=== PATIENT | female | born 1980 | race Caucasian/White ===

== ENCOUNTER 2016-12-03 19:17 | Inpatient (IN) | payer OTHER ==
[2016-12-03 19:22] VITALS: BMI 24.3
--- NOTE | 2016-12-03 20:51 | PDOC ---
History of Present Illness - General Chief Complaint: Back Pain Stated Complaint: BACK PAIN Time Seen by Provider: 12/03/16 20:01 - History of Present Illness Initial Comments: 12/03/16 20:51 CHIEF COMPLAINT: back pain HISTORY OF PRESENT ILLNESS: 36 yo F with hx of asthma and hysterectomy sent in by PCP Reagan for intractable back pain. Patient recently had MRI of lumbar spine on 11/28 positive for degenerative disc w/ bulging at L5/S1. Patient has allergies to multiple narcotics except for Fentanyl. No recent travel or sick contacts. PAST MEDICAL HISTORY: Denies past medical history FAMILY HISTORY: Denies SOCIAL HISTORY: Denies tobacco, alcohol, illicit drug use. SURGICAL HISTORY: Denies ALLERGIES: codeine, Dilaudid, morphine, Percocet, albuterol REVIEW OF SYSTEMS General/Constitutional: Denies fever or chills. HEENT: Denies change in vision. Denies ear pain or discharge. Denies sore throat. Cardiovascular: Denies chest pain or shortness of breath. Respiratory: Denies cough, wheezing, or hemoptysis. Gastrointestinal: Denies nausea, vomiting, diarrhea or constipation. Denies rectal bleeding. Genitourinary: Denies dysuria, frequency, or change in urination. Musculoskeletal: Intractable back pain. PHYSICAL EXAM General Appearance: Well-appearing, appropriately dressed. No apparent distress. HEENT: EOMI, PERRLA, normal ENT inspection, normal voice, TMs normal, pharynx normal. No conjunctival pallor. No photophobia, scleral icterus. Neck: Supple. Trachea midline. No tenderness, rigidity, carotid bruit, stridor , lymphadenopathy, or thyromegaly. Respiratory/Chest: Lungs CTAB. Cardiovascular: RRR. S1, S2. Musculoskeletal/Extremities: Midline tenderness to lumbar spine. Normal inspection. FROM of all extremities, normal capillary refill. Pelvis Stable. No CVA tenderness. No tenderness to extremities, pedal edema, swelling, erythema or deformity. Integumentary: Appropriate color, dry, warm. 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 Fully oriented, alert. Appropriate mood/affect. Motor strength 5/5. No appreciable EOM palsy, facial droop or sensory deficit. Past History - Past Medical History Allergies/Adverse Reactions: Allergies Allergy/AdvReac Type Severity Reaction Status Date / Time albuterol Allergy Severe Swelling Verified 12/03/16 19:22 banana Allergy Unknown Verified 12/05/16 13:33 mushroom Allergy Unknown Verified 12/05/16 13:32 codeine [Codeine] Allergy Difficulty Verified 12/03/16 19:22 Breathing Fish Containing Products Allergy Verified 12/03/16 19:22 hydromorphone HCl Allergy difficulty Verified 12/03/16 19:22 [From Dilaudid] breathibg samir Allergy Verified 12/03/16 19:22 meperidine HCl [From Demerol] Allergy Difficulty Verified 12/03/16 19:22 Breathing metoclopramide HCl Allergy Swelling Verified 05/10/16 11:58 [From Reglan] morphine Allergy difficulty Verified 12/03/16 19:22 breathibg oxycodone HCl [From Percocet] Allergy Verified 12/03/16 19:22 shellfish derived Allergy Swelling,ra Verified 12/03/16 19:22 sh watermelon Allergy Verified 05/06/16 08:15 cantaloupe Allergy Uncoded 05/10/16 11:58 miller Allergy Uncoded 05/10/16 11:58 MULTIPLE FOOD Allergy Uncoded 05/10/16 11:58 mustard,fish,vinegar Allergy swelling,ra Uncoded 05/10/16 11:58 sh NARCOTICS Allergy Difficulty Uncoded 05/10/16 11:58 Breathing nuts Allergy Uncoded 05/10/16 11:58 Home Medications: Ambulatory Orders Quetiapine Fumarate [Seroquel -] 25 mg PO HS 03/10/12 Diazepam [Valium -] 10 mg PO HS 10/31/13 Ranitidine HCl [Zantac] 300 mg PO DAILY 05/05/16 Naproxen [Naprosyn -] 500 mg PO BID #60 tablet 05/06/16 Tramadol HCl 50 mg PO TID 05/10/16 Anemia: Yes Asthma: Yes Cancer: No 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) CVA: No COPD: No CHF: No Dementia: No Diabetes: No (HYPOGLYCEMIA) GI Disorders: Yes (REFLUX) Disorders: No HTN: No (HYPOTENSION) Hypercholesterolemia: No Liver Disease: No Suicide Attempt (Hx): No Seizures: No Thyroid Disease: No Other medical history: herniated disc - Surgical History Abdominal Surgery: No Appendectomy: No Cardiac Surgery: No Cholecystectomy: Yes Lung Surgery: No Neurologic Surgery: No Orthopedic Surgery: No - Psycho/Social/Smoking Cessation Hx Anxiety: No Suicidal Ideation: No Smoking Status: Yes Smoking History: Former smoker Have you smoked in the past 12 months: Yes Number of Cigarettes Smoked Daily: 2 If you are a former smoker, when did you quit?: 1 month Information on smoking cessation initiated: No 'Breaking Loose' booklet given: 10/31/13 Hx Alcohol Use: Yes (SOCIAL) Drug/Substance Use Hx: No Substance Use Type: None Hx Substance Use Treatment: No *Physical Exam - Vital Signs Last Vital Signs Temp Pulse Resp BP Pulse Ox 97.7 F 95 H 18 115/91 99 12/03/16 19:18 12/03/16 19:18 12/03/16 19:18 12/03/16 19:18 12/03/16 19:18 ED Treatment Course - LABORATORY CBC & Chemistry Diagram: 12/11/16 06:30 12/11/16 06:30 Medical Decision Making - Medical Decision Making 36 yo F with hx of asthma and hysterectomy sent in by PCP Reagan for admission intractable back pain. -CBC, CMP -EKG -UA, Ucx -IV Fentanyl, Pepcid, IVF, Protonix Discussed case with MD Denton, patient admitted to med/surg. *DC/Admit/Observation/Transfer Diagnosis at time of Disposition: Intractable back pain - Discharge Dispostion Admit: Yes
--- NOTE | 2016-12-03 20:56 | PDOC ---
*Physical Exam - Vital Signs Last Vital Signs Temp Pulse Resp BP Pulse Ox 97.7 F 95 H 18 115/91 99 12/03/16 19:18 12/03/16 19:18 12/03/16 19:18 12/03/16 19:18 12/03/16 19:18 ED Treatment Course - LABORATORY CBC & Chemistry Diagram: 12/04/16 06:20 12/04/16 06:20 Medical Decision Making - Medical Decision Making 12/03/16 20:56 agree with care from JUD Garces *DC/Admit/Observation/Transfer Diagnosis at time of Disposition: Intractable back pain
[2016-12-03] MEDS ORDERED: PANTOPRAZOLE SODIUM 40 MG in SODIUM CHLORIDE 100 ML IVPB ONE (22:11)
[2016-12-03] MEDS ORDERED: FAMOTIDINE 20 MG/50 ML IVPB 50 ML IVPB ONE ×2 (22:11→22:16)
[2016-12-03 22:13] LABS: BASOPHIL 0.5 % (0-2.0); EOSINOPHIL 1.2 % (0-4.5); MCH 28.9 pg (25.7-33.7); MCHC 32.6 g/dl (32.0-36.0); MEAN CELL VOLUME 88.7 fl (80-96); MEAN PLT VOLUME 8.7 fl (7.5-11.1); NEUTROPHILS 71.3 % (42.8-82.8); PLATELET COUNT 364 K/MM3 (134-434); RDW 13.7 % (11.6-15.6); WHITE BLOOD COUNT 11.4 K/mm3 (4.0-10.0)
[2016-12-03] MEDS ORDERED: PANTOPRAZOLE SODIUM 100 ML IVPB ONE (22:16)
[2016-12-03] MEDS ORDERED: SODIUM CHLORIDE 0.9% 1000 ML INFUS.BAG IV ONE (22:24)
[2016-12-03 22:25] LABS: URINE APPEARANCE SLCLOUDY; URINE BILIRUBIN NEGATIVE (NEGATIVE); URINE BLOOD NEGATIVE (NEGATIVE); URINE COLOR YELLOW; URINE GLUCOSE (UA) NEGATIVE (NEGATIVE); URINE KETONE NEGATIVE (NEGATIVE); URINE LEUK ESTERASE NEGATIVE (NEGATIVE); URINE NITRITE NEGATIVE (NEGATIVE); URINE PROTEIN NEGATIVE (NEGATIVE); URINE UROBILINOGEN NEGATIVE mg/dL (0.2-1.0)
[2016-12-03 23:05] LABS: ALBUMIN 3.6 g/dl (3.4-5.0); ANION GAP 7 (8-16); BILIRUBIN,TOTAL 0.3 mg/dL (0.2-1.0); CALCIUM 8.4 mg/dL (8.5-10.1); CO2 27 mmol/L (21-32); CREATININE 0.5 mg/dL (0.55-1.02); GLUCOSE,RANDOM 84 mg/dL (74-106); SGOT/AST 36 U/L (15-37); SGPT/ALT 52 U/L (12-78); TOT PROT 6.8 g/dl (6.4-8.2)
[2016-12-03 23:06] LABS: ALK PHOS 96 U/L (45-117)
[2016-12-03] MEDS ORDERED: FENTANYL PATCH WASTE TD PRN (23:40)
[2016-12-03] MEDS ORDERED: ONDANSETRON 4 MG/2 ML VIAL IVPB PRN (23:41)
[2016-12-03] MEDS: fentaNYL 25mcg/hr PATCH.TD72 TD SCH (23:57)
[2016-12-03] MEDS: diazePAM 5 MG TABLET PO SCH (23:57)
[2016-12-04] MEDS: DOCUSATE SODIUM 100 MG CAPSULE (FP) PO SCH ×3 (00:03→21:35)
[2016-12-04] MEDS: QUEtiapine FUMARATE 25 MG TABLET (FP) PO SCH ×2 (00:03→21:36)
[2016-12-04] MEDS: NAPROXEN 500 MG TABLET (FP) PO SCH ×3 (00:56→21:36)
[2016-12-04] MEDS: ACETAMINOPHEN 325 MG TABLET (FP) PO PRN ×2 (07:04→19:07)
[2016-12-04 07:28] LABS: BASOPHIL 0.2 % (0-2.0); EOSINOPHIL 1.8 % (0-4.5); MCH 29.9 pg (25.7-33.7); MCHC 33.8 g/dl (32.0-36.0); MEAN CELL VOLUME 88.3 fl (80-96); MEAN PLT VOLUME 7.8 fl (7.5-11.1); NEUTROPHILS 61.3 % (42.8-82.8); PLATELET COUNT 253 K/MM3 (134-434); RDW 13.8 % (11.6-15.6)
[2016-12-04 07:49] LABS: ANION GAP 7 (8-16); CALCIUM 8.1 mg/dL (8.5-10.1); CO2 24 mmol/L (21-32); CREATININE 0.5 mg/dL (0.55-1.02); GLUCOSE,RANDOM 87 mg/dL (74-106); SGOT/AST 23 U/L (15-37); SGPT/ALT 39 U/L (12-78)
[2016-12-04 07:51] LABS: ALK PHOS 84 U/L (45-117); BILIRUBIN,TOTAL 0.3 mg/dL (0.2-1.0); TOT PROT 5.9 g/dl (6.4-8.2)
[2016-12-04] MEDS ORDERED: NAPROXEN 500 MG TABLET (FP) PO SCH (10:00)
--- NOTE | 2016-12-04 10:30 | HP ---
Admitting History and Physical - Primary Care Physician PCP: Tahir Kirk - Admission Chief Complaint: My back is hurting History of Present Illness: Mrs Wetzel is a pleasant 36 year old female who comes in with intractable back pain. She says she was at work last week. She bent over at work to pick something up and when she stood up she had severe lower back pain. She says that it was bilateral and radiated up to her neck. She presented to the ER and was prescribed valium and tramadol. In spite of this her pain was not controlled. She presented to Dr Kirk and underwent MRI, she was found to have a herniated disc. She went back to work the past three days but was still have significant amount of pain. Then yesterday she says the pain was so severe it was unbearable. She threw up because of the pain. It began to radiate down both legs. She had numbness with the pain. She denies incontinence with it. Because she has multiple allergies to narcotics she came in and was admitted. She is still having significant back pain with numbness. History Source: Patient Limitations to Obtaining History: No Limitations - Past Medical History Pulmonary: Yes: Asthma ...LMP: 04/24/16 ...: No - Past Surgical History Past Surgical History: Yes: Cholecystectomy (btl), Hysterectomy (partial), Tubal Ligation - Smoking History Smoking history: Former smoker Have you smoked in the past 12 months: Yes Aproximately how many cigarettes per day: 2 If you are a former smoker, when did you quit?: 1 month - Alcohol/Substance Use Hx Alcohol Use: Yes (SOCIAL) History of Substance Use: reports: None - Social History Usual Living Arrangement: Yes: With Spouse ADL: Independent History of Recent Travel: No Home Medications - Allergies Allergies/Adverse Reactions: Allergies Allergy/AdvReac Type Severity Reaction Status Date / Time albuterol Allergy Severe Swelling Verified 12/03/16 19:22 codeine [Codeine] Allergy Difficulty Verified 12/03/16 19:22 Breathing Fish Containing Products Allergy Verified 12/03/16 19:22 hydromorphone HCl Allergy difficulty Verified 12/03/16 19:22 [From Dilaudid] breathibg samir Allergy Verified 12/03/16 19:22 meperidine HCl [From Demerol] Allergy Difficulty Verified 12/03/16 19:22 Breathing metoclopramide HCl Allergy Swelling Verified 05/10/16 11:58 [From Reglan] morphine Allergy difficulty Verified 12/03/16 19:22 breathibg oxycodone HCl [From Percocet] Allergy Verified 12/03/16 19:22 shellfish derived Allergy Swelling,ra Verified 12/03/16 19:22 sh watermelon Allergy Verified 05/06/16 08:15 cantaloupe Allergy Uncoded 05/10/16 11:58 miller Allergy Uncoded 05/10/16 11:58 MULTIPLE FOOD Allergy Uncoded 05/10/16 11:58 mustard,fish,vinegar Allergy swelling,ra Uncoded 05/10/16 11:58 sh NARCOTICS Allergy Difficulty Uncoded 05/10/16 11:58 Breathing nuts Allergy Uncoded 05/10/16 11:58 - Home Medications Home Medications: Ambulatory Orders Quetiapine Fumarate [Seroquel -] 25 mg PO HS 03/10/12 Diazepam [Valium -] 10 mg PO HS 10/31/13 Ranitidine HCl [Zantac] 300 mg PO DAILY 05/05/16 Naproxen [Naprosyn -] 500 mg PO BID #60 tablet 05/06/16 Tramadol HCl 50 mg PO TID 05/10/16 Family Disease History - Family Disease History Family Disease History: Diabetes: Father, Mother, Heart Disease: Father, Mother Review of Systems Findings/Remarks: Full review of systems obtained, as per HPI and otherwise negative Physical Examination Vital Signs: Vital Signs Temperature 98.2 F 12/04/16 02:11 Pulse Rate 81 12/04/16 02:11 Respiratory Rate 20 12/04/16 02:11 Blood Pressure 114/65 12/04/16 02:11 O2 Sat by Pulse Oximetry (%) 99 12/03/16 19:18 Constitutional: Yes: Well Nourished, No Distress, Calm Eyes: Yes: Conjunctiva Clear, EOM Intact, PERRL HENT: Yes: Atraumatic, Normocephalic Cardiovascular: Yes: Regular Rate and Rhythm. No: Gallop, Murmur, Rub Respiratory: Yes: Regular, CTA Bilaterally. No: Rales, Rhonchi, Wheezes Gastrointestinal: Yes: Normal Bowel Sounds, Soft. No: Distention, Tenderness Extremities: Yes: WNL Edema: No Labs: CBC, BMP 07/13/17 06:20 12/04/16 06:20 Problem List - Problems (1) Herniated intervertebral disc of lumbar spine Code(s): M51.26 - OTHER INTERVERTEBRAL DISC DISPLACEMENT, LUMBAR REGION (2) Intractable back pain Code(s): M54.9 - DORSALGIA, UNSPECIFIED Assessment/Plan -patient with pain and neuralgias secondary to herniated disc -admitted for pain control -started on fentanyl patch -consult pain management for pain control -is not incontinent, but is having neuralgias, so will consult neurosurgery to evaluate -physical therapy consult
[2016-12-04] MEDS: PANTOPRAZOLE 40 MG TABLET (FP) PO SCH (10:40)
--- NOTE | 2016-12-04 13:09 | EKG ---
Test Reason : Blood Pressure : / mmHG Vent. Rate : 080 BPM Atrial Rate : 080 BPM P-R Int : 236 ms QRS Dur : 072 ms QT Int : 384 ms P-R-T Axes : 050 -09 039 degrees QTc Int : 442 ms SINUS RHYTHM WITH 1ST DEGREE A-V BLOCK OTHERWISE NORMAL ECG WHEN COMPARED WITH ECG OF 02-AUG-2010 08:27, NO SIGNIFICANT CHANGE WAS FOUND Confirmed by DANETTE ROBERT MD ([id number]) on 12/04/2016 1:09:03 PM Referred By: Confirmed By:DANETTE ROBERT MD
[2016-12-04] MEDS: diazePAM 5 MG TABLET PO SCH (21:35)
[2016-12-04] MEDS ORDERED: DOCUSATE SODIUM 100 MG CAPSULE (FP) PO SCH (22:00)
[2016-12-04] MEDS ORDERED: diazePAM 5 MG TABLET PO SCH (22:00)
[2016-12-04] MEDS ORDERED: QUEtiapine FUMARATE 25 MG TABLET (FP) PO SCH (22:00)
[2016-12-04] MEDS ORDERED: DIAZEPAM PO SCH (22:00)
--- NOTE | 2016-12-04 22:37 | CONSULT ---
Consult Consult Specialty:: pain management Referred by:: dr berumen Reason for Consultation:: back pain - History of Present Illness Chief Complaint: back pain History of Present Illness: Mrs Wetzel is a pleasant 36 year old female who comes in with intractable back pain. She says she was at work last week. She bent over at work to pick something up and when she stood up she had severe lower back pain. She says that it was bilateral and radiated up to her neck. She presented to the ER and was prescribed valium and tramadol. In spite of this her pain was not controlled. She presented to Dr Berumen and underwent MRI, she was found to have a herniated disc. She went back to work the past three days but was still have significant amount of pain. Then yesterday she says the pain was so severe it was unbearable. She threw up because of the pain. It began to radiate down both legs. She had numbness with the pain. She denies incontinence with it. Because she has multiple allergies to narcotics she came in and was admitted. She is still having significant back pain with numbness. Currently she is laying in bed with severe pain on any movement. Pain score 10/ 10. She does reports history of severe sensitivity to steroids, opioids, neuropathic agents. - Past Medical History Pulmonary: Yes: Asthma ...LMP: 04/24/16 ...: No - Past Surgical History Past Surgical History: Yes: Cholecystectomy (btl), Hysterectomy (partial), Tubal Ligation - Alcohol/Substance Use Hx Alcohol Use: Yes (SOCIAL) History of Substance Use: reports: None - Smoking History Smoking history: Former smoker Have you smoked in the past 12 months: Yes Aproximately how many cigarettes per day: 2 If you are a former smoker, when did you quit?: 1 month - Social History ADL: Independent History of Recent Travel: No Home Medications - Allergies Allergies/Adverse Reactions: Allergies Allergy/AdvReac Type Severity Reaction Status Date / Time albuterol Allergy Severe Swelling Verified 12/03/16 19:22 codeine [Codeine] Allergy Difficulty Verified 12/03/16 19:22 Breathing Fish Containing Products Allergy Verified 12/03/16 19:22 hydromorphone HCl Allergy difficulty Verified 12/03/16 19:22 [From Dilaudid] breathibg samir Allergy Verified 07/12/17 19:22 meperidine HCl [From Demerol] Allergy Difficulty Verified 12/03/16 19:22 Breathing metoclopramide HCl Allergy Swelling Verified 05/10/16 11:58 [From Reglan] morphine Allergy difficulty Verified 12/03/16 19:22 breathibg oxycodone HCl [From Percocet] Allergy Verified 12/03/16 19:22 shellfish derived Allergy Swelling,ra Verified 12/03/16 19:22 sh watermelon Allergy Verified 05/06/16 08:15 cantaloupe Allergy Uncoded 05/10/16 11:58 miller Allergy Uncoded 05/10/16 11:58 MULTIPLE FOOD Allergy Uncoded 05/10/16 11:58 mustard,fish,vinegar Allergy swelling,ra Uncoded 05/10/16 11:58 sh NARCOTICS Allergy Difficulty Uncoded 05/10/16 11:58 Breathing nuts Allergy Uncoded 05/10/16 11:58 - Home Medications Home Medications: Ambulatory Orders Quetiapine Fumarate [Seroquel -] 25 mg PO HS 03/10/12 Diazepam [Valium -] 10 mg PO HS 10/31/13 Ranitidine HCl [Zantac] 300 mg PO DAILY 05/05/16 Naproxen [Naprosyn -] 500 mg PO BID #60 tablet 05/06/16 Tramadol HCl 50 mg PO TID 05/10/16 Family Disease History - Family Disease History Family Disease History: Diabetes: Father, Mother, Heart Disease: Father, Mother Physical Exam Vital Signs: Vital Signs Temperature 98.2 F 12/04/16 14:00 Pulse Rate 71 12/04/16 14:00 Respiratory Rate 21 12/04/16 14:00 Blood Pressure 113/65 12/04/16 14:00 O2 Sat by Pulse Oximetry (%) 99 12/03/16 19:18 Neurological: Yes: Tingling (in both legs), Weakness Labs: CBC, BMP 12/04/16 06:20 12/04/16 06:20 Assessment/Plan lumbar radiculopathy secondary to herniated disc 1. There is no mri available today. she reports having undergone an MRI last week. She will have her obtain a CD with her recent MRI. If this is not possible, would recommend new MRI lumbar spine non contrast 2. Since the patient reports severe sensitivity to cortisone, no interventional options recommended at this time 3. Neurosurgery eval once MRI images available to review
[2016-12-05] MEDS ORDERED: MAG HYDROX/AL HYDROX/SIMETH 30 ML UNIT-DOSE CUP PO ONE (07:30)
[2016-12-05 08:02] LABS: BASOPHIL 0.3 % (0-2.0); EOSINOPHIL 2.2 % (0-4.5); MCH 30.1 pg (25.7-33.7); MCHC 34.3 g/dl (32.0-36.0); MEAN CELL VOLUME 87.8 fl (80-96); MEAN PLT VOLUME 7.8 fl (7.5-11.1); NEUTROPHILS 54.7 % (42.8-82.8); PLATELET COUNT 255 K/MM3 (134-434); RDW 13.7 % (11.6-15.6); WHITE BLOOD COUNT 6.7 K/mm3 (4.0-10.0)
[2016-12-05 08:20] LABS: ANION GAP 5 (8-16); CALCIUM 8.9 mg/dL (8.5-10.1); CO2 27 mmol/L (21-32); CREATININE 0.5 mg/dL (0.55-1.02); GLUCOSE,RANDOM 96 mg/dL (74-106); MAGNESIUM 2.1 mg/dL (1.8-2.4); PHOSPHOROUS 3.5 mg/dL (2.5-4.9)
--- NOTE | 2016-12-05 11:15 | PN ---
Progress Note, Physician Chief Complaint: Mrs Wetzel says she is still feeling pain in her back and it is radiating down both legs. She also feels muscle spams and pulling associated with this. She says that she needed to urinate this morning and was unable to make it, and after she finished she stood up but continued to urinate. She denies chest pain , shortness of breath, nausea/vomiting but is having epigastric pain and constipation. - Current Medication List Current Medications: Active Medications Acetaminophen (Tylenol -) 650 mg PO Q4H PRN PRN Reason: FEVER OR PAIN Last Admin: 12/04/16 19:07 Dose: 650 mg Diazepam (Valium -) 10 mg PO [facility] Last Admin: 12/04/16 21:35 Dose: 10 mg Docusate Sodium (Colace -) 300 mg PO [facility] Last Admin: 12/04/16 21:35 Dose: 300 mg Fentanyl (Duragesic 25mcg Patch -) 1 patch TD Q72H [facility] Stop: 12/10/16 23:40 Last Admin: 12/03/16 23:57 Dose: 1 patch Miscellaneous (Duragesic Patch Waste) 1 each TD PRN PRN PRN Reason: PAIN Naproxen (Naprosyn -) 500 mg PO BID [facility] Last Admin: 12/04/16 21:36 Dose: 500 mg Ondansetron HCl (Zofran Injection) 4 mg IVPB Q6H PRN PRN Reason: NAUSEA Pantoprazole Sodium (Protonix -) 40 mg PO DAILY [facility] Last Admin: 12/04/16 10:40 Dose: 40 mg Quetiapine Fumarate (Seroquel -) 25 mg PO [facility] Last Admin: 12/04/16 21:36 Dose: 25 mg - Objective Vital Signs: Vital Signs Temperature 98.4 F 12/05/16 06:00 Pulse Rate 68 12/05/16 06:00 Respiratory Rate 16 12/05/16 06:00 Blood Pressure 101/61 12/05/16 06:00 O2 Sat by Pulse Oximetry (%) 99 12/03/16 19:18 Constitutional: Yes: Well Nourished, No Distress, Calm Cardiovascular: Yes: Regular Rate and Rhythm. No: Gallop, Murmur, Rub Respiratory: Yes: Regular, CTA Bilaterally. No: Rales, Rhonchi, Wheezes Gastrointestinal: Yes: Normal Bowel Sounds, Soft. No: Distention, Tenderness Extremities: Yes: WNL Edema: No Labs: CBC, BMP 12/05/16 06:38 12/05/16 06:38 Problem List - Problems (1) Herniated intervertebral disc of lumbar spine Assessment/Plan: -appreciated pain management assistance -now with questionable incontinence, but even if not true incontinence it is a change in her symptoms -stat MRI of lumbar spine ordered, called MRI department to make aware -neurosurgery aware and will see in evaluation Code(s): M51.26 - OTHER INTERVERTEBRAL DISC DISPLACEMENT, LUMBAR REGION (2) Intractable back pain Assessment/Plan: -continue fentanyl patch -appreciate pain management assistance Code(s): M54.9 - DORSALGIA, UNSPECIFIED (3) Incontinence Assessment/Plan: -patient complains of continuation of urination after feeling like she finished -feels need to urinate, but unable to make to the bathroom -change, was not occurring yesterday -concerning in light of back injury -stat MRI as above and neurosurgery consulted Code(s): R32 - UNSPECIFIED URINARY INCONTINENCE Qualifiers: Incontinence type: urinary Urinary Incontinence type: urge incontinence Qualified Code(s): N39.41 - Urge incontinence (4) Dyspepsia Assessment/Plan: -secondary to NSAIDs -add ranitidine Code(s): R10.13 - EPIGASTRIC PAIN (5) Constipation Assessment/Plan: -secondary to fentanyl -add miralax to docusate Code(s): K59.00 - CONSTIPATION, UNSPECIFIED
[2016-12-05] MEDS: RANITIDINE HCL 150 MG TABLET (FP) PO SCH ×2 (11:32→21:09)
[2016-12-05] MEDS: NAPROXEN 500 MG TABLET (FP) PO SCH (11:33)
[2016-12-05] MEDS: PANTOPRAZOLE 40 MG TABLET (FP) PO SCH (11:33)
[2016-12-05] MEDS: POLYETHYLENE GLYCOL 3350 119 GM BTL PO SCH ×2 (11:33→21:09)
[2016-12-05] MEDS: CYCLOBENZAPRINE HCL 10 MG TABLET (FP) PO PRN (11:42)
[2016-12-05] MEDS: ACETAMINOPHEN 325 MG TABLET (FP) PO PRN (16:10)
--- NOTE | 2016-12-05 18:39 | PN ---
Progress Note (short form) - Note Progress Note: NEUROSURGERY CONSULT DICTATED Chart reviewed History obtained Pt examined C/o intractable back pain. Had LBP since 7. Severe recurrence in 2009 and underwent PT then. Stated work injury when she bent over at work to pick something up and when she stood up with severe lower back pain. Pain was bilateral and radiated up to her neck. She had presented to Dr Kirk and underwent MRI last week. She went back to work the past three days but was still have significant amount of pain. Pain began to radiate down to both legs. C/o numbness/paresthesia earlier. She cannot get to bathroom timely to void. Earlier she had difficulty walking with leg paresthesia earlier and MRI was repeated PE: AF, VSS HEENT- NC/At; neck- supple; Cor- RRR; Lings- CTA B; Abd- benign; Ext- no sign of DVT CN- intact; Motor- 4+/5 all muscle groups LE pain limited; Sensation- intact LT/ vibration; DTR_ physiological Back- tender LS junction B; + SLR B at 30 degrees LS spine MRI (11-28): moderate DDD L5-S1; chronic endplate changes; no stenosis; L2 and L3 hemangioma LS spine MRI (-14): moderate L5-S1 with chronic endplate changes; mild broad- based disc bulge; no thecal sac or root compression; slightly less lordosis than [address] Abd (relevant LS spine anatomy) : L5-S1 degenerative disc space narrowing; mild spondylosis WBC 11.6 initially now 6.7 Chronic L5-S1 DDD without neurological element compression No acute lumbar spine pathology as demonstrated on 2 MRI's PT/rehab Pain management f/u Surgery is reserved for persistent intractable pain despite medical treatments, given MRI does not demonstrate significant compressive pathology and MRI findings are chronic She is relatively young and fusion should be considered a last resort in the absence of neurological element compressive pathology Options limited because of multiple medication allergies/severe side effects Trial of Neurontin Baseline ESR and CRP
[2016-12-05] MEDS: QUEtiapine FUMARATE 25 MG TABLET (FP) PO SCH (21:09)
[2016-12-05] MEDS: diazePAM 5 MG TABLET PO SCH (21:10)
[2016-12-05] MEDS: DOCUSATE SODIUM 100 MG CAPSULE (FP) PO SCH (21:10)
[2016-12-05] MEDS ORDERED: GABAPENTIN 300 MG CAPSULE (FP) PO SCH (22:00)
[2016-12-06] MEDS: CYCLOBENZAPRINE HCL 10 MG TABLET (FP) PO PRN ×2 (01:12→10:09)
[2016-12-06] MEDS: ACETAMINOPHEN 325 MG TABLET (FP) PO PRN ×3 (01:12→14:12)
[2016-12-06 07:36] LABS: BASOPHIL 0.3 % (0-2.0); MCH 29.9 pg (25.7-33.7); MCHC 33.8 g/dl (32.0-36.0); MEAN CELL VOLUME 88.6 fl (80-96); MEAN PLT VOLUME 7.7 fl (7.5-11.1); NEUTROPHILS 53.3 % (42.8-82.8); PLATELET COUNT 252 K/MM3 (134-434); RDW 13.5 % (11.6-15.6); WHITE BLOOD COUNT 5.3 K/mm3 (4.0-10.0)
[2016-12-06 08:05] LABS: ANION GAP 6 (8-16); CALCIUM 8.4 mg/dL (8.5-10.1); CO2 28 mmol/L (21-32); CREATININE 0.5 mg/dL (0.55-1.02); GLUCOSE,RANDOM 97 mg/dL (74-106); MAGNESIUM 2.2 mg/dL (1.8-2.4)
[2016-12-06 08:07] LABS: C-REACTIVE PROTEIN 0.7 MG/DL (0.00-0.3)
--- NOTE | 2016-12-06 09:43 | PN ---
Progress Note (short form) - Note Progress Note: NEUROSURGERY LBP and some sciatica Reportedly had problem with Neurontin also Walking about 20 ft with walker Hunched over PE: AF, VSS HEENT- NC/At; neck- supple; Cor- RRR; Lings- CTA B; Abd- benign; Ext- no sign of DVT CN- intact; Motor- 4+/5 all muscle groups LE pain limited; Sensation- intact LT/ vibration; DTR_ physiological Back- tender LS junction B; + SLR B at 30 degrees LS spine MRI (11-28): moderate DDD L5-S1; chronic endplate changes; no stenosis; L2 and L3 hemangioma LS spine MRI (-): moderate L5-S1 with chronic endplate changes; mild broad- based disc bulge; no thecal sac or root compression; slightly less lordosis than [address] Abd : L5-S1 degenerative disc space narrowing; mild spondylosis ESR 12; CRP 0.2 Chronic L5-S1 DDD without neurological element compression No new lumbar spine pathology as demonstrated between 2 MRI's- unlikely infection given normal ESR/CRP PT/rehab Pain management f/u encouraged Surgery is reserved for persistent intractable pain despite medical treatments, given MRI does not demonstrate significant compressive pathology and with only chronic disc and endplate findings Pt unfortunately has undergone extensive/long time of medical tx previously already and mechanical back pain continues to worsen Medical options limited because of multiple medication allergies/severe side effects per pt experience Candidate for L5-S1 discectomy and interbody fusion/instrumentation with SSEP/ EMG monitoring LSO brace needed Risks- bleeding, infection, CSF leak, dural tear, nerve injury, thromboembolic risks, non-union, GA Operative and postop care described Smoking cessation advised and pt concurs Pros and cons of treatment approaches discussed Trial of Nuctynta for pain On Fentanyl patch All the above d/w pt's as well
[2016-12-06] MEDS: PANTOPRAZOLE 40 MG TABLET (FP) PO SCH (10:10)
[2016-12-06] MEDS: RANITIDINE HCL 150 MG TABLET (FP) PO SCH ×2 (10:10→22:06)
[2016-12-06] MEDS: POLYETHYLENE GLYCOL 3350 119 GM BTL PO SCH ×2 (10:10→22:08)
[2016-12-06] MEDS ORDERED: CYCLOBENZAPRINE HCL 10 MG TABLET (FP) PO PRN (14:35)
[2016-12-06] MEDS ORDERED: SODIUM PHOSPHATE/NA BIPHOS 133 ML ENEMA RC ONE (14:45)
[2016-12-06] MEDS ORDERED: CYCLOBENZAPRINE HCL 10 MG TABLET (FP) PO ONE (14:45)
--- NOTE | 2016-12-06 15:47 | PN ---
Progress Note (short form) - Note Progress Note: Patient seen and examined. C/O Severe low back pain. No bowel movement since 4 days. Discussed with patient. - Current Medication List Current Medications: Active Medications Acetaminophen (Tylenol -) 650 mg PO Q4H PRN PRN Reason: FEVER OR PAIN Last Admin: 12/04/16 19:07 Dose: 650 mg Diazepam (Valium -) 10 mg PO [facility] Last Admin: 12/04/16 21:35 Dose: 10 mg Docusate Sodium (Colace -) 300 mg PO HS [facility] Last Admin: 12/04/16 21:35 Dose: 300 mg Fentanyl (Duragesic 25mcg Patch -) 1 patch TD Q72H [facility] Stop: 12/10/16 23:40 Last Admin: 12/03/16 23:57 Dose: 1 patch Miscellaneous (Duragesic Patch Waste) 1 each TD PRN PRN PRN Reason: PAIN Naproxen (Naprosyn -) 500 mg PO BID [facility] Last Admin: 12/04/16 21:36 Dose: 500 mg Ondansetron HCl (Zofran Injection) 4 mg IVPB Q6H PRN PRN Reason: NAUSEA Pantoprazole Sodium (Protonix -) 40 mg PO DAILY [facility] Last Admin: 12/04/16 10:40 Dose: 40 mg Quetiapine Fumarate (Seroquel -) 25 mg PO [facility] Last Admin: 12/04/16 21:36 Dose: 25 mg - Objective Vital Signs: Vital Signs Period Temp Pulse Resp BP Sys/Francisco Pulse Ox Last 24 Hr 98.0 F-98.4 F 75-80 16-18 101-118/53-71 96-97 Constitutional: Yes: Well Nourished, No Distress, Calm Cardiovascular: Yes: Regular Rate and Rhythm. No: Gallop, Murmur, Rub Respiratory: Yes: Regular, CTA Bilaterally. No: Rales, Rhonchi, Wheezes Gastrointestinal: Yes: Normal Bowel Sounds, Soft. No: Distention, Tenderness Extremities: Yes: WNL Edema: No Labs: CBC, BMP 12/06/16 06:00 12/06/16 06:00 Problem List - Problems (1) Herniated intervertebral disc of lumbar spine Assessment/Plan: -Appreciated pain management assistance -Neurosurgery follow up appreciated. Code(s): M51.26 - OTHER INTERVERTEBRAL DISC DISPLACEMENT, LUMBAR REGION (2) Intractable back pain Assessment/Plan: -continue fentanyl patch -Increase flexeril to 10 mg TID. -appreciate pain management assistance Code(s): M54.9 - DORSALGIA, UNSPECIFIED (3) Incontinence Assessment/Plan: -Had MRI yesterday -Neuro follow up appreciated. -Nil acute in 2nd MRI or new changes as compared to 1st MRI. Code(s): R32 - UNSPECIFIED URINARY INCONTINENCE Qualifiers: Incontinence type: urinary Urinary Incontinence type: urge incontinence Qualified Code(s): N39.41 - Urge incontinence (4) Dyspepsia Assessment/Plan: -secondary to NSAIDs -continue ranitidine Code(s): R10.13 - EPIGASTRIC PAIN (5) Constipation Assessment/Plan: -No bowel movement for 4 days. Feeling uncomfortable. -secondary to fentanyl -on miralax, docusate -enema now. Code(s): K59.00 - CONSTIPATION, UNSPECIFIED
[2016-12-06 19:00] LABS: ALLENS TEST POSITIVE; ART PUNCT SITE RIGHT RADIAL; ARTERIAL BLD GAS O2 SATURATION 96.5 % (90-98.9); ARTERIAL BLOOD GAS BASE EXCESS 1.4 meq/l (-2-2); ARTERIAL BLOOD GAS HCO3 25.5 meq/L (22-26); ARTERIAL BLOOD GAS pH 7.41 (7.35-7.45); PT. ON O2? NO
[2016-12-06 19:01] LABS: ARTERIAL BLOOD GAS PO2 78.1 mmHg (80-100); LPM/O2% 21%
[2016-12-06] MEDS ORDERED: ASPIRIN 81 MG CHEWABLE TABLETS PO ONE (19:24)
--- NOTE | 2016-12-06 19:31 | RAPID ---
Physical Examination Vital Signs: Vital Signs Temperature 98.5 F 12/06/16 16:00 Pulse Rate 106 H 12/06/16 18:55 Respiratory Rate 20 12/06/16 16:00 Blood Pressure 148/86 12/06/16 18:55 O2 Sat by Pulse Oximetry (%) 97 12/06/16 09:00 Constitutional: Yes: Anxious Eyes: Yes: EOM Intact HENT: Yes: Atraumatic, Normocephalic Neck: Yes: Supple, Trachea Midline Cardiovascular: Yes: Regular Rate and Rhythm, S1, S2 Respiratory: Yes: Regular Gastrointestinal: Yes: Normal Bowel Sounds, Soft Musculoskeletal: Yes: Back Pain Edema: No Peripheral Pulses WNL: Yes Peripheral Pulses: Left Radial: 2+, Right Radial: 2+, Left Doralis Pedis: 2+, Right Dorsalis Pedis: 2+ Neurological: Yes: Oriented, Confusion, Facial Droop (R sided), Loss of Sensation (RUE), Numbness (RUE), Weakness (RUE), Other (patient did not cooperate for lower extremity exam but they were equal from the limited exam). No: Seizure, Tingling, Tremors Labs: CBC, BMP 12/06/16 06:00 12/06/16 06:00 Rapid Response - Rapid Response Assessment: Rapid response was called by the nurse because the patient was unresponsive. When MD's arrived the patient's eyes were closed, extremities were limp. BP cuff and pulse Ox was put on the patient, noted BP of 140s/80s, pulse in 90s, O2 in the high 90s. Patient was allegedly speaking to family members when she all of a sudden became unresponsive. Patient then started to open her eyes after about 3 minutes. She was able to answer simple questions. Patients words were slightly incoherent and she was noted to have right sided facial weakness while speaking and smiling. [facility] flower was immediately called. Possible patient had a CVA but unlikely given history age and risk factors more likely to be TIA STAT Head CT if negative will need MRI Neurology notified EKG Fingerstick for BGM Transfer to telemetry aspirin 325mg Dr. Ruiz who is the attending responsible for patient was notified Critical Care Total Critical Care Time (in minutes): 45 Critical Care Statement: The care of this patient involved high complexity decision making to prevent further life threatening deterioration of the patient 's condition and/or to evalute & treat vital organ system(s) failure or risk of failure. Suspected CVA - Suspected CVA CT Stroke ordered: Yes Stat "Code Chao" Consult to Neurology called: Yes
--- NOTE | 2016-12-06 20:34 | PN ---
Teaching Attending Note Name of Resident: Philip Hightower ATTENDING PHYSICIAN STATEMENT Rapid response called on pt at 6:50 because patient was unresponsive. upon arrival to [facility] , pt was awake but not responding to commands. vitals were nl on arrival , had round equal pupils, 3 mm in diameter. CV: RRR, no MRG Lungs : clear due to fentanyl patch , narcan was to be given , but pt gained responsiveness before it was administered( held subsequently) . after she woke up , neuro exam , although limited, revealed Rlower facial droop , and R upper extremity weakness( proximal 2/5) , could move her lower extremities in bed and against gravity . Code flower was called and CT scan was ordered. radiologist called with negative CT fro bleed or big stroke after patient arrived form CTscan , exam was repeated. at 7:30 pm. she is awake , alert oriented x 3. normal speech , R Lower facial droop hasimproved , EOMI , round eual pupils, reative to light. nl visual bhat, patient tries to close R eye . facial sensation on R face decreased compared to L . tongue and uvula at mid line . EOMI. strength : RUE: shoulder shrug 4/5, deltoid 4/5, shoulder flexion 4/5, biceps 4/5. , triceps 5/5 . hand kiln car unloader 4/5 LUE: shoulder shrug 5/5, deltoid 5/5, shoulder flexion 5/5, biceps 5/5. , triceps 5/5 . hand kiln car unloader 5/5 RLE: hip flexion 5/5 , knee extention 5/5 , knee flezxion 5/5 , ankle dorsiflexion 5/5 , plantar flexion 5/5 . LLE: hip flexion 5/5 , knee extention 5/5 , knee flezxion 5/5 , ankle dorsiflexion 5/5 , plantar flexion 5/5 . Reflexes : 3+ knee jerk, 2+ L biceps , 1+ R biceps . Neg Babinski's. sensation : decreased on R forearm visual filed Nl , no upper or Lower extremity drift assessment : LOC, with R sided facial droop, and R upper extremity weakness with mild sensory deficit ( all rapidly improving ) . Those symptoms could be related to stroke or conversion disorder or psychological stress causinfg physical manifestations Plan: - NIH score 3. low and with rapidly improving deficits . this makes TPA risk higher than benefit - Neuro Dr. beal was notified of case - check MRI of brain - neuro checks - transfer to tele - EKG with no changes from prior . no ischemia - sugar 134. - load with ASa 325. - Dr. Ruiz was notified . - case signed out to night attending Dr. farias
--- NOTE | 2016-12-06 20:37 | HOSP ---
Physical Examination Vital Signs: Vital Signs Temperature 98.2 F 12/06/16 19:00 Pulse Rate 98 H 12/06/16 19:00 Respiratory Rate 18 12/06/16 19:00 Blood Pressure 134/70 12/06/16 19:00 O2 Sat by Pulse Oximetry (%) 98 12/06/16 19:10 Labs: CBC, BMP 12/06/16 06:00 12/06/16 06:00
--- NOTE | 2016-12-06 22:00 | CON.NEURO ---
Consult - History of Present Illness History of Present Illness: PI 36 year old female history of intractable back pain and being seen neurosurgery and also had l spine mri. Patient was talking to family suddenly she become unresponsive and following which she had right sided hemiparesis As per patient she had two more episode like this and she was advise to take aspirin and she never had mri of brain or other work up done in past. she denies smoking or htn , dm or hyperlipidemia. Patient has ct scan it was normal and she has improved rapidly and her nih score was 3. Patient denies any headhace or dyphagia , dysarthria or diplopia. \ - Past Medical History Pulmonary: Yes: Asthma ...LMP: 04/24/16 ...: No - Past Surgical History Past Surgical History: Yes: Cholecystectomy (btl), Hysterectomy (partial), Tubal Ligation - Alcohol/Substance Use Hx Alcohol Use: Yes (SOCIAL) History of Substance Use: reports: None - Smoking History Smoking history: Former smoker Have you smoked in the past 12 months: Yes Aproximately how many cigarettes per day: 2 If you are a former smoker, when did you quit?: 1 month - Social History ADL: Independent History of Recent Travel: No Home Medications - Allergies Allergies/Adverse Reactions: Allergies Allergy/AdvReac Type Severity Reaction Status Date / Time albuterol Allergy Severe Swelling Verified 12/03/16 19:22 banana Allergy Unknown Verified 12/05/16 13:33 mushroom Allergy Unknown Verified 12/05/16 13:32 codeine [Codeine] Allergy Difficulty Verified 12/03/16 19:22 Breathing Fish Containing Products Allergy Verified 12/03/16 19:22 hydromorphone HCl Allergy difficulty Verified 12/03/16 19:22 [From Dilaudid] breathibg samir Allergy Verified 12/03/16 19:22 meperidine HCl [From Demerol] Allergy Difficulty Verified 12/03/16 19:22 Breathing metoclopramide HCl Allergy Swelling Verified 05/10/16 11:58 [From Reglan] morphine Allergy difficulty Verified 12/03/16 19:22 breathibg oxycodone HCl [From Percocet] Allergy Verified 12/03/16 19:22 shellfish derived Allergy Swelling,ra Verified 12/03/16 19:22 sh watermelon Allergy Verified 05/06/16 08:15 cantaloupe Allergy Uncoded 05/10/16 11:58 miller Allergy Uncoded 05/10/16 11:58 MULTIPLE FOOD Allergy Uncoded 05/10/16 11:58 mustard,fish,vinegar Allergy swelling,ra Uncoded 05/10/16 11:58 sh NARCOTICS Allergy Difficulty Uncoded 05/10/16 11:58 Breathing nuts Allergy Uncoded 05/10/16 11:58 - Home Medications Home Medications: Ambulatory Orders Quetiapine Fumarate [Seroquel -] 25 mg PO HS 03/10/12 Diazepam [Valium -] 10 mg PO HS 10/31/13 Ranitidine HCl [Zantac] 300 mg PO DAILY 05/05/16 Naproxen [Naprosyn -] 500 mg PO BID #60 tablet 05/06/16 Tramadol HCl 50 mg PO TID 05/10/16 Family Disease History - Family Disease History Family Disease History: Diabetes: Father, Mother, Heart Disease: Father, Mother Physical Exam-Neuro Vital Signs: Vital Signs Temperature 98.8 F 12/06/16 20:25 Pulse Rate 88 12/06/16 20:25 Respiratory Rate 20 12/06/16 20:25 Blood Pressure 116/75 12/06/16 20:25 O2 Sat by Pulse Oximetry (%) 98 12/06/16 19:10 Labs: CBC, BMP 12/06/16 06:00 12/06/16 06:00 NIH Stroke Scale - Total Score NIH Stroke Scale Score: 0 Imaging - Results Cat Scan: Report Reviewed, Image Reviewed Assessment/Plan cc stroke code was called HPI 36 year old female history of intractable back pain and being seen neurosurgery and also had l spine mri. Patient was talking to family suddenly she become unresponsive and following which she had right sided hemiparesis As per patient she had two more episode like this and she was advise to take aspirin and she never had mri of brain or other work up done in past. she denies smoking or htn , dm or hyperlipidemia. Patient has ct scan it was normal and she has improved rapidly and her nih score was 3. Patient denies any headhace or dyphagia , dysarthria or diplopia. \ Past Medical History of Asthma, back pain Surgical History of Cholecystectomy , hysterectomy and tubal ligation Allergies/Adverse Reactions: Allergies Allergy/AdvReac Type Severity Reaction Status Date / Time albuterol Allergy Severe Swelling Verified 12/03/16 19:22 codeine [Codeine] Allergy Difficulty Verified 12/03/16 19:22 Breathing Fish Containing Products Allergy Verified 12/03/16 19:22 hydromorphone HCl Allergy difficulty Verified 12/03/16 19:22 [From Dilaudid] breathibg samir Allergy Verified 12/03/16 19:22 meperidine HCl [From Demerol] Allergy Difficulty Verified 12/03/16 19:22 Breathing metoclopramide HCl Allergy Swelling Verified 05/10/16 11:58 [From Reglan] morphine Allergy difficulty Verified 12/03/16 19:22 breathibg oxycodone HCl [From Percocet] Allergy Verified 12/03/16 19:22 shellfish derived Allergy Swelling,ra Verified 12/03/16 19:22 sh watermelon Allergy Verified 05/06/16 08:15 cantaloupe Allergy Uncoded 05/10/16 11:58 miller Allergy Uncoded 05/10/16 11:58 MULTIPLE FOOD Allergy Uncoded 05/10/16 11:58 mustard,fish,vinegar Allergy swelling,ra Uncoded 05/10/16 11:58 sh NARCOTICS Allergy Difficulty Uncoded 05/10/16 11:58 Breathing nuts Allergy Uncoded 05/10/16 11:58 home medications Quetiapine Fumarate [Seroquel -] 25 mg PO HS 03/10/12 Diazepam [Valium -] 10 mg PO HS 10/31/13 Ranitidine HCl [Zantac] 300 mg PO DAILY 05/05/16 Naproxen [Naprosyn -] 500 mg PO BID #60 tablet 05/06/16 Tramadol HCl 50 mg PO TID 05/10/16 Physical Examination BS AND BP was normal during rapid response alert oriented x 3 , speech is normal, cn all intact, eomi and no facial asymmetry, sensation is normal subjective right sided hang analytical technician weakness and there is poor effort on finger analytical technician sensation is normal strength is normal in lower extremity and left upper extremity reflex are normal ct head is normal Assessment- 36 year old female history of chronic back pain and being treated with seraquel for chronic pain syndrome or psychiatric symptoms. Patient suddenly become hemiparetic and symptoms improved and now back to baseline ( complain of right hand analytical technician weakness and that is old) Plan suggest to do mri of brain if mri of brain positive than further stroke work up needed unlikely to be stroke Thanks for consult Basilio Sanchez MD
[2016-12-06] MEDS: QUEtiapine FUMARATE 25 MG TABLET (FP) PO SCH (22:06)
[2016-12-06] MEDS: DOCUSATE SODIUM 100 MG CAPSULE (FP) PO SCH (22:09)
[2016-12-06] MEDS: fentaNYL 25mcg/hr PATCH.TD72 TD SCH (23:43)
[2016-12-07] MEDS ORDERED: FENTANYL PATCH WASTE TD PRN (06:00)
[2016-12-07 07:26] LABS: INR 0.99 (0.82-1.09); PROTHROMBIN TIME (PATIENT) 10.9 SEC (9.98-11.88)
[2016-12-07 07:29] LABS: ACTIVATED PTT 32.8 SECONDS (26.9-34.4)
[2016-12-07] MEDS: POLYETHYLENE GLYCOL 3350 119 GM BTL PO SCH ×2 (10:00→22:19)
[2016-12-07] MEDS: RANITIDINE HCL 150 MG TABLET (FP) PO SCH ×2 (10:00→22:19)
[2016-12-07] MEDS: PANTOPRAZOLE 40 MG TABLET (FP) PO SCH (10:00)
--- NOTE | 2016-12-07 10:05 | PN ---
Progress Note (short form) - Note Progress Note: NEUROSURGERY Events noted Sitting in [facility], back at baseline with LBP Seen by neurology Now reports similar episodes previously when under stress PE: AF, VSS HEENT- NC/At; neck- supple; Cor- RRR; Lings- CTA B; Abd- benign; Ext- no sign of DVT CN- intact; Motor- 4+/5 all muscle groups LE pain limited; Sensation- intact LT/ vibration; DTR- physiological Back- tender LS junction B; + SLR B at 30 degrees LS spine MRI (11-28): moderate DDD L5-S1; chronic endplate changes; no stenosis; L2 and L3 hemangioma LS spine MRI (12-05): moderate L5-S1 with chronic endplate changes; mild broad- based disc bulge; no thecal sac or root compression; slightly less lordosis than [address] Abd : L5-S1 degenerative disc space narrowing; mild spondylosis Head CT- no bleed, hypodensity, fx, mass effect, or shift Brain MRI (prelim)- no acute ischemia, no mass, no HCP, no bleed INR 0.99, ptt 32.8 Chronic L5-S1 DDD without neurological element compression Unlikely infection given normal ESR/CRP Pain management f/u encouraged Medical options limited because of multiple medication allergies/severe side effects Candidate for L5-S1 discectomy and interbody fusion/instrumentation with SSEP/ EMG monitoring Smoking cessation advised and pt concurs Pros and cons of treatment approaches discussed Trial of Nuctynta for pain On Fentanyl patch All the above d/w pt's yesterday and today Had scheduled pt tentatively tomorrow prior to the episode Await neurology f/u and input
--- NOTE | 2016-12-07 12:36 | PN ---
Progress Note (short form) - Note Progress Note: c stroke code was called december 06 HPI 36 year old female history of intractable back pain and being seen neurosurgery and also had l spine mri. Patient was talking to family suddenly she become unresponsive and following which she had right sided hemiparesis As per patient she had two more episode like this and she was advise to take aspirin and she never had mri of brain or other work up done in past. she denies smoking or htn , dm or hyperlipidemia. Patient has ct scan it was normal and she has improved rapidly and her nih score was 3. Patient denies any headhace or dyphagia , dysarthria or diplopia. \ Past Medical History of Asthma, back pain Surgical History of Cholecystectomy , hysterectomy and tubal ligation Physical Examination nih scor eis 0 alert oriented x 3 , speech is normal, cn all intact, eomi and no facial asymmetry, sensation is normal right hand scratcher is completely normal today sensation is normal strength is normal in lower extremity and left upper extremity reflex are normal ct head is normal mri of brain was normal Assessment- 36 year old female history of chronic back pain and being treated with seraquel for chronic pain syndrome or psychiatric symptoms. Patient suddenly become hemiparetic yesterday, and now she is completely normal, MRI of brain is normal ( no acute stroke as I reviewed and no official report available ) Plan it would be ok to undergo surgery, as there is no acute stroke ( please follow up official report of mri of brain ) - no further work up for stroke needed azalia beal md Neurology Attending,
[2016-12-07] MEDS: fentaNYL 25mcg/hr PATCH.TD72 TD SCH (13:16)
--- NOTE | 2016-12-07 14:16 | PN ---
Progress Note (short form) - Note Progress Note: Events from yesterday noted. Patient became suddenly unresponsive. Stroke code called. CT head negative for acute intracranial pathology. Patient seen by neurology for the same. Patient recovered fully without residual deficit. She reports similar episode in the past when she is under stress. Denies chest pain, shortness of breath, palpitation or dizziness. Denies headache or blurring of vision. Moving all extremities. Denies bladder or bowel complaints. Afebrile. - Current Medication List Current Medications: Active Medications Acetaminophen (Tylenol -) 650 mg PO Q4H PRN PRN Reason: FEVER OR PAIN Last Admin: 12/04/16 19:07 Dose: 650 mg Diazepam (Valium -) 10 mg PO [facility] Last Admin: 12/04/16 21:35 Dose: 10 mg Docusate Sodium (Colace -) 300 mg PO [facility] Last Admin: 12/04/16 21:35 Dose: 300 mg Fentanyl (Duragesic 25mcg Patch -) 1 patch TD Q72H [facility] Stop: 12/10/16 23:40 Last Admin: 12/03/16 23:57 Dose: 1 patch Miscellaneous (Duragesic Patch Waste) 1 each TD PRN PRN PRN Reason: PAIN Naproxen (Naprosyn -) 500 mg PO BID [facility] Last Admin: 12/04/16 21:36 Dose: 500 mg Ondansetron HCl (Zofran Injection) 4 mg IVPB Q6H PRN PRN Reason: NAUSEA Pantoprazole Sodium (Protonix -) 40 mg PO DAILY [facility] Last Admin: 12/04/16 10:40 Dose: 40 mg Quetiapine Fumarate (Seroquel -) 25 mg PO [facility] Last Admin: 12/04/16 21:36 Dose: 25 mg - Objective Vital Signs: Vital Signs Period Temp Pulse Resp BP Sys/Francisco Pulse Ox Last 24 Hr 97.7 F-98.8 F 77-106 18-20 98-148/53-86 97-98 Constitutional: Yes: Well Nourished, No Distress, Calm Cardiovascular: Yes: Regular Rate and Rhythm. No: Gallop, Murmur, Rub Respiratory: Yes: Regular, CTA Bilaterally. No: Rales, Rhonchi, Wheezes Gastrointestinal: Yes: Normal Bowel Sounds, Soft. No: Distention, Tenderness Extremities: Yes: WNL Edema: No Labs: CBC, BMP 12/06/16 06:00 12/06/16 06:00 Problem List - Problems 1) Loss of consciousness with right upper extremity weakness S/P CT Head - Negative. S/P MRI - Awaiting results. Full recovery since then. Reports similar episodes in the past under stress. Neurology follow up appreciated. Valium/Flexeril discontinued since yesterday. (2) Herniated intervertebral disc of lumbar spine Assessment/Plan: -Appreciated pain management assistance -Neurosurgery follow up appreciated. -Scheduled for surgery tomorrow. -There are no absolute contraindication for the planned procedure provided MRI Head comes back negative. Code(s): M51.26 - OTHER INTERVERTEBRAL DISC DISPLACEMENT, LUMBAR REGION (2) Intractable back pain Assessment/Plan: -continue fentanyl patch -Flexeril discontinued after yesterday's episode. -appreciate pain management assistance Code(s): M54.9 - DORSALGIA, UNSPECIFIED (3) Incontinence Assessment/Plan: -Had MRI yesterday -Neuro follow up appreciated. -Nil acute in 2nd MRI or new changes as compared to 1st MRI. Code(s): R32 - UNSPECIFIED URINARY INCONTINENCE Qualifiers: Incontinence type: urinary Urinary Incontinence type: urge incontinence Qualified Code(s): N39.41 - Urge incontinence (4) Dyspepsia Assessment/Plan: -secondary to NSAIDs -continue ranitidine Code(s): R10.13 - EPIGASTRIC PAIN (5) Constipation Assessment/Plan: -No bowel movement for 4 days. Feeling uncomfortable. -secondary to fentanyl -on miralax, docusate Code(s): K59.00 - CONSTIPATION, UNSPECIFIED
[2016-12-07 15:27] LABS: BASOPHIL 0.3 % (0-2.0); EOSINOPHIL 1.8 % (0-4.5); MCH 29.1 pg (25.7-33.7); MCHC 32.9 g/dl (32.0-36.0); MEAN CELL VOLUME 88.3 fl (80-96); MEAN PLT VOLUME 7.8 fl (7.5-11.1); NEUTROPHILS 67.6 % (42.8-82.8); PLATELET COUNT 245 K/MM3 (134-434); RDW 13.6 % (11.6-15.6); WHITE BLOOD COUNT 7.1 K/mm3 (4.0-10.0)
[2016-12-07] MEDS ORDERED: TAPENTADOL HYDROCHLORIDE 50 MG TABLET PO PRN ×2 (19:29→20:12)
[2016-12-07] MEDS: ALPRAZolam 0.25 MG TABLET PO SCH (22:19)
[2016-12-07] MEDS: DOCUSATE SODIUM 100 MG CAPSULE (FP) PO SCH (22:19)
[2016-12-07] MEDS: QUEtiapine FUMARATE 25 MG TABLET (FP) PO SCH (22:19)
[2016-12-08] MEDS: DEXTROSE 5%-0.45% SALINE 1,000 ML IV SCH (01:14)
[2016-12-08] MEDS ORDERED: PANTOPRAZOLE SODIUM 40 MG/100 ML PRE-DOCKED IVPB ONE (07:30)
[2016-12-08 07:34] LABS: ALBUMIN 3.2 g/dl (3.4-5.0); ALK PHOS 130 U/L (45-117); ANION GAP 9 (8-16); BILIRUBIN,TOTAL 0.5 mg/dL (0.2-1.0); CALCIUM 8.2 mg/dL (8.5-10.1); CO2 25 mmol/L (21-32); CREATININE 0.6 mg/dL (0.55-1.02); GLUCOSE,RANDOM 137 mg/dL (74-106); SGOT/AST 171 U/L (15-37); SGPT/ALT 343 U/L (12-78)
--- NOTE | 2016-12-08 09:21 | PN ---
Progress Note (short form) - Note Progress Note: NEUROSURGERY In bed Son at bedside No further episodes LBP better controlled with Nucynta PE: AF, VSS HEENT- NC/At; neck- supple; Cor- RRR; Lings- CTA B; Abd- benign; Ext- no sign of DVT CN- intact; Motor- 4+/5 all muscle groups LE pain limited; Sensation- intact LT/ vibration; DTR- physiological Back- tender LS junction B; + SLR B at 30 degrees LS spine MRI (11-28): moderate DDD L5-S1; chronic endplate changes and facet arthrosis; no stenosis; L2 and L3 hemangioma LS spine MRI (12-05): moderate L5-S1 with chronic endplate changes and facet hypertrophy; mild broad-based disc bulge; no thecal sac or canal compromise CT Abd : L5-S1 degenerative disc space narrowing; mild spondylosis Head CT- no bleed, hypodensity, fx, mass effect, or shift Brain MRI - no acute ischemia, no mass, no HCP, no bleed INR 0.99, ptt 32.8 Chronic L5-S1 DDD without neurological element compression Medical options limited because of multiple medication allergies/severe side effects Candidate for L5-S1 discectomy and interbody fusion/instrumentation with SSEP/ EMG monitoring Operative and post-operative care described Risks: bleeding, infection, dural tear with CSF leak, neurological injury, thomboembolic risks, GA Cell saver ordered per pt preference Smoking cessation advised and pt concurs Pros and cons of treatment approaches discussed All the above d/w pt Medical clearance and neurology clearance noted (MRI final report negative)
[2016-12-08] MEDS: POLYETHYLENE GLYCOL 3350 119 GM BTL PO SCH ×2 (09:55→22:00)
[2016-12-08] MEDS: ALPRAZolam 0.25 MG TABLET PO SCH (09:55)
[2016-12-08] MEDS: PANTOPRAZOLE 40 MG TABLET (FP) PO SCH (09:55)
[2016-12-08] MEDS: RANITIDINE HCL 150 MG TABLET (FP) PO SCH ×2 (09:56→22:00)
[2016-12-08] MEDS ORDERED: ceFAZolin SODIUM 1 GM VIAL ONE ×2 (12:44→20:17)
[2016-12-08] MEDS ORDERED: LIDOCAINE HCL/PF 2% SDV 5ML VIAL ONE (12:44)
[2016-12-08] MEDS ORDERED: MIDAZOLAM HCL 2 MG/2 ML SINGLE DOSE VIAL ONE ×2 (12:45)
[2016-12-08] MEDS ORDERED: ROCURONIUM BROMIDE 50 MG/5 ML VIAL ONE (12:45)
[2016-12-08] MEDS ORDERED: PROPOFOL 20 ML ONE ×7 (12:45→16:00)
--- NOTE | 2016-12-08 12:45 | EKG ---
Test Reason : Blood Pressure : / mmHG Vent. Rate : 081 BPM Atrial Rate : 081 BPM P-R Int : 224 ms QRS Dur : 084 ms QT Int : 378 ms P-R-T Axes : 046 002 042 degrees QTc Int : 439 ms SINUS RHYTHM WITH 1ST DEGREE A-V BLOCK OTHERWISE NORMAL ECG WHEN COMPARED WITH ECG OF 03-DEC-2016 21:16, NO SIGNIFICANT CHANGE WAS FOUND Confirmed by ROGELIO LUND MD ([id number]) on 12/08/2016 12:45:07 PM Referred By: Confirmed By:ROGELIO LUND MD
[2016-12-08] MEDS ORDERED: HEPARIN NA (PORCINE) 5,000 UNITS/ML 1ML VIAL ONE ×2 (12:55)
[2016-12-08] MEDS: ceFAZolin SODIUM 1 GM VIAL IVPB ONE ×2 (13:17→20:40)
[2016-12-08] MEDS ORDERED: DEXAMETHASONE SOD PHOSPHATE 4 MG/1 ML VIAL ONE (13:40)
[2016-12-08] MEDS ORDERED: PROMETHAZINE HCL 25 MG/1 ML VIAL IVPB PRN (16:02)
[2016-12-08] MEDS ORDERED: ONDANSETRON 4 MG/2 ML VIAL IVPUSH PRN (16:02)
[2016-12-08] MEDS ORDERED: DEXAMETHASONE SOD PHOSPHATE 4 MG/1 ML VIAL IVPUSH PRN (16:02)
[2016-12-08] MEDS ORDERED: PROMETHAZINE HCL 25 MG/1 ML VIAL IVPUSH PRN (16:02)
[2016-12-08] MEDS ORDERED: LACTATED RINGERS SOLUTION 1,000 ML IV SCH (16:15)
--- NOTE | 2016-12-08 16:38 | PN ---
Progress Note, Physician Chief Complaint: Unable to obtain secondary to anesthesia - Current Medication List Current Medications: Active Medications Alprazolam (Xanax -) 0.5 mg PO BID [facility] Last Admin: 12/08/16 09:55 Dose: Not Given Dexamethasone Sodium Phosphate (Decadron Injection -) 4 mg IVPUSH ONCE PRN PRN Reason: NAUSEA AND/OR VOMITING Diphenhydramine HCl (Benadryl Injection -) 12.5 mg IVPUSH ONCE PRN PRN Reason: FOR ITCHING Docusate Sodium (Colace -) 300 mg PO HS [facility] Last Admin: 12/07/16 22:19 Dose: 300 mg Fentanyl (Duragesic 25mcg Patch -) 1 patch TD Q72H ILSA Stop: 12/10/16 23:40 Last Admin: 12/07/16 13:16 Dose: 1 patch Fentanyl (Sublimaze Injection -) 50 mcg IVPUSH [id number] PRN PRN Reason: PAIN Stop: 12/11/16 16:03 Hydromorphone HCl (Dilaudid Document Improvement Specialist -) 0 mg MOTOR VEHICLE OR CARAVAN SALESPERSON MOTOR VEHICLE OR CARAVAN SALESPERSON ILSA PRN Reason: Protocol Stop: 12/15/16 16:03 Dextrose/Sodium Chloride (D5-1/2ns -) 1,000 mls @ 120 mls/hr IV ASDIR [facility] Last Admin: 12/08/16 01:14 Dose: 120 mls/hr Lactated Ringer's (Lactated Ringers Solution) 1,000 mls @ 125 mls/hr IV ASDIR ILSA Miscellaneous (Duragesic Patch Waste) 1 each TD PRN PRN PRN Reason: PAIN Last Admin: 12/07/16 13:12 Dose: 1 each Ondansetron HCl (Zofran Injection) 4 mg IVPB Q6H PRN PRN Reason: NAUSEA Last Admin: 12/06/16 14:33 Dose: 4 mg Ondansetron HCl (Zofran Injection) 4 mg IVPUSH Q6H PRN PRN Reason: NAUSEA AND/OR VOMITING Stop: 12/08/16 22:03 Pantoprazole Sodium (Protonix -) 40 mg PO DAILY [facility] Last Admin: 12/08/16 09:55 Dose: Not Given Polyethylene Glycol (Miralax (For Daily Use) -) 17 gm PO BID [facility] Last Admin: 12/08/16 09:55 Dose: Not Given Promethazine HCl (Phenergan Injection -) 12.5 mg IVPUSH Q6H PRN PRN Reason: NAUSEA Stop: 12/08/16 22:03 Promethazine HCl (Phenergan Injection -) 12.5 mg IVPB Q6H PRN PRN Reason: NAUSEA AND/OR VOMITING Quetiapine Fumarate (Seroquel -) 25 mg PO HS [facility] Last Admin: 12/07/16 22:19 Dose: 25 mg Ranitidine HCl (Zantac -) 150 mg PO BID [facility] Last Admin: 12/08/16 09:56 Dose: Not Given Tapentadol (Nucynta -) 50 mg PO Q4H PRN Last Admin: 12/07/16 20:28 Dose: 50 mg - Objective Vital Signs: Vital Signs Temperature 98.1 F 12/08/16 07:36 Pulse Rate 106 H 12/08/16 07:36 Respiratory Rate 18 12/08/16 07:41 Blood Pressure 104/58 12/08/16 07:36 O2 Sat by Pulse Oximetry (%) 97 12/08/16 07:41 Constitutional: Yes: Well Nourished, No Distress, Calm Cardiovascular: Yes: Regular Rate and Rhythm. No: Gallop, Murmur, Rub Respiratory: Yes: Regular, CTA Bilaterally. No: Rales, Rhonchi, Wheezes Gastrointestinal: Yes: Normal Bowel Sounds, Soft. No: Distention, Tenderness Extremities: Yes: WNL Edema: No Labs: CBC, BMP 12/07/16 15:10 12/08/16 05:35 INR, PTT INR 0.99 (0.82-1.09) 12/07/16 05:35 Problem List - Problems (1) Herniated intervertebral disc of lumbar spine Code(s): M51.26 - OTHER INTERVERTEBRAL DISC DISPLACEMENT, LUMBAR REGION (2) Intractable back pain Code(s): M54.9 - DORSALGIA, UNSPECIFIED (3) Incontinence Code(s): R32 - UNSPECIFIED URINARY INCONTINENCE Qualifiers: Qualified Code(s): N39.41 - Urge incontinence (4) Dyspepsia Code(s): R10.13 - EPIGASTRIC PAIN (5) Constipation Code(s): K59.00 - CONSTIPATION, UNSPECIFIED Assessment/Plan (1) Herniated intervertebral disc of lumbar spine Assessment/Plan: -seen s/p intervention -case d/w neurosurgery -PT Code(s): M51.26 - OTHER INTERVERTEBRAL DISC DISPLACEMENT, LUMBAR REGION (2) Intractable back pain Assessment/Plan: -continue fentanyl patch -appreciate pain management assistance -will be difficult to control secondary to allergies Code(s): M54.9 - DORSALGIA, UNSPECIFIED (3) Incontinence Assessment/Plan: -monitor for improvement Code(s): R32 - UNSPECIFIED URINARY INCONTINENCE Qualifiers: Incontinence type: urinary Urinary Incontinence type: urge incontinence Qualified Code(s): N39.41 - Urge incontinence (4) Dyspepsia Assessment/Plan: -continue ranitidine Code(s): R10.13 - EPIGASTRIC PAIN (5) Constipation Assessment/Plan: -secondary to fentanyl -continue miralax and docusate Code(s): K59.00 - CONSTIPATION, UNSPECIFIED (6) Elevated LFTs -patient not on tylenol -new finding -will check abdominal ultrasound -GI consult
[2016-12-08] MEDS ORDERED: BUPIVACAINE HCL/PF 0.5% (5MG/ML) 10 ML VIAL IJ ONE (16:40)
--- NOTE | 2016-12-08 17:04 | OP ---
Operative Note - Note: Operative Date: 12/08/16 Pre-Operative Diagnosis: L5-S1 DDD, mechanical instability, lumbar radiculopathy Operation: B L5 and partial B S1 laminectomies, bilateral discectomy, decompression of B L5 and S1 roots; interbody fusion L5-S1, microdissection, postero-lateral fusion L5-S1; pedicle screw fixation system L5-S1; fluoroscopy Findings: hypermobility L5-S1; sensitive L > R L5 and S1 roots Implants: [employer] Eve 4.5 system (6.5 x 40 mm screws B L5 and 7.5 x 35 mm screw B S1 with 35 mm rods B); B 9 mm interbody corticocancellous implants Surgeon: Charlie Liriano Conservation Biology Professor: Nubia Harrison Anesthesiologist/VISUAL MERCHANDISING COORDINATOR: Shital Flood Anesthesia: General Specimens Removed: L5-S1 DDD Estimated Blood Loss (mls): 300 Blood Volume Replaced (mls): 125 (cell saver)
[2016-12-08] MEDS ORDERED: HYDROmorphone HCL CARPU-JECT 2 MG/1 ML DISP.SYRIN ONE (17:30)
[2016-12-08] MEDS ORDERED: HYDROmorphone *PCA* 10MG/50ML DISP.SYRIN PCA ONE (17:39)
[2016-12-08] MEDS: HYDROmorphone HCL CARPU-JECT 1 MG/1 ML DISP.SYRIN IVPUSH PRN ×2 (17:40→17:50)
--- NOTE | 2016-12-08 17:44 | PN ---
Progress Note (short form) - Note Progress Note: NEUROSURGERY In PACU PE: AF, VSS HEENT- NC/At; neck- supple; Cor- RRR; Lings- CTA B; Abd- benign; Ext- no sign of DVT Motor- 3/5 all muscle groups LE pain limited; Sensation- intact LT S/P L5-S1 discectomy and interbody fusion/instrumentation Operative and post-operative care described LSO brace to be fitted Labs pending in PACU Intra-op findings d/w family
[2016-12-08] MEDS: HYDROmorphone *PCA* 10MG/50ML DISP.SYRIN PCA SCH (18:00)
--- NOTE | 2016-12-08 18:21 | CONS ---
DATE OF CONSULTATION: 12/05/2016 REQUESTING PHYSICIAN: Kurtis Denton MD SENIOR SHAREPOINT ARCHITECT: Charlie Cortez MD, Neurosurgery CHIEF COMPLAINT: Intractable lower back pain. HISTORY OF PRESENT ILLNESS: The patient is a 36-year-old, right-handed female with history of asthma and migraine headaches, who complains of severe lower back pain of approximately 1-week duration. She stated that she had sustained a work-related injury while bending over to mushroom picker something on the floor. Her pain is in her lower back and radiates up to the scapular region. It also radiates to the anterior thigh at times. She was managed on an outpatient basis by Dr. Tahir Kirk, and an MRI was ordered and done about a week ago. It demonstrated degenerative disk disease at L5-S1. There was no acute disk herniation noted. Upon further questioning, the patient has had severe lower back pain since age 7. In 2009, she had a severe exacerbation and underwent extensive physical therapy at that time. Because of her multiple medication allergies, including possibly to pain management injection substances, she has not undergone such injections in the past either. Presently , pain is mostly in the lower back and is rated a 10 on a 1-10 scale. She had paresthesia and numbness earlier in her legs but not right now. She has difficulty getting to the bathroom in time to void. She has no incontinence otherwise. PAST MEDICAL HISTORY: Significant for asthma and migraines. MEDICATIONS: Include Duragesic patch, Seroquel, Tylenol, Zofran, Colace, MiraLAX, Flexeril, Zantac, naproxen, and Protonix. ALLERGIES: ALBUTEROL, CODEINE, LIDOCAINE, and FIORICET. SOCIAL HISTORY: She smokes periodically. She drinks alcohol socially. 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 FAMILY HISTORY: Noncontributory for any musculoskeletal disease or back problems. REVIEW OF SYSTEMS: Otherwise negative for other major constitutional, head and neck, cardiovascular, pulmonary, gastrointestinal, genitourinary, endocrinological, neurological, gynecological, or psychological problems except for the above. PHYSICAL EXAMINATION: General: She is awake and alert. She is lying down in bed. She appears to be more comfortable than what was reported earlier. Vital Signs: Temperature is 98.2, blood pressure is 117/73 with pulse rate of 80. HEENT: Examination shows her to be normocephalic, atraumatic, anicteric. Neck: Supple. Coronary: Examination demonstrates regular rhythm. Lungs: Clear. Abdomen: Benign. Extremities: Examination shows no signs of DVT. Neurologic: She is awake, alert, oriented x4. Cranial nerves examination intact 2-12. Motor examination shows 4+/5 strength in the bilateral lower extremities. Sensory examination is intact to light touch and vibratory sensation. Deep tendon reflexes are 2+ throughout. There is no pathological long tract sign. Gait is not tested because of her pain. Back: Examination of the lower back shows tenderness at the lumbosacral junction bilaterally, as well as near the SI joint. She has positive straight leg raise bilaterally at 30 degrees. LABORATORY: Examination shows white blood cell count of 6700, hemoglobin is 12.6, platelet count is 255,000. Serum sodium is 138 and potassium is 4.1, BUN 10, creatinine 0.5. Urinalysis is negative. MRI examination of the lumbar spine was compared to an MRI done 1 week earlier. Both MRIs demonstrate moderate degenerative disk disease at L5-S1 with degenerative disk space narrowing. There are also chronic endplate changes at L5-S1. There is mild broad-based disk bulge at L5-S1. Hemangioma is noted at L2 and L3. There is a left ovarian cyst. Today's scan shows slightly more loss of lumbar lordosis. There are no other significant changes. There is no significant neurological element impingement. IMPRESSION: 1. Progressive L5-S1 degenerative disk disease. 2. Mechanical lower back pain and bilateral lumbar radiculopathy. 3. Asthma. 4. Migraine headaches. RECOMMENDATIONS: The patient presents with chronic, severe, intermittent, lower back pain since the age of 7. She has increasing lower back pain since a week plus ago. She stated that she had bent forward to mushroom picker something on the floor and felt increasing back pain. There is no significant compressive lesion on the current MRI examination. The problem appears to be progressive degenerative disk disease at L5-S1 level. Ideally, the patient should try another course of physical therapy with possibly some traction and also to possibly try some pain management injections. Unfortunately, she has multiple allergies to medications including significant sensitivity to Cortisone, the pain management physician. I am going to hold her naproxen at this time. I am going to start her on gabapentin 300 mg p.o. t.i.d. as a neurotropic adjunct for the treatment of her lumbar condition. Hopefully, she can feel better with the passage of time, therapy, and from pharmacological agents. Her options are limited because of her multiple allergies and fairly significant side effects from those "allergies". The patient wants to consider surgical intervention, but I am somewhat reluctant to offer that to her at this time given her younger age and the fact that the MRI does not show significant new compressive lesions at this time. Most changes are chronic though likely progressive in nature haley in light of the Modic changes. Pros and cons of treatment approaches were discussed. Pt would like to consider surgery because of her long- standing back problem. All questions were answered, and the pros and cons of treatment approaches were discussed. I will discuss the patient's further treatment with her tomorrow again to see where she is at. CHARLIE CORTEZ M.D. [id number] MTDD
[2016-12-08 18:25] LABS: BASOPHIL 0.3 % (0-2.0); EOSINOPHIL 0.3 % (0-4.5); MCH 29.7 pg (25.7-33.7); MCHC 33.4 g/dl (32.0-36.0); MEAN CELL VOLUME 88.9 fl (80-96); MEAN PLT VOLUME 7.9 fl (7.5-11.1); NEUTROPHILS 87.6 % (42.8-82.8); PLATELET COUNT 256 K/MM3 (134-434); RDW 13.6 % (11.6-15.6); WHITE BLOOD COUNT 8.8 K/mm3 (4.0-10.0)
[2016-12-08 18:55] LABS: CREATININE 0.7 mg/dL (0.55-1.02)
[2016-12-08 18:57] LABS: ALBUMIN 3.4 g/dl (3.4-5.0); BILIRUBIN,DIRECT 0.5 mg/dL (0.0-0.2); BILIRUBIN,TOTAL 0.8 mg/dL (0.2-1.0); TOT PROT 6.4 g/dl (6.4-8.2)
[2016-12-08] MEDS: DOCUSATE SODIUM 100 MG CAPSULE (FP) PO SCH (22:00)
[2016-12-08] MEDS: CEFAZOLIN (PRE-DOCKED) 50 ML IVPB SCH (22:41)
[2016-12-08] MEDS: diazePAM 5 MG TABLET PO SCH (22:47)
[2016-12-09] MEDS: QUEtiapine FUMARATE 25 MG TABLET (FP) PO SCH ×2 (01:37→21:42)
[2016-12-09] MEDS: CEFAZOLIN (PRE-DOCKED) 50 ML IVPB SCH (01:38)
[2016-12-09] MEDS: DEXTROSE 5%-0.45% SALINE 1,000 ML IV SCH ×2 (01:40→11:25)
[2016-12-09] MEDS: diazePAM 5 MG TABLET PO SCH ×3 (05:59→21:42)
[2016-12-09] MEDS ORDERED: HYDROmorphone *PCA* 10MG/50ML DISP.SYRIN PCA SCH (06:54)
[2016-12-09] MEDS ORDERED: FENTANYL PATCH WASTE TD PRN (06:54)
[2016-12-09] MEDS ORDERED: FENTANYL PATCH WASTE MC PRN (06:54)
[2016-12-09 08:09] LABS: MCHC 33.8 g/dl (32.0-36.0); MEAN CELL VOLUME 88.9 fl (80-96); MEAN PLT VOLUME 7.8 fl (7.5-11.1); NEUTROPHILS 84.1 % (42.8-82.8); PLATELET COUNT 254 K/MM3 (134-434); RDW 13.7 % (11.6-15.6); WHITE BLOOD COUNT 13.8 K/mm3 (4.0-10.0)
--- NOTE | 2016-12-09 08:10 | PN ---
Progress Note (short form) - Note Progress Note: NEUROSURGERY POD #1 Incisional pain Wants "food" Mild epigastric burning, on Protonix and Zantac per RN Did not sleep well Slight numbness below in bottom of feet, possibly related to SCD's PE: Tmax 99.3, VSS HEENT- NC/AT; neck- supple; Cor- RRR; Lings- decreased BS at bases; Abd- benign ; Ext- no sign of DVT CN- intact; Motor- 4-/5 all muscle groups LE pain limited pain limited; Sensation- intact LT; DTR- physiological Dressing C/D/I- changed WBC 8.8. Hgb 12.3; LFT moderately elevated; repeat pending S/p L5-S1 discectomy and interbody fusion/instrumentation Inicisional pain Cont BUSINESS EDITOR Tylenol D/C'd Keep Fortune till tomorrow AM LSO brace to be measured Incentive spirometry reinforced Adv diet All the above d/w pt
[2016-12-09 08:18] LABS: ANION GAP 8 (8-16); CO2 27 mmol/L (21-32); CREATININE 0.5 mg/dL (0.55-1.02); GLUCOSE,RANDOM 131 mg/dL (74-106); MAGNESIUM 2.2 mg/dL (1.8-2.4); PHOSPHOROUS 3.1 mg/dL (2.5-4.9)
[2016-12-09] MEDS: PANTOPRAZOLE 40 MG TABLET (FP) PO SCH ×2 (08:27→09:16)
[2016-12-09] MEDS ORDERED: PT OWN MED DRAWER 7, Y5N ONE (09:24)
[2016-12-09] MEDS: RANITIDINE HCL 150 MG TABLET (FP) PO SCH ×2 (09:28→21:42)
[2016-12-09] MEDS: ONDANSETRON 4 MG/2 ML VIAL IVPB PRN ×2 (09:28→18:25)
[2016-12-09] MEDS: HYDROmorphone *PCA* 10MG/50ML DISP.SYRIN PCA SCH ×3 (09:34→16:23)
[2016-12-09] MEDS ORDERED: ceFAZolin SODIUM 1 GM VIAL ONE (09:39)
[2016-12-09] MEDS ORDERED: DEXTROSE 5%-WATER - 50 ML IVPB ONE (09:40)
[2016-12-09] MEDS ORDERED: CEFAZOLIN 1 GM in DEXTROSE 5%-WATER - 50 ML IVPB SCH (10:00)
[2016-12-09] MEDS: POLYETHYLENE GLYCOL 3350 119 GM BTL PO SCH ×2 (10:08→21:43)
--- NOTE | 2016-12-09 11:44 | CONSULT ---
Consult Consult Specialty:: GI Reason for Consultation:: Rising liver enzymes - History of Present Illness Chief Complaint: Referred for abnormal liver chemistry 6 days post admission History of Present Illness: Patient is a 36 year old F, 6 day on admission, received acetaminophen, naproxen , valium,xanax, zantac, protonix, zofran, decadron, intraop cefazolin, quetiapine (dose doubled in hospital), benadryl, fentanyl patch and dilaudid. 1 day s/p discectomy, TIA while on admission, asymptomatic despite elevated ALT, AST and alk phosphatase, now trending downward. No abdominal pain, jaundice, n/v , diarrhea. C/o of constipation. No past history of hepatic disease. Had gall bladder removed in 1998. Smoked a pack/day of cigarettes x 1year, about 20 years ago, but socially drinks and smokes one cigarette, about once every 3-4 months. Has sexual relations with spouse, unprotected, last encounter about a month ago. Had recent contact with rats. Has had Hep B vaccines. Active Medications Generic Name Dose Route Start Last Admin Trade Name Freq PRN Reason Stop Dose Admin Diazepam 10 mg 12/08/16 22:00 12/09/16 05:59 Valium - PO 10 mg TID ILSA Administration Diphenhydramine HCl 12.5 mg 12/09/16 06:54 Benadryl Injection - IVPUSH ONCE PRN FOR ITCHING Docusate Sodium 300 mg 12/09/16 22:00 Colace - PO HS [facility] Hydromorphone HCl 10 mg 12/09/16 10:57 12/09/16 11:58 Dilaudid Clinical Provider Trainer - GIFTS OFFICER 12/15/16 16:03 Not Given GIFTS OFFICER [facility] Protocol Ondansetron HCl 4 mg 12/09/16 06:54 12/09/16 09:28 Zofran Injection IVPB 4 mg Q6H PRN Administration NAUSEA Pantoprazole Sodium 40 mg 12/09/16 10:00 12/09/16 09:16 Protonix - PO Not Given DAILY [facility] Polyethylene Glycol 17 gm 12/09/16 10:00 12/09/16 10:08 Miralax (For Daily Use) - PO Not Given BID [facility] Promethazine HCl 12.5 mg 12/09/16 06:54 Phenergan Injection - IVPB Q6H PRN NAUSEA AND/OR VOMITING Quetiapine Fumarate 25 mg 12/09/16 22:00 Seroquel - PO HS [facility] Ranitidine HCl 150 mg 12/09/16 10:00 12/09/16 09:28 Zantac - PO 150 mg BID [facility] Administration Tapentadol 50 mg 12/09/16 06:54 Nucynta - PO Q4H PRN - History Source History Provided By: Patient Limitations to Obtaining History: No Limitations - Past Medical History EVAPORATOR OPERATOR: Yes: TIA (R TIA during this admission) Cardio/Vascular: Yes: Other (tachycardia in childhoood). No: HTN Pulmonary: Yes: Asthma Hepatobiliary: Yes: Other (Had cholecystectomy in 1998) Reproductive: Yes: Fibroids (Had hysterectomy in 2015) ...LMP: 04/24/16 ...: No Psych: Yes: Addictions, Other (takes quetiapine for ? sleep) ENT: Yes: Other (treated 1 month ago with antibiotics for bilateral ? parotitis) - Past Surgical History Past Surgical History: Yes: Cholecystectomy (btl), Hysterectomy (partial), Tubal Ligation - Alcohol/Substance Use Hx Alcohol Use: Yes (SOCIAL) History of Substance Use: reports: None - Smoking History Smoking history: Former smoker Have you smoked in the past 12 months: Yes Aproximately how many cigarettes per day: 2 If you are a former smoker, when did you quit?: 1 month - Social History Usual Living Arrangement: With Spouse ADL: Independent Place of : [facility] ([place]) History of Recent Travel: No Home Medications - Allergies Allergies/Adverse Reactions: Allergies Allergy/AdvReac Type Severity Reaction Status Date / Time albuterol Allergy Severe Swelling Verified 12/03/16 19:22 banana Allergy Unknown Verified 12/05/16 13:33 mushroom Allergy Unknown Verified 12/05/16 13:32 codeine [Codeine] Allergy Difficulty Verified 12/03/16 19:22 Breathing Fish Containing Products Allergy Verified 12/03/16 19:22 hydromorphone HCl Allergy difficulty Verified 12/03/16 19:22 [From Dilaudid] breathibg samir Allergy Verified 12/03/16 19:22 meperidine HCl [From Demerol] Allergy Difficulty Verified 12/03/16 19:22 Breathing metoclopramide HCl Allergy Swelling Verified 05/10/16 11:58 [From Reglan] morphine Allergy difficulty Verified 12/03/16 19:22 breathibg oxycodone HCl [From Percocet] Allergy Verified 12/03/16 19:22 shellfish derived Allergy Swelling,ra Verified 12/03/16 19:22 sh watermelon Allergy Verified 05/06/16 08:15 cantaloupe Allergy Uncoded 05/10/16 11:58 miller Allergy Uncoded 05/10/16 11:58 MULTIPLE FOOD Allergy Uncoded 05/10/16 11:58 mustard,fish,vinegar Allergy swelling,ra Uncoded 05/10/16 11:58 sh NARCOTICS Allergy Difficulty Uncoded 05/10/16 11:58 Breathing nuts Allergy Uncoded 05/10/16 11:58 - Home Medications Home Medications: Ambulatory Orders Quetiapine Fumarate [Seroquel -] 25 mg PO HS 03/10/12 Diazepam [Valium -] 10 mg PO HS 10/31/13 Ranitidine HCl [Zantac] 300 mg PO DAILY 05/05/16 Naproxen [Naprosyn -] 500 mg PO BID #60 tablet 05/06/16 Tramadol HCl 50 mg PO TID 05/10/16 Family Disease History - Family Disease History Family Disease History: Diabetes: Father, Mother, Heart Disease: Father, Mother Review of Systems - Review of Systems Constitutional: denies: Chills, Diaphoresis, Fever, Malaise, Night Sweats Eyes: denies: Recent Change in Vision HENT: denies: Difficult Swallowing, Throat Pain Cardiovascular: denies: Chest Pain, Edema, Palpitations, Shortness of Breath Respiratory: denies: SOB Gastrointestinal: reports: Constipation. denies: Abdominal Pain, Diarrhea, Melena, Vomiting Neurological: denies: Confusion Endocrine: denies: Excessive Sweating Hematology/Lymphatic: denies: Swollen Glands Physical Exam Vital Signs: Vital Signs Temperature 97.6 F 12/09/16 05:00 Pulse Rate 97 H 12/09/16 05:00 Respiratory Rate 18 12/09/16 05:00 Blood Pressure 96/50 12/09/16 05:00 O2 Sat by Pulse Oximetry (%) 99 12/08/16 21:35 Last Vital Signs Temp Pulse Resp BP Pulse Ox 98.4 F 93 H 18 119/72 100 12/09/16 15:12 12/09/16 15:12 12/09/16 15:12 12/09/16 15:12 12/09/16 09:00 INR, PTT INR 0.99 (0.82-1.09) 12/07/16 05:35 CMP Sodium 137 mmol/L (136-145) 12/09/16 06:55 Potassium 4.1 mmol/L (3.5-5.1) 12/09/16 06:55 Chloride 102 mmol/L (98-107) 12/09/16 06:55 Carbon Dioxide 27 mmol/L (21-32) 12/09/16 06:55 Anion Gap 8 (8-16) 12/09/16 06:55 BUN 4 mg/dL (7-18) L 12/09/16 06:55 Creatinine 0.5 mg/dL (0.55-1.02) L D 12/09/16 06:55 Creat Clearance w eGFR > 60 (>60) 12/08/16 05:35 POC Glucometer 134 UNITS (()) 12/06/16 18:50 Random Glucose 131 mg/dL (74-106) H 12/09/16 06:55 Calcium 8.0 mg/dL (8.5-10.1) L 12/09/16 06:55 Phosphorus 3.1 mg/dL (2.5-4.9) 12/09/16 06:55 Magnesium 2.2 mg/dL (1.8-2.4) 12/09/16 06:55 Total Bilirubin 0.4 mg/dL (0.2-1.0) D 12/09/16 06:55 Direct Bilirubin 0.2 mg/dL (0.0-0.2) D 12/09/16 06:55 AST 256 U/L (15-37) H D 12/09/16 06:55 ALT 486 U/L (12-78) H 12/09/16 06:55 Alkaline Phosphatase 167 U/L (45-117) H 12/09/16 06:55 Creatine Kinase 405 IU/L (26-192) H 12/09/16 06:55 CK-MB (CK-2) 3.372 ng/ml (0.5-3.6) 12/09/16 06:55 C-Reactive Protein 0.7 MG/DL (0.00-0.3) H 12/06/16 06:00 Total Protein 6.2 g/dl (6.4-8.2) L 12/09/16 06:55 Albumin 3.1 g/dl (3.4-5.0) L 12/09/16 06:55 Total Amylase 34 U/L (25-115) 12/09/16 06:55 Lipase 89 U/L (73-393) 12/09/16 06:55 Constitutional: Yes: Calm. No: Poor Hygeine Eyes: Yes: Other (dirty sclera). No: Sclera Icterus HENT: No: Atraumatic, Drooling, Epistaxis, Nasal Congestion, Pharyngeal Erythema , Thrush, Tonsillar Exudate Cardiovascular: Yes: Regular Rate and Rhythm, Tachycardia, S1, S2. No: Murmur Respiratory: Yes: Diminished (splinting from pain). No: Rales, Rhonchi, Wheezes Gastrointestinal: Yes: Soft, Tenderness, Tenderness, Epigastrium (tenderness around R rib border). No: Hepatomegaly (No paplpable organs) ...Rectal Exam: Yes: Deferred (Patient has been asked to limit movement post back surgery) Renal/: Yes: Fortune Present Edema: No Labs: CBC, BMP 12/09/16 06:55 12/09/16 06:55 Imaging - Results Cat Scan: Other (Previous CT scan done in 2016 showed dilated biliary tracts post cholecystectomy.) Assessment/Plan Assessment: 1.36 yr old F 6 days on admission, POD 1, with signs of hepatocellular dysfunction not present on admission, and liver enzymes now trending down after NSAIDS and acetaminophen stopped. 2. Likely iatrogenic/medication induced 3. High CPK level, likely post-op, R/O rhabdomyolysis 4. Amylase and lipase not elevated Plan: 1. Stop pantoprazole 2. Reduce dose of ranitidine to once daily PRN 3. Abd US and doppler for portal vein visualization 4. HepA Ab, HepBsAg, HepBcIgM, HepBsAb, HepC Ab 5. Monitor liver enzymes 6. Monitor CPK levels 7. Reduce other hepatotoxic drugs as feasible Visit type - Emergency Visit Emergency Visit: No - New Patient This patient is new to me today: Yes Date on this admission: 12/09/16 - Critical Care Critical Care patient: No
[2016-12-09 13:31] LABS: ALBUMIN 3.1 g/dl (3.4-5.0); AMYLASE 34 U/L (25-115); BILIRUBIN,DIRECT 0.2 mg/dL (0.0-0.2); BILIRUBIN,TOTAL 0.4 mg/dL (0.2-1.0); SGOT/AST 256 U/L (15-37); TOT PROT 6.2 g/dl (6.4-8.2)
[2016-12-09 13:32] LABS: ALK PHOS 167 U/L (45-117); SGPT/ALT 486 U/L (12-78)
--- NOTE | 2016-12-09 15:07 | PN ---
Progress Note, Physician Chief Complaint: Mrs Wetzel says her pain is better controlled today. No cp, sob, n/v. - Current Medication List Current Medications: Active Medications Diazepam (Valium -) 10 mg PO TID [facility] Last Admin: 12/09/16 14:02 Dose: 10 mg Diphenhydramine HCl (Benadryl Injection -) 12.5 mg IVPUSH ONCE PRN PRN Reason: FOR ITCHING Docusate Sodium (Colace -) 300 mg PO HS [facility] Hydromorphone HCl (Dilaudid Environmental Technician -) 10 mg BUILDING SERVICE WORKER BUILDING SERVICE WORKER [facility] PRN Reason: Protocol Stop: 12/15/16 16:03 Last Admin: 12/09/16 11:58 Dose: Not Given Ondansetron HCl (Zofran Injection) 4 mg IVPB Q6H PRN PRN Reason: NAUSEA Last Admin: 12/09/16 09:28 Dose: 4 mg Pantoprazole Sodium (Protonix -) 40 mg PO DAILY [facility] Last Admin: 12/09/16 09:16 Dose: Not Given Polyethylene Glycol (Miralax (For Daily Use) -) 17 gm PO BID [facility] Last Admin: 12/09/16 10:08 Dose: Not Given Promethazine HCl (Phenergan Injection -) 12.5 mg IVPB Q6H PRN PRN Reason: NAUSEA AND/OR VOMITING Quetiapine Fumarate (Seroquel -) 25 mg PO HS [facility] Ranitidine HCl (Zantac -) 150 mg PO BID [facility] Last Admin: 12/09/16 09:28 Dose: 150 mg Tapentadol (Nucynta -) 50 mg PO Q4H PRN - Objective Vital Signs: Vital Signs Temperature 98 F 12/09/16 09:00 Pulse Rate 93 H 12/09/16 09:30 Respiratory Rate 20 12/09/16 09:30 Blood Pressure 118/69 12/09/16 09:30 O2 Sat by Pulse Oximetry (%) 100 12/09/16 09:00 Constitutional: Yes: Well Nourished, No Distress, Calm Cardiovascular: Yes: Regular Rate and Rhythm. No: Gallop, Murmur, Rub Respiratory: Yes: Regular, CTA Bilaterally. No: Rales, Rhonchi, Wheezes Gastrointestinal: Yes: Normal Bowel Sounds, Soft. No: Distention, Tenderness Extremities: Yes: WNL Edema: No Labs: CBC, BMP 12/09/16 06:55 12/09/16 06:55 INR, PTT INR 0.99 (0.82-1.09) 12/07/16 05:35 Problem List - Problems (1) Herniated intervertebral disc of lumbar spine Code(s): M51.26 - OTHER INTERVERTEBRAL DISC DISPLACEMENT, LUMBAR REGION (2) Intractable back pain Code(s): M54.9 - DORSALGIA, UNSPECIFIED (3) Incontinence Code(s): R32 - UNSPECIFIED URINARY INCONTINENCE Qualifiers: Qualified Code(s): N39.41 - Urge incontinence (4) Dyspepsia Code(s): R10.13 - EPIGASTRIC PAIN (5) Constipation Code(s): K59.00 - CONSTIPATION, UNSPECIFIED Assessment/Plan (1) Herniated intervertebral disc of lumbar spine Assessment/Plan: -neurosurgery following -on fentanyl senior examiner -PT ordered Code(s): M51.26 - OTHER INTERVERTEBRAL DISC DISPLACEMENT, LUMBAR REGION (2) Intractable back pain Assessment/Plan: -as above Code(s): M54.9 - DORSALGIA, UNSPECIFIED (3) Incontinence Assessment/Plan: -resolved Code(s): R32 - UNSPECIFIED URINARY INCONTINENCE Qualifiers: Incontinence type: urinary Urinary Incontinence type: urge incontinence Qualified Code(s): N39.41 - Urge incontinence (4) Dyspepsia Assessment/Plan: -continue ranitidine Code(s): R10.13 - EPIGASTRIC PAIN (5) Constipation Assessment/Plan: -secondary to fentanyl -continue miralax and docusate Code(s): K59.00 - CONSTIPATION, UNSPECIFIED (6) Elevated LFTs -GI consulted and seeing -suspect drug induced -abdominal ultrasound ordered -improving
--- NOTE | 2016-12-09 15:53 | PN ---
Teaching Attending Note Name of Resident: Kinjal Feliz ATTENDING PHYSICIAN STATEMENT I saw and evaluated the patient. I reviewed the resident's note and discussed the case with the resident. I agree / addended the resident's findings and plan as documented. SUBJECTIVE: 36F admitted with intractable lower back pain POD #1 s/p discectomy Noted rising liver chemistries during admission No abdominal pain + Constipation OBJECTIVE: On exam: 98.4 / 93 / 119/72 Anicteric Hrt: Tachycardic rate, regular rhythm Lungs: CTA b/l: limited due to splinting secondary to back pain Abd: Limited as exam performed in right lateral decubitus position (given post op status). Normoactive BS, No HSM, mild TTP RUQ, along lower border of ribs Labs: Laboratory Tests 12/09/ 06:55 Total Bilirubin 0.4 D AST 256 H D ALT 486 H Alkaline Phosphatase 167 H Creatine Kinase 405 H Total Protein 6.2 L Albumin 3.1 L Total Amylase 34 Lipase 89 ASSESSMENT 36F with predominantly hepatocellular pattern of liver dysfunction: starting to trend down This seems to have started post admission Iatrogenic/medication related etiology would be highest on differential PLAN: Agree with Abd US when patiant can cooperate to exclude obvious heptobiliary pathology. Can include doppler evaluation of the portal system Continue to eliminate potentially hepatotoxic agents as feasible. Acetaminophen and NSAIDs have been discontinued. Will D/C protonix. Will cut back Ranitidine to once daily as needed. Further elimination as per PMD Monitor liver chemistries Check hepatitis A Ab, Hepatitis B surface antigen, core IgM, surface Ab, hepatitis C antibody CPK elevated today. ? if post-op or ? component of resolving rhabdo that may have in turn impacted liver chemistries. Further eval per PMD Will follow the patient with you
[2016-12-09] MEDS: TAPENTADOL HYDROCHLORIDE 50 MG TABLET PO PRN ×2 (16:14→20:17)
[2016-12-09] MEDS: DOCUSATE SODIUM 100 MG CAPSULE (FP) PO SCH (21:42)
[2016-12-09] MEDS ORDERED: fentaNYL 25mcg/hr PATCH.TD72 TD SCH (23:45)
[2016-12-10] MEDS: ONDANSETRON 4 MG/2 ML VIAL IVPB PRN (03:23)
[2016-12-10] MEDS: diazePAM 5 MG TABLET PO SCH ×3 (05:50→21:57)
[2016-12-10] MEDS: TAPENTADOL HYDROCHLORIDE 50 MG TABLET PO PRN ×2 (05:50→12:35)
[2016-12-10 08:28] LABS: ALBUMIN 2.8 g/dl (3.4-5.0); ALK PHOS 145 U/L (45-117); ANION GAP 8 (8-16); BASOPHIL 0.2 % (0-2.0); BILIRUBIN,DIRECT 0.2 mg/dL (0.0-0.2); BILIRUBIN,TOTAL 0.6 mg/dL (0.2-1.0); CALCIUM 7.8 mg/dL (8.5-10.1); CO2 26 mmol/L (21-32); CREATININE 0.5 mg/dL (0.55-1.02); EOSINOPHIL 0.5 % (0-4.5); GLUCOSE,RANDOM 144 mg/dL (74-106); MAGNESIUM 2.1 mg/dL (1.8-2.4); MCH 29.7 pg (25.7-33.7); MCHC 33.5 g/dl (32.0-36.0); MEAN CELL VOLUME 88.8 fl (80-96); MEAN PLT VOLUME 7.9 fl (7.5-11.1); NEUTROPHILS 83.2 % (42.8-82.8); PLATELET COUNT 229 K/MM3 (134-434); RDW 13.7 % (11.6-15.6); SGOT/AST 119 U/L (15-37); SGPT/ALT 321 U/L (12-78); TOT PROT 5.6 g/dl (6.4-8.2); WHITE BLOOD COUNT 12.5 K/mm3 (4.0-10.0)
[2016-12-10] MEDS: RANITIDINE HCL 150 MG TABLET (FP) PO SCH ×2 (09:25→21:57)
[2016-12-10] MEDS: PANTOPRAZOLE 40 MG TABLET (FP) PO SCH (09:25)
[2016-12-10] MEDS: POLYETHYLENE GLYCOL 3350 119 GM BTL PO SCH ×2 (09:25→21:56)
--- NOTE | 2016-12-10 09:43 | PN ---
Progress Note (short form) - Note Progress Note: NEUROSURGERY POD #[address] scan done before pt states she could not move her legs Mild epigastric burning, on Protonix and Zantac per RN Did not sleep well Slight numbness below in bottom of feet, possibly related to SCD's PE: Tmax 100.3, VSS Sleepy HEENT- NC/AT; neck- supple; Cor- RRR; Lings- decreased BS at bases; Abd- benign ; Ext- no sign of DVT CN- intact; Motor- 4-/5 B UE; B DF 3/5, PF 4-/5 definitely pain limited pain limited; Sensation- intact LT; DTR- physiological Dressing C/D/I- changed WBC 12.5. LFT's trending down S/p L5-S1 discectomy and interbody fusion/instrumentation Inicisional pain D/C INVENTORY AND PRICING ASSOCIATE D/C Devika SCD's Start sq heparin OOB/Mobilize LSO brace to be delivered Incentive spirometry reinforced again Rehab All the above d/w pt
[2016-12-10] MEDS ORDERED: TAPENTADOL HYDROCHLORIDE 75 MG TABLET PO PRN (09:46)
--- NOTE | 2016-12-10 11:22 | PN ---
Progress Note, Physician History of Present Illness: Patient seen this am. POD #2 C/o of severe pain in her abdomen and back, unable to eat. Vomiting+, yellowish, non bloody. Requesting zantac and acetaminophen, although she was given both zantac and protonix about 2 hours earlier. 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 ALT and AST still trending downward. Neutrophilia improving. Still awaiting results for hepatitis serology - Current Medication List Current Medications: Active Medications Diazepam (Valium -) 10 mg PO TID [facility] Last Admin: 12/10/16 05:50 Dose: 10 mg Diphenhydramine HCl (Benadryl Injection -) 12.5 mg IVPUSH ONCE PRN PRN Reason: FOR ITCHING Docusate Sodium (Colace -) 300 mg PO [facility] Last Admin: 12/09/16 21:42 Dose: Not Given Heparin Sodium (Porcine) (Heparin -) 5,000 unit SQ BID [facility] Ondansetron HCl (Zofran Injection) 4 mg IVPB Q6H PRN PRN Reason: NAUSEA Last Admin: 12/10/16 03:23 Dose: 4 mg Pantoprazole Sodium (Protonix -) 40 mg PO DAILY [facility] Last Admin: 12/10/16 09:25 Dose: 40 mg Polyethylene Glycol (Miralax (For Daily Use) -) 17 gm PO BID [facility] Last Admin: 12/10/16 09:25 Dose: Not Given Promethazine HCl (Phenergan Injection -) 12.5 mg IVPB Q6H PRN PRN Reason: NAUSEA AND/OR VOMITING Quetiapine Fumarate (Seroquel -) 25 mg PO [facility] Last Admin: 12/09/16 21:42 Dose: 25 mg Ranitidine HCl (Zantac -) 150 mg PO BID [facility] Last Admin: 12/10/16 09:25 Dose: 150 mg Tapentadol (Nucynta -) 75 mg PO Q4H PRN PRN Reason: PAIN Colace and polyethylene glycol not given. - Objective Vital Signs: Vital Signs Warm to touch Temperature 100.3 F H 12/10/16 06:50 Pulse Rate 97 H 12/10/16 06:50 Respiratory Rate 20 12/10/16 06:50 Blood Pressure 111/57 12/10/16 06:50 O2 Sat by Pulse Oximetry (%) 100 12/09/16 09:00 Vital Signs - 24 hr 12/09/16 12/09/16 12/09/16 14:30 15:12 17:24 Temperature 98.4 F 98.5 F Pulse Rate 82 93 H 90 Respiratory 20 18 18 Rate Blood Pressure 119/72 119/72 116/68 12/09/16 12/09/16 12/10/16 18:00 22:00 06:50 Temperature 99.5 F 100.3 F H Pulse Rate 84 97 H 97 H Respiratory 20 20 20 Rate Blood Pressure 116/68 112/66 111/57 Constitutional: Yes: Moderate Distress (C/O of pain) Eyes: No: Sclera Icterus HENT: Yes: Other (dry mucus memebrane) Cardiovascular: Yes: Tachycardia, S1, S2. No: Murmur Gastrointestinal: Yes: Normal Bowel Sounds, Tenderness (layboy tender R LQ), Tenderness, Epigastrium Labs: CBC, BMP 12/10/16 06:30 12/10/16 06:30 INR, PTT INR 0.99 (0.82-1.09) 12/07/16 05:35 Impression/Plan Impression/Plan: Still downward trending ALT and ASTs Currently off acetaminophen and NSAIDS Plan: Awaiting Hepatitis serology result Continue to monitor LFTs Still awaiting abd US Visit type - Emergency Visit Emergency Visit: No - New Patient This patient is new to me today: No - Critical Care Critical Care patient: No - Discharge Referral Referred to [facility] Med P.C.: No
[2016-12-10] MEDS ORDERED: PT OWN MED DRAWER 7, Y5N ONE (11:59)
[2016-12-10] MEDS: PROMETHAZINE HCL 25 MG/1 ML VIAL IVPB PRN ×2 (12:03→21:57)
[2016-12-10] MEDS ORDERED: TAPENTADOL HCL 50 MG TAB.ER.12H PO PRN (12:04)
[2016-12-10] MEDS: HEPARIN NA (PORCINE) 5,000 UNITS/ML 1ML VIAL SQ SCH ×3 (12:05→22:11)
--- NOTE | 2016-12-10 12:41 | PN ---
Teaching Attending Note Name of Resident: Kinjal Feliz ATTENDING PHYSICIAN STATEMENT I saw and evaluated the patient. I reviewed the resident's note and discussed the case with the resident. Any any changes in the the resident's findings and plan is documented below: SUBJECTIVE: Complains of feeling nauseaous Has been on MANNEQUIN REFINISHER pump and receiving dilaudid Main complaint is pain in back "where the surgery was done" and feels as though her "legs feel heavy and numb" She also describes RUQ pain "ever since she had her gallbladder taken out" OBJECTIVE: On exam: (12:43pm)99.9 / 90 / 18 / 112/67 Anicteric Hrt RRR Lungs: CTA b/l Abd: sft, + BS, TTP RUQ Neuro: Awake, alert Labs: Laboratory Tests 12/10/16 12/10/16 06:30 06:30 WBC 12.5 H Total Bilirubin 0.6 D Direct Bilirubin 0.2 AST 119 H D ALT 321 H D Alkaline Phosphatase 145 H Total Protein 5.6 L Albumin 2.8 L ASSESSMENT: Im proving liver chemistries. There is TTP RUQ however she describes chronic pain there since having her cholectystectomy and that this is unchanged Nausea, ? if combination of back pain and opiate analgesia. MANNEQUIN REFINISHER pump has been discontinued and she is now started on nucynta Plan: Still awaiting abd US and well as doppler portovenous system Added AXR as well Monitoring liver chemistries Avoid hepatotoxic agents Nurse tells me that Dr. lanza is aware of Ms. Wetzel's back pain and leg complaints Post-op care per CASTRO
--- NOTE | 2016-12-10 14:07 | PN ---
Progress Note, Physician Chief Complaint: Mrs Wetzel complains of pain in her back after ultrasound. Feeling some nausea as well. No cp or sob. - Current Medication List Current Medications: Active Medications Diazepam (Valium -) 10 mg PO TID [facility] Last Admin: 12/10/16 05:50 Dose: 10 mg Diphenhydramine HCl (Benadryl Injection -) 12.5 mg IVPUSH ONCE PRN PRN Reason: FOR ITCHING Docusate Sodium (Colace -) 300 mg PO [facility] Last Admin: 12/09/16 21:42 Dose: Not Given Heparin Sodium (Porcine) (Heparin -) 5,000 unit SQ BID [facility] Last Admin: 12/10/16 12:05 Dose: 5,000 unit Ondansetron HCl (Zofran Injection) 4 mg IVPB Q6H PRN PRN Reason: NAUSEA Last Admin: 12/10/16 03:23 Dose: 4 mg Pantoprazole Sodium (Protonix -) 40 mg PO DAILY [facility] Last Admin: 12/10/16 09:25 Dose: 40 mg Polyethylene Glycol (Miralax (For Daily Use) -) 17 gm PO BID [facility] Last Admin: 12/10/16 09:25 Dose: Not Given Promethazine HCl (Phenergan Injection -) 12.5 mg IVPB Q6H PRN PRN Reason: NAUSEA AND/OR VOMITING Last Admin: 12/10/16 12:03 Dose: 12.5 mg Quetiapine Fumarate (Seroquel -) 25 mg PO [facility] Last Admin: 12/09/16 21:42 Dose: 25 mg Ranitidine HCl (Zantac -) 150 mg PO BID [facility] Last Admin: 12/10/16 09:25 Dose: 150 mg Tapentadol (Nucynta -) 75 mg PO Q4H PRN PRN Reason: PAIN Last Admin: 12/10/16 12:35 Dose: 75 mg - Objective Vital Signs: Vital Signs Temperature 100.3 F H 12/10/16 06:50 Pulse Rate 97 H 12/10/16 06:50 Respiratory Rate 20 12/10/16 06:50 Blood Pressure 111/57 12/10/16 06:50 O2 Sat by Pulse Oximetry (%) 100 12/09/16 09:00 Constitutional: Yes: Well Nourished, No Distress, Calm Cardiovascular: Yes: Regular Rate and Rhythm. No: Gallop, Murmur, Rub Respiratory: Yes: Regular, CTA Bilaterally. No: Rales, Rhonchi, Wheezes Gastrointestinal: Yes: Normal Bowel Sounds, Soft. No: Distention, Tenderness Extremities: Yes: WNL Edema: No Labs: CBC, BMP 12/10/16 06:30 12/10/16 06:30 INR, PTT INR 0.99 (0.82-1.09) 12/07/16 05:35 Problem List - Problems (1) Herniated intervertebral disc of lumbar spine Code(s): M51.26 - OTHER INTERVERTEBRAL DISC DISPLACEMENT, LUMBAR REGION (2) Intractable back pain Code(s): M54.9 - DORSALGIA, UNSPECIFIED (3) Incontinence Code(s): R32 - UNSPECIFIED URINARY INCONTINENCE Qualifiers: Qualified Code(s): N39.41 - Urge incontinence (4) Dyspepsia Code(s): R10.13 - EPIGASTRIC PAIN (5) Constipation Code(s): K59.00 - CONSTIPATION, UNSPECIFIED Assessment/Plan (1) Herniated intervertebral disc of lumbar spine Assessment/Plan: -neurosurgery following -pain control per neurosurgery -continue PT Code(s): M51.26 - OTHER INTERVERTEBRAL DISC DISPLACEMENT, LUMBAR REGION (2) Intractable back pain Assessment/Plan: -as above Code(s): M54.9 - DORSALGIA, UNSPECIFIED (3) Incontinence Assessment/Plan: -resolved Code(s): R32 - UNSPECIFIED URINARY INCONTINENCE Qualifiers: Incontinence type: urinary Urinary Incontinence type: urge incontinence Qualified Code(s): N39.41 - Urge incontinence (4) Dyspepsia Assessment/Plan: -continue ranitidine Code(s): R10.13 - EPIGASTRIC PAIN (5) Constipation Assessment/Plan: -secondary to fentanyl -continue miralax and docusate Code(s): K59.00 - CONSTIPATION, UNSPECIFIED (6) Elevated LFTs -abdominal ultrasound performed -will follow up -GI note reviewed -improving
--- NOTE | 2016-12-10 17:53 | PATH ---
Surgical Pathology Report Patient Name: SHON TAMAYO Med. Rec. #: [id number] /Age/Gender: 1980 (Age: 36) / F Account: [id number] Location: [facility] MED/SURG Taken: 12/08/2016 Received: 12/09/2016 Reported: 12/10/2016 Physicians: Shlomo Cabrera M.D. Specimen(s) Received DISC L5-S1 Clinical History Intractable back pain L5-S1 Final Diagnosis INTERVERTEBRAL DISC, L5-S1, POSTERIOR LUMBAR INTERBODY FUSION: CARTILAGE WITH DEGENERATIVE CHANGES. Electronically Signed Wilmer Guevara M.D. Gross Description Received in formalin labeled "disc L5-S1" is a 1.8 x 1.5 x 0.3 cm aggregate of carlson fragments of fibrocartilaginous tissue. The specimen is entirely submitted in one cassette. /12/09/2016 saudi12/09/2016
[2016-12-10] MEDS: DOCUSATE SODIUM 100 MG CAPSULE (FP) PO SCH (21:56)
[2016-12-10] MEDS: QUEtiapine FUMARATE 25 MG TABLET (FP) PO SCH (21:57)
[2016-12-11 06:06] LABS: HEP B SURFACE AB Reactive (.)
[2016-12-11] MEDS: diazePAM 5 MG TABLET PO SCH ×3 (06:58→22:06)
[2016-12-11] MEDS: TAPENTADOL HYDROCHLORIDE 50 MG TABLET PO PRN ×3 (06:59→22:07)
--- NOTE | 2016-12-11 08:13 | PN ---
Progress Note (short form) - Note Progress Note: NEUROSURGERY POD #3 Incisional pain No new complaint Able to void since Fortune out PE: Tmax 99.9, VSS Sleepy HEENT- NC/AT; neck- supple; Cor- RRR; Lings- decreased BS at bases; Abd- benign ; Ext- no sign of DVT CN- intact; Motor- 4-/5 B UE; B DF 3/5, PF 4-/5 definitely pain limited; Sensation- intact LT; DTR- physiological Dressing C/D/I Labs pending S/p L5-S1 discectomy and interbody fusion/instrumentation Inicisional pain SCD's Started on sq heparin OOB/Mobilize LSO brace delivered and pt only used it once Decrease valium Incentive spirometry stressed and LE self-exercise when in bed encouraged With her young age and type of surgery would ideally be able to go home in a day or two Rehab if not able to go home Dressing change/wound care Bowel regimen All the above d/w pt
--- NOTE | 2016-12-11 08:15 | SURG ---
Surgery Manufacturing Accountant Note Manufacturing Accountant: Nubia Harrison PA-C Date of Service: 12/08/16 Diagnosis: L5-S1 DDD, mechanical instability, lumbar radiculopathy Procedure: B L5 and partial B S1 laminectomies, bilateral discectomy, decompression of B L5 and S1 roots; interbody fusion L5-S1, microdissection, postero-lateral fusion L5-S1; pedicle screw fixation system L5-S1; fluoroscopy I was present for the entirety of the operative procedure. For further detail, please refer to operative report. Visit type - Case Type Case Type: ED Admission - Emergency Emergency Visit: Yes ED Registration Date: 12/03/16 Care time: The patient presented to the Emergency Department on the above date and was hospitalized for further evaluation of their emergent condition. - New patient This patient is new to me today: Yes Date on this admission: 12/11/16 - Critical Care Critical Care patient: No
[2016-12-11 08:18] LABS: BASOPHIL 0.2 % (0-2.0); EOSINOPHIL 0.8 % (0-4.5); MCH 29.5 pg (25.7-33.7); MCHC 33.3 g/dl (32.0-36.0); MEAN CELL VOLUME 88.6 fl (80-96); NEUTROPHILS 75.9 % (42.8-82.8); PLATELET COUNT 231 K/MM3 (134-434); RDW 13.7 % (11.6-15.6); WHITE BLOOD COUNT 11.6 K/mm3 (4.0-10.0)
[2016-12-11 08:27] LABS: ALBUMIN 2.8 g/dl (3.4-5.0); ANION GAP 9 (8-16); CALCIUM 8.5 mg/dL (8.5-10.1); CO2 26 mmol/L (21-32); GLUCOSE,RANDOM 92 mg/dL (74-106); MAGNESIUM 2.4 mg/dL (1.8-2.4)
[2016-12-11 08:32] LABS: ALK PHOS 155 U/L (45-117); BILIRUBIN,DIRECT 0.2 mg/dL (0.0-0.2); BILIRUBIN,TOTAL 0.9 mg/dL (0.2-1.0); CREATININE 0.4 mg/dL (0.55-1.02); PHOSPHOROUS 2.9 mg/dL (2.5-4.9); SGOT/AST 65 U/L (15-37); SGPT/ALT 244 U/L (12-78); TOT PROT 6.1 g/dl (6.4-8.2)
--- NOTE | 2016-12-11 08:47 | PN ---
Progress Note, Physician History of Present Illness: Patient seen this am. States feeling much improved overall. Back pain is improving. Said she has had chronic RUQ abdominal pain post cholecystectomy multiple years prior. No vomiting. On ranitidine but does not want protonix LFTs still trending down. - Current Medication List Current Medications: Active Medications Diazepam (Valium -) 5 mg PO TID [facility] Diphenhydramine HCl (Benadryl Injection -) 12.5 mg IVPUSH ONCE PRN PRN Reason: FOR ITCHING Docusate Sodium (Colace -) 300 mg PO HS [facility] Last Admin: 12/10/16 21:56 Dose: Not Given Heparin Sodium (Porcine) (Heparin -) 5,000 unit SQ BID [facility] Last Admin: 12/10/16 22:11 Dose: Not Given Ondansetron HCl (Zofran Injection) 4 mg IVPB Q6H PRN PRN Reason: NAUSEA Last Admin: 12/10/16 03:23 Dose: 4 mg Pantoprazole Sodium (Protonix -) 40 mg PO DAILY [facility] Last Admin: 12/10/16 09:25 Dose: 40 mg Polyethylene Glycol (Miralax (For Daily Use) -) 17 gm PO BID [facility] Last Admin: 12/10/16 21:56 Dose: Not Given Promethazine HCl (Phenergan Injection -) 12.5 mg IVPB Q6H PRN PRN Reason: NAUSEA AND/OR VOMITING Last Admin: 12/10/16 21:57 Dose: 12.5 mg Quetiapine Fumarate (Seroquel -) 25 mg PO [facility] Last Admin: 12/10/16 21:57 Dose: 25 mg Ranitidine HCl (Zantac -) 150 mg PO BID [facility] Last Admin: 12/10/16 21:57 Dose: 150 mg Tapentadol (Nucynta -) 75 mg PO Q4H PRN PRN Reason: PAIN Last Admin: 12/11/16 06:59 Dose: 75 mg - Objective Vital Signs: Vital Signs Temperature 99.9 F H 12/11/16 06:00 Pulse Rate 87 12/11/16 06:00 Respiratory Rate 20 12/11/16 06:00 Blood Pressure 109/62 12/11/16 06:00 O2 Sat by Pulse Oximetry (%) 100 12/09/16 09:00 Constitutional: Yes: Calm Eyes: No: Sclera Icterus Cardiovascular: Yes: Tachycardia, S1, S2 Respiratory: Yes: CTA Bilaterally (normal breath sounds bilaterally). No: Accessory Muscle Use, SOB Gastrointestinal: Yes: Normal Bowel Sounds, Soft, Tenderness (Mild tenderness on the RUQ and epigastrium sites of the trochar entry for her cholecystectomy) Genitourinary: No: Fortune Present Edema: LUE: Trace Peripheral Pulses: Left Radial: 0, Right Radial: 0 Psychiatric: Yes: Oriented Labs: CBC, BMP 12/11/16 06:30 12/11/16 06:30 INR, PTT INR 0.99 (0.82-1.09) 12/07/16 05:35 Impression/Plan Impression/Plan: Assessment: 1.ALT and ASTs still trending downward, WBCs and neutrophilia improved, Immune against Hep B,Hep A and C negative no abdominal findings on imaging 2. Medication induced abnormal LFTS improving Plan: Stop protonix Stop promethazine ATTENDING PHYSICIAN STATEMENT I saw and evaluated the patient. I reviewed the resident's note and discussed the case with the resident. I agree with the resident's findings and plan as documented. SUBJECTIVE: Patient states feeling better in terms of back pain and nausea No acute events overnight OBJECTIVE: Anicteric Hrt: RRR Lungs: CTA B/L Abd: sft, + TTP RUQ predominantly at trochar sites Ext: Trace LE edema b/l ABD US: No acute pathology No diltaed ducts, No evidence of PVT/HVT AXR: Non-specific gas pattern of bowel, no obstruction Laboratory Tests 12/11/16 06:30 Total Bilirubin 0.9 D Direct Bilirubin 0.2 AST 65 H D ALT 244 H D Alkaline Phosphatase 155 H Laboratory Tests 12/10/16 06:30 Hepatitis A Ab Total Negative Hep Bs Antigen Negative Hep Bs Antibody Reactive Hep B Core Total Ab Negative ASSESSMENT/PLAN 1. Elevated liver chemistries: Suspect drug induced. Trending down D/C'd protonix again Hepatitis serologies reflect passive immunity to Hep B 2. Nausea: Improved Likely related to pain/meds/immobility D/C's Promethazine Zofran PRN 3. Constipation: MiraLAX 17g PO BID Post-Op care per surgery / PMD Rajesh Dumas D.O. Visit type - Emergency Visit Emergency Visit: No - New Patient This patient is new to me today: No - Critical Care Critical Care patient: No - Discharge Referral Referred to [facility] Med P.C.: No
[2016-12-11] MEDS ORDERED: RANITIDINE HCL 150 MG TABLET (FP) PO ONE (09:25)
[2016-12-11] MEDS ORDERED: PT OWN MED DRAWER 7, Y5N ONE (09:33)
[2016-12-11] MEDS: POLYETHYLENE GLYCOL 3350 119 GM BTL PO SCH ×2 (09:45→22:07)
[2016-12-11] MEDS: HEPARIN NA (PORCINE) 5,000 UNITS/ML 1ML VIAL SQ SCH ×2 (09:46→22:06)
--- NOTE | 2016-12-11 09:55 | OP ---
DATE OF OPERATION: 12/08/2016 PREOPERATIVE DIAGNOSES: 1. L5-S1 progressive degenerative disk disease. 2. Mechanical lower back pain and lumbar instability, L5-S1, with bilateral lumbar radiculopathy. POSTOPERATIVE DIAGNOSES: 1. L5-S1 progressive degenerative disk disease. 2. Mechanical lower back pain and lumbar instability, L5-S1, with bilateral lumbar radiculopathy. ATTENDING SURGEON: Charlie Liriano MD SENIOR FUNCTIONAL ANALYST: SHIRLEY Patel ANESTHESIA: General endotracheal. ANESTHESIOLOGIST: Shital Flood MD ESTIMATED BLOOD LOSS: 300 mL TRANSFUSIONS: 125 mL of Cell Saver. PROCEDURE: 1. Bilateral L5 and partial bilateral S1 laminectomy for decompression of the thecal sac as well as bilateral L5-S1 nerve roots (30991-70, 43089). 2. Grindstone of L4-5 laminar and spinous process bone as well as facet bone for interbody and posterolateral fusion (71613). 3. Microsurgical dissection with the operating microscope and microsurgical techniques (64002). 4. Bilateral L5-S1 microdiscectomy. 5. Posterior lumbar interbody fusion at L5-S1 (11064). 6. Utilization of intervertebral 9-mm interbody implants from [employer] ( [id number]). 7. Posterior lumbar pedicle screw fixation and system placements at L5-S1 with [employer] Eve II-4.5 titanium system (6.5 x 40 mirror screws at L5 bilaterally and 7.5 x 35 mm screws at S1 bilaterally, connected with 35-mm rods; 88074). 8. Intraoperative fluoroscopy for localization and pedicle screw fixation placement (66112-25). 9. Posterolateral fusion at L5-S1 with harvested morselized bone graft and bone dust harvested earlier (76313). FINDINGS: 1. Instability of L5-S1. 2. Extremely sensitive left greater than right sided lumbar nerve roots at L5- S1. INDICATION: The patient is a 36-year-old female who has a longstanding history of lower back pain and intermittent lumbar radiculopathy. She has experienced intermittent mechanical low back pain since she was 7. The most recent exacerbation was since about a couple weeks ago when she reports increasing pain after leaning forward to sweet pickle maker something from the floor. She complains of mechanical lower back pain and sciatica radiating down to the buttocks bilaterally and anterior thigh. An MRI demonstrated L5-S1 progressive degenerative disk disease and endplate changes. Because of her intractable symptoms as well as allergies to multiple medications , she has opted for surgical intervention. The risks of surgery include, but not limited to, bleeding, infection, dural tear with CSF leak, neurological injury, increased thromboembolic risk, and other risks of general anesthesia. The patient understands the indications for the procedure, procedure in detail, risks and benefits and alternatives for her lumbar condition and wishes to proceed. No guarantees given for a favorable outcome. Intraoperative SSEP and MEP signals were monitored. Preoperative medical clearance was obtained. PROCEDURE IN DETAIL: The patient was taken to the operating room. She was placed in supine position. After general anesthesia was induced and appropriate monitoring lines were placed, a Fortune catheter was also inserted. She was then tuned over in the prone position on the César frame. All pressure points were checked and padded. O2 saturation and bilateral lower extremities was 100%. Lumbar region was cleaned with alcohol and prepped with Betadine and localizing x-ray was obtained. An approximately 3-1/2 inch incision was opened in the midline. Subperiosteal dissection was carried out bilaterally with periosteal elevator and monopolar electrocautery from the bottom of the L4 lamina to the bottom of the S1 lamina. Two self-retaining retractors were inserted. The facet joints at L4-L5 and L5-S1 was skeletonized and preserved. The retractors were repositioned. Another x-ray was obtained with a clamp in the L5 -S1 interspinous space. After position was verified on x-rays, supraspinatus and interspinous ligamenta were resected with Leksell rongeur. The spinous process at L5 was resected with Leksell rongeur and morselized for bone graft purposes later on. Complete laminectomy at L5 as well as partial bilateral S1 laminectomy was carried out with a combination of angled curette, Kerrison rongeur, as well as Leksell rongeur. The high-speed pneumatic drill was used to expand the laminectomy laterally. The L5 -S1 segment was found to be hypermobile even prior to any ligament or bone removal. Under gentle retraction of the left S1 nerve root, hemostasis was obtained with bipolar electrocautery, and the disk annulus was incised with a number-5 blade. The disk space was rather narrow and was less than 4-5 mm in height initially. Serially larger disk space scrapers up to 7 mm was used. Attention was then turned to the right side of the disk space where under gentle S1 nerve root retraction, disk annulus was incised, and the space was opened up with serially larger disc space scraper. Scraper up to 9 mm was used. A 10-mm disc space distractor was placed on the right side, and the left-sided disk space was further cleaned with 8 and 9 mm disk space scrapers. Side-cutting as well as down-cutting and straight curettes were used for disk material removal. A 10-mm distractor was placed on the right side of the disk to distract the space. A 9-mm cortical cancellous bony prosthetic device was inserted and countersunk by about 5 mm. Attention was then turned to the right side of the disk space after distractors were removed and the disk space was similarly prepared. The central portion of the disk material was moved with downward curette and upgoing pituitary rongeur. It was similarly prepared with different size angled curettes. The central portion of the disk space was packed with towels and morselized bone graft and bone dust which was obtained earlier after it was morselized with the bone meal. Another 9-mm interbody implant was inserted and countersunk by about 5 mm similarly. At this point, the entry point of the pedicle screw was marked with high-speed pneumatic drill. The microscope was utilized for decompression portion of the procedure. The left-sided nerve roots were quite were sensitive, especially left L5 and S1, greater on the right-sided nerve roots. The fluroscope brought into lateral position and draped sterilely. The handheld awl was used to create a path for the pedicle screw, with approximately 8 degrees medial angle. The screw holes were then tapped, and 6.5 x 40 mm screws were used at L5 bilaterally. A 7.5 x 35 mm screw was used at S1 bilaterally. This was performed with real-time lateral fluoroscopic imaging as well as real-time EMG monitoring. There was no apparent EMG activity. Next, 35-mm rods were loaded on top of screws and locked down with locking screws. The screws were compressed lightly prior to final tightening. The lateral recess was inspected and was felt to be well decompressed and open after decompression and fusion were completed. Posterolateral surface of the spine was decorticated with high-spell pneumatic drill. The fL5-S1 acet joint was quite hypertrophied, and this was taken down. Morselized bone graft and bone pedicles were used for posterolateral fusion. Next, 10 mL of 0.25% Marcaine were injected in the paraspinal muscles. The wound was irrigated with copious amount of antibiotic containing irrigation. A layer of Surgicel was layered in the epidural space. Hemostasis of the paraspinal muscles was obtained with bipolar electrocautery. Dorsal lumbar musculature was approximated with 0 Vicryl suture, and the dorsal lumbar fascia was closed with 0 Vicryl interrupted sutures. The EMG threshold for all 4 pedicle screws was greater than 19 milliamps. Lumbar fascia was closed with 3-0 Vicryl suture. The skin was closed with 4-0 Vicryl interrupted suture. Steri-Strips and sterile glue dressing was applied. The patient tolerated the procedure well and was extubated. She was moving her upper and lower extremities in the recovery room. All needle and lap counts were correct. The intraoperative finding was communicated with the patient's family in the waiting room. The patient received 1 dose of 1 g of Ancef prior to incision. SSEP and EMG signal remained stable throughout. The OR timeout procedure was followed. She was moving bilateral lower extremity in the PACU. Shlomo [id number] MTDD
--- NOTE | 2016-12-11 10:29 | PN ---
Teaching Attending Note Name of Resident: Kinjal Feliz ATTENDING PHYSICIAN STATEMENT I saw and evaluated the patient. I reviewed the resident's note and discussed the case with the resident. I agree with the resident's findings and plan as documented. See physician attestation on resident note from 12/11/16
--- NOTE | 2016-12-11 13:19 | PN ---
Progress Note, Physician Chief Complaint: Mrs Wetzel complains of back pain. No cp, sob, n/v. - Current Medication List Current Medications: Active Medications Diazepam (Valium -) 5 mg PO TID [facility] Diphenhydramine HCl (Benadryl Injection -) 12.5 mg IVPUSH ONCE PRN PRN Reason: FOR ITCHING Docusate Sodium (Colace -) 300 mg PO HS [facility] Last Admin: 12/10/16 21:56 Dose: Not Given Heparin Sodium (Porcine) (Heparin -) 5,000 unit SQ BID [facility] Last Admin: 12/11/16 09:46 Dose: 5,000 unit Ondansetron HCl (Zofran Injection) 4 mg IVPB Q6H PRN PRN Reason: NAUSEA Last Admin: 12/10/16 03:23 Dose: 4 mg Polyethylene Glycol (Miralax (For Daily Use) -) 17 gm PO BID [facility] Last Admin: 12/11/16 09:45 Dose: 17 gm Quetiapine Fumarate (Seroquel -) 25 mg PO [facility] Last Admin: 12/10/16 21:57 Dose: 25 mg Tapentadol (Nucynta -) 75 mg PO Q4H PRN PRN Reason: PAIN Last Admin: 12/11/16 06:59 Dose: 75 mg - Objective Vital Signs: Vital Signs Temperature 98.9 F 12/11/16 08:45 Pulse Rate 91 H 12/11/16 08:45 Respiratory Rate 18 12/11/16 08:45 Blood Pressure 103/64 12/11/16 08:45 O2 Sat by Pulse Oximetry (%) 100 12/09/16 09:00 Constitutional: Yes: Well Nourished, No Distress, Calm Cardiovascular: Yes: Regular Rate and Rhythm. No: Gallop, Murmur, Rub Respiratory: Yes: Regular, CTA Bilaterally. No: Rales, Rhonchi, Wheezes Gastrointestinal: Yes: Normal Bowel Sounds, Soft. No: Distention, Tenderness Extremities: Yes: WNL Edema: No Labs: CBC, BMP 12/11/16 06:30 12/11/16 06:30 INR, PTT INR 0.99 (0.82-1.09) 12/07/16 05:35 Problem List - Problems (1) Herniated intervertebral disc of lumbar spine Code(s): M51.26 - OTHER INTERVERTEBRAL DISC DISPLACEMENT, LUMBAR REGION (2) Intractable back pain Code(s): M54.9 - DORSALGIA, UNSPECIFIED (3) Incontinence Code(s): R32 - UNSPECIFIED URINARY INCONTINENCE Qualifiers: Qualified Code(s): N39.41 - Urge incontinence (4) Dyspepsia Code(s): R10.13 - EPIGASTRIC PAIN (5) Constipation Code(s): K59.00 - CONSTIPATION, UNSPECIFIED Assessment/Plan (1) Herniated intervertebral disc of lumbar spine Assessment/Plan: -neurosurgery following -pain control per neurosurgery -continue PT -may need SNF placement but encouraging to walk around Code(s): M51.26 - OTHER INTERVERTEBRAL DISC DISPLACEMENT, LUMBAR REGION (2) Intractable back pain Assessment/Plan: -as above Code(s): M54.9 - DORSALGIA, UNSPECIFIED (3) Incontinence Assessment/Plan: -resolved Code(s): R32 - UNSPECIFIED URINARY INCONTINENCE Qualifiers: Incontinence type: urinary Urinary Incontinence type: urge incontinence Qualified Code(s): N39.41 - Urge incontinence (4) Dyspepsia Assessment/Plan: -continue ranitidine Code(s): R10.13 - EPIGASTRIC PAIN (5) Constipation Assessment/Plan: -resolved Code(s): K59.00 - CONSTIPATION, UNSPECIFIED (6) Elevated LFTs -improving -secondary to medications -all hepatotoxic medications stopped
[2016-12-11] MEDS: QUEtiapine FUMARATE 25 MG TABLET (FP) PO SCH (22:06)
[2016-12-11] MEDS: DOCUSATE SODIUM 100 MG CAPSULE (FP) PO SCH (22:06)
[2016-12-12] MEDS: TAPENTADOL HYDROCHLORIDE 50 MG TABLET PO PRN ×4 (02:05→21:52)
[2016-12-12] MEDS: diazePAM 5 MG TABLET PO SCH ×3 (06:18→21:55)
--- NOTE | 2016-12-12 06:46 | PN ---
Progress Note (short form) - Note Progress Note: NEUROSURGERY POD #4 Tolerating diet Had BM Mild epigastric burning PE: Tmax 99.4, VSS More awake HEENT- NC/AT; neck- supple; Cor- RRR; Lings- decreased BS at bases; Abd- benign ; Ext- no sign of DVT CN- intact; Motor- 4+/5 B UE; B DF 4-/5, PF 4/5 pain limited; Sensation- intact LT; DTR- physiological Dressing C/D/I; woudn clean; dressing changed WBC 11.6, Hgb 11.3 S/p L5-S1 discectomy and interbody fusion/instrumentation Inicisional pain SCD's and on sq heparin OOB/Mobilize with LSO brace Incentive spirometry stressed and LE self-exercise when in bed encouraged With her young age and type of surgery would ideally be able to go home in a day or two; rehab if not able to go home Dressing change/wound care Cont Zantac Bowel regimen
[2016-12-12 08:06] LABS: BASOPHIL 0.2 % (0-2.0); EOSINOPHIL 2.2 % (0-4.5); MCH 30.3 pg (25.7-33.7); MCHC 34.1 g/dl (32.0-36.0); MEAN CELL VOLUME 88.7 fl (80-96); MEAN PLT VOLUME 8.1 fl (7.5-11.1); NEUTROPHILS 71.9 % (42.8-82.8); PLATELET COUNT 240 K/MM3 (134-434); RDW 13.7 % (11.6-15.6); WHITE BLOOD COUNT 10.1 K/mm3 (4.0-10.0)
[2016-12-12] MEDS: RANITIDINE HCL 150 MG TABLET (FP) PO SCH ×3 (08:11→21:55)
[2016-12-12 08:36] LABS: ANION GAP 10 (8-16); CALCIUM 8.8 mg/dL (8.5-10.1); CO2 24 mmol/L (21-32); CREATININE 0.5 mg/dL (0.55-1.02); GLUCOSE,RANDOM 89 mg/dL (74-106); MAGNESIUM 2.4 mg/dL (1.8-2.4); PHOSPHOROUS 3.4 mg/dL (2.5-4.9)
--- NOTE | 2016-12-12 09:19 | PN ---
Physical Exam: SUBJECTIVE: Patient seen and examined. No new complaints this am. Moved her bowels yesterday, up to 4 times, non bloody , non mucoid. Able to get out of bed, but is not walking yet. LFTs still trending down. OBJECTIVE: Vital Signs Period Temp Pulse Resp BP Sys/Francisco Pulse Ox Last 24 Hr 99 F-99.4 F 84-107 18-18 104-118/58-66 GENERAL: The patient is awake, oriented, in no acute distress. EYES: sclera anicteric, conjunctiva clear. LUNGS: Breath sounds equal, clear to auscultation, no wheezes, no crackles, no accessory muscle use. HEART: Regular rate and rhythm, S1, S2 without murmur, rub or gallop. ABDOMEN: Soft, normoactive bowel sounds, mild tenderness at RUQ and epigastric region, no guarding, no rebound, no hepatosplenomegaly, no masses. EXTREMITIES: 2+ pulses, warm, well-perfused, mild edema. Active Medications Laboratory Last Values WBC 10.1 K/mm3 (4.0-10.0) H 12/12/16 06:45 RBC 3.90 M/mm3 (3.60-5.2) 12/12/16 06:45 Hgb 11.8 GM/dL (10.7-15.3) 12/12/16 06:45 Hct 34.6 % (32.4-45.2) 12/12/16 06:45 MCV 88.7 fl (80-96) 12/12/16 06:45 MCH 30.3 pg (25.7-33.7) 12/12/16 06:45 MCHC 34.1 g/dl (32.0-36.0) 12/12/16 06:45 RDW 13.7 % (11.6-15.6) 12/12/16 06:45 Plt Count 240 K/MM3 (134-434) 12/12/16 06:45 MPV 8.1 fl (7.5-11.1) 12/12/16 06:45 Neutrophils % 71.9 % (42.8-82.8) 12/12/16 06:45 Lymphocytes % 19.1 % (8-40) 12/12/16 06:45 Monocytes % 6.6 % (3.8-10.2) 12/12/16 06:45 Eosinophils % 2.2 % (0-4.5) D 12/12/16 06:45 Basophils % 0.2 % (0-2.0) 12/12/16 06:45 ESR 12 mm/hr (0-20) 12/06/16 06:00 INR 0.99 (0.82-1.09) 12/07/16 05:35 PTT (Actin FS) 32.8 SECONDS (26.9-34.4) 12/07/16 05:35 Puncture Site Right radial 12/06/16 18:55 ABG pH 7.41 (7.35-7.45) 12/06/16 18:55 ABG pCO2 at Pt Temp 40.9 mmHg (35-45) 12/06/16 18:55 ABG pO2 at Pt Temp 78.1 mmHg (80-100) L 12/06/16 18:55 ABG HCO3 25.5 meq/L (22-26) 12/06/16 18:55 ABG O2 Sat (Measured) 96.5 % (90-98.9) 12/06/16 18:55 ABG O2 Content 16.8 % vol (15-22) 12/06/16 18:55 ABG Base Excess 1.4 meq/l (-2-2) 12/06/16 18:55 Ranjit Test Positive 12/06/16 18:55 Oxygen Flow Rate 21% 12/06/16 18:55 PEEP 0.0 cmH2O 12/06/16 18:55 Sodium 135 mmol/L (136-145) L 12/12/16 06:45 Potassium 4.0 mmol/L (3.5-5.1) 12/12/16 06:45 Chloride 101 mmol/L (98-107) 12/12/16 06:45 Carbon Dioxide 24 mmol/L (21-32) 12/12/16 06:45 Anion Gap 10 (8-16) 12/12/16 06:45 BUN 9 mg/dL (7-18) 12/12/16 06:45 Creatinine 0.5 mg/dL (0.55-1.02) L D 12/12/16 06:45 Creat Clearance w eGFR > 60 (>60) 12/08/16 05:35 POC Glucometer 134 UNITS (()) 12/06/16 18:50 Random Glucose 89 mg/dL (74-106) 12/12/16 06:45 Calcium 8.8 mg/dL (8.5-10.1) 12/12/16 06:45 Phosphorus 3.4 mg/dL (2.5-4.9) 12/12/16 06:45 Magnesium 2.4 mg/dL (1.8-2.4) 12/12/16 06:45 Total Bilirubin 0.9 mg/dL (0.2-1.0) D 12/11/16 06:30 Direct Bilirubin 0.2 mg/dL (0.0-0.2) 12/11/16 06:30 AST 65 U/L (15-37) H D 12/11/16 06:30 ALT 244 U/L (12-78) H D 12/11/16 06:30 Alkaline Phosphatase 155 U/L (45-117) H 12/11/16 06:30 Creatine Kinase 405 IU/L (26-192) H 12/09/16 06:55 CK-MB (CK-2) 3.372 ng/ml (0.5-3.6) 12/09/16 06:55 C-Reactive Protein 0.7 MG/DL (0.00-0.3) H 12/06/16 06:00 Total Protein 6.1 g/dl (6.4-8.2) L 12/11/16 06:30 Albumin 2.8 g/dl (3.4-5.0) L 12/11/16 06:30 Total Amylase 34 U/L (25-115) 12/09/16 06:55 Lipase 89 U/L (73-393) 12/09/16 06:55 Urine Color Yellow 12/03/16 22:08 Urine Appearance Slcloudy 12/03/16 22:08 Urine pH 6.0 (5.0-8.0) 12/03/16 22:08 Ur Specific Rugby 1.025 (1.005-1.025) 12/03/16 22:08 Urine Protein Negative (NEGATIVE) 12/03/16 22:08 Urine Glucose (UA) Negative (NEGATIVE) 12/03/16 22:08 Urine Ketones Negative (NEGATIVE) 12/03/16 22:08 Urine Blood Negative (NEGATIVE) 12/03/16 22:08 Urine Nitrite Negative (NEGATIVE) 12/03/16 22:08 Urine Bilirubin Negative (NEGATIVE) 12/03/16 22:08 Urine Urobilinogen Negative mg/dL (0.2-1.0) 12/03/16 22:08 Ur Leukocyte Esterase Negative (NEGATIVE) 12/03/16 22:08 Hepatitis A Ab Total Negative (Negative) 12/10/16 06:30 Hep Bs Antigen Negative (Negative) 12/10/16 06:30 Hep Bs Antibody Reactive (.) 12/10/16 06:30 Hep B Core Total Ab Negative (Negative) 12/10/16 06:30 Blood Type O POSITIVE 12/07/16 05:35 Antibody Screen Negative 12/07/16 05:35 Generic Name Dose Route Start Last Admin Trade Name Freq PRN Reason Stop Dose Admin Diazepam 5 mg 12/11/16 14:00 12/12/16 06:18 Valium - PO 5 mg TID [facility] Administration Diphenhydramine HCl 12.5 mg 12/09/16 06:54 Benadryl Injection - IVPUSH ONCE PRN FOR ITCHING Docusate Sodium 300 mg 12/09/16 22:00 12/11/16 22:06 Colace - PO Not Given HS [facility] Heparin Sodium (Porcine) 5,000 unit 12/10/16 10:30 12/11/16 22:06 Heparin - SQ 5,000 unit BID [facility] Administration Ondansetron HCl 4 mg 12/09/16 06:54 12/10/16 03:23 Zofran Injection IVPB 4 mg Q6H PRN Administration NAUSEA Polyethylene Glycol 17 gm 12/09/16 10:00 12/11/16 22:07 Miralax (For Daily Use) - PO Not Given BID [facility] Quetiapine Fumarate 25 mg 12/09/16 22:00 12/11/16 22:06 Seroquel - PO 25 mg HS [facility] Administration Ranitidine HCl 150 mg 12/12/16 10:00 12/12/16 08:11 Zantac - PO 150 mg BID [facility] Administration Tapentadol 75 mg 12/10/16 12:15 12/12/16 02:05 Nucynta - PO 75 mg Q4H PRN Administration PAIN ASSESSMENT: Iatrogenic/ Medication induced hepatocellular injury Improving liver enzymes PLAN: Continue to monitor her liver enzymes and withhold hepatotoxic medications as is feasible Visit type - Emergency Visit Emergency Visit: No - New Patient This patient is new to me today: No - Critical Care Critical Care patient: No - Discharge Referral Referred to [facility] Med P.C.: No
[2016-12-12] MEDS: POLYETHYLENE GLYCOL 3350 119 GM BTL PO SCH ×2 (09:26→21:42)
[2016-12-12] MEDS: HEPARIN NA (PORCINE) 5,000 UNITS/ML 1ML VIAL SQ SCH ×2 (09:28→21:42)
--- NOTE | 2016-12-12 16:17 | PN ---
Progress Note, Physician Chief Complaint: Mrs Wetzel says she is feeling better, still with back pain. no cp, sob, n/v. - Current Medication List Current Medications: Active Medications Diazepam (Valium -) 5 mg PO TID [facility] Last Admin: 12/12/16 14:21 Dose: Not Given Diphenhydramine HCl (Benadryl Injection -) 12.5 mg IVPUSH ONCE PRN PRN Reason: FOR ITCHING Docusate Sodium (Colace -) 300 mg PO [facility] Last Admin: 12/11/16 22:06 Dose: Not Given Heparin Sodium (Porcine) (Heparin -) 5,000 unit SQ BID [facility] Last Admin: 12/12/16 09:28 Dose: Not Given Ondansetron HCl (Zofran Injection) 4 mg IVPB Q6H PRN PRN Reason: NAUSEA Last Admin: 12/10/16 03:23 Dose: 4 mg Pantoprazole Sodium (Protonix -) 40 mg PO BID@0700,2200 [facility] Polyethylene Glycol (Miralax (For Daily Use) -) 17 gm PO BID [facility] Last Admin: 12/12/16 09:26 Dose: Not Given Quetiapine Fumarate (Seroquel -) 25 mg PO [facility] Last Admin: 12/11/16 22:06 Dose: 25 mg Ranitidine HCl (Zantac -) 150 mg PO BID [facility] Last Admin: 12/12/16 09:27 Dose: Not Given Tapentadol (Nucynta -) 75 mg PO Q4H PRN PRN Reason: PAIN Last Admin: 12/12/16 09:36 Dose: 75 mg - Objective Vital Signs: Vital Signs Temperature 99.7 F H 12/12/16 10:00 Pulse Rate 90 12/12/16 10:00 Respiratory Rate 20 12/12/16 10:00 Blood Pressure 106/64 12/12/16 10:00 O2 Sat by Pulse Oximetry (%) 100 12/09/16 09:00 Constitutional: Yes: Well Nourished, No Distress, Calm Cardiovascular: Yes: Regular Rate and Rhythm. No: Gallop, Murmur, Rub Respiratory: Yes: Regular, CTA Bilaterally. No: Rales, Rhonchi, Wheezes Gastrointestinal: Yes: Normal Bowel Sounds, Soft. No: Distention, Tenderness Extremities: Yes: WNL Edema: No Labs: CBC, BMP 12/12/16 06:45 12/12/16 06:45 INR, PTT INR 0.99 (0.82-1.09) 12/07/16 05:35 Problem List - Problems (1) Herniated intervertebral disc of lumbar spine Code(s): M51.26 - OTHER INTERVERTEBRAL DISC DISPLACEMENT, LUMBAR REGION (2) Intractable back pain Code(s): M54.9 - DORSALGIA, UNSPECIFIED (3) Incontinence Code(s): R32 - UNSPECIFIED URINARY INCONTINENCE Qualifiers: Qualified Code(s): N39.41 - Urge incontinence (4) Dyspepsia Code(s): R10.13 - EPIGASTRIC PAIN (5) Constipation Code(s): K59.00 - CONSTIPATION, UNSPECIFIED Assessment/Plan (1) Herniated intervertebral disc of lumbar spine Assessment/Plan: -neurosurgery following -pain control per neurosurgery -continue PT -encouraged patient to sit in a chair and walk. instructed her to stop spending most of her time in bed. Code(s): M51.26 - OTHER INTERVERTEBRAL DISC DISPLACEMENT, LUMBAR REGION (2) Intractable back pain Assessment/Plan: -as above Code(s): M54.9 - DORSALGIA, UNSPECIFIED (3) Incontinence Assessment/Plan: -resolved Code(s): R32 - UNSPECIFIED URINARY INCONTINENCE Qualifiers: Incontinence type: urinary Urinary Incontinence type: urge incontinence Qualified Code(s): N39.41 - Urge incontinence (4) Dyspepsia Assessment/Plan: -continue ranitidine Code(s): R10.13 - EPIGASTRIC PAIN (5) Constipation Assessment/Plan: -resolved Code(s): K59.00 - CONSTIPATION, UNSPECIFIED (6) Elevated LFTs -improving -secondary to medications -all hepatotoxic medications stopped
--- NOTE | 2016-12-12 17:34 | PN ---
GI Progress Note Subjective: GI NOte: LFTs are improving. Has a chronic abdominal discomfort since her cholecystectomy in 1998 which is unchanged. Tolerating diet and had a large BM yesterday. - Objective Vital Signs: Vital Signs Temperature 99.7 F H 12/12/16 10:00 Pulse Rate 90 12/12/16 10:00 Respiratory Rate 20 12/12/16 10:00 Blood Pressure 106/64 12/12/16 10:00 O2 Sat by Pulse Oximetry (%) 100 12/09/16 09:00 Constitutional: Calm ...Auscultate: Yes: Normoactive Bowel Sounds ...Palpate: Yes: Soft, Other (nontender) Labs: CBC, BMP 12/12/16 06:45 12/12/16 06:45 INR, PTT INR 0.99 (0.82-1.09) 12/07/16 05:35 Laboratory Tests 12/08/16 12/10/16 12/11/16 17:30 06:30 06:30 Total Bilirubin 0.9 D Direct Bilirubin 0.2 AST 460 H D 65 H D ALT 560 H D 244 H D Alkaline Phosphatase 187 H D 145 H 155 H Assessment/Plan Reactive hepatopathy likely with a component of drug induced liver injury appears to be resolving. Discussed earlier with Dr Feliz.
[2016-12-12] MEDS ORDERED: SODIUM CHLORIDE NASAL SPRAY 44 ML BOTTLE NS PRN (21:03)
[2016-12-12] MEDS: DOCUSATE SODIUM 100 MG CAPSULE (FP) PO SCH (21:41)
[2016-12-12] MEDS: PANTOPRAZOLE 40 MG TABLET (FP) PO SCH (21:51)
[2016-12-12] MEDS: QUEtiapine FUMARATE 25 MG TABLET (FP) PO SCH (21:52)
[2016-12-13] MEDS: TAPENTADOL HYDROCHLORIDE 50 MG TABLET PO PRN ×4 (02:21→19:09)
[2016-12-13] MEDS: PANTOPRAZOLE 40 MG TABLET (FP) PO SCH ×2 (06:11→22:03)
[2016-12-13] MEDS: diazePAM 5 MG TABLET PO SCH (06:11)
[2016-12-13 08:00] LABS: BASOPHIL 0.3 % (0-2.0); EOSINOPHIL 2.2 % (0-4.5); MCH 29.8 pg (25.7-33.7); MCHC 33.9 g/dl (32.0-36.0); MEAN CELL VOLUME 87.9 fl (80-96); MEAN PLT VOLUME 8.2 fl (7.5-11.1); NEUTROPHILS 70.1 % (42.8-82.8); PLATELET COUNT 279 K/MM3 (134-434); RDW 13.9 % (11.6-15.6); WHITE BLOOD COUNT 9.5 K/mm3 (4.0-10.0)
[2016-12-13 08:32] LABS: ALK PHOS 179 U/L (45-117); ANION GAP 10 (8-16); BILIRUBIN,TOTAL 0.5 mg/dL (0.2-1.0); CALCIUM 8.7 mg/dL (8.5-10.1); CO2 25 mmol/L (21-32); CREATININE 0.4 mg/dL (0.55-1.02); GLUCOSE,RANDOM 88 mg/dL (74-106); SGOT/AST 112 U/L (15-37); SGPT/ALT 178 U/L (12-78); TOT PROT 6.4 g/dl (6.4-8.2)
--- NOTE | 2016-12-13 09:13 | PN ---
Progress Note (short form) - Note Progress Note: NEUROSURGERY POD #5 Having breakfast Sitting up at bedside Appears comfortable Incisional pain Refused SQ heparin, claims it causes nosebleed PE: Tmax 99.7, VSS More awake HEENT- NC/AT; neck- supple; Cor- RRR; Lings- decreased BS at bases; Abd- benign ; Ext- no sign of DVT CN- intact; Motor- 4+/5 B UE; B DF 4-/5, PF 4/5 pain limited; Sensation- intact LT; DTR- physiological Dressing C/D/I; wound clean; WBC 9.5 S/p L5-S1 discectomy and interbody fusion/instrumentation Incisional pain SCD's OOB/Mobilize with LSO brace Incentive spirometry stressed and LE self-exercise when in bed encouraged With her young age and type of surgery would ideally be able to go home; if not able to do so could try rehab (pt prefers rehab) Cont Zantac Bowel regimen D/w medical team and RN
--- NOTE | 2016-12-13 10:03 | PN ---
Progress Note, Physician Chief Complaint: Back pain continues. History of Present Illness: Patient is S/P lumbar spinal discectomy and fusion. Still having back pain. Had Pt yesterday and walked with antalgic gait for 20ft X1. On pain Rx and wishing to go to Rehab. Seen by GI MD Re: Liver enzyme elevation. Seen by Dr. Liriano this AM. - Current Medication List Current Medications: Active Medications Diazepam (Valium -) 5 mg PO TID [facility] Last Admin: 12/13/16 06:11 Dose: 5 mg Diphenhydramine HCl (Benadryl Injection -) 12.5 mg IVPUSH ONCE PRN PRN Reason: FOR ITCHING Docusate Sodium (Colace -) 300 mg PO [facility] Last Admin: 12/12/16 21:41 Dose: Not Given Heparin Sodium (Porcine) (Heparin -) 5,000 unit SQ BID [facility] Last Admin: 12/12/16 21:42 Dose: Not Given Hydromorphone HCl (Dilaudid Injection -) 1 mg IVPB Q6H PRN PRN Reason: PAIN Ondansetron HCl (Zofran Injection) 4 mg IVPB Q6H PRN PRN Reason: NAUSEA Last Admin: 12/10/16 03:23 Dose: 4 mg Pantoprazole Sodium (Protonix -) 40 mg PO BID@0700,2200 [facility] Last Admin: 12/13/16 06:11 Dose: Not Given Polyethylene Glycol (Miralax (For Daily Use) -) 17 gm PO BID [facility] Last Admin: 12/12/16 21:42 Dose: Not Given Quetiapine Fumarate (Seroquel -) 25 mg PO [facility] Last Admin: 12/12/16 21:52 Dose: 25 mg Ranitidine HCl (Zantac -) 150 mg PO BID [facility] Last Admin: 12/12/16 21:55 Dose: 150 mg Sodium Chloride ([place] -) 2 spray NS Q4H PRN PRN Reason: NASAL CONGESTION Tapentadol (Nucynta -) 75 mg PO Q4H PRN PRN Reason: PAIN Last Admin: 12/13/16 09:14 Dose: 75 mg - Objective Vital Signs: Vital Signs Temperature 98.9 F 12/13/16 06:00 Pulse Rate 94 H 12/13/16 06:00 Respiratory Rate 20 12/13/16 06:00 Blood Pressure 91/57 12/13/16 06:00 O2 Sat by Pulse Oximetry (%) 95 12/12/16 09:00 Constitutional: Yes: Mild Distress Eyes: Yes: Conjunctiva Clear Cardiovascular: Yes: Regular Rate and Rhythm Respiratory: Yes: Regular Gastrointestinal: Yes: Soft (Moving her bowels.) Genitourinary: No: Fortune Present Edema: No Neurological: Yes: Alert Labs: CBC, BMP 12/13/16 06:00 12/13/16 06:00 INR, PTT INR 0.99 (0.82-1.09) 12/07/16 05:35 Assessment/Plan Imp: S/P LS discectomy and Fusion Elevated liver chemistries Acute Pain Plan: Continued PT F/U Liver Chem Rehab F/U with Neurosurgical and GI MD's
[2016-12-13] MEDS: HEPARIN NA (PORCINE) 5,000 UNITS/ML 1ML VIAL SQ SCH ×2 (10:59→22:03)
[2016-12-13] MEDS: POLYETHYLENE GLYCOL 3350 119 GM BTL PO SCH ×2 (11:00→22:03)
[2016-12-13] MEDS: RANITIDINE HCL 150 MG TABLET (FP) PO SCH ×3 (11:00→22:03)
[2016-12-13] MEDS ORDERED: diazePAM 5 MG TABLET PO SCH (11:21)
[2016-12-13] MEDS: QUEtiapine FUMARATE 25 MG TABLET (FP) PO SCH (22:01)
[2016-12-13] MEDS: diazePAM 2 MG TABLET PO SCH (22:02)
[2016-12-13] MEDS: DOCUSATE SODIUM 100 MG CAPSULE (FP) PO SCH (22:03)
[2016-12-14] MEDS: TAPENTADOL HYDROCHLORIDE 50 MG TABLET PO PRN ×3 (05:59→16:25)
[2016-12-14] MEDS: diazePAM 2 MG TABLET PO SCH ×3 (06:10→21:25)
[2016-12-14] MEDS: PANTOPRAZOLE 40 MG TABLET (FP) PO SCH (06:10)
[2016-12-14] MEDS: HEPARIN NA (PORCINE) 5,000 UNITS/ML 1ML VIAL SQ SCH ×2 (09:41→21:25)
[2016-12-14] MEDS: RANITIDINE HCL 150 MG TABLET (FP) PO SCH ×2 (09:54→21:25)
[2016-12-14] MEDS: POLYETHYLENE GLYCOL 3350 119 GM BTL PO SCH ×2 (09:54→21:25)
--- NOTE | 2016-12-14 11:32 | PN ---
Progress Note (short form) - Note Progress Note: Patient feels better today after she walked in the halls yesterday and is encouraged that she may be able to go home with PT rather than rehab. Tolerating her diet and had BM. Liver chemistries are still elevated and she was seen by GI MD. No SOB or chest pain . On Exam: Vital Signs Temp 98.8 F 12/14/16 07:16 Pulse 88 12/14/16 07:16 Resp 18 12/14/16 07:16 BP 92/54 12/14/16 07:16 Pulse Ox 96 12/13/16 21:00 Intake & Output 12/13/16 12/13/16 12/14/16 11:59 23:59 11:59 Intake Total 400 Balance 400 Intake: Oral 400 Other: Voiding Method Toilet Toilet # Unmeasured Voids Fortune 2 Bowel Movement Yes Alert Chest Clear Bandage LS area dry Cor; reg Ext: no edema IMP: LS disc surgery with fusion Low back pain Elevated liver chem ? due to meds Plan: PT and ambulation F/U liver chemistries ? Home PT
--- NOTE | 2016-12-14 13:38 | PN ---
GI Progress Note Subjective: GI NOte: Spirits are up. Walked in hallway today. LFTs have slightly risen. No abdominal pain. - Objective Vital Signs: Vital Signs Temperature 98.8 F 12/14/16 07:16 Pulse Rate 88 12/14/16 07:16 Respiratory Rate 18 12/14/16 07:16 Blood Pressure 92/54 12/14/16 07:16 O2 Sat by Pulse Oximetry (%) 96 12/13/16 21:00 Laboratory Tests 12/13/16 06:00 Total Bilirubin 0.5 D AST 112 H D ALT 178 H D Alkaline Phosphatase 179 H Constitutional: Calm ...Auscultate: Yes: Normoactive Bowel Sounds ...Palpate: Yes: Soft, Other (nontender) Labs: CBC, BMP 12/13/16 06:00 12/13/16 06:00 INR, PTT INR 0.99 (0.82-1.09) 12/07/16 05:35 Assessment/Plan Reactive hepatopathy likely with a component of drug induced liver injury appears to be resolving despite the fluctuations.
--- NOTE | 2016-12-14 18:28 | PN ---
Progress Note (short form) - Note Progress Note: NEUROSURGERY POD #6 Up earlier today PE: Tmax 99.0, now 97.9, VSS LFT about the same x 3 days S/p L5-S1 discectomy and interbody fusion/instrumentation Incisional pain SCD's OOB/Mobilize with LSO brace Incentive spirometry stressed and LE self-exercise when in bed encouraged With her young age and type of surgery (single level fusion) would ideally be able to go home; if not able to do so could try rehab Bowel regimen LSO when OOB D/w Dr Denton yesterday F/u in my office in about 7-10 days
[2016-12-14] MEDS: HYDROmorphone HCL CARPU-JECT 1 MG/1 ML DISP.SYRIN IVPB PRN (20:50)
[2016-12-14] MEDS: QUEtiapine FUMARATE 25 MG TABLET (FP) PO SCH (21:25)
[2016-12-14] MEDS: DOCUSATE SODIUM 100 MG CAPSULE (FP) PO SCH (21:25)
[2016-12-15] MEDS: TAPENTADOL HYDROCHLORIDE 50 MG TABLET PO PRN ×3 (05:50→21:44)
[2016-12-15] MEDS: RANITIDINE HCL 150 MG TABLET (FP) PO SCH ×3 (05:50→21:45)
[2016-12-15] MEDS: diazePAM 2 MG TABLET PO SCH ×3 (05:50→21:45)
[2016-12-15 08:37] LABS: ALBUMIN 3.1 g/dl (3.4-5.0); ALK PHOS 161 U/L (45-117); ANION GAP 11 (8-16); BILIRUBIN,TOTAL 0.7 mg/dL (0.2-1.0); CALCIUM 8.9 mg/dL (8.5-10.1); CO2 24 mmol/L (21-32); CREATININE 0.4 mg/dL (0.55-1.02); GLUCOSE,RANDOM 103 mg/dL (74-106); SGOT/AST 38 U/L (15-37); SGPT/ALT 112 U/L (12-78); TOT PROT 6.5 g/dl (6.4-8.2)
--- NOTE | 2016-12-15 08:49 | PN ---
Physical Exam: SUBJECTIVE: Patient seen and examined. C/o of pain at 9/10 today even though she was able to walk over the weekend. Had a temperature spike of 100.1 this am. No more n/v, now has regular bowel movements, no abd pain. LFTs still downward trending today. Had iv opiates in the evening yesterday and today. OBJECTIVE: Vital Signs Period Temp Pulse Resp BP Sys/Francisco Pulse Ox Last 24 Hr 97.9 F-100.1 F 86-104 18-20 94-105/55-64 96-96 GENERAL: The patient is awake, and fully oriented. EYES: sclera anicteric, conjunctiva clear. LUNGS: Breath sounds equal, clear to auscultation bilaterally, no wheezes, no crackles, no accessory muscle use. HEART: Tachycardic,S1, S2 without murmur, rub or gallop. ABDOMEN: Nondistended, Normoactive bowel sounds, Soft, mild tenderness over trochar sites at RUQ and epigastrium, no guarding, no rebound, no hepatosplenomegaly, no masses. EXTREMITIES: 2+ pulses, warm, well-perfused, no edema. Hepatic Panel Total Bilirubin 0.7 mg/dL (0.2-1.0) D 12/15/16 06:00 Direct Bilirubin 0.2 mg/dL (0.0-0.2) 12/11/16 06:30 AST 38 U/L (15-37) H D 12/15/16 06:00 ALT 112 U/L (12-78) H D 12/15/16 06:00 Alkaline Phosphatase 161 U/L (45-117) H 12/15/16 06:00 Albumin 3.1 g/dl (3.4-5.0) L 12/15/16 06:00 Active Medications Generic Name Dose Route Start Last Admin Trade Name Freq PRN Reason Stop Dose Admin Diazepam 2 mg 12/13/16 15:05 12/15/16 05:50 Valium - PO 2 mg TID [facility] Administration Diphenhydramine HCl 12.5 mg 12/09/16 06:54 Benadryl Injection - IVPUSH ONCE PRN FOR ITCHING Docusate Sodium 300 mg 12/09/16 22:00 12/14/16 21:25 Colace - PO Not Given HS [facility] Heparin Sodium (Porcine) 5,000 unit 12/10/16 10:30 12/14/16 21:25 Heparin - SQ Not Given BID [facility] Hydromorphone HCl 1 mg 12/13/16 09:25 12/14/16 20:50 Dilaudid Injection - IVPB 1 mg Q6H PRN Administration PAIN Ondansetron HCl 4 mg 12/09/16 06:54 12/10/16 03:23 Zofran Injection IVPB 4 mg Q6H PRN Administration NAUSEA Polyethylene Glycol 17 gm 12/09/16 10:00 12/14/16 21:25 Miralax (For Daily Use) - PO Not Given BID [facility] Quetiapine Fumarate 25 mg 12/09/16 22:00 12/14/16 21:25 Seroquel - PO 25 mg HS [facility] Administration Ranitidine HCl 150 mg 12/14/16 10:22 12/15/16 06:55 Zantac - PO Not Given BID@0700,2200 [facility] Sodium Chloride 2 spray 12/12/16 21:03 [employer] [place] Nasal [place] - NS Q4H PRN NASAL CONGESTION Tapentadol 75 mg 12/10/16 12:15 12/15/16 05:50 Nucynta - PO 75 mg Q4H PRN Administration PAIN ASSESSMENT 1. Medication induced impaired liver enzymes improving 2. Probable reactive hepatitis with temperature spike PLAN: 1. Avoid NSAIDS Visit type - Emergency Visit Emergency Visit: No - New Patient This patient is new to me today: No - Critical Care Critical Care patient: No - Discharge Referral Referred to [facility] Med P.C.: No
[2016-12-15] MEDS: HYDROmorphone HCL CARPU-JECT 1 MG/1 ML DISP.SYRIN IVPB PRN ×2 (09:42→17:47)
[2016-12-15] MEDS: HEPARIN NA (PORCINE) 5,000 UNITS/ML 1ML VIAL SQ SCH ×2 (11:57→21:36)
--- NOTE | 2016-12-15 11:58 | PN ---
GI Progress Note Subjective: GI NOte> Fell down aggravating her back pain. No abdominal pain. LFTs are improving. l - Objective Vital Signs: Vital Signs Temperature 98.9 F 12/15/16 07:03 Pulse Rate 92 H 12/15/16 06:00 Respiratory Rate 20 12/15/16 06:00 Blood Pressure 94/55 12/15/16 06:00 O2 Sat by Pulse Oximetry (%) 96 12/14/16 21:00 Laboratory Tests 12/13/16 12/15/16 06:00 06:00 GGT 213 H AST 112 H D 38 H D ALT 178 H D 112 H D Alkaline Phosphatase 179 H 161 H ...Auscultate: Yes: Normoactive Bowel Sounds ...Palpate: Yes: Soft, Other (nontender) Labs: CBC, BMP 12/13/16 06:00 12/15/16 06:00 INR, PTT INR 0.99 (0.82-1.09) 12/07/16 05:35 Assessment/Plan Reactive hepatopathy likely with a component of drug induced liver injury resolving.
[2016-12-15] MEDS: POLYETHYLENE GLYCOL 3350 119 GM BTL PO SCH ×2 (13:44→21:36)
--- NOTE | 2016-12-15 15:18 | PN ---
Progress Note, Physician Chief Complaint: Mrs Wetzel says she fell today, but she did not fall. She was sitting down and the bed rail dropped so she sat on the bed. Now saying she is having severe pain in her back. No cp, sob, n/v. - Current Medication List Current Medications: Active Medications Diazepam (Valium -) 2 mg PO TID [facility] Last Admin: 12/15/16 13:35 Dose: 2 mg Diphenhydramine HCl (Benadryl Injection -) 12.5 mg IVPUSH ONCE PRN PRN Reason: FOR ITCHING Docusate Sodium (Colace -) [address] [facility] Last Admin: 12/14/16 21:25 Dose: Not Given Heparin Sodium (Porcine) (Heparin -) 5,000 unit SQ BID [facility] Last Admin: 12/15/16 11:57 Dose: Not Given Hydromorphone HCl (Dilaudid Injection -) 1 mg IVPB Q6H PRN PRN Reason: PAIN Last Admin: 12/15/16 09:42 Dose: 1 mg Ondansetron HCl (Zofran Injection) 4 mg IVPB Q6H PRN PRN Reason: NAUSEA Last Admin: 12/10/16 03:23 Dose: 4 mg Polyethylene Glycol (Miralax (For Daily Use) -) 17 gm PO BID [facility] Last Admin: 12/15/16 13:44 Dose: Not Given Quetiapine Fumarate (Seroquel -) [address] [facility] Last Admin: 12/14/16 21:25 Dose: 25 mg Ranitidine HCl (Zantac -) 150 mg PO BID@0700,2200 [facility] Last Admin: 12/15/16 06:55 Dose: Not Given Sodium Chloride ([place] Nasal [place] -) 2 spray NS Q4H PRN PRN Reason: NASAL CONGESTION Tapentadol (Nucynta -) 75 mg PO Q4H PRN PRN Reason: PAIN Last Admin: 12/15/16 05:50 Dose: 75 mg - Objective Vital Signs: Vital Signs Temperature 97.9 F 12/15/16 14:10 Pulse Rate 85 12/15/16 14:10 Respiratory Rate 18 12/15/16 14:10 Blood Pressure 113/69 12/15/16 14:10 O2 Sat by Pulse Oximetry (%) 96 12/14/16 21:00 Constitutional: Yes: Well Nourished, No Distress, Calm Cardiovascular: Yes: Regular Rate and Rhythm. No: Gallop, Murmur, Rub Respiratory: Yes: Regular, CTA Bilaterally. No: Rales, Rhonchi, Wheezes Gastrointestinal: Yes: Normal Bowel Sounds, Soft. No: Distention, Tenderness Extremities: Yes: WNL Edema: No Labs: CBC, BMP 12/13/16 06:00 12/15/16 06:00 INR, PTT INR 0.99 (0.82-1.09) 12/07/16 05:35 Problem List - Problems (1) Herniated intervertebral disc of lumbar spine Code(s): M51.26 - OTHER INTERVERTEBRAL DISC DISPLACEMENT, LUMBAR REGION (2) Intractable back pain Code(s): M54.9 - DORSALGIA, UNSPECIFIED (3) Incontinence Code(s): R32 - UNSPECIFIED URINARY INCONTINENCE Qualifiers: Qualified Code(s): N39.41 - Urge incontinence (4) Dyspepsia Code(s): R10.13 - EPIGASTRIC PAIN (5) Constipation Code(s): K59.00 - CONSTIPATION, UNSPECIFIED Assessment/Plan (1) Herniated intervertebral disc of lumbar spine Assessment/Plan: -patient with "fall" today but no trauma -x-ray unchanged -neurosurgery to see -continue PT -plan for discharge tomorrow Code(s): M51.26 - OTHER INTERVERTEBRAL DISC DISPLACEMENT, LUMBAR REGION (2) Intractable back pain Assessment/Plan: -continue current regimen Code(s): M54.9 - DORSALGIA, UNSPECIFIED (3) Incontinence Assessment/Plan: -resolved Code(s): R32 - UNSPECIFIED URINARY INCONTINENCE Qualifiers: Incontinence type: urinary Urinary Incontinence type: urge incontinence Qualified Code(s): N39.41 - Urge incontinence (4) Dyspepsia Assessment/Plan: -continue ranitidine Code(s): R10.13 - EPIGASTRIC PAIN (5) Constipation Assessment/Plan: -resolved Code(s): K59.00 - CONSTIPATION, UNSPECIFIED (6) Elevated LFTs -improving -secondary to medications -all hepatotoxic medications stopped
[2016-12-15] MEDS: DOCUSATE SODIUM 100 MG CAPSULE (FP) PO SCH (21:36)
[2016-12-15] MEDS: QUEtiapine FUMARATE 25 MG TABLET (FP) PO SCH (21:44)
--- NOTE | 2016-12-15 23:57 | PN ---
Progress Note (short form) - Note Progress Note: NEUROSURGERY Earlier incidence reported by JESSE RANGEL spine x-rays: intact implants L5-S1 without change; lordosis maintained Pain meds PRN F/U plan previously outlined
[2016-12-16] MEDS: diazePAM 2 MG TABLET PO SCH ×3 (06:20→13:32)
[2016-12-16] MEDS: RANITIDINE HCL 150 MG TABLET (FP) PO SCH (06:20)
[2016-12-16 07:46] LABS: BASOPHIL 0.4 % (0-2.0); EOSINOPHIL 2.7 % (0-4.5); MCH 30.1 pg (25.7-33.7); MCHC 34.2 g/dl (32.0-36.0); MEAN CELL VOLUME 88.1 fl (80-96); MEAN PLT VOLUME 7.9 fl (7.5-11.1); NEUTROPHILS 63.5 % (42.8-82.8); PLATELET COUNT 350 K/MM3 (134-434); RDW 13.6 % (11.6-15.6); WHITE BLOOD COUNT 8.8 K/mm3 (4.0-10.0)
[2016-12-16 07:50] LABS: ANION GAP 7 (8-16); CALCIUM 9.1 mg/dL (8.5-10.1); CO2 27 mmol/L (21-32); CREATININE 0.5 mg/dL (0.55-1.02); GLUCOSE,RANDOM 89 mg/dL (74-106); SGOT/AST 36 U/L (15-37); SGPT/ALT 103 U/L (12-78)
[2016-12-16 07:52] LABS: ALK PHOS 165 U/L (45-117); BILIRUBIN,TOTAL 0.5 mg/dL (0.2-1.0); TOT PROT 6.4 g/dl (6.4-8.2)
--- NOTE | 2016-12-16 08:44 | PN ---
Physical Exam: SUBJECTIVE: Patient seen and examined.Said she feels better this am. No more abdominal pain. No new complaints this morning. AST now within normal limits, ALT still trending downwards. OBJECTIVE: Vital Signs Period Temp Pulse Resp BP Sys/Francisco Pulse Ox Last 24 Hr 97.9 F-99 F 80-96 18-20 93-113/54-74 96-96 GENERAL: The patient is awake, alert, and fully oriented, in no acute distress. EYES: sclera anicteric, conjunctiva clear. LUNGS: Breath sounds equal, clear to auscultation bilaterally, no wheezes, no crackles, no accessory muscle use. HEART: Regular rate and rhythm, S1, S2 without murmur, rub or gallop. ABDOMEN: Soft, full, normoactive bowel sounds, not tender at trochar sites ( epigastric and RUQ), no guarding, no rebound, no hepatosplenomegaly, no masses. EXTREMITIES: 2+ pulses, warm, well-perfused, no edema. Laboratory Results - last 24 hr 12/15/16 12/16/16 12/16/16 06:00 06:00 06:00 WBC 8.8 RBC 3.86 Hgb 11.6 Hct 34.0 MCV 88.1 MCH 30.1 MCHC 34.2 RDW 13.6 Plt Count 350 D MPV 7.9 Neutrophils % 63.5 Lymphocytes % 26.8 D Monocytes % 6.6 Eosinophils % 2.7 Basophils % 0.4 Sodium 136 138 Potassium 4.2 4.3 Chloride 101 104 Carbon Dioxide 24 27 Anion Gap 11 7 L BUN 12 12 Creatinine 0.4 L 0.5 L D Creat Clearance w eGFR > 60 > 60 Random Glucose 103 89 Calcium 8.9 9.1 Total Bilirubin 0.7 D 0.5 D GGT 213 H AST 38 H D 36 ALT 112 H D 103 H Alkaline Phosphatase 161 H 165 H Total Protein 6.5 6.4 Albumin 3.1 L 3.0 L Active Medications Generic Name Dose Route Start Last Admin Trade Name Freq PRN Reason Stop Dose Admin Diazepam 2 mg 12/13/16 15:05 12/16/16 06:20 Valium - PO Not Given TID [facility] Diphenhydramine HCl 12.5 mg 12/09/16 06:54 Benadryl Injection - IVPUSH ONCE PRN FOR ITCHING Docusate Sodium 300 mg 12/09/16 22:00 12/15/16 21:36 Colace - PO Not Given HS [facility] Heparin Sodium (Porcine) 5,000 unit 12/10/16 10:30 12/15/16 21:36 Heparin - SQ Not Given BID [facility] Hydromorphone HCl 1 mg 12/13/16 09:25 12/15/16 17:47 Dilaudid Injection - IVPB 1 mg Q6H PRN Administration PAIN Ondansetron HCl 4 mg 12/09/16 06:54 12/10/16 03:23 Zofran Injection IVPB 4 mg Q6H PRN Administration NAUSEA Polyethylene Glycol 17 gm 12/09/16 10:00 12/15/16 21:36 Miralax (For Daily Use) - PO Not Given BID [facility] Quetiapine Fumarate 25 mg 12/09/16 22:00 12/15/16 21:44 Seroquel - PO 25 mg HS [facility] Administration Ranitidine HCl 150 mg 12/14/16 10:22 12/16/16 06:20 Zantac - PO Not Given BID@0700,2200 [facility] Sodium Chloride 2 spray 12/12/16 21:03 [place] Nasal [place] - NS Q4H PRN NASAL CONGESTION Tapentadol 75 mg 12/10/16 12:15 12/15/16 21:44 Nucynta - PO 75 mg Q4H PRN Administration PAIN ASSESSMENT/PLAN: . Medication induced hepatocellular injury improving Continue to avoid hepatotoxic drugs. Visit type - Emergency Visit Emergency Visit: No - New Patient This patient is new to me today: No - Critical Care Critical Care patient: No - Discharge Referral Referred to [facility] Med P.C.: No
[2016-12-16] MEDS: TAPENTADOL HYDROCHLORIDE 50 MG TABLET PO PRN ×2 (09:08→13:18)
[2016-12-16] MEDS: HEPARIN NA (PORCINE) 5,000 UNITS/ML 1ML VIAL SQ SCH (09:10)
[2016-12-16] MEDS: POLYETHYLENE GLYCOL 3350 119 GM BTL PO SCH (09:10)
--- NOTE | 2016-12-16 12:48 | DS ---
Physical Examination Vital Signs: Vital Signs Temperature 98.3 F 12/16/16 10:00 Pulse Rate 83 12/16/16 10:00 Respiratory Rate 20 12/16/16 10:00 Blood Pressure 116/69 12/16/16 10:00 O2 Sat by Pulse Oximetry (%) 97 12/16/16 09:00 Labs: CBC, BMP 12/16/16 06:00 12/16/16 06:00 Discharge Summary Reason For Visit: INTRACTABLE BACK PAIN Current Active Problems Constipation (Acute) Dyspepsia (Acute) Herniated intervertebral disc of lumbar spine (Acute) Incontinence (Acute) Intractable back pain (Acute) Condition: Stable - Instructions Diet, Activity, Other Instructions: Post-op Lumbar Decompression and Fusion L5-S1 Diet: Regular Activity: Out of bed with back brace. May shower but keep incision line dry. Do not submerge incision under water. Change dressing after shower Restrictions: Do not lift anything over 10lbs. Additional Instructions: Keep incision line clean and dry. Change dressing daily. Report any chills, fever (100 or greater), any wound drainage, or any neurological changes to Dr. Liriano. Do not drive for two weeks. Initial post-op appt: Call Dr Liriano's office to be seen in about 2 weeks from surgery [phone] Referrals: Tahir Kirk MD [Primary Care Provider] - Charlie Liriano MD [Staff Physician] - Disposition: VNS/HOME HEALTH CARE - Home Medications Comprehensive Discharge Medication List: Ambulatory Orders Quetiapine Fumarate [Seroquel -] 25 mg PO HS 03/10/12 Ranitidine HCl [Zantac] 300 mg PO DAILY 05/05/16 Diazepam [Valium] 2 mg PO TID #90 tablet MDD 6mg 12/16/16 Docusate Sodium [Colace -] 300 mg PO HS #30 cap 12/16/16 Polyethylene Glycol 3350 [Miralax 119 gm Btl -] 17 gm PO BID #1 bot 12/16/16 Tapentadol Hydrochloride [Nucynta -] 75 mg PO Q4H PRN #40 tab MDD 450mg [place] [Ultra-Light Rollator] 1 each ASDIR #1 each 12/16/16
[2016-12-16 15:04] VITALS: BP 121/70; PULSE 101; TEMP 98.4
--- NOTE | 2016-12-16 15:49 | PN ---
Progress Note (short form) - Note Progress Note: GI NOte: Anel was seen as she was leaving for home. LFTs continue to improve. Tolerating diet. Discussed case with DR Feliz.
== END 2016-12-16 16:15 | disposition home health service (06) | DRG 304 ==
LOC: JER 19:17 → JERBED 22:11 → J6S 23:19 → J4W 12-06 19:50 → JSAMEDAYSX 12-08 13:36 → J8W 12-08 21:07
PROVIDERS: ADMIT Internal Medicine Geriatric Medicine; ATTEND Internal Medicine Geriatric Medicine
PROC: 0SG00A1 (ICD-10-PCS; 2016-12-08)
PROC: 0SG0071 Fusion of Lumbar Vertebral Joint with Autologous Tissue Substitute, Posterior Approach, Posterior Column, Open Approach (ICD-10-PCS; 2016-12-08)
PROC: 01NB0ZZ Release Lumbar Nerve, Open Approach (ICD-10-PCS; principal; 2016-12-08 11:00)
DX: M51.17 Intervertebral disc disorders with radiculopathy, lumbosacral region (principal); K21.9 Gastro-esophageal reflux disease without esophagitis; J45.909 Unspecified asthma, uncomplicated; K59.00 Constipation, unspecified; R10.13 Epigastric pain; R79.89 Other specified abnormal findings of blood chemistry; G89.29 Other chronic pain; Z87.891 Personal history of nicotine dependence; S36.118A Other injury of liver, initial encounter; X58.XXXA Exposure to other specified factors, initial encounter; Y93.89 Activity, other specified; Y92.89 Other specified places as the place of occurrence of the external cause; R29.810 Facial weakness
CPT/HCPCS: 36415; 36600; 70450-TC; 70551-TC; 72100-TC; 72131-TC; 72148-TC; 74000-TC; 76000-TC; 76705-TC; 80048; 80051; 80053; 80076; 81003; 82150; 82550; 82553; 82565; 82803; 82977; 83690; 83735; 84100; 84520; 85025; 85610; 85651; 85730; 86140; 86704; 86706; 86708; 86850; 86900; 86901; 87086; 87340; 88304-TC; 93005; 93010; 93976; 94010; 94760; 97116-GP; 97161-GP; 99282-25; J1644

== ENCOUNTER 2017-06-02 22:01 | Emergency (ER) | payer OTHER ==
[2017-06-02 22:10] VITALS: BMI 23.4
--- NOTE | 2017-06-02 22:24 | PDOC ---
History of Present Illness - General Exam Limitations: No Limitations - History of Present Illness Initial Comments: 06/02/17 22:34 The patient is a 36 year old female, with a significant past medical history of migraines, multiple allergies, who presents to the emergency department with, a sudden onset headache beginning approx. 45 minutes ago. A family member present states that the patient became unresponsive at the time of the headache. The patient denies chest pain, shortness of breath or dizziness preceding the syncopal event. She reports the headache is similar to past migraines. However, she reports the intensity is worse and describes the headache as 10/10. Patient reports nausea without vomiting and photophobia secondary to the headache. Patient denies any other problems during the day. She denies recent fevers, chills, or dizziness. She denies recent, vomit, diarrhea or constipation. She denies recent dysuria, frequency, urgency or hematuria. She denies recent chest pain or shortness of breath. Allergies: Multiple allergies. See nursing notes. Past surgical history: Hysterectomy one year ago Primary Care Physician: Dr. 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) CVA: No COPD: No CHF: No Dementia: No Diabetes: No (HYPOGLYCEMIA) GI Disorders: Yes (REFLUX) Disorders: No HTN: No (HYPOTENSION) Hypercholesterolemia: No Liver Disease: No Seizures: No Thyroid Disease: No - Surgical History Abdominal Surgery: No Appendectomy: No Cardiac Surgery: No Cholecystectomy: Yes Lung Surgery: No Neurologic Surgery: No Orthopedic Surgery: No - Suicide/Smoking/Psychosocial Hx Smoking Status: Yes Smoking History: Never smoked Have you smoked in the past 12 months: Yes Number of Cigarettes Smoked Daily: 2 If you are a former smoker, when did you quit?: 1 month Information on smoking cessation initiated: No 'Breaking Loose' booklet given: 10/31/13 Hx Alcohol Use: No Drug/Substance Use Hx: No Substance Use Type: None Hx Substance Use Treatment: No <JostindaveNick - Last Filed: 06/03/17 05:55> - Past Medical History Allergies/Adverse Reactions: Allergies Allergy/AdvReac Type Severity Reaction Status Date / Time albuterol Allergy Severe Swelling Verified 06/02/17 22:08 banana Allergy Unknown Verified 06/02/17 22:08 mushroom Allergy Unknown Verified 06/02/17 22:08 codeine [Codeine] Allergy Difficulty Verified 06/02/17 22:08 Breathing Fish Containing Products Allergy Verified 06/02/17 22:08 hydromorphone HCl Allergy difficulty Verified 06/02/17 22:08 [From Dilaudid] breathibg saimr Allergy Verified 06/02/17 22:08 meperidine HCl [From Demerol] Allergy Difficulty Verified 06/02/17 22:08 Breathing metoclopramide HCl Allergy Swelling Verified 06/02/17 22:08 [From Reglan] morphine Allergy difficulty Verified 06/02/17 22:08 breathibg oxycodone HCl [From Percocet] Allergy Verified 06/02/17 22:08 shellfish derived Allergy Swelling,ra Verified 06/02/17 22:08 sh watermelon Allergy Verified 06/02/17 22:08 cantaloupe Allergy Uncoded 06/02/17 22:08 miller Allergy Uncoded 06/02/17 22:08 mustard,fish,vinegar Allergy swelling,ra Uncoded 06/02/17 22:08 sh NARCOTICS Allergy Difficulty Uncoded 06/02/17 22:08 Breathing nuts Allergy Uncoded 06/02/17 22:08 Home Medications: Ambulatory Orders Quetiapine Fumarate [Seroquel -] 25 mg PO HS 03/10/12 Ranitidine HCl [Zantac] 300 mg PO DAILY 05/05/16 Diazepam [Valium] 2 mg PO HS PRN MDD 6mg 03/25/17 Cyclobenzaprine HCl [Flexeril 10 mg] 10 mg PO Q6H PRN 03/27/17 Gabapentin [Neurontin -] 300 mg PO TID #90 cap 03/27/17 Tapentadol Hydrochloride [Nucynta -] 50 mg PO Q6H PRN #30 tab MDD 200mg Ondansetron [Zofran *Odt*] 4 mg SL TID #30 od.tablet 06/03/17 Tramadol HCl [Ultram -] 50 mg PO Q8H #30 tablet MDD 4 06/03/17 Review of Systems - Review of Systems Comments:: 06/02/17 22:35 CONSTITUTIONAL: Absent: fever, no chills, no fatigue EYES: Present: +Photophobia. ENT: Absent: ear pain, no sore throat CARDIOVASCULAR: Absent: chest pain, no palpitations RESPIRATORY: Absent: cough, no SOB GI: Absent: abdominal pain, no nausea, no vomiting, no constipation, no diarrhea GENITOURINARY: Absent: dysuria, no frequency, no hematuria MUSKULOSKELETAL: Absent: back pain, no arthralgia, no myalgia SKIN: Absent: rash NEURO: Present: +Headache <Patrick Reddy - Last Filed: 06/03/17 02:07> *Physical Exam - Vital Signs Last Vital Signs Temp Pulse Resp BP Pulse Ox 113 H 18 132/70 99 06/02/17 22:08 06/02/17 22:08 06/02/17 22:08 06/02/17 22:08 - Physical Exam Comments: 06/02/17 22:37 GENERAL: +Moderate distress. Well-appearing, well-nourished. HEENT: +Photophobia. Normocephalic, atraumatic. PERRL, EOM intact. CARDIOVASCULAR: Normal S1, S2. Regular rate and rhythm. PULMONARY: Clear to auscultation bilaterally. ABDOMEN: Soft, non-distended, non-tender. EXTREMITIES: Normal ROM in all four extremities. No gross deformities. SKIN: Warm, dry. No rash NEUROLOGICAL: No focal neurological deficits. <Patrick Reddy - Last Filed: 06/03/17 02:07> - Vital Signs Last Vital Signs Temp Pulse Resp BP Pulse Ox 113 H 18 132/70 99 06/02/17 22:08 06/02/17 22:08 06/02/17 22:08 06/02/17 22:08 <Nick Keating - Last Filed: 06/03/17 05:55> ED Treatment Course - LABORATORY CBC & Chemistry Diagram: 06/02/17 23:11 06/02/17 22:53 - RADIOLOGY Radiograph Interpretation: 06/03/17 02:07 EXAM: CT HEAD without contrast HISTORY: Rule out bleed COMPARISON: None. FINDINGS: The ventricular system is midline and nondilated. The sulcal pattern is normal for the patient's age. There is no bleed, mass, extra-axial fluid collection or mass effect. No skull fracture or skull lesion is identified. The visualized paranasal sinuses and mastoid air cells are clear. IMPRESSION: No acute pathology. Reported by Toro Patel MD <Patrick Reddy - Last Filed: 06/03/17 02:07> - LABORATORY CBC & Chemistry Diagram: 06/02/17 23:11 06/02/17 22:53 <Nick Keating - Last Filed: 06/03/17 05:55> Medical Decision Making - Medical Decision Making 06/03/17 05:54 Dr. Keating: The scribe's documentation has been prepared under my direction and personally reviewed by me in its entirery. I confirm that the note above accurately reflects all work, treatment, procedures, and medical decision making performed by me. <Nick Keating - Last Filed: 06/03/17 05:55> *DC/Admit/Observation/Transfer - Attestations Scribe Attestion: 06/02/17 22:37 Documentation prepared by Patrick Reddy, acting as medical logistics specialist for Nick Keating MD. <Patrick Reddy - Last Filed: 06/03/17 02:07> - Discharge Dispostion Admit: No <Nick Keating - Last Filed: 06/03/17 05:55> Diagnosis at time of Disposition: Migraine Qualifiers: Migraine type: unspecified Status migrainosus presence: without status migrainosus Intractability: not intractable Qualified Code(s): G43.909 - Migraine, unspecified, not intractable, without status migrainosus - Discharge Dispostion Disposition: HOME Condition at time of disposition: Improved - Prescriptions Prescriptions: Ondansetron [Zofran *Odt*] 4 mg SL TID #30 od.tablet Tramadol HCl [Ultram -] 50 mg PO Q8H #30 tablet MDD 4 - Referrals Referrals: Tahir Kirk MD [Primary Care Provider] - Basilio Sanchez MD [Staff Physician] - - Patient Instructions Printed Discharge Instructions: DI for Migraine, DI for Headache Additional Instructions: Please follow up with Dr. Kirk today or as soon as possible. Take medication as directed. Follow up with neurology as well.
[2017-06-02] MEDS ORDERED: ONDANSETRON 4 MG/2 ML VIAL IVPUSH STA (22:27)
[2017-06-02] MEDS ORDERED: SODIUM CHLORIDE 1,000 ML IV STA (22:27)
[2017-06-02] MEDS ORDERED: ONDANSETRON 4 MG/2 ML VIAL ONE (22:57)
[2017-06-02 23:23] LABS: BASO % 0.4 % (0-2.0); EOS % 1.1 % (0-4.5); HEMATOCRIT 39.9 % (32.4-45.2); HEMOGLOBIN 13.2 GM/dL (10.7-15.3); LYMPH % 28.6 % (8-40); MCH 29.1 pg (25.7-33.7); MEAN PLT VOLUME 7.8 fl (7.5-11.1); MONO % 6.1 % (3.8-10.2); NEUT % 63.8 % (42.8-82.8); PLATELET COUNT 322 K/MM3 (134-434); RBC 4.53 M/mm3 (3.60-5.2); RDW 13.5 % (11.6-15.6); WHITE BLOOD COUNT 10.3 K/mm3 (4.0-10.0)
[2017-06-03 00:06] LABS: ALBUMIN 3.8 g/dl (3.4-5.0); ALK PHOS 111 U/L (45-117); ANION GAP 10 (8-16); BILIRUBIN,TOTAL 0.2 mg/dL (0.2-1.0); BLOOD UREA NITROGEN 13 mg/dL (7-18); CALCIUM 9.2 mg/dL (8.5-10.1); CHLORIDE 104 mmol/L (98-107); CO2 25 mmol/L (21-32); CREATININE 0.7 mg/dL (0.55-1.02); GLUCOSE,RANDOM 125 mg/dL (74-106); POTASSIUM 4.2 mmol/L (3.5-5.1); SGOT/AST 12 U/L (15-37); SGPT/ALT 25 U/L (12-78); SODIUM 139 mmol/L (136-145); TOT PROT 7.6 g/dl (6.4-8.2)
[2017-06-03] MEDS ORDERED: ONDANSETRON 4 MG/2 ML VIAL IVPUSH STA ×2 (01:13→04:16)
[2017-06-03] MEDS ORDERED: ONDANSETRON 4 MG/2 ML VIAL ONE ×2 (03:12→04:38)
[2017-06-03 03:28] VITALS: BP 112/65; PULSE 115; TEMP 98.6
[2017-06-03 04:00] LABS: INR 0.99 (0.82-1.09); PROTHROMBIN TIME (PATIENT) 11.2 SEC (9.98-11.88)
[2017-06-03] MEDS ORDERED: SODIUM CHLORIDE 1,000 ML IV STA (04:16)
[2017-06-03] MEDS ORDERED: traMADol HCL 50 MG TABLET PO ONE (05:49)
[2017-06-03] MEDS ORDERED: traMADol HCL 50 MG TABLET ONE (06:05)
== END 2017-06-03 06:11 | disposition home or self-care (01) ==
LOC: JER 22:01
PROC: 3E033NZ Introduction of Analgesics, Hypnotics, Sedatives into Peripheral Vein, Percutaneous Approach (ICD-10-PCS; principal; 2017-06-02)
PROC: 3E033NZ Introduction of Analgesics, Hypnotics, Sedatives into Peripheral Vein, Percutaneous Approach (ICD-10-PCS; 2017-06-02)
PROC: 3E033NZ Introduction of Analgesics, Hypnotics, Sedatives into Peripheral Vein, Percutaneous Approach (ICD-10-PCS; 2017-06-02)
PROC: 3E033GC Introduction of Other Therapeutic Substance into Peripheral Vein, Percutaneous Approach (ICD-10-PCS; 2017-06-02)
PROC: 3E033GC Introduction of Other Therapeutic Substance into Peripheral Vein, Percutaneous Approach (ICD-10-PCS; 2017-06-02)
PROC: 3E033GC Introduction of Other Therapeutic Substance into Peripheral Vein, Percutaneous Approach (ICD-10-PCS; 2017-06-02)
DX: G43.909 Migraine, unspecified, not intractable, without status migrainosus (principal); J45.909 Unspecified asthma, uncomplicated; E16.2 Hypoglycemia, unspecified; I95.9 Hypotension, unspecified; K21.9 Gastro-esophageal reflux disease without esophagitis
CPT/HCPCS: 36415; 70450-TC; 80053; 84703; 85025; 85610; 99283-25

== ENCOUNTER 2017-12-12 00:30 | Emergency (ER) | payer OTHER ==
--- NOTE | 2017-12-12 01:06 | PDOC ---
History of Present Illness - General Chief Complaint: Back Pain Stated Complaint: BACK PAIN Time Seen by Provider: 12/12/17 01:05 History Source: Patient Exam Limitations: No Limitations - History of Present Illness Initial Comments: Pt, with PMH of L5-S1 laminectomy, presents with lower back pain since 7 pm the night of presentation. The pt states that her pain is located over her site of surgery, is constant, and is greater than her baseline pain. She took 50 mg Nucynta and 10 mg Flexeril with no relief of pain. The pt states she has not been attending PT (denied by workman's compensation) but she has been performing the exercises and yoga at home. She has not had any recent trauma, falls, or increased lifting before the onset of pain. The pt has sciatica and normally has numbness of the L leg. She also noticed increased swelling in both feet the day of presentation. She had nausea and 2 episodes of vomiting after she took her medication. She denies fevers/chills, chest pain, SOB, LOC, incontinence or lack of bowel control, dysuria or increased urinary frequency, or changes to sensation in her extremities from baseline. 12/12/17 03:26 Past History - Travel Traveled outside of the country in the last 30 days: No Close contact w/someone who was outside of country & ill: No - Past Medical History Allergies/Adverse Reactions: Allergies Allergy/AdvReac Type Severity Reaction Status Date / Time albuterol Allergy Severe Swelling Verified 12/12/17 01:01 banana Allergy Unknown Verified 12/12/17 01:01 mushroom Allergy Unknown Verified 12/12/17 01:01 codeine [Codeine] Allergy Difficulty Verified 12/12/17 01:01 Breathing Fish Containing Products Allergy Verified 12/12/17 01:01 hydromorphone HCl Allergy difficulty Verified 12/12/17 01:01 [From Dilaudid] breathibg samir Allergy Verified 12/12/17 01:01 meperidine HCl [From Demerol] Allergy Difficulty Verified 12/12/17 01:01 Breathing metoclopramide HCl Allergy Swelling Verified 12/12/17 01:01 [From Reglan] morphine Allergy difficulty Verified 12/12/17 01:01 breathibg oxycodone HCl [From Percocet] Allergy Verified 12/12/17 01:01 shellfish derived Allergy Swelling,ra Verified 12/12/17 01:01 watermelon Allergy Verified 12/12/17 01:01 cantaloupe Allergy Uncoded 12/12/17 01:01 miller Allergy Uncoded 12/12/17 01:01 mustard,fish,vinegar Allergy swelling,ra Uncoded 12/12/17 01:01 NARCOTICS Allergy Difficulty Uncoded 12/12/17 01:01 Breathing nuts Allergy Uncoded 12/12/17 01:01 Home Medications: Ambulatory Orders Quetiapine Fumarate [Seroquel -] 25 mg PO HS 03/10/12 Ranitidine HCl [Zantac] 300 mg PO DAILY 05/05/16 Diazepam [Valium] 2 mg PO HS PRN MDD 6mg 03/25/17 Tapentadol Hydrochloride [Nucynta -] 50 mg PO Q6H PRN #30 tab MDD 200mg traMADol HCL [Ultram -] 50 mg PO Q8H #30 tablet MDD 4 06/03/17 Ondansetron [Zofran *Odt*] 8 mg SL BID #14 od.tablet 11/10/17 Anemia: Yes Asthma: Yes Cancer: No 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) CVA: No COPD: No CHF: No Dementia: No Diabetes: No (HYPOGLYCEMIA) GI Disorders: Yes (REFLUX) Disorders: No HTN: No (HYPOTENSION) Hypercholesterolemia: No Liver Disease: No Seizures: No Thyroid Disease: No - Surgical History Abdominal Surgery: No Appendectomy: No Cardiac Surgery: No Cholecystectomy: Yes Lung Surgery: No Neurologic Surgery: No Orthopedic Surgery: No - Suicide/Smoking/Psychosocial Hx Smoking Status: Yes Smoking History: Never smoked Have you smoked in the past 12 months: No Number of Cigarettes Smoked Daily: 2 If you are a former smoker, when did you quit?: 1 month Information on smoking cessation initiated: No 'Breaking Loose' booklet given: 10/31/13 Hx Alcohol Use: No Drug/Substance Use Hx: No Substance Use Type: None Hx Substance Use Treatment: No Review of Systems - Review of Systems Able to Perform ROS?: Yes Is the patient limited Jordanian proficient: No Constitutional: Yes: Weight Stable. No: Chills, Diaphoresis, Fever, Loss of Appetite, Weakness HEENTM: No: Recent change in vision, Hearing Loss Respiratory: No: Cough, Orthopnea, Shortness of Breath Cardiac (ROS): No: Chest Pain, Edema, Lightheadedness, Palpitations, Syncope ABD/GI: Yes: Nausea, Vomiting. No: Constipated, Diarrhea, Poor Appetite, Poor Fluid Intake : No: Burning, Dysuria, Frequency, Flank Pain, Hematuria, Incontinence, Pain, Urgency Musculoskeletal: Yes: Back Pain. No: Joint Pain, Muscle Weakness Integumentary: No: Change in Color, Rash Neurological: Yes: Pre-Existing Deficit (Sciatica/LLE numbness from hip to foot) . No: Numbness, Paresthesia, Tingling, Weakness, Dizziness Psychiatric: No: Change in Appetite Endocrine: No: Increased Urine, Change in Weight Hematologic/Lymphatic: No: Anemia, Blood Clots All Other Systems: Reviewed and Negative *Physical Exam - Vital Signs Last Vital Signs Temp Pulse Resp BP Pulse Ox 97.8 F 98 H 20 124/92 97 12/12/17 01:01 12/12/17 01:01 12/12/17 01:01 12/12/17 01:01 12/12/17 01:01 - Physical Exam General Appearance: Yes: Nourished, Appropriately Dressed, Mild Distress HEENT: positive: EOMI, Normal ENT Inspection, Normal Voice, Symmetrical, Pharynx Normal, Hearing Grossly Normal Neck: positive: Trachea midline, Normal Thyroid, Supple. negative: Tender, Rigid, Decreased range of motion Respiratory/Chest: positive: Lungs Clear, Normal Breath Sounds. negative: Chest Tender, Respiratory Distress, Accessory Muscle Use Cardiovascular: positive: Regular Rhythm, Regular Rate, S1, S2. negative: Edema (no pitting edema b/l. Feet and ankles appear symmetric), JVD, Murmur Vascular Pulses: Dorsalis-Pedis (R): 4+, Doralis-Pedis (L): 4+ Gastrointestinal/Abdominal: positive: Normal Bowel Sounds, Flat, Soft. negative : Tender, Organomegaly, Pulsatile Mass Lymphatic: negative: Adenopathy Musculoskeletal: positive: Vertebral Tenderness (Point tenderness over site of old excision. No swelling or erythema noted over site. No cervical or thoracic tenderness.). negative: CVA Tenderness, Decreased Range of Motion Extremity: positive: Normal Capillary Refill, Normal Inspection, Normal Range of Motion, Pelvis Stable. negative: Tender Integumentary: positive: Normal Color, Dry, Warm Neurologic: positive: armature varnisher II-XII NML intact, Fully Oriented, Alert, Normal Mood/ Affect, Normal Response, Motor Strength 5/5, Numbness (Numbness over LLE from hip to toes compared to RLE), Sensory Deficit Medical Decision Making - Medical Decision Making (entered later) pt seen, in moderate pain. Pt able to ambulate. Provided ultram and zofran for pain management. Will reassess. 12/12/17 02:45 Pt pain slightly improved with ultram. Pt has had no further vomiting. Pt states she would rather continue her regular pain medication at home and follow- up with her doctor. 12/12/17 02:53 *DC/Admit/Observation/Transfer Diagnosis at time of Disposition: Lumbar pain - Discharge Dispostion Disposition: HOME Condition at time of disposition: Improved Decision to Admit order: No - Referrals Referrals: Tahir Kirk MD [Primary Care Provider] - - Patient Instructions Printed Discharge Instructions: DI for Low Back Pain Additional Instructions: Please follow-up with your primary doctor and take your pain medications at home as prescribed. Please return for any fevers/chills, inability to drink or eat, incontinence, continued back pain, or any other concerns. - Post Discharge Activity
[2017-12-12 01:49] VITALS: BP 124/92; PULSE 98; TEMP 97.8; BMI 27.1
--- NOTE | 2017-12-12 02:11 | PDOC ---
Attending Attestation - HPI HPI: 12/12/17 02:15 The patient is a 37 year old female, with a significant PMH of L5-S1 laminectomy s/p disk herniation, who presents to the emergency department with lower back pain beginning at 7pm. The patient denies any recent injuries or trauma. The patient describes the lower back pain as a sharp intense pain. The patient states she tried taking nucynta and flexeril for the lower back pain with minimal relief. The patient denies chest pain, shortness of breath, headache and dizziness. Denies fever, chills, nausea, vomit, diarrhea and constipation. Denies dysuria, frequency, urgency and hematuria. Allergies: albuterol, banana, mushroom, codeine, (More). - Physicial Exam PE: 12/12/17 03:40 GENERAL: Awake, alert, and fully oriented, in no acute distress HEAD: No signs of trauma EYES: PERRLA, EOMI, sclera anicteric, conjunctiva clear ENT: Auricles normal inspection, hearing grossly normal, nares patent, oropharynx clear without exudates. Moist mucosa NECK: Normal ROM, supple, no lymphadenopathy, JVD, or masses LUNGS: Breath sounds equal, clear to auscultation bilaterally. No wheezes, and no crackles HEART: Regular rate and rhythm, normal S1 and S2, no murmurs, rubs or gallops ABDOMEN: Soft, nontender, normoactive bowel sounds. No guarding, no rebound. No masses EXTREMITIES: Normal range of motion, no edema. No clubbing or cyanosis. No cords, erythema, or tenderness NEUROLOGICAL: Cranial nerves II through XII grossly intact. Normal speech, normal gait SKIN: Warm, Dry, normal turgor, no rashes or lesions noted <Patrick Reddy - Last Filed: 12/12/17 03:40> - Resident Resident Name: Krystal Arango - ED Attending Attestation I have performed the following: I have examined & evaluated the patient, The case was reviewed & discussed with the resident, I agree w/resident's findings & plan - Medical Decision Making 12/12/17 02:11 Pt comes with chronic back pain. Pt describes how she has weakness in her legs that has been ongoing. She has been worked up in the past, but she gets anxious and feels as though she needs to come to the ER for pain meds and eval. 12/12/17 02:24 Pt states that she is allergic to narcotics, however she is requesting IV fentanyl. When I expalain to her that fentanyl too is a potesnt narcotic, pt agrees to tramadol. We had a long conversation regarding pain and pain management. She has an appt with neuro in Dec. Pt feels comfortable going home with her . <Charlette Hutchins - Last Filed: 12/12/17 05:15> Attestations - Attestations 12/12/17 02:15 Documentation prepared by Patrick Reddy, acting as medical reception specialist for Charlette Hutchins MD. <Patrick Reddy - Last Filed: 12/12/17 03:40>
[2017-12-12] MEDS ORDERED: traMADol HCL 50 MG TABLET PO ONE (02:13)
[2017-12-12] MEDS ORDERED: ONDANSETRON 4 MG/2 ML VIAL IVPUSH ONE (02:15)
[2017-12-12] MEDS ORDERED: traMADol HCL 50 MG TABLET ONE (02:25)
[2017-12-12] MEDS ORDERED: ONDANSETRON *ODT* 4 MG TABLET ONE (02:25)
== END 2017-12-12 04:10 | disposition home or self-care (01) ==
LOC: JER 00:30
DX: M54.5 Low back pain (principal); Z88.8 Allergy status to other drugs, medicaments and biological substances; Z91.018 Allergy to other foods
CPT/HCPCS: 99281-25

== ENCOUNTER 2018-01-29 17:46 | Emergency (ER) | payer OTHER ==
--- NOTE | 2018-01-29 17:57 | PDOC ---
Rapid Medical Evaluation Chief Complaint: Chronic pain Time Seen by Provider: 01/29/18 17:52 Medical Evaluation: Allergies Allergy/AdvReac Type Severity Reaction Status Date / Time albuterol Allergy Severe Swelling Verified 12/12/17 01:01 banana Allergy Unknown Verified 12/12/17 01:01 mushroom Allergy Unknown Verified 12/12/17 01:01 codeine [Codeine] Allergy Difficulty Verified 12/12/17 01:01 Breathing Fish Containing Products Allergy Verified 12/12/17 01:01 hydromorphone HCl Allergy difficulty Verified 12/12/17 01:01 [From Dilaudid] breathibg samir Allergy Verified 12/12/17 01:01 meperidine HCl [From Demerol] Allergy Difficulty Verified 12/12/17 01:01 Breathing metoclopramide HCl Allergy Swelling Verified 12/12/17 01:01 [From Reglan] morphine Allergy difficulty Verified 12/12/17 01:01 breathibg oxycodone HCl [From Percocet] Allergy Verified 12/12/17 01:01 shellfish derived Allergy Swelling,ra Verified 12/12/17 01:01 sh watermelon Allergy Verified 12/12/17 01:01 cantaloupe Allergy Uncoded 12/12/17 01:01 miller Allergy Uncoded 12/12/17 01:01 mustard,fish,vinegar Allergy swelling,ra Uncoded 12/12/17 01:01 sh NARCOTICS Allergy Difficulty Uncoded 12/12/17 01:01 Breathing nuts Allergy Uncoded 12/12/17 01:01 01/29/18 17:53 c/o lower back pain radiating to left leg pain and numbness. neurosurgeon Dr. lanza for lower back 1 year ago PE : patient alert ox3 + lumbar spine tenderness A: lumbar back pain P; xray patient to the ER for further management of care Discharge Disposition - Diagnosis Lumbar pain - Referrals Referrals: Tahir Kirk MD [Primary Care Provider] - - Patient Instructions - Post Discharge Activity
[2018-01-29 18:13] VITALS: BMI 26.5
[2018-01-29] MEDS ORDERED: traMADol HCL 50 MG TABLET PO ONE (19:31)
[2018-01-29] MEDS ORDERED: METOCLOPRAMIDE HCL INJECTION 10 MG/2 ML VIAL IM ONE (19:33)
[2018-01-29] MEDS ORDERED: METOCLOPRAMIDE HCL INJECTION 10 MG/2 ML VIAL ONE (19:36)
[2018-01-29] MEDS ORDERED: traMADol HCL 50 MG TABLET ONE (19:36)
[2018-01-29] MEDS ORDERED: FENTANYL PATCH WASTE MC PRN (19:40)
[2018-01-29] MEDS ORDERED: fentaNYL 25mcg/hr PATCH.TD72 TD SCH ×2 (19:45→20:15)
[2018-01-29 19:54] VITALS: TEMP 98.4
[2018-01-29] MEDS ORDERED: fentaNYL 25mcg/hr PATCH.TD72 ONE (20:02)
--- NOTE | 2018-01-29 20:02 | PDOC ---
History of Present Illness - General History Source: Patient Exam Limitations: No Limitations - History of Present Illness Initial Comments: 01/29/18 20:03 The patient is a 37 year old female with a significant PMH of L5-S1 laminectomy s/p disk herniation who presents to the emergency department with lower back pain and five episodes of nonbloody, nonbilious vomit today. The patient states she has chronic back pain since the laminectomy that flares up approximately once a month. Patient is also complaining of swelling and numbness to her left leg. The patient denies any recent injuries or trauma to her back. The patient states she took nucynta for the lower back pain with no relief. Patient presents to the ER requesting IV fentanyl for her back pain. The patient denies chest pain, shortness of breath, headache and dizziness. Denies fever, chills, nausea, diarrhea and constipation. Denies dysuria, frequency, urgency and hematuria. Allergies: albuterol, banana, mushroom, codeine, (More). Past surgical history: L5-S1 laminectomy Social history: No reported alcohol, drug, or cigarette use. PCP: Dr. 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) CVA: No COPD: No CHF: No Dementia: No Diabetes: No (HYPOGLYCEMIA) GI Disorders: Yes (REFLUX) Disorders: No HTN: No (HYPOTENSION) Hypercholesterolemia: No Liver Disease: No Seizures: No Thyroid Disease: No - Surgical History Abdominal Surgery: No Appendectomy: No Cardiac Surgery: No Cholecystectomy: Yes Lung Surgery: No Neurologic Surgery: No Orthopedic Surgery: No - Immunization History Immunization Up to Date: Yes - Suicide/Smoking/Psychosocial Hx Smoking Status: Yes Smoking History: Never smoked Have you smoked in the past 12 months: No Number of Cigarettes Smoked Daily: 2 If you are a former smoker, when did you quit?: 1 month Information on smoking cessation initiated: No 'Breaking Loose' booklet given: 10/31/13 Hx Alcohol Use: No Drug/Substance Use Hx: No Substance Use Type: None Hx Substance Use Treatment: No <Charlette Hutchins - Last Filed: 01/29/18 20:13> - Past Medical History Allergies/Adverse Reactions: Allergies Allergy/AdvReac Type Severity Reaction Status Date / Time albuterol Allergy Severe Swelling Verified 01/29/18 19:24 banana Allergy Unknown Verified 01/29/18 19:24 mushroom Allergy Unknown Verified 01/29/18 19:24 codeine [Codeine] Allergy Difficulty Verified 01/29/18 19:24 Breathing Fish Containing Products Allergy Verified 01/29/18 19:24 hydromorphone HCl Allergy difficulty Verified 01/29/18 19:24 [From Dilaudid] breathibg samir Allergy Verified 01/29/18 19:24 meperidine HCl [From Demerol] Allergy Difficulty Verified 01/29/18 19:24 Breathing metoclopramide HCl Allergy Swelling Verified 01/29/18 19:24 [From Reglan] morphine Allergy difficulty Verified 01/29/18 19:24 breathibg oxycodone HCl [From Percocet] Allergy Verified 01/29/18 19:24 shellfish derived Allergy Swelling,ra Verified 01/29/18 19:24 sh watermelon Allergy Verified 01/29/18 19:24 cantaloupe Allergy Uncoded 01/29/18 19:24 miller Allergy Uncoded 01/29/18 19:24 mustard,fish,vinegar Allergy swelling,ra Uncoded 01/29/18 19:24 sh NARCOTICS Allergy Difficulty Uncoded 01/29/18 19:24 Breathing nuts Allergy Uncoded 01/29/18 19:24 Home Medications: Ambulatory Orders Quetiapine Fumarate [Seroquel -] 25 mg PO HS 03/10/12 Ranitidine HCl [Zantac] 300 mg PO DAILY 05/05/16 Diazepam [Valium] 2 mg PO HS PRN MDD 6mg 03/25/17 Tapentadol Hydrochloride [Nucynta -] 50 mg PO Q6H PRN #30 tab MDD 200mg traMADol HCL [Ultram -] 50 mg PO Q8H #30 tablet MDD 4 06/03/17 Ondansetron [Zofran *Odt*] 8 mg SL BID #14 od.tablet 11/10/17 Review of Systems - Review of Systems Able to Perform ROS?: Yes Comments:: 01/29/18 20:05 ADULT ROS GENERAL/CONSTITUTIONAL: No fever or chills. No weakness. HEAD, EYES, EARS, NOSE AND THROAT: No change in vision. No ear pain or discharge. No sore throat. CARDIOVASCULAR: No chest pain or shortness of breath. RESPIRATORY: No cough, wheezing, or hemoptysis. GASTROINTESTINAL: No nausea, vomiting, diarrhea or constipation. GENITOURINARY: No dysuria, frequency, or change in urination. MUSCULOSKELETAL: (+) Lower back pain. No joint or muscle swelling or pain. No neck pain. SKIN: No rash NEUROLOGIC: No headache, vertigo, loss of consciousness, or change in strength/ sensation. ENDOCRINE: No increased thirst. No abnormal weight change. HEMATOLOGIC/LYMPHATIC: No anemia, easy bleeding, or history of blood clots. ALLERGIC/IMMUNOLOGIC: No hives or skin allergy. <Shruthi Gallo - Last Filed: 01/29/18 20:02> *Physical Exam - Vital Signs Last Vital Signs Temp Pulse Resp BP Pulse Ox 98.4 F 106 H 17 139/91 100 01/29/18 19:53 01/29/18 19:53 01/29/18 19:53 01/29/18 19:53 01/29/18 19:53 - Physical Exam Comments: 01/29/18 20:04 ADULT EXAM GENERAL: Awake, alert, and fully oriented, in no acute distress HEAD: No signs of trauma EYES: PERRLA, EOMI, sclera anicteric, conjunctiva clear ENT: Auricles normal inspection, hearing grossly normal, nares patent, oropharynx clear without exudates. Moist mucosa NECK: Normal ROM, supple, no lymphadenopathy, JVD, or masses LUNGS: Breath sounds equal, clear to auscultation bilaterally. No wheezes, and no crackles HEART: Regular rate and rhythm, normal S1 and S2, no murmurs, rubs or gallops ABDOMEN: Soft, nontender, normoactive bowel sounds. No guarding, no rebound. No masses BACK: (+) Small scar on her lower back. No swelling. No rashes. EXTREMITIES: Normal range of motion, no edema. No clubbing or cyanosis. No cords, erythema, or tenderness. Good strength in her lower extremities. NEUROLOGICAL: Cranial nerves II through XII grossly intact. Normal speech, normal gait SKIN: Warm, Dry, normal turgor, no rashes or lesions noted. <Shruthi Gallo - Last Filed: 01/29/18 20:02> - Vital Signs Last Vital Signs Temp Pulse Resp BP Pulse Ox 98.4 F 106 H 17 139/91 100 01/29/18 19:53 01/29/18 19:53 01/29/18 19:53 01/29/18 19:53 01/29/18 19:53 <Charlette Hutchins - Last Filed: 01/29/18 20:13> ED Treatment Course - Medications Given in the ED: ED Medications Discontinued Medications Generic Name Dose Route Start Last Admin Trade Name Freq PRN Reason Stop Dose Admin Metoclopramide HCl 10 mg 01/29/18 19:33 01/29/18 19:47 Reglan Injection - IM 01/29/18 19:34 10 mg ONCE ONE Administration Tramadol HCl 50 mg 01/29/18 19:31 01/29/18 19:47 Ultram - PO 01/29/18 19:32 Not Given ONCE ONE <Shruthi Gallo - Last Filed: 01/29/18 20:02> - Medications Given in the ED: ED Medications Discontinued Medications Generic Name Dose Route Start Last Admin Trade Name Freq PRN Reason Stop Dose Admin Metoclopramide HCl 10 mg 01/29/18 19:33 01/29/18 19:47 Reglan Injection - IM 01/29/18 19:34 10 mg ONCE ONE Administration Tramadol HCl 50 mg 01/29/18 19:31 01/29/18 19:47 Ultram - PO 01/29/18 19:32 Not Given ONCE ONE <Charlette Hutchins - Last Filed: 01/29/18 20:13> Medical Decision Making - Medical Decision Making 01/29/18 20:12 Case d/w PMD Nirali Kirk, who agrees that a fentanyl patch should be safe on the patient, as she has never shown an allergy to fentanyl. I will place a patch on her and she is to follow with Dr. Kirk. Pt tells me that the cold weather exacerbates her back pain. <Charlette Hutchins - Last Filed: 01/29/18 20:13> *DC/Admit/Observation/Transfer - Attestations Scribe Attestion: 01/29/18 20:05 Documentation prepared by Shruthi Gallo, acting as medical lab scientist for Charlette Hutchins MD. <Shruthi Gallo - Last Filed: 01/29/18 20:02> - Discharge Dispostion Decision to Admit order: No <Charlette Hutchins - Last Filed: 01/29/18 20:13> Diagnosis at time of Disposition: Lumbar pain, Chronic pain - Discharge Dispostion Disposition: HOME Condition at time of disposition: Stable - Referrals Referrals: Tahir Kirk MD [Primary Care Provider] - - Patient Instructions Printed Discharge Instructions: Vitamin C Therapy May Help Prevent Chronic Pain Syndrome, Non-Medication Pain Relief for Chronic Pain, Managing Chronic Low Back Pain Additional Instructions: BUY A TENS UNIT FOR YOUR LOW BACK PAIN YOU CAN FIND THEM IN YOUR PHARMACY OR IN [facility] - Post Discharge Activity
[2018-01-29 20:19] VITALS: BP 134/87; PULSE 102
== END 2018-01-29 20:11 | disposition home or self-care (01) ==
LOC: JER 17:46 → JERFT 17:46 → JER 20:11
PROC: 3E023GC Introduction of Other Therapeutic Substance into Muscle, Percutaneous Approach (ICD-10-PCS; principal; 2018-01-29)
DX: M54.5 Low back pain (principal); G89.29 Other chronic pain; Z88.8 Allergy status to other drugs, medicaments and biological substances; Z91.018 Allergy to other foods; Z91.013 Allergy to seafood
CPT/HCPCS: 72100-TC-FY; 84703; 99283-25

== ENCOUNTER 2018-02-22 14:36 | Inpatient (IN) | payer OTHER ==
[2018-02-22] MEDS ORDERED: IPRATROPIUM BR 0.02% 0.5 MG/2.5 ML VIAL.NEB. NEB ONE ×4 (14:38→17:15)
[2018-02-22] MEDS ORDERED: LEVALBUTEROL HCL 0.31 MG/3 ML VIAL.NEB IH ONE (14:39)
--- NOTE | 2018-02-22 14:42 | PDOC ---
Rapid Medical Evaluation Time Seen by Provider: 02/22/18 14:37 Medical Evaluation: Allergies Allergy/AdvReac Type Severity Reaction Status Date / Time albuterol Allergy Severe Swelling Verified 01/29/18 19:24 banana Allergy Unknown Verified 01/29/18 19:24 mushroom Allergy Unknown Verified 01/29/18 19:24 codeine [Codeine] Allergy Difficulty Verified 01/29/18 19:24 Breathing Fish Containing Products Allergy Verified 01/29/18 19:24 hydromorphone HCl Allergy difficulty Verified 01/29/18 19:24 [From Dilaudid] breathibg samir Allergy Verified 01/29/18 19:24 meperidine HCl [From Demerol] Allergy Difficulty Verified 01/29/18 19:24 Breathing metoclopramide HCl Allergy Swelling Verified 01/29/18 19:24 [From Reglan] morphine Allergy difficulty Verified 01/29/18 19:24 breathibg oxycodone HCl [From Percocet] Allergy Verified 01/29/18 19:24 shellfish derived Allergy Swelling,ra Verified 01/29/18 19:24 sh watermelon Allergy Verified 01/29/18 19:24 cantaloupe Allergy Uncoded 01/29/18 19:24 miller Allergy Uncoded 01/29/18 19:24 mustard,fish,vinegar Allergy swelling,ra Uncoded 01/29/18 19:24 sh NARCOTICS Allergy Difficulty Uncoded 01/29/18 19:24 Breathing nuts Allergy Uncoded 01/29/18 19:24 I have performed a brief in-person evaluation of this patient. The patient presents with a chief complaint of: trouble breathing. asthma exacerbation. patient is allergic to albuterol Pertinent physical exam findings: diffuse expiratory wheezing across all lung bhat. patient can only speak 1-2 words per breath I have ordered the following: cxr, hcg, xopenex and ipatroprium inhaler The patient will proceed to the ED for further evaluation 02/22/18 14:41 Discharge Disposition - Referrals Referrals: Tahir Kirk MD [Primary Care Provider] - - Patient Instructions - Post Discharge Activity
[2018-02-22] MEDS ORDERED: LEVALBUTEROL HCL 0.63 MG/3 ML VIAL.NEB. IH ONE ×2 (15:05→17:06)
[2018-02-22 16:42] LABS: BASO % 0.3 % (0-2.0); EOS % 1.5 % (0-4.5); HEMATOCRIT 39.6 % (32.4-45.2); HEMOGLOBIN 13.3 GM/dL (10.7-15.3); LYMPH % 15.6 % (8-40); MCHC 33.5 g/dl (32.0-36.0); MEAN CELL VOLUME 86.6 fl (80-96); MEAN PLT VOLUME 7.5 fl (7.5-11.1); MONO % 5.2 % (3.8-10.2); NEUT % 77.4 % (42.8-82.8); PLATELET COUNT 321 K/MM3 (134-434); RBC 4.57 M/mm3 (3.60-5.2); RDW 13.5 % (11.6-15.6); WHITE BLOOD COUNT 10.4 K/mm3 (4.0-10.0)
[2018-02-22 16:49] LABS: URINE APPEARANCE CLOUDY; URINE BILIRUBIN NEGATIVE (<2.0 mg/dL); URINE COLOR AMBER; URINE GLUCOSE (UA) NEGATIVE (NEGATIVE); URINE KETONE NEGATIVE (NEGATIVE); URINE LEUK ESTERASE NEGATIVE (NEGATIVE); URINE NITRITE NEGATIVE (NEGATIVE)
[2018-02-22 16:52] LABS: URINE PROTEIN 1+ (NEGATIVE)
[2018-02-22 17:03] LABS: ALBUMIN 3.8 g/dl (3.4-5.0); ALK PHOS 99 U/L (45-117); ANION GAP 8 MMOL/L (8-16); BILIRUBIN,TOTAL 0.3 mg/dL (0.2-1); BLOOD UREA NITROGEN 6 mg/dL (7-18); CALCIUM 9.3 mg/dL (8.5-10.1); CHLORIDE 106 mmol/L (98-107); CO2 25 mmol/L (21-32); CREATININE 0.6 mg/dL (0.55-1.3); GLUCOSE,RANDOM 94 mg/dL (74-106); POTASSIUM 3.4 mmol/L (3.5-5.1); SGOT/AST 11 U/L (15-37); SGPT/ALT 30 U/L (13-61); SODIUM 139 mmol/L (136-145); TOT PROT 7.2 g/dl (6.4-8.2)
[2018-02-22 17:13] LABS: EPI CELLS MANY /HPF (FEW); URINE BACTERIA RARE /hpf (NONE SEEN); URINE MUCUS FEW
[2018-02-22] MEDS ORDERED: guaiFENesin 200 MG/10 ML 10 ML UNIT-DOSE CUPS PO ONE (17:20)
[2018-02-22] MEDS ORDERED: methylPREDNISolone NA SUCC 125 MG/2 ML VIAL IVPB ONE (17:20)
--- NOTE | 2018-02-22 17:37 | PDOC ---
History of Present Illness - General Chief Complaint: Shortness of Breath Stated Complaint: ASTHMA Time Seen by Provider: 02/22/18 14:37 History Source: Patient Exam Limitations: No Limitations - History of Present Illness Initial Comments: 02/22/18 17:03 37-year-old female with history of asthma presents with asthma exacerbation despite completing steroids, and had a treatments and antibiotics. Patient was seen by Dr. Kirk who recommended admission since she continues to wheeze and has limited speech secondary to the above symptoms. Patient denies fever, chills , chest pain but does complain of chest soreness secondary to coughing. Patient denies recent travel, abdominal pain, nausea, dizziness. Timing/Duration: reports: getting worse Severity: reports: moderate Possible Cause: Yes: frequent episodes Modifying Factors: improves with: activity, coughing Associated Symptoms: reports: chest pain/soreness, cough, shortness of breath, wheezing. denies: fever/chills Past History - Travel Traveled outside of the country in the last 30 days: No - Past Medical History Allergies/Adverse Reactions: Allergies Allergy/AdvReac Type Severity Reaction Status Date / Time albuterol Allergy Severe Swelling Verified 02/22/18 14:40 banana Allergy Unknown Verified 02/22/18 14:40 mushroom Allergy Unknown Verified 02/22/18 14:40 codeine [Codeine] Allergy Difficulty Verified 02/22/18 14:40 Breathing Fish Containing Products Allergy Verified 02/22/18 14:40 hydromorphone HCl Allergy difficulty Verified 02/22/18 14:40 [From Dilaudid] breathibg samir Allergy Verified 02/22/18 14:40 meperidine HCl [From Demerol] Allergy Difficulty Verified 02/22/18 14:40 Breathing metoclopramide HCl Allergy Swelling Verified 02/22/18 14:40 [From Reglan] morphine Allergy difficulty Verified 02/22/18 14:40 breathibg oxycodone HCl [From Percocet] Allergy Verified 02/22/18 14:40 shellfish derived Allergy Swelling,ra Verified 02/22/18 14:40 sh watermelon Allergy Verified 02/22/18 14:40 cantaloupe Allergy Uncoded 02/22/18 14:40 miller Allergy Uncoded 02/22/18 14:40 mustard,fish,vinegar Allergy swelling,ra Uncoded 02/22/18 14:40 sh NARCOTICS Allergy Difficulty Uncoded 02/22/18 14:40 Breathing nuts Allergy Uncoded 02/22/18 14:40 Home Medications: Ambulatory Orders Quetiapine Fumarate [Seroquel -] 25 mg PO HS 03/10/12 Ranitidine HCl [Zantac] 300 mg PO DAILY 05/05/16 Diazepam [Valium] 2 mg PO HS PRN MDD 6mg 03/25/17 Tapentadol Hydrochloride [Nucynta -] 50 mg PO Q6H PRN #30 tab MDD 200mg traMADol HCL [Ultram -] 50 mg PO Q8H #30 tablet MDD 4 06/03/17 Ondansetron [Zofran *Odt*] 8 mg SL BID #14 od.tablet 11/10/17 Venlafaxine HCl ER [Effexor Xr -] 75 mg PO DAILY 02/22/18 Zolpidem Tartrate [Ambien] 10 mg PO ASDIR 02/22/18 Anemia: Yes Asthma: Yes Cancer: No 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) CVA: No COPD: No CHF: No Dementia: No Diabetes: No (HYPOGLYCEMIA) GI Disorders: Yes (REFLUX) Disorders: No HTN: No (HYPOTENSION) Hypercholesterolemia: No Liver Disease: No Seizures: No Thyroid Disease: No - Surgical History Abdominal Surgery: No Appendectomy: No Cardiac Surgery: No Cholecystectomy: Yes Lung Surgery: No Neurologic Surgery: No Orthopedic Surgery: No - Immunization History Immunization Up to Date: Yes - Suicide/Smoking/Psychosocial Hx Smoking Status: Yes Smoking History: Never smoked Have you smoked in the past 12 months: No Number of Cigarettes Smoked Daily: 2 If you are a former smoker, when did you quit?: 1 month 'Breaking Loose' booklet given: 10/31/13 Hx Alcohol Use: No Drug/Substance Use Hx: No Substance Use Type: None Hx Substance Use Treatment: No Patient Lives Alone: No Lives with/in: spouse/SO Respiratory Specific PMHX - Complaint Specific PMHX Pneumonia: No Pulmonary Embolus: No Review of Systems - Review of Systems Able to Perform ROS?: Yes Constitutional: No: Symptoms Reported HEENTM: No: Symptoms Reported Respiratory: Yes: Cough, Shortness of Breath, Wheezing. No: Stridor Cardiac (ROS): No: Symptoms Reported ABD/GI: No: Symptoms Reported : No: Symptoms Reported Musculoskeletal: No: Symptoms Reported Integumentary: No: Symptoms Reported Neurological: No: Symptoms reported Hematologic/Lymphatic: No: Symptoms Reported *Physical Exam - Vital Signs Last Vital Signs Temp Pulse Resp BP Pulse Ox 98.2 F 131 H 20 134/77 100 02/22/18 14:37 02/22/18 14:37 02/22/18 14:37 02/22/18 14:37 02/22/18 14:37 - Physical Exam General Appearance: Yes: Nourished, Appropriately Dressed. No: Apparent Distress HEENT: positive: EOMI, ISAAK, TMs Normal. negative: Pharynx Normal, Pale Conjunctivae Neck: positive: Supple Respiratory/Chest: positive: Accessory Muscle Use (intercostal), Wheezing ( decreased breath sounds at bases), Other (repetitive dry coughing noted during exam). negative: Chest Tender, Respiratory Distress, Rapid RR Cardiovascular: positive: Regular Rhythm, Tachycardia. negative: Murmur Gastrointestinal/Abdominal: positive: Soft. negative: Tenderness Extremity: positive: Normal Capillary Refill. negative: Pedal Edema Integumentary: positive: Normal Color, Warm, Moist Neurologic: positive: Motor Strength 5/5 (ambulatory). negative: Normal Mood/ Affect (anxious) Heart Score/ECG Review - History History: Slightly suspicious - Age Age: </= 45 - Risk Factors Based on the list above the patient has:: No risk factors known - Troponin Troponin: </= normal limit - ECG Intrepretation Rhythm: Regular Rhythm (rate 107. No ST elevation or depression . Intervals are regular) ED Treatment Course - LABORATORY CBC & Chemistry Diagram: 02/22/18 16:15 02/22/18 16:15 - ADDITIONAL ORDERS Additional order review: Laboratory Results 02/22/18 02/22/18 02/22/18 16:20 16:15 15:47 Sodium 139 Potassium 3.4 L Chloride 106 Carbon Dioxide 25 Anion Gap 8 BUN 6 L Creatinine 0.6 Creat Clearance w eGFR > 60 Random Glucose 94 Calcium 9.3 Total Bilirubin 0.3 AST 11 L ALT 30 Alkaline Phosphatase 99 Total Protein 7.2 Albumin 3.8 Urine Color Corrina Urine Appearance Cloudy Urine pH 7.0 D Ur Specific [place] 1.029 Urine Protein 1+ H Urine Glucose (UA) Negative Urine Ketones Negative Urine Blood Negative Urine Nitrite Negative Urine Bilirubin Negative Urine Urobilinogen 2.0 H Ur Leukocyte Esterase Negative Urine HCG, Qual Negative 02/22/18 16:15 RBC 4.57 MCV 86.6 MCHC 33.5 RDW 13.5 MPV 7.5 Neutrophils % 77.4 D Lymphocytes % 15.6 D Monocytes % 5.2 Eosinophils % 1.5 Basophils % 0.3 - Medications Given in the ED: ED Medications Discontinued Medications Generic Name Dose Route Start Last Admin Trade Name Isabel PRN Reason Stop Dose Admin Ipratropium [place] 1 amp 02/22/18 14:38 02/22/18 15:09 Atrovent 0.02% Nebulizer - NEB 02/22/18 14:39 1 amp ONCE ONE Administration Ipratropium [place] 1 amp 02/22/18 17:15 02/22/18 17:16 Atrovent 0.02% Nebulizer - NEB 02/22/18 17:16 1 amp NOW ONE Administration Levalbuterol HCl 0.31 mg 02/22/18 14:39 02/22/18 15:09 Xopenex IH 02/22/18 14:40 Not Given NOW ONE Levalbuterol HCl 0.63 mg 02/22/18 15:05 02/22/18 15:23 Xopenex IH 02/22/18 15:06 0.63 mg NOW ONE Administration Levalbuterol HCl 0.63 mg 02/22/18 17:06 02/22/18 17:07 Xopenex IH 02/22/18 17:07 0.63 mg NOW ONE Administration Medical Decision Making - Medical Decision Making 02/22/18 17:40 Patient sent from fast track secondary to higher level of care required. Patient was sent by her PCP Dr. Anand for admission secondary to failed outpatient therapy secondary to asthma exacerbation. Patient my exam was found to be uncomfortable with repetitive dry coughing inability to speak more than 2- 3 words without coughing. Patient also noted with bilateral wheezing and decreased breath sounds at bases. Patient ordered Atrovent upon my arrival since she is allergic to albuterol stating it causes tachycardia. Patient also ordered for Xopenex along with Robitussin without codeine since she states has reaction to codeine. X-ray reviewed without acute findings. Patient had labs and orders placed from rapid medical evaluation physician. 02/22/18 17:42 Laboratory Tests 02/22/18 02/22/18 02/22/18 15:47 16:15 16:15 WBC 10.4 H Hgb 13.3 Hct 39.6 Plt Count 321 Absolute Neuts (auto) 8.1 H Lymphocytes % 15.6 D Monocytes % 5.2 Eosinophils % 1.5 Basophils % 0.3 Sodium 139 Potassium 3.4 L Chloride 106 Carbon Dioxide 25 Anion Gap 8 BUN 6 L Creatinine 0.6 Random Glucose 94 Calcium 9.3 Total Bilirubin 0.3 AST 11 L ALT 30 Alkaline Phosphatase 99 Urine Protein Urine Ketones Urine Nitrite Ur Leukocyte Esterase Urine HCG, Qual Negative 02/22/18 16:20 WBC Hgb Hct Plt Count Absolute Neuts (auto) Lymphocytes % Monocytes % Eosinophils % Basophils % Sodium Potassium Chloride Carbon Dioxide Anion Gap BUN Creatinine Random Glucose Calcium Total Bilirubin AST ALT Alkaline Phosphatase Urine Protein 1+ H Urine Ketones Negative Urine Nitrite Negative Ur Leukocyte Esterase Negative Urine HCG, Qual Micro-blog sent to hospitalist. Hr 102. pt states feels jittery after receiving nebulizer. 02/22/18 18:17 Pt states coughing has subsided but continues to feel anxious. Mild wheezing auscultated bilaterally. O2 sat 98 on room air. hr 100. 02/22/18 18:29 Laboratory Tests 02/22/18 02/22/18 15:47 16:20 Urine Protein 1+ H Urine Nitrite Negative Urine Urobilinogen 2.0 H Urine WBC (Auto) 6 Urine RBC (Auto) 13 Urine HCG, Qual Negative *DC/Admit/Observation/Transfer Diagnosis at time of Disposition: Asthma exacerbation, Failure of outpatient treatment - Discharge Dispostion Decision to Admit order: Yes - Referrals Referrals: Tahir Kirk MD [Primary Care Provider] - - Patient Instructions - Post Discharge Activity
[2018-02-22] MEDS ORDERED: methylPREDNISolone NA SUCC 125 MG/2 ML VIAL ONE (18:52)
[2018-02-22] MEDS ORDERED: guaiFENesin/CODEINE 5 ML UNIT-DOSE CUPS PO ONE (18:52)
[2018-02-22] MEDS ORDERED: LACTATED RINGERS SOLUTION 1,000 ML/1,000 ML INFUS.BAG IV SCH (20:45)
--- NOTE | 2018-02-23 01:27 | HP ---
Admitting History and Physical - Primary Care Physician PCP: Tahir Kirk - Admission Chief Complaint: Chest Tightness, Wheezing History of Present Illness: 37 y/o young woman with a past medical history of Asthma, Anemia, GERD, Herniated Disc s/p Lumbar Decompression/Fusion L5-S1 (11/2016). Who presents to the ED sent in from her PMD for chest tightness, wheezing and failed out patient therapy (Azithromycin- for Asthma Flare). 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 No: HTN Pulmonary: Yes: Asthma Gastrointestinal: Yes: GERD Hepatobiliary: Yes: Other (Had cholecystectomy in 1998) ...LMP: 04/24/16 ...: No Psych: Yes: Addictions, Other (takes quetiapine for ? sleep) Musculoskeletal: Yes: Other (Herniated Disc) ENT: Yes: Other (treated 1 month ago with antibiotics for bilateral ? parotitis) - Past Surgical History Past Surgical History: Yes: Cholecystectomy (btl), Hysterectomy (partial), Tubal Ligation Additional Past Surgical History: Lumbar Decompression/Fusion L5-S1 - Smoking History Smoking history: Former smoker Have you smoked in the past 12 months: No Aproximately how many cigarettes per day: 2 If you are a former smoker, when did you quit?: 1 month - Alcohol/Substance Use Hx Alcohol Use: No History of Substance Use: reports: None - Social History ADL: Independent History of Recent Travel: No Home Medications - Allergies Allergies/Adverse Reactions: Allergies Allergy/AdvReac Type Severity Reaction Status Date / Time albuterol Allergy Severe Swelling Verified 02/22/18 14:40 banana Allergy Unknown Verified 02/22/18 14:40 mushroom Allergy Unknown Verified 02/22/18 14:40 codeine [Codeine] Allergy Difficulty Verified 02/22/18 14:40 Breathing Fish Containing Products Allergy Verified 02/22/18 14:40 hydromorphone HCl Allergy difficulty Verified 02/22/18 14:40 [From Dilaudid] breathibg samir Allergy Verified 02/22/18 14:40 meperidine HCl [From Demerol] Allergy Difficulty Verified 02/22/18 14:40 Breathing metoclopramide HCl Allergy Swelling Verified 02/22/18 14:40 [From Reglan] morphine Allergy difficulty Verified 02/22/18 14:40 breathibg oxycodone HCl [From Percocet] Allergy Verified 02/22/18 14:40 shellfish derived Allergy Swelling,ra Verified 02/22/18 14:40 sh watermelon Allergy Verified 02/22/18 14:40 cantaloupe Allergy Uncoded 02/22/18 14:40 miller Allergy Uncoded 02/22/18 14:40 mustard,fish,vinegar Allergy swelling,ra Uncoded 02/22/18 14:40 sh NARCOTICS Allergy Difficulty Uncoded 02/22/18 14:40 Breathing nuts Allergy Uncoded 02/22/18 14:40 - Home Medications Home Medications: Ambulatory Orders Quetiapine Fumarate [Seroquel -] 25 mg PO HS 03/10/12 Ranitidine HCl [Zantac] 300 mg PO DAILY 05/05/16 Diazepam [Valium] 2 mg PO HS PRN MDD 6mg 03/25/17 Tapentadol Hydrochloride [Nucynta -] 50 mg PO Q6H PRN #30 tab MDD 200mg traMADol HCL [Ultram -] 50 mg PO Q8H #30 tablet MDD 4 06/03/17 Ondansetron [Zofran *Odt*] 8 mg SL BID #14 od.tablet 11/10/17 Venlafaxine HCl ER [Effexor Xr -] 75 mg PO DAILY 02/22/18 Zolpidem Tartrate [Ambien] 10 mg PO ASDIR 02/22/18 Family Disease History - Family Disease History Family Disease History: Diabetes: Father, Mother, Heart Disease: Father, Mother Review of Systems - Review of Systems Constitutional: reports: No Symptoms Eyes: reports: No Symptoms HENT: reports: No Symptoms Neck: reports: No Symptoms Cardiovascular: reports: Shortness of Breath, Other (chest tightness) Respiratory: reports: Cough, SOB, Wheezing Gastrointestinal: reports: No Symptoms Genitourinary: reports: No Symptoms Breasts: reports: No Symptoms Reported Integumentary: reports: No Symptoms Neurological: reports: No Symptoms Endocrine: reports: No Symptoms Hematology/Lymphatic: reports: No Symptoms Psychiatric: reports: No Symptoms Physical Examination Vital Signs: Vital Signs Temperature 98.4 F 02/22/18 23:51 Pulse Rate 108 H 02/22/18 23:51 Respiratory Rate 18 02/22/18 23:51 Blood Pressure 142/84 02/22/18 23:51 O2 Sat by Pulse Oximetry (%) 99 02/22/18 23:51 Labs: CBC, BMP 02/22/18 16:15 02/22/18 16:15 Prescriptions Monitoring Program Patient Name: Anel Wetzel Date: 1980 Address: [address] [place] [address] Sex: Female Rx Written Rx Dispensed Drug Quantity Days Supply Prescriber Name 02/04/2018 02/10/2018 nucynta 100 mg tablet 120 30 Tahir Kirk) 02/04/2018 02/10/2018 diazepam 10 mg tablet 180 30 Tahir Kirk) 02/04/2018 02/04/2018 fentanyl 37.5 mcg/hr patch 10 30 Tahir Kirk) 02/04/2018 02/04/2018 zolpidem tartrate 10 mg tablet 30 30 Tahir Kirk) Patient Name: Anel Wetzel Date: 1980 Address: [address] [place] [address] Sex: Female Rx Written Rx Dispensed Drug Quantity Days Supply Prescriber Name 11/30/2017 11/30/2017 diazepam 10 mg tablet 180 30 Tahir Kirk) 11/30/2017 11/30/2017 zolpidem tartrate 10 mg tablet 30 30 Tahir Kirk) 11/06/2017 11/09/2017 zolpidem tartrate 10 mg tablet 30 30 Tahir Kirk) 09/29/2017 09/30/2017 diazepam 10 mg tablet 180 30 Tahir Kirk) 09/29/2017 09/30/2017 tramadol hcl 50 mg tablet 120 30 Tahir Kirk) 08/25/2017 09/01/2017 diazepam 10 mg tablet 180 30 Tahir Kirk) 07/10/2017 07/20/2017 tramadol hcl 50 mg tablet 120 30 Tahir Kirk) 06/03/2017 06/03/2017 tramadol hcl 50 mg tablet 30 10 Nick Keating DO 05/20/2017 05/23/2017 nucynta 100 mg tablet 120 30 Tahir Kirk) 04/15/2017 04/24/2017 nucynta 100 mg tablet 120 30 Tahir Kirk) 04/15/2017 04/24/2017 diazepam 10 mg tablet 180 30 Tahir Kirk) 03/27/2017 03/28/2017 diazepam 10 mg tablet 180 30 Tahir Kirk) Problem List - Problems (1) Asthma exacerbation Assessment/Plan: - Code(s): J45.901 - UNSPECIFIED ASTHMA WITH (ACUTE) EXACERBATION (2) Failure of outpatient treatment Code(s): Z78.9 - OTHER SPECIFIED HEALTH STATUS (3) Anemia Assessment/Plan: - stable - Hgb 13.3 - Will transfuse if Hgb < 7.0 - Monitor CBC Code(s): D64.9 - ANEMIA, UNSPECIFIED (4) GERD (gastroesophageal reflux disease) Assessment/Plan: - stable - Continue Zantac Code(s): K21.9 - GASTRO-ESOPHAGEAL REFLUX DISEASE WITHOUT ESOPHAGITIS (5) DVT prophylaxis Assessment/Plan: - OOB - SCDs - Consider AC if LOS > 48 hrs Code(s): OQJ0370 -
[2018-02-23] MEDS: methylPREDNISolone NA SUCC 40 MG/1 ML VIAL IVPUSH SCH ×3 (02:27→17:12)
[2018-02-23] MEDS ORDERED: LEVALBUTEROL HCL 0.63 MG/3 ML VIAL.NEB. IH PRN (04:33)
[2018-02-23] MEDS ORDERED: ONDANSETRON *ODT* 4 MG TABLET SL PRN (05:15)
[2018-02-23] MEDS: guaiFENesin 200 MG/10 ML 10 ML UNIT-DOSE CUPS PO PRN ×2 (05:21→21:41)
[2018-02-23] MEDS: diazePAM 5 MG TABLET PO PRN ×2 (05:21→21:41)
[2018-02-23 08:11] LABS: BASO % 0.1 % (0-2.0); HEMATOCRIT 37.9 % (32.4-45.2); HEMOGLOBIN 12.6 GM/dL (10.7-15.3); LYMPH % 10.1 % (8-40); MCH 28.8 pg (25.7-33.7); MCHC 33.3 g/dl (32.0-36.0); MEAN CELL VOLUME 86.6 fl (80-96); MEAN PLT VOLUME 7.7 fl (7.5-11.1); MONO % 0.8 % (3.8-10.2); PLATELET COUNT 316 K/MM3 (134-434); RBC 4.38 M/mm3 (3.60-5.2); RDW 13.4 % (11.6-15.6); WHITE BLOOD COUNT 11.4 K/mm3 (4.0-10.0)
[2018-02-23 08:31] LABS: ANION GAP 8 MMOL/L (8-16); BLOOD UREA NITROGEN 7 mg/dL (7-18); CALCIUM 8.8 mg/dL (8.5-10.1); CHLORIDE 104 mmol/L (98-107); CO2 23 mmol/L (21-32); CREATININE 0.5 mg/dL (0.55-1.3); GLUCOSE,RANDOM 176 mg/dL (74-106); POTASSIUM 4.3 mmol/L (3.5-5.1); SODIUM 135 mmol/L (136-145)
[2018-02-23] MEDS: IPRATROPIUM BR 0.02% 0.5 MG/2.5 ML VIAL.NEB. NEB SCH ×4 (08:31→20:45)
--- NOTE | 2018-02-23 10:44 | EKG ---
Test Reason : Blood Pressure : / mmHG Vent. Rate : 107 BPM Atrial Rate : 107 BPM P-R Int : 188 ms QRS Dur : 084 ms QT Int : 342 ms P-R-T Axes : 050 -08 037 degrees QTc Int : 456 ms SINUS TACHYCARDIA POSSIBLE LEFT ATRIAL ENLARGEMENT BORDERLINE ECG WHEN COMPARED WITH ECG OF 10-NOV-2017 03:12, NO SIGNIFICANT CHANGE WAS FOUND Confirmed by You Barton MD ([id number]) on 02/23/2018 10:43:36 AM Referred By: AYO Confirmed By:You Barton MD
[2018-02-23] MEDS: VENLAFAXINE HCL 75 MG E.R. CAPSULES (FP) PO SCH (10:46)
[2018-02-23] MEDS: RANITIDINE HCL 150 MG TABLET (FP) PO SCH (10:47)
--- NOTE | 2018-02-23 13:24 | PN ---
Progress Note (short form) - Note Progress Note: PULMONARY CONSULTATION DICTATED 02/23/18 IMP ACUTE ASTHMA EXACERBATION LIKELY SECONDARY TO URI TACHYCARDIA ANEMIA GERD PLAN IV STEROIDS INHALED BRONCHODILATORS MONITOR PEAK FLOW PFTS OUTPATIENT DR JEFFRIES Problem List - Problems (1) Asthma exacerbation Code(s): J45.901 - UNSPECIFIED ASTHMA WITH (ACUTE) EXACERBATION (2) Failure of outpatient treatment Code(s): Z78.9 - OTHER SPECIFIED HEALTH STATUS (3) GERD (gastroesophageal reflux disease) Code(s): K21.9 - GASTRO-ESOPHAGEAL REFLUX DISEASE WITHOUT ESOPHAGITIS
--- NOTE | 2018-02-23 13:25 | PN ---
Progress Note, Physician Chief Complaint: Pt sitting in bed in no acute distress. reports feeling better. Denies any worsening chest pain, sob, n/v/d - Current Medication List Current Medications: Active Medications Diazepam (Valium -) 10 mg PO HS PRN PRN Reason: MUSCLE SPASMS Last Admin: 02/23/18 05:21 Dose: 10 mg Guaifenesin (Robitussin -) 10 ml PO Q6H PRN PRN Reason: COUGH Last Admin: 02/23/18 05:21 Dose: 10 ml Ipratropium [place] (Atrovent 0.02% Nebulizer -) 1 amp NEB RQID [facility] Last Admin: 02/23/18 12:08 Dose: 1 amp Levalbuterol HCl (Xopenex) 0.63 mg IH Q8H PRN PRN Reason: ASTHMA Methylprednisolone Sodium Succinate (Solu-Medrol -) 40 mg IVPUSH Q8H-IV [facility] Last Admin: 02/23/18 10:47 Dose: 40 mg Ondansetron HCl (Zofran Odt -) 8 mg SL BID PRN PRN Reason: NAUSEA AND/OR VOMITING Quetiapine Fumarate (Seroquel -) 25 mg PO HS [facility] Ranitidine HCl (Zantac -) 300 mg PO DAILY [facility] Last Admin: 02/23/18 10:47 Dose: 300 mg Tapentadol (Nucynta -) 50 mg PO Q6H PRN PRN Reason: PAIN LEVEL 6-10 Venlafaxine HCl (Effexor Xr -) 75 mg PO DAILY [facility] Last Admin: 02/23/18 10:46 Dose: 75 mg Zolpidem Tartrate (Ambien -) 10 mg PO HS PRN PRN Reason: INSOMNIA - Objective Vital Signs: Vital Signs Temperature 98.3 F 02/23/18 10:00 Pulse Rate 105 H 02/23/18 10:00 Respiratory Rate 22 H 02/23/18 10:00 Blood Pressure 122/68 02/23/18 10:00 O2 Sat by Pulse Oximetry (%) 100 02/23/18 01:16 Constitutional: Yes: Well Nourished, No Distress Cardiovascular: Yes: Regular Rate and Rhythm, Tachycardia Respiratory: Yes: WNL, Regular, CTA Bilaterally, SOB. No: Accessory Muscle Use , Rhonchi, Tachypnea, Wheezes Gastrointestinal: Yes: WNL, Normal Bowel Sounds, Soft. No: Distention, Tenderness Genitourinary: Yes: WNL Edema: No Neurological: Yes: WNL, Alert, Oriented Psychiatric: Yes: WNL, Alert, Oriented Labs: CBC, BMP 02/23/18 06:20 02/23/18 06:20 Problem List - Problems (1) Asthma exacerbation Assessment/Plan: recent URI infection completed zpack, po steroids outpt admitted yesterday for worsening sob/wheezing/tightness feels better today, improvement in sob/tightness continue solumedrol 40mg tid continue nebs peak flow ordered pulm following Code(s): J45.901 - UNSPECIFIED ASTHMA WITH (ACUTE) EXACERBATION Qualifiers: Asthma severity: moderate (2) Failure of outpatient treatment Assessment/Plan: as above requiring iv steroids Code(s): Z78.9 - OTHER SPECIFIED HEALTH STATUS (3) Chronic pain Assessment/Plan: controlled continue home meds Code(s): G89.29 - OTHER CHRONIC PAIN (4) GERD (gastroesophageal reflux disease) Assessment/Plan: chronic continue zantac Code(s): K21.9 - GASTRO-ESOPHAGEAL REFLUX DISEASE WITHOUT ESOPHAGITIS Assessment/Plan Dispo: home tomorrow if no further changes, pending pulm clearance
--- NOTE | 2018-02-23 14:06 | CONS ---
PULMONARY CONSULTATION DATE OF CONSULTATION: 02/23/2018 REFERRING PHYSICIAN: The patient is a 37-year-old female with past medical history of asthma, anemia, GERD, herniated disk status post lumbar decompression and fusion at L5-S1 November 2016, history of parotiditis approximately 1 month ago, treated with antibiotics, history of smoking, quite a few years ago, although had a few cigarettes a couple weeks ago, tachycardia, admitted to [facility] with complaint of increasing shortness of breath, cough, and wheezing. Patient states that she recently completed a course of Medrol Dosepak secondary to back pain, prescribed last week and was completed on Thursday. On Thursday prior to this admission, she started developing cough and shortness of breath, the cough productive of green sputum. States that other family members are ill. Initially, she took her inhalers which offered some improvement. she also had complained of some sinus congestion; for which, she was started on a Z-Randy. She started showing some improvement with her sputum production which turned from green to white. On Thursday, she started to develop increasing shortness of breath and wheezing. She called the PMD the following day. At which time, she was advised to go to the emergency room. She denies any chest pain, nausea, vomiting, or diaphoresis. Denies hemoptysis. She denies any history of occupational exposure to chemicals or fumes. There is no history of respiratory failure in the past requiring ventilatory support. She states that she uses Symbicort, Spiriva on an infrequent basis. PAST MEDICAL HISTORY: Again includes asthma, anemia, GERD, herniated disk status post lumbar decompression and fusion. REVIEW OF SYSTEMS: Positive dyspnea. Positive orthopnea. Positive cough. No wheezing. No chest pain. Positive palpitations. No fever. No chills. No abdominal pain. CURRENT MEDICATIONS: Include Zofran, Solu-Medrol 40 q.8, Effexor, Seroquel, Ambien, Valium, Xopenex, Atrovent, Robitussin, Zantac, and . PHYSICAL EXAMINATION: General: The patient is a well-developed, well-nourished female, awake, alert. No acute distress. Vital Signs: She is afebrile. Heart rate is 105. Blood pressure is 122/68. Respiratory rate is 22. O2 saturation is 100% on 2 L. HEENT: Normocephalic, atraumatic. Neck: Supple. Heart: Tachycardic. S1, S2. Chest: A few scattered bilateral wheezes. Abdomen: Soft. Bowel sounds are positive. Extremities: No cyanosis or edema. LABORATORY DATA: WBC is 11.4, hemoglobin 12.6, hematocrit 37.9, with a platelet count of 316,000; polys 89, lymphs 10, and eosinophils 0.8. BUN is 7, creatinine 0.5. Chest x-ray: No infiltrates and no effusions. IMPRESSION: 1. Acute asthma exacerbation, likely secondary to upper respiratory tract infection. 2. Tachycardia. 3. History of anemia. 4. History of recent history of lumbar decompression surgery. PLAN: Continue IV steroids, inhaled bronchodilators, supplemental O2, monitor peak flow, PFTs as an outpatient. STEPHANIE JEFFRIES M.D. [id number]
--- NOTE | 2018-02-23 16:21 | CON.CARD ---
Consult Consult Specialty:: Cardiology Referred by:: Corrie Reason for Consultation:: tachycardia - History of Present Illness Chief Complaint: shortness of breath History of Present Illness: 37F h/o asthma, anemia, GERD p/w chest tightness, wheezing. Had tried azithromycin as outpatient did not improve. Also with sinus tachycardia. Has been getting treatments with levalbuterol and ipratroprium, steroids. Has h/o tachycardia with albuterol. Symptoms have improved. Per patient she had a "heart issue" as a child, no procedures or surgeries but had to take a heart medication. Has a history of high BP and fast HR in moments of stress and frequent palpitations at home. Had seen Dr. Neri in clinic about two years ago, per patient had a holter and was told it was normal. 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 No: HTN Pulmonary: Yes: Asthma Gastrointestinal: Yes: GERD Hepatobiliary: Yes: Other (Had cholecystectomy in 1998) ...LMP: 04/24/16 ...: No Psych: Yes: Addictions, Other (takes quetiapine for ? sleep) Musculoskeletal: Yes: Other (Herniated Disc) ENT: Yes: Other (treated 1 month ago with antibiotics for bilateral ? parotitis) - Past Surgical History Past Surgical History: Yes: Cholecystectomy (btl), Hysterectomy (partial), Tubal Ligation - Alcohol/Substance Use Hx Alcohol Use: No History of Substance Use: reports: None - Smoking History Smoking history: Former smoker Have you smoked in the past 12 months: No Aproximately how many cigarettes per day: 2 If you are a former smoker, when did you quit?: 1 month - Social History Usual Living Arrangement: With Spouse ADL: Independent History of Recent Travel: No Home Medications - Allergies Allergies/Adverse Reactions: Allergies Allergy/AdvReac Type Severity Reaction Status Date / Time albuterol Allergy Severe Swelling Verified 02/22/18 14:40 banana Allergy Unknown Verified 02/22/18 14:40 mushroom Allergy Unknown Verified 02/22/18 14:40 codeine [Codeine] Allergy Difficulty Verified 02/22/18 14:40 Breathing Fish Containing Products Allergy Verified 02/22/18 14:40 hydromorphone HCl Allergy difficulty Verified 02/22/18 14:40 [From Dilaudid] breathibg samir Allergy Verified 02/22/18 14:40 meperidine HCl [From Demerol] Allergy Difficulty Verified 02/22/18 14:40 Breathing metoclopramide HCl Allergy Swelling Verified 02/22/18 14:40 [From Reglan] morphine Allergy difficulty Verified 02/22/18 14:40 breathibg oxycodone HCl [From Percocet] Allergy Verified 02/22/18 14:40 shellfish derived Allergy Swelling,ra Verified 02/22/18 14:40 sh watermelon Allergy Verified 02/22/18 14:40 cantaloupe Allergy Uncoded 02/22/18 14:40 miller Allergy Uncoded 02/22/18 14:40 mustard,fish,vinegar Allergy swelling,ra Uncoded 02/22/18 14:40 sh NARCOTICS Allergy Difficulty Uncoded 02/22/18 14:40 Breathing nuts Allergy Uncoded 02/22/18 14:40 - Home Medications Home Medications: Ambulatory Orders Quetiapine Fumarate [Seroquel -] 25 mg PO HS 03/10/12 Ranitidine HCl [Zantac] 300 mg PO DAILY 05/05/16 Diazepam [Valium] 2 mg PO HS PRN MDD 6mg 03/25/17 Tapentadol Hydrochloride [Nucynta -] 50 mg PO Q6H PRN #30 tab MDD 200mg traMADol HCL [Ultram -] 50 mg PO Q8H #30 tablet MDD 4 06/03/17 Ondansetron [Zofran *Odt*] 8 mg SL BID #14 od.tablet 11/10/17 Venlafaxine HCl ER [Effexor Xr -] 75 mg PO DAILY 02/22/18 Zolpidem Tartrate [Ambien] 10 mg PO ASDIR 02/22/18 Family Disease History - Family Disease History Family History: Unremarkable Family Disease History: Diabetes: Father, Mother, Heart Disease: Father, Mother Review of Systems - Review of Systems Constitutional: reports: Weakness Eyes: reports: No Symptoms HENT: reports: No Symptoms Neck: reports: No Symptoms Cardiovascular: reports: Palpitations Respiratory: reports: No Symptoms Gastrointestinal: reports: No Symptoms Genitourinary: reports: No Symptoms Musculoskeletal: reports: No Symptoms Integumentary: reports: No Symptoms Neurological: reports: No Symptoms Endocrine: reports: No Symptoms Hematology/Lymphatic: reports: No Symptoms Psychiatric: reports: No Symptoms Vital Signs: Vital Signs Temperature 97.5 F L 02/23/18 14:12 Pulse Rate 126 H 02/23/18 14:12 Respiratory Rate 20 02/23/18 14:12 Blood Pressure 140/81 02/23/18 14:12 O2 Sat by Pulse Oximetry (%) 100 02/23/18 14:00 Constitutional: Yes: Well Nourished, No Distress, Calm Eyes: Yes: Conjunctiva Clear, EOM Intact HENT: Yes: Atraumatic, Normocephalic Neck: Yes: Supple, Trachea Midline Respiratory: Yes: Regular, CTA Bilaterally Gastrointestinal: Yes: Normal Bowel Sounds, Soft Cardiovascular: Yes: Regular Rate and Rhythm JVD: No Musculoskeletal: Yes: WNL Edema: No Peripheral Pulses WNL: Yes Peripheral Pulses: 2+ Left Doralis Pedis, 2+ Right Dorsalis Pedis Neurological: Yes: Alert, Oriented Psychiatric: Yes: Alert, Oriented - Other Data Labs, Other Data: CBC, BMP 02/23/18 06:20 02/23/18 06:20 Assessment/Plan EKG: sinus tachycardia CXR no acute process 37F h/o asthma, anemia, GERD p/w chest tightness, wheezing tachycardia - likely in setting of steroids, nebs - also significant history of anxiety - per patient prior holter unremarkable - check echocardiogram Asthma, chest tightness - manage per primary, pulm - on levalbuterol, avoiding albuterol due to history of worsening tachycardia - chest tightness improving, likely in setting of asthma exacerbation - improving GERD - manage per primary team Anxiety - on diazepam
[2018-02-23] MEDS: ZOLPIDEM TARTRATE 5 MG TABLET PO PRN (21:40)
[2018-02-23] MEDS: QUEtiapine FUMARATE 25 MG TABLET (FP) PO SCH (21:40)
[2018-02-24] MEDS: methylPREDNISolone NA SUCC 40 MG/1 ML VIAL IVPUSH SCH ×3 (02:45→18:55)
[2018-02-24] MEDS ORDERED: RANITIDINE HCL 150 MG TABLET (FP) PO ONE (03:43)
[2018-02-24] MEDS: IPRATROPIUM BR 0.02% 0.5 MG/2.5 ML VIAL.NEB. NEB SCH ×4 (07:30→21:05)
[2018-02-24 07:55] LABS: BASO % 0.1 % (0-2.0); HEMATOCRIT 37.7 % (32.4-45.2); HEMOGLOBIN 12.3 GM/dL (10.7-15.3); LYMPH % 8.2 % (8-40); MCH 28.3 pg (25.7-33.7); MCHC 32.5 g/dl (32.0-36.0); MEAN CELL VOLUME 87.3 fl (80-96); MEAN PLT VOLUME 7.7 fl (7.5-11.1); MONO % 2.7 % (3.8-10.2); PLATELET COUNT 331 K/MM3 (134-434); RBC 4.32 M/mm3 (3.60-5.2); RDW 13.5 % (11.6-15.6); WHITE BLOOD COUNT 18.6 K/mm3 (4.0-10.0)
[2018-02-24 08:29] LABS: ANION GAP 9 MMOL/L (8-16); BLOOD UREA NITROGEN 14 mg/dL (7-18); CALCIUM 8.8 mg/dL (8.5-10.1); CHLORIDE 107 mmol/L (98-107); CO2 22 mmol/L (21-32); CREATININE 0.6 mg/dL (0.55-1.3); GLUCOSE,RANDOM 151 mg/dL (74-106); POTASSIUM 4.3 mmol/L (3.5-5.1); SODIUM 138 mmol/L (136-145)
--- NOTE | 2018-02-24 09:35 | PN ---
Progress Note (short form) - Note Progress Note: s: feels more short of breath than yesterday. no chest pain, palps, dizzy, lightheaded Current Medications Diazepam (Valium -) 10 mg PO HS PRN PRN Reason: MUSCLE SPASMS Last Admin: 02/23/18 21:41 Dose: 10 mg Guaifenesin (Robitussin -) 10 ml PO Q6H PRN PRN Reason: COUGH Last Admin: 02/23/18 21:41 Dose: 10 ml Ipratropium [place] (Atrovent 0.02% Nebulizer -) 1 amp NEB RQID [facility] Last Admin: 02/23/18 20:45 Dose: 1 amp Levalbuterol HCl (Xopenex) 0.63 mg IH Q8H PRN PRN Reason: ASTHMA Methylprednisolone Sodium Succinate (Solu-Medrol -) 40 mg IVPUSH Q8H-IV [facility] Last Admin: 02/24/18 02:45 Dose: 40 mg Ondansetron HCl (Zofran Odt -) 8 mg SL BID PRN PRN Reason: NAUSEA AND/OR VOMITING Quetiapine Fumarate (Seroquel -) 25 mg PO HS [facility] Last Admin: 02/23/18 21:40 Dose: 25 mg Ranitidine HCl (Zantac -) 300 mg PO DAILY [facility] Last Admin: 02/23/18 10:47 Dose: 300 mg Tapentadol (Nucynta -) 50 mg PO Q6H PRN PRN Reason: PAIN LEVEL 6-10 Venlafaxine HCl (Effexor Xr -) 75 mg PO DAILY [facility] Last Admin: 02/23/18 10:46 Dose: 75 mg Zolpidem Tartrate (Ambien -) 10 mg PO HS PRN PRN Reason: INSOMNIA Last Admin: 02/23/18 21:40 Dose: 10 mg Vital Signs: Vital Signs Period Temp Pulse Resp BP Sys/Francisco Pulse Ox Last 24 Hr 97.5 F-98.6 F 93-126 18-22 114-140/68-81 98-100 Constitutional: Yes: Well Nourished, No Distress, Calm Eyes: Yes: Conjunctiva Clear, EOM Intact HENT: Yes: Atraumatic, Normocephalic Neck: Yes: Supple, Trachea Midline Respiratory: Yes: Regular, bilateral diffuse expiratory wheezes Gastrointestinal: Yes: Normal Bowel Sounds, Soft Cardiovascular: Yes: Regular Rate and Rhythm JVD: No Musculoskeletal: Yes: WNL Edema: No Peripheral Pulses WNL: Yes Peripheral Pulses: 2+ Left Doralis Pedis, 2+ Right Dorsalis Pedis Neurological: Yes: Alert, Oriented Psychiatric: Yes: Alert, Oriented Assessment/Plan EKG: sinus tachycardia CXR no acute process 37F h/o asthma, anemia, GERD p/w chest tightness, wheezing tachycardia - likely in setting of steroids, nebs - also significant history of anxiety - per patient prior holter unremarkable - echo report pending, if benign no further cardiac workup as inpatient, follow up in clinic Asthma, chest tightness - manage per primary, pulm - on levalbuterol, avoiding albuterol due to history of worsening tachycardia GERD - manage per primary team Anxiety - on diazepam
[2018-02-24] MEDS ORDERED: PT OWN MED DRAWER 7, Y5N ONE ×2 (10:26→21:11)
[2018-02-24] MEDS: RANITIDINE HCL 150 MG TABLET (FP) PO SCH (10:54)
[2018-02-24] MEDS: VENLAFAXINE HCL 75 MG E.R. CAPSULES (FP) PO SCH (10:54)
--- NOTE | 2018-02-24 11:24 | PN ---
Progress Note, Physician Chief Complaint: Pt sitting in bed in no acute distress. reports not feeling well today, breathing more tight. also reports had an episode of confusion last night where she didn't know where she was, reports its happened in the past, have not told PCP/neurology. Denies any chest heaviness, worsening chest pain, n/v, unilateral weakness. - Current Medication List Current Medications: Active Medications Diazepam (Valium -) 10 mg PO HS PRN PRN Reason: MUSCLE SPASMS Last Admin: 02/23/18 21:41 Dose: 10 mg Guaifenesin (Robitussin -) 10 ml PO Q6H PRN PRN Reason: COUGH Last Admin: 02/23/18 21:41 Dose: 10 ml Ipratropium [place] (Atrovent 0.02% Nebulizer -) 1 amp NEB RQID [facility] Last Admin: 02/24/18 07:30 Dose: 1 amp Levalbuterol HCl (Xopenex) 0.63 mg IH Q8H PRN PRN Reason: ASTHMA Methylprednisolone Sodium Succinate (Solu-Medrol -) 40 mg IVPUSH Q8H-IV [facility] Last Admin: 02/24/18 10:54 Dose: 40 mg Ondansetron HCl (Zofran Odt -) 8 mg SL BID PRN PRN Reason: NAUSEA AND/OR VOMITING Quetiapine Fumarate (Seroquel -) 25 mg PO HS [facility] Last Admin: 02/23/18 21:40 Dose: 25 mg Ranitidine HCl (Zantac -) 300 mg PO DAILY [facility] Last Admin: 02/24/18 10:54 Dose: 300 mg Tapentadol (Nucynta -) 50 mg PO Q6H PRN PRN Reason: PAIN LEVEL 6-10 Venlafaxine HCl (Effexor Xr -) 75 mg PO DAILY [facility] Last Admin: 02/24/18 10:54 Dose: 75 mg Zolpidem Tartrate (Ambien -) 10 mg PO HS PRN PRN Reason: INSOMNIA Last Admin: 02/23/18 21:40 Dose: 10 mg - Objective Vital Signs: Vital Signs Temperature 98.4 F 02/24/18 06:00 Pulse Rate 93 H 02/24/18 06:00 Respiratory Rate 18 02/24/18 06:00 Blood Pressure 114/73 02/24/18 06:00 O2 Sat by Pulse Oximetry (%) 98 10/02/18 21:00 Constitutional: Yes: Well Nourished, No Distress, Calm Cardiovascular: Yes: Regular Rate and Rhythm. No: Murmur, Rub Respiratory: Yes: Regular, Diminished, Rhonchi, Wheezes (scattered). No: Accessory Muscle Use, Tachypnea Gastrointestinal: Yes: WNL, Normal Bowel Sounds, Soft. No: Distention, Tenderness Genitourinary: Yes: WNL Edema: No Neurological: Yes: WNL, Alert, Oriented Psychiatric: Yes: WNL, Alert, Oriented Labs: CBC, BMP 02/24/18 06:30 02/24/18 06:30 Problem List - Problems (1) Asthma exacerbation Code(s): J45.901 - UNSPECIFIED ASTHMA WITH (ACUTE) EXACERBATION Qualifiers: Asthma severity: moderate (2) Failure of outpatient treatment Code(s): Z78.9 - OTHER SPECIFIED HEALTH STATUS (3) Chronic pain Code(s): G89.29 - OTHER CHRONIC PAIN (4) GERD (gastroesophageal reflux disease) Code(s): K21.9 - GASTRO-ESOPHAGEAL REFLUX DISEASE WITHOUT ESOPHAGITIS (5) Sinus tachycardia Code(s): R00.0 - TACHYCARDIA, UNSPECIFIED (6) Confusion Code(s): R41.0 - DISORIENTATION, UNSPECIFIED (7) Anxiety Code(s): F41.9 - ANXIETY DISORDER, UNSPECIFIED (8) Depression Code(s): F32.9 - MAJOR DEPRESSIVE DISORDER, SINGLE EPISODE, UNSPECIFIED Assessment/Plan (1) Asthma exacerbation Assessment/Plan: worsening symptoms of sob/breathing lung exam- worsened today continue solumedrol 40mg tid continue nebs peak flow wnl pulm following Code(s): J45.901 - UNSPECIFIED ASTHMA WITH (ACUTE) EXACERBATION Qualifiers: Asthma severity: moderate (2) Failure of outpatient treatment Assessment/Plan: as above requiring iv steroids Code(s): Z78.9 - OTHER SPECIFIED HEALTH STATUS (5) Sinus tachycardia Assessment/Plan: tachycardia x 1 month w/ substernal chest pain per pt suspect 2/2 asthma exacerbation, anxiety ekg without changes echo pending cardiology following Code(s): R00.0 - TACHYCARDIA, UNSPECIFIED (6) Confusion Assessment/Plan: episode of confusion last night per pt similar episodes at home as well, has not informed PCP/neurologist Head CT negative neurology consulted Code(s): R41.0 - DISORIENTATION, UNSPECIFIED (7) Anxiety Assessment/Plan: continue home meds Code(s): F41.9 - ANXIETY DISORDER, UNSPECIFIED (8) Depression Assessment/Plan: continue home meds Code(s): F32.9 - MAJOR DEPRESSIVE DISORDER, SINGLE EPISODE, UNSPECIFIED (3) Chronic pain Assessment/Plan: controlled continue home meds Code(s): G89.29 - OTHER CHRONIC PAIN (4) GERD (gastroesophageal reflux disease) Assessment/Plan: chronic continue zantac Code(s): K21.9 - GASTRO-ESOPHAGEAL REFLUX DISEASE WITHOUT ESOPHAGITIS
[2018-02-24] MEDS: TAPENTADOL HYDROCHLORIDE 50 MG TABLET PO PRN ×2 (12:02→20:34)
--- NOTE | 2018-02-24 12:44 | PN ---
Progress Note, Physician History of Present Illness: pulmonary alert,c/o sob,increased bronchospam - Current Medication List Current Medications: Active Medications Diazepam (Valium -) 10 mg PO HS PRN PRN Reason: MUSCLE SPASMS Last Admin: 02/23/18 21:41 Dose: 10 mg Guaifenesin (Robitussin -) 10 ml PO Q6H PRN PRN Reason: COUGH Last Admin: 02/23/18 21:41 Dose: 10 ml Ipratropium [place] (Atrovent 0.02% Nebulizer -) 1 amp NEB RQID [facility] Last Admin: 02/24/18 07:30 Dose: 1 amp Levalbuterol HCl (Xopenex) 0.63 mg IH Q8H PRN PRN Reason: ASTHMA Methylprednisolone Sodium Succinate (Solu-Medrol -) 40 mg IVPUSH Q8H-IV [facility] Last Admin: 02/24/18 10:54 Dose: 40 mg Ondansetron HCl (Zofran Odt -) 8 mg SL BID PRN PRN Reason: NAUSEA AND/OR VOMITING Quetiapine Fumarate (Seroquel -) 25 mg PO HS [facility] Last Admin: 02/23/18 21:40 Dose: 25 mg Ranitidine HCl (Zantac -) 300 mg PO DAILY [facility] Last Admin: 02/24/18 10:54 Dose: 300 mg Tapentadol (Nucynta -) 50 mg PO Q6H PRN PRN Reason: PAIN LEVEL 6-10 Last Admin: 02/24/18 12:02 Dose: 50 mg Venlafaxine HCl (Effexor Xr -) 75 mg PO DAILY [facility] Last Admin: 02/24/18 10:54 Dose: 75 mg Zolpidem Tartrate (Ambien -) 10 mg PO HS PRN PRN Reason: INSOMNIA Last Admin: 02/23/18 21:40 Dose: 10 mg - Objective Vital Signs: Vital Signs Temperature 98.4 F 02/24/18 06:00 Pulse Rate 93 H 02/24/18 06:00 Respiratory Rate 18 02/24/18 06:00 Blood Pressure 114/73 02/24/18 06:00 O2 Sat by Pulse Oximetry (%) 98 02/23/18 21:00 Constitutional: Yes: Well Nourished, Calm Eyes: Yes: WNL, Occular Prosthesis HENT: Yes: WNL Neck: Yes: WNL Cardiovascular: Yes: Regular Rate and Rhythm, S1, S2 Respiratory: Yes: Wheezes (beth wheezes) Gastrointestinal: Yes: Normal Bowel Sounds, Soft Extremities: Yes: WNL Edema: No Labs: CBC, BMP 02/24/18 06:30 02/24/18 06:30 Problem List - Problems (1) Asthma exacerbation Code(s): J45.901 - UNSPECIFIED ASTHMA WITH (ACUTE) EXACERBATION Qualifiers: Asthma severity: moderate (2) Failure of outpatient treatment Code(s): Z78.9 - OTHER SPECIFIED HEALTH STATUS (3) GERD (gastroesophageal reflux disease) Code(s): K21.9 - GASTRO-ESOPHAGEAL REFLUX DISEASE WITHOUT ESOPHAGITIS Assessment/Plan IMP ACUTE ASTHMA EXACERBATION LIKELY SECONDARY TO URI TACHYCARDIA ANEMIA GERD PLAN IV STEROIDS SAME DOSE INHALED BRONCHODILATORS MONITOR PEAK FLOW PFTS OUTPATIENT DR JEFFRIES Problem List - Problems (1) Asthma exacerbation Code(s): J45.901 - UNSPECIFIED ASTHMA WITH (ACUTE) EXACERBATION (2) Failure of outpatient treatment Code(s): Z78.9 - OTHER SPECIFIED HEALTH STATUS (3) GERD (gastroesophageal reflux disease) Code(s): K21.9 - GASTRO-ESOPHAGEAL REFLUX DISEASE WITHOUT ESOPHAGITIS
[2018-02-24] MEDS: guaiFENesin 200 MG/10 ML 10 ML UNIT-DOSE CUPS PO PRN ×2 (15:21→21:43)
[2018-02-24] MEDS: QUEtiapine FUMARATE 25 MG TABLET (FP) PO SCH (21:42)
[2018-02-24] MEDS: diazePAM 5 MG TABLET PO PRN (21:42)
[2018-02-24] MEDS: LEVALBUTEROL HCL 0.63 MG/3 ML VIAL.NEB. IH PRN (23:00)
[2018-02-24] MEDS: ZOLPIDEM TARTRATE 5 MG TABLET PO PRN (23:01)
[2018-02-25] MEDS ORDERED: ACETAMINOPHEN 325 MG TABLET (FP) PO ONE (02:26)
[2018-02-25] MEDS: methylPREDNISolone NA SUCC 40 MG/1 ML VIAL IVPUSH SCH ×3 (03:16→17:02)
[2018-02-25 08:03] LABS: BASO % 0.1 % (0-2.0); HEMATOCRIT 38.5 % (32.4-45.2); HEMOGLOBIN 12.6 GM/dL (10.7-15.3); LYMPH % 13.7 % (8-40); MCH 28.7 pg (25.7-33.7); MCHC 32.8 g/dl (32.0-36.0); MEAN CELL VOLUME 87.3 fl (80-96); MEAN PLT VOLUME 7.4 fl (7.5-11.1); MONO % 3.3 % (3.8-10.2); NEUT % 82.9 % (42.8-82.8); PLATELET COUNT 319 K/MM3 (134-434); RBC 4.41 M/mm3 (3.60-5.2); RDW 13.5 % (11.6-15.6); WHITE BLOOD COUNT 15.4 K/mm3 (4.0-10.0)
[2018-02-25] MEDS: IPRATROPIUM BR 0.02% 0.5 MG/2.5 ML VIAL.NEB. NEB SCH ×4 (08:10→20:11)
[2018-02-25 08:29] LABS: ANION GAP 5 MMOL/L (8-16); BLOOD UREA NITROGEN 11 mg/dL (7-18); CALCIUM 8.7 mg/dL (8.5-10.1); CHLORIDE 106 mmol/L (98-107); CO2 26 mmol/L (21-32); CREATININE 0.6 mg/dL (0.55-1.3); GLUCOSE,RANDOM 131 mg/dL (74-106); POTASSIUM 4.3 mmol/L (3.5-5.1); SODIUM 137 mmol/L (136-145)
[2018-02-25] MEDS ORDERED: PT OWN MED DRAWER 7, Y5N ONE (08:58)
--- NOTE | 2018-02-25 09:38 | CONSULT ---
Consult - text type - Consultation Consultation Note: Neurology Chief Complaint: Chest Tightness, Wheezing History of Present Illness: 37 y/o young woman with a past medical history of Asthma, Anemia, GERD, Herniated Disc s/p Lumbar Decompression/Fusion L5-S1 (11/2016). Who presents to the ED sent in from her PMD for chest tightness, wheezing and failed out patient therapy (Azithromycin- for Asthma Flare). Was consulted to due to reported episode of confusion. Case discussed with MD SENIOR RESEARCH SCIENTIST when consulted, recommended CT head, completed, no acute changes. During my eval, patient is awake, alert, knows she's in the hospital and give the name [facility]. Knows it 's February 2018. Does get migraines and reported having tension type headache over night. States the Nucynta she gets for her back helps her headaches. Also get tramadol as needed for headaches, per patient. Neurologically appears to be at baseline - Past Medical History [employer]: Yes: TIA (R TIA during this admission) Cardiovascular: Yes: Other (tachycardia in childhoood). No: HTN Pulmonary: Yes: Asthma Gastrointestinal: Yes: GERD Hepatobiliary: Yes: Other (Had cholecystectomy in 1998) ...LMP: 04/24/16 ...: No Psych: Yes: Addictions, Other (takes quetiapine for ? sleep) Musculoskeletal: Yes: Other (Herniated Disc) ENT: Yes: Other (treated 1 month ago with antibiotics for bilateral ? parotitis) - Past Surgical History Past Surgical History: Yes: Cholecystectomy (btl), Hysterectomy (partial), Tubal Ligation Additional Past Surgical History: Lumbar Decompression/Fusion L5-S1 - Smoking History Smoking history: Former smoker Have you smoked in the past 12 months: No Aproximately how many cigarettes per day: 2 If you are a former smoker, when did you quit?: 1 month - Alcohol/Substance Use Hx Alcohol Use: No History of Substance Use: reports: None - Social History ADL: Independent History of Recent Travel: No Home Medications - Allergies Allergies/Adverse Reactions: Allergies Allergy/AdvReac Type Severity Reaction Status Date / Time albuterol Allergy Severe Swelling Verified 02/22/18 14:40 banana Allergy Unknown Verified 02/22/18 14:40 mushroom Allergy Unknown Verified 02/22/18 14:40 codeine [Codeine] Allergy Difficulty Verified 02/22/18 14:40 Breathing Fish Containing Products Allergy Verified 02/22/18 14:40 hydromorphone HCl Allergy difficulty Verified 02/22/18 14:40 [From Dilaudid] breathibg samir Allergy Verified 02/22/18 14:40 meperidine HCl [From Demerol] Allergy Difficulty Verified 02/22/18 14:40 Breathing metoclopramide HCl Allergy Swelling Verified 02/22/18 14:40 [From Reglan] morphine Allergy difficulty Verified 02/22/18 14:40 breathibg oxycodone HCl [From Percocet] Allergy Verified 02/22/18 14:40 shellfish derived Allergy Swelling,ra Verified 02/22/18 14:40 sh watermelon Allergy Verified 02/22/18 14:40 cantaloupe Allergy Uncoded 02/22/18 14:40 miller Allergy Uncoded 02/22/18 14:40 mustard,fish,vinegar Allergy swelling,ra Uncoded 02/22/18 14:40 sh NARCOTICS Allergy Difficulty Uncoded 02/22/18 14:40 Breathing nuts Allergy Uncoded 02/22/18 14:40 - Home Medications Home Medications: Ambulatory Orders Quetiapine Fumarate [Seroquel -] 25 mg PO HS 03/10/12 Ranitidine HCl [Zantac] 300 mg PO DAILY 05/05/16 Diazepam [Valium] 2 mg PO HS PRN MDD 6mg 03/25/17 Tapentadol Hydrochloride [Nucynta -] 50 mg PO Q6H PRN #30 tab MDD 200mg traMADol HCL [Ultram -] 50 mg PO Q8H #30 tablet MDD 4 06/03/17 Ondansetron [Zofran *Odt*] 8 mg SL BID #14 od.tablet 11/10/17 Venlafaxine HCl ER [Effexor Xr -] 75 mg PO DAILY 02/22/18 Zolpidem Tartrate [Ambien] 10 mg PO ASDIR 02/22/18 Family Disease History - Family Disease History Family Disease History: Diabetes: Father, Mother, Heart Disease: Father, Mother Review of Systems - Review of Systems Constitutional: reports: No Symptoms Eyes: reports: No Symptoms HENT: reports: No Symptoms Neck: reports: No Symptoms Cardiovascular: reports: Shortness of Breath, Other (chest tightness) Respiratory: reports: Cough, SOB, Wheezing Gastrointestinal: reports: No Symptoms Genitourinary: reports: No Symptoms Breasts: reports: No Symptoms Reported Integumentary: reports: No Symptoms Neurological: reports: No Symptoms Endocrine: reports: No Symptoms Hematology/Lymphatic: reports: No Symptoms Psychiatric: reports: No Symptoms Physical Examination Vital Signs Period Temp Pulse Resp BP Sys/Francisco Pulse Ox Last 24 Hr 97.8 F-98.5 F 71-110 20-22 111-142/62-83 98 Gen: Awake, alert, responds to questions Card: RRR, nml S1,S2 Resp: Normal symmetric effort, lungs clear to auscultation Abdomen: Soft, nontender, bowel sounds active Musculoskeletal: Adequate range of motion without significant deformity Head atraumatic and normocephalic CN: PERRL, EOMI intact, no apparent facial droop, no abnormalities in facial sensation, palate elevates, uvula and tongue midline Motor: Full strength to confrontation in upper and lower extermities proximally and distally. Tone normal throughout Sensory: Intact to Temperature, light touch, and pinprick in all extremities Coordination: Intact on [id number] testing Gait: Deferred CBCD WBC 15.4 K/mm3 (4.0-10.0) H 02/25/18 07:45 RBC 4.41 M/mm3 (3.60-5.2) 02/25/18 07:45 Hgb 12.6 GM/dL (10.7-15.3) 02/25/18 07:45 Hct 38.5 % (32.4-45.2) 02/25/18 07:45 MCV 87.3 fl (80-96) 02/25/18 07:45 MCHC 32.8 g/dl (32.0-36.0) 02/25/18 07:45 RDW 13.5 % (11.6-15.6) 02/25/18 07:45 Plt Count 319 K/MM3 (134-434) 02/25/18 07:45 MPV 7.4 fl (7.5-11.1) L 02/25/18 07:45 CMP Sodium 137 mmol/L (136-145) 02/25/18 07:45 Potassium 4.3 mmol/L (3.5-5.1) 10/04/18 07:45 Chloride 106 mmol/L (98-107) 02/25/18 07:45 Carbon Dioxide 26 mmol/L (21-32) 02/25/18 07:45 Anion Gap 5 MMOL/L (8-16) L 02/25/18 07:45 BUN 11 mg/dL (7-18) 02/25/18 07:45 Creatinine 0.6 mg/dL (0.55-1.3) 02/25/18 07:45 Creat Clearance w eGFR > 60 (>60) 02/25/18 07:45 Calcium 8.7 mg/dL (8.5-10.1) 02/25/18 07:45 Total Bilirubin 0.3 mg/dL (0.2-1) 02/22/18 16:15 AST 11 U/L (15-37) L 02/22/18 16:15 ALT 30 U/L (13-61) 02/22/18 16:15 Alkaline Phosphatase 99 U/L (45-117) 02/22/18 16:15 Total Protein 7.2 g/dl (6.4-8.2) 02/22/18 16:15 Albumin 3.8 g/dl (3.4-5.0) 02/22/18 16:15 Problem List 37 y/o young woman with a past medical history of Asthma, Anemia, GERD, Herniated Disc s/p Lumbar Decompression/Fusion L5-S1 (11/2016). Who presents to the ED sent in from her PMD for chest tightness, wheezing and failed out patient therapy (Azithromycin- for Asthma Flare). Was consulted to due to reported episode of confusion. Case discussed with MD SENIOR RESEARCH SCIENTIST when consulted, recommended CT head, completed, reviewed and discussed, no acute changes. During my eval, patient is awake, alert, knows she's in the hospital and give the name [facility]. Knows it's February 2018. Does get migraines and reported having tension type headache over night. States the Nucynta she gets for her back helps her headaches. Also get tramadol as needed for headaches, per patient. Continue respiratory optimization, monitor mental status, caution with pain medication especially if limited PO intake. Neurologically appears to be at baseline.
[2018-02-25 09:47] LABS: ACANTHOCYTES 0; ANISOCYTOSIS 0; HELMET CELLS 0; HOWELL-JOLLY BODIES 0; MACROCYTOSIS 0; OVALOCYTE 0; PLATELET ESTIMATE NORMAL; ROULEAU 0; SICKELED CELLS 0; TARGET CELLS 0; TEAR DROP CELLS 0; TOXIC GRANULATION 0
[2018-02-25] MEDS: VENLAFAXINE HCL 75 MG E.R. CAPSULES (FP) PO SCH (09:53)
[2018-02-25] MEDS: RANITIDINE HCL 150 MG TABLET (FP) PO SCH (09:53)
[2018-02-25] MEDS: guaiFENesin 200 MG/10 ML 10 ML UNIT-DOSE CUPS PO PRN ×2 (10:00→22:44)
--- NOTE | 2018-02-25 12:08 | PN ---
Progress Note, Physician Chief Complaint: Pt sitting in bed in no acute distress. Reports mild sob upon exertion otherwise feeling well. Denies any chest heaviness, worsening chest pain, n/v, unilateral weakness. - Current Medication List Current Medications: Active Medications Diazepam (Valium -) 10 mg PO HS PRN PRN Reason: MUSCLE SPASMS Last Admin: 02/24/18 21:42 Dose: 10 mg Guaifenesin (Robitussin -) 10 ml PO Q6H PRN PRN Reason: COUGH Last Admin: 02/25/18 10:00 Dose: 10 ml Ipratropium [place] (Atrovent 0.02% Nebulizer -) 1 amp NEB RQID [facility] Last Admin: 02/25/18 08:10 Dose: 1 amp Levalbuterol HCl (Xopenex) 0.63 mg IH Q8H PRN PRN Reason: ASTHMA Last Admin: 02/24/18 23:00 Dose: 0.63 mg Methylprednisolone Sodium Succinate (Solu-Medrol -) 40 mg IVPUSH Q8H-IV [facility] Last Admin: 02/25/18 09:53 Dose: 40 mg Ondansetron HCl (Zofran Odt -) 8 mg SL BID PRN PRN Reason: NAUSEA AND/OR VOMITING Last Admin: 02/25/18 01:09 Dose: 8 mg Quetiapine Fumarate (Seroquel -) 25 mg PO HS [facility] Last Admin: 02/24/18 21:42 Dose: 25 mg Ranitidine HCl (Zantac -) 300 mg PO DAILY [facility] Last Admin: 02/25/18 09:53 Dose: 300 mg Tapentadol (Nucynta -) 50 mg PO Q6H PRN PRN Reason: PAIN LEVEL 6-10 Last Admin: 02/24/18 20:34 Dose: 50 mg Tramadol HCl (Ultram -) 50 mg PO Q8H PRN PRN Reason: PAIN LEVEL 4 - 6 Venlafaxine HCl (Effexor Xr -) 75 mg PO DAILY [facility] Last Admin: 02/25/18 09:53 Dose: 75 mg Zolpidem Tartrate (Ambien -) 10 mg PO HS PRN PRN Reason: INSOMNIA Last Admin: 02/24/18 23:01 Dose: 10 mg - Objective Vital Signs: Vital Signs Temperature 97.8 F 02/25/18 06:00 Pulse Rate 71 02/25/18 06:00 Respiratory Rate 20 02/25/18 06:00 Blood Pressure 111/62 02/25/18 06:00 O2 Sat by Pulse Oximetry (%) 98 02/24/18 21:00 Constitutional: Yes: Well Nourished, No Distress, Calm Cardiovascular: Yes: WNL, Regular Rate and Rhythm. No: Murmur, Rub Respiratory: Yes: Regular, Rhonchi (scattered), SOB on Exertion, Wheezes ( scattered). No: Accessory Muscle Use, On Nasal O2, Tachypnea Gastrointestinal: Yes: WNL, Normal Bowel Sounds, Soft. No: Distention, Tenderness Genitourinary: Yes: WNL Musculoskeletal: Yes: WNL Extremities: Yes: WNL Edema: No Neurological: Yes: WNL, Alert, Oriented Psychiatric: Yes: WNL, Alert, Oriented Labs: CBC, BMP 02/25/18 07:45 02/25/18 07:45 Problem List - Problems (1) Asthma exacerbation Code(s): J45.901 - UNSPECIFIED ASTHMA WITH (ACUTE) EXACERBATION Qualifiers: Asthma severity: moderate (2) Failure of outpatient treatment Code(s): Z78.9 - OTHER SPECIFIED HEALTH STATUS (3) Chronic pain Code(s): G89.29 - OTHER CHRONIC PAIN (4) GERD (gastroesophageal reflux disease) Code(s): K21.9 - GASTRO-ESOPHAGEAL REFLUX DISEASE WITHOUT ESOPHAGITIS (5) Sinus tachycardia Code(s): R00.0 - TACHYCARDIA, UNSPECIFIED (6) Confusion Code(s): R41.0 - DISORIENTATION, UNSPECIFIED (7) Anxiety Code(s): F41.9 - ANXIETY DISORDER, UNSPECIFIED (8) Depression Code(s): F32.9 - MAJOR DEPRESSIVE DISORDER, SINGLE EPISODE, UNSPECIFIED Assessment/Plan (1) Asthma exacerbation Assessment/Plan: slowly improving lung exam- minimal improvement solumedrol increased continue nebs peak flow wnl pulm following Code(s): J45.901 - UNSPECIFIED ASTHMA WITH (ACUTE) EXACERBATION Qualifiers: Asthma severity: moderate (2) Failure of outpatient treatment Assessment/Plan: as above requiring iv steroids Code(s): Z78.9 - OTHER SPECIFIED HEALTH STATUS (5) Sinus tachycardia Assessment/Plan: improved suspect 2/2 asthma exacerbation, anxiety ekg without changes echo pending cardiology following Code(s): R00.0 - TACHYCARDIA, UNSPECIFIED (6) Confusion Assessment/Plan: resolved Head CT negative neurology consult appreciated Code(s): R41.0 - DISORIENTATION, UNSPECIFIED (7) Anxiety Assessment/Plan: continue home meds Code(s): F41.9 - ANXIETY DISORDER, UNSPECIFIED (8) Depression Assessment/Plan: continue home meds Code(s): F32.9 - MAJOR DEPRESSIVE DISORDER, SINGLE EPISODE, UNSPECIFIED (3) Chronic pain Assessment/Plan: controlled continue home meds Code(s): G89.29 - OTHER CHRONIC PAIN (4) GERD (gastroesophageal reflux disease) Assessment/Plan: chronic continue zantac Code(s): K21.9 - GASTRO-ESOPHAGEAL REFLUX DISEASE WITHOUT ESOPHAGITIS Dispo: Home when pulm cleared
--- NOTE | 2018-02-25 13:19 | PN ---
Progress Note (short form) - Note Progress Note: Reports increased SOB and wheezing last night and this AM> Intake & Output 02/22/18 02/23/18 02/24/18 02/25/18 23:59 23:59 23:59 23:59 Intake Total 0 595 1330 250 Output Total 300 200 Balance 0 595 1030 50 Weight 154 lb 8 oz Last Vital Signs Temp Pulse Resp BP Pulse Ox 97.8 F 71 20 111/62 98 02/25/18 06:00 02/25/18 06:00 02/25/18 06:00 02/25/18 06:00 02/24/18 21:00 - Current Medication List Current Medications: Active Medications Diazepam (Valium -) 10 mg PO HS PRN PRN Reason: MUSCLE SPASMS Last Admin: 02/23/18 21:41 Dose: 10 mg Guaifenesin (Robitussin -) 10 ml PO Q6H PRN PRN Reason: COUGH Last Admin: 02/23/18 21:41 Dose: 10 ml Ipratropium [place] (Atrovent 0.02% Nebulizer -) 1 amp NEB RQID [facility] Last Admin: 02/24/18 07:30 Dose: 1 amp Levalbuterol HCl (Xopenex) 0.63 mg IH Q8H PRN PRN Reason: ASTHMA Methylprednisolone Sodium Succinate (Solu-Medrol -) 40 mg IVPUSH Q8H-IV [facility] Last Admin: 02/24/18 10:54 Dose: 40 mg Ondansetron HCl (Zofran Odt -) 8 mg SL BID PRN PRN Reason: NAUSEA AND/OR VOMITING Quetiapine Fumarate (Seroquel -) 25 mg PO HS [facility] Last Admin: 02/23/18 21:40 Dose: 25 mg Ranitidine HCl (Zantac -) 300 mg PO DAILY [facility] Last Admin: 02/24/18 10:54 Dose: 300 mg Tapentadol (Nucynta -) 50 mg PO Q6H PRN PRN Reason: PAIN LEVEL 6-10 Last Admin: 02/24/18 12:02 Dose: 50 mg Venlafaxine HCl (Effexor Xr -) 75 mg PO DAILY [facility] Last Admin: 02/24/18 10:54 Dose: 75 mg Zolpidem Tartrate (Ambien -) 10 mg PO HS PRN PRN Reason: INSOMNIA Last Admin: 02/23/18 21:40 Dose: 10 mg Constitutional: Yes: Well Nourished, Calm Eyes: Yes: WNL, Occular Prosthesis HENT: Yes: WNL Neck: Yes: WNL Cardiovascular: Yes: Regular Rate and Rhythm, S1, S2 Respiratory: Yes: Bilateral Wheezes and coarse breath sounds Gastrointestinal: Yes: Normal Bowel Sounds, Soft Extremities: Yes: WNL Edema: No Labs: Laboratory Results - last 24 hr 02/25/18 02/25/18 07:45 07:45 WBC 15.4 H RBC 4.41 Hgb 12.6 Hct 38.5 MCV 87.3 MCH 28.7 MCHC 32.8 RDW 13.5 Plt Count 319 MPV 7.4 L Absolute Neuts (auto) 12.8 H Neutrophils % 82.9 H Neutrophils % (Manual) 81.0 Band Neutrophils % 1.0 Lymphocytes % 13.7 D Lymphocytes % (Manual) 11.0 Monocytes % 3.3 L Monocytes % (Manual) 3 L Eosinophils % 0.0 Eosinophils % (Manual) 0.0 Basophils % 0.1 Basophils % (Manual) 0.0 Myelocytes % (Man) 3 H Promyelocytes % (Man) 0 Blast Cells % (Manual) 0 Nucleated RBC % 0 Metamyelocytes 0 Hypochromia 0 Toxic Granulation 0 Dohle Bodies 0 Platelet Estimate Normal Polychromasia 0 Poikilocytosis 0 Basophilic Stippling 0 Anisocytosis 0 Microcytosis 0 Macrocytosis 0 Spherocytes 0 Sickle Cells 0 Target Cells 0 Tear Drop Cells 0 Ovalocytes 0 Stomatocytes 0 Helmet Cells 0 [place] Bodies 0 [place] Rings 0 [place] Cells 0 Acanthocytes (Spur) 0 Rouleaux 0 Fragmented RBCs 0 Schistocytes 0 Sodium 137 Potassium 4.3 Chloride 106 Carbon Dioxide 26 Anion Gap 5 L BUN 11 Creatinine 0.6 Creat Clearance w eGFR > 60 Random Glucose 131 H Calcium 8.7 Problem List - Problems (1) Asthma exacerbation Code(s): J45.901 - UNSPECIFIED ASTHMA WITH (ACUTE) EXACERBATION Qualifiers: Asthma severity: moderate (2) Failure of outpatient treatment Code(s): Z78.9 - OTHER SPECIFIED HEALTH STATUS (3) GERD (gastroesophageal reflux disease) Code(s): K21.9 - GASTRO-ESOPHAGEAL REFLUX DISEASE WITHOUT ESOPHAGITIS Assessment/Plan IMP ACUTE ASTHMA EXACERBATION LIKELY SECONDARY TO URI TACHYCARDIA ANEMIA GERD PLAN INCREASE IV STEROIDS FOR TODAY INHALED BRONCHODILATORS MONITOR PEAK FLOW SINGULAIR PFTS OUTPATIENT DR MENDOZA
[2018-02-25] MEDS: traMADol HCL 50 MG TABLET PO PRN ×2 (13:38→22:43)
[2018-02-25] MEDS: TAPENTADOL HYDROCHLORIDE 50 MG TABLET PO PRN (16:59)
[2018-02-25] MEDS: diazePAM 5 MG TABLET PO PRN (21:30)
[2018-02-25] MEDS: QUEtiapine FUMARATE 25 MG TABLET (FP) PO SCH (21:30)
[2018-02-25] MEDS: ZOLPIDEM TARTRATE 5 MG TABLET PO PRN (21:30)
[2018-02-25] MEDS ORDERED: MONTELUKAST NA 5 MG TAB.CHEW PO SCH (22:00)
[2018-02-25] MEDS: LEVALBUTEROL HCL 0.63 MG/3 ML VIAL.NEB. IH PRN (22:16)
[2018-02-26] MEDS: methylPREDNISolone NA SUCC 40 MG/1 ML VIAL IVPUSH SCH ×3 (02:06→18:04)
[2018-02-26] MEDS: IPRATROPIUM BR 0.02% 0.5 MG/2.5 ML VIAL.NEB. NEB SCH ×4 (07:27→20:25)
[2018-02-26 07:39] LABS: BASO % 0.1 % (0-2.0); HEMATOCRIT 38.5 % (32.4-45.2); HEMOGLOBIN 12.9 GM/dL (10.7-15.3); MCH 29.1 pg (25.7-33.7); MCHC 33.6 g/dl (32.0-36.0); MEAN CELL VOLUME 86.7 fl (80-96); MEAN PLT VOLUME 7.9 fl (7.5-11.1); MONO % 2.6 % (3.8-10.2); NEUT % 82.3 % (42.8-82.8); PLATELET COUNT 320 K/MM3 (134-434); RBC 4.44 M/mm3 (3.60-5.2); RDW 13.7 % (11.6-15.6); WHITE BLOOD COUNT 13.2 K/mm3 (4.0-10.0)
[2018-02-26 08:06] LABS: ANION GAP 7 MMOL/L (8-16); BLOOD UREA NITROGEN 14 mg/dL (7-18); CALCIUM 8.3 mg/dL (8.5-10.1); CHLORIDE 101 mmol/L (98-107); CO2 29 mmol/L (21-32); CREATININE 0.7 mg/dL (0.55-1.3); GLUCOSE,RANDOM 152 mg/dL (74-106); POTASSIUM 4.2 mmol/L (3.5-5.1); SODIUM 137 mmol/L (136-145)
--- NOTE | 2018-02-26 08:40 | PN ---
Progress Note (short form) - Note Progress Note: Neurology History of Present Illness: 37 y/o young woman with a past medical history of Asthma, Anemia, GERD, Herniated Disc s/p Lumbar Decompression/Fusion L5-S1 (11/2016). Who presents to the ED sent in from her PMD for chest tightness, wheezing and failed out patient therapy (Azithromycin- for Asthma Flare). Was consulted to due to reported episode of confusion. Case discussed with GYPSUM ROOFER when consulted, recommended CT head, completed, no acute changes. During my eval, patient is awake, alert, knows she's in the hospital and give the name [facility]. Knows it 's February 2018. Does get migraines and reported having tension type headache over night. States the Nucynta she gets for her back helps her headaches. Also get tramadol as needed for headaches, per patient. STates she had headache this morning but Nucynta vs Tramadol helpful for her as precribed by PCP as outpatient. Neurologically stable at this time, pulmonary note reviewed. - Allergies Allergies/Adverse Reactions: Allergies Allergy/AdvReac Type Severity Reaction Status Date / Time albuterol Allergy Severe Swelling Verified 02/22/18 14:40 banana Allergy Unknown Verified 02/22/18 14:40 mushroom Allergy Unknown Verified 02/22/18 14:40 codeine [Codeine] Allergy Difficulty Verified 02/22/18 14:40 Breathing Fish Containing Products Allergy Verified 02/22/18 14:40 hydromorphone HCl Allergy difficulty Verified 02/22/18 14:40 [From Dilaudid] breathibg samir Allergy Verified 02/22/18 14:40 meperidine HCl [From Demerol] Allergy Difficulty Verified 02/22/18 14:40 Breathing metoclopramide HCl Allergy Swelling Verified 02/22/18 14:40 [From Reglan] morphine Allergy difficulty Verified 02/22/18 14:40 breathibg oxycodone HCl [From Percocet] Allergy Verified 02/22/18 14:40 shellfish derived Allergy Swelling,ra Verified 02/22/18 14:40 sh watermelon Allergy Verified 02/22/18 14:40 cantaloupe Allergy Uncoded 02/22/18 14:40 miller Allergy Uncoded 02/22/18 14:40 mustard,fish,vinegar Allergy swelling,ra Uncoded 02/22/18 14:40 NARCOTICS Allergy Difficulty Uncoded 02/22/18 14:40 Breathing nuts Allergy Uncoded 02/22/18 14:40 Active Medications Diazepam (Valium -) 10 mg PO HS PRN PRN Reason: MUSCLE SPASMS Last Admin: 02/25/18 21:30 Dose: 10 mg Guaifenesin (Robitussin -) 10 ml PO Q6H PRN PRN Reason: COUGH Last Admin: 02/25/18 22:44 Dose: 10 ml Ipratropium [place] (Atrovent 0.02% Nebulizer -) 1 amp NEB RQID [facility] Last Admin: 02/26/18 07:27 Dose: 1 amp Levalbuterol HCl (Xopenex) 0.63 mg IH Q8H PRN PRN Reason: ASTHMA Last Admin: 02/25/18 22:16 Dose: 0.63 mg Methylprednisolone Sodium Succinate (Solu-Medrol -) 80 mg IVPUSH Q8H-IV [facility] Last Admin: 02/26/18 02:06 Dose: 80 mg Montelukast Sodium (Singulair -) 10 mg PO HS [facility] Ondansetron HCl (Zofran Odt -) 8 mg SL BID PRN PRN Reason: NAUSEA AND/OR VOMITING Last Admin: 02/25/18 01:09 Dose: 8 mg Quetiapine Fumarate (Seroquel -) 25 mg PO HS [facility] Last Admin: 02/25/18 21:30 Dose: 25 mg Ranitidine HCl (Zantac -) 300 mg PO DAILY [facility] Last Admin: 02/25/18 09:53 Dose: 300 mg Tapentadol (Nucynta -) 50 mg PO Q6H PRN PRN Reason: PAIN LEVEL 6-10 Last Admin: 02/25/18 16:59 Dose: 50 mg Tramadol HCl (Ultram -) 50 mg PO Q8H PRN PRN Reason: PAIN LEVEL 4 - 6 Last Admin: 02/25/18 22:43 Dose: 50 mg Venlafaxine HCl (Effexor Xr -) 75 mg PO DAILY [facility] Last Admin: 02/25/18 09:53 Dose: 75 mg Zolpidem Tartrate (Ambien -) 10 mg PO HS PRN PRN Reason: INSOMNIA Last Admin: 02/25/18 21:30 Dose: 10 mg Physical Examination Vital Signs Period Temp Pulse Resp BP Sys/Francisco Pulse Ox Last 24 Hr 97.9 F-98.8 F 79-112 18-20 128-148/76-99 97-97 Gen: Awake, alert, responds to questions Card: RRR, nml S1,S2 Resp: Normal symmetric effort, lungs clear to auscultation Abdomen: Soft, nontender, bowel sounds active Musculoskeletal: Adequate range of motion without significant deformity Head atraumatic and normocephalic CN: PERRL, EOMI intact, no apparent facial droop, no abnormalities in facial sensation, palate elevates, uvula and tongue midline Motor: Full strength to confrontation in upper and lower extermities proximally and distally. Tone normal throughout Sensory: Intact to Temperature, light touch, and pinprick in all extremities Coordination: Intact on [id number] testing Gait: Deferred CBCD WBC 13.2 K/mm3 (4.0-10.0) H 02/26/18 06:30 RBC 4.44 M/mm3 (3.60-5.2) 02/26/18 06:30 Hgb 12.9 GM/dL (10.7-15.3) 02/26/18 06:30 Hct 38.5 % (32.4-45.2) 02/26/18 06:30 MCV 86.7 fl (80-96) 02/26/18 06:30 MCHC 33.6 g/dl (32.0-36.0) 02/26/18 06:30 RDW 13.7 % (11.6-15.6) 02/26/18 06:30 Plt Count 320 K/MM3 (134-434) 02/26/18 06:30 MPV 7.9 fl (7.5-11.1) 02/26/18 06:30 CMP Sodium 137 mmol/L (136-145) 02/26/18 06:30 Potassium 4.2 mmol/L (3.5-5.1) 02/26/18 06:30 Chloride 101 mmol/L (98-107) 02/26/18 06:30 Carbon Dioxide 29 mmol/L (21-32) 02/26/18 06:30 Anion Gap 7 MMOL/L (8-16) L 02/26/18 06:30 BUN 14 mg/dL (7-18) 02/26/18 06:30 Creatinine 0.7 mg/dL (0.55-1.3) 02/26/18 06:30 Creat Clearance w eGFR > 60 (>60) 02/26/18 06:30 Random Glucose 152 mg/dL (74-106) H 02/26/18 06:30 Calcium 8.3 mg/dL (8.5-10.1) L 02/26/18 06:30 Total Bilirubin 0.3 mg/dL (0.2-1) 02/22/18 16:15 AST 11 U/L (15-37) L 02/22/18 16:15 ALT 30 U/L (13-61) 02/22/18 16:15 Alkaline Phosphatase 99 U/L (45-117) 02/22/18 16:15 Total Protein 7.2 g/dl (6.4-8.2) 02/22/18 16:15 Albumin 3.8 g/dl (3.4-5.0) 02/22/18 16:15 Problem List 37 y/o young woman with a past medical history of Asthma, Anemia, GERD, Herniated Disc s/p Lumbar Decompression/Fusion L5-S1 (11/2016). Who presents to the ED sent in from her PMD for chest tightness, wheezing and failed out patient therapy (Azithromycin- for Asthma Flare). Was consulted to due to reported episode of confusion. Case discussed with GYPSUM ROOFER when consulted, recommended CT head, completed, reviewed and discussed, no acute changes. During my eval, patient is awake, alert, knows she's in the hospital and give the name [facility]. Knows it's February 2018. Does get migraines and reported having tension type headache over night. States the Nucynta she gets for her back helps her headaches. Also get tramadol as needed for headaches, per patient. Continue respiratory optimization, pulm note reviewed, monitor mental status, caution with pain medication especially if limited PO intake. Neurologically appears to be at baseline.
[2018-02-26] MEDS: RANITIDINE HCL 150 MG TABLET (FP) PO SCH (10:35)
[2018-02-26] MEDS: VENLAFAXINE HCL 75 MG E.R. CAPSULES (FP) PO SCH (11:49)
--- NOTE | 2018-02-26 12:20 | PN ---
Progress Note, Physician Chief Complaint: Pt sitting in bed in no acute distress. reports mild sob, breathing not back to normal. Denies any chest heaviness, worsening chest pain, n/v, unilateral weakness. - Current Medication List Current Medications: Active Medications Diazepam (Valium -) 10 mg PO HS PRN PRN Reason: MUSCLE SPASMS Last Admin: 02/25/18 21:30 Dose: 10 mg Guaifenesin (Robitussin -) 10 ml PO Q6H PRN PRN Reason: COUGH Last Admin: 02/25/18 22:44 Dose: 10 ml Ipratropium [place] (Atrovent 0.02% Nebulizer -) 1 amp NEB RQID [facility] Last Admin: 02/26/18 11:12 Dose: 1 amp Levalbuterol HCl (Xopenex) 0.63 mg IH Q8H PRN PRN Reason: ASTHMA Last Admin: 02/25/18 22:16 Dose: 0.63 mg Methylprednisolone Sodium Succinate (Solu-Medrol -) 80 mg IVPUSH Q8H-IV [facility] Last Admin: 02/26/18 10:36 Dose: 80 mg Montelukast Sodium (Singulair -) 10 mg PO HS [facility] Ondansetron HCl (Zofran Odt -) 8 mg SL BID PRN PRN Reason: NAUSEA AND/OR VOMITING Last Admin: 02/25/18 01:09 Dose: 8 mg Quetiapine Fumarate (Seroquel -) 25 mg PO HS [facility] Last Admin: 02/25/18 21:30 Dose: 25 mg Ranitidine HCl (Zantac -) 300 mg PO DAILY [facility] Last Admin: 02/26/18 10:35 Dose: 300 mg Tapentadol (Nucynta -) 50 mg PO Q6H PRN PRN Reason: PAIN LEVEL 6-10 Last Admin: 02/25/18 16:59 Dose: 50 mg Tramadol HCl (Ultram -) 50 mg PO Q8H PRN PRN Reason: PAIN LEVEL 4 - 6 Last Admin: 02/25/18 22:43 Dose: 50 mg Venlafaxine HCl (Effexor Xr -) 75 mg PO DAILY [facility] Last Admin: 02/26/18 11:49 Dose: 75 mg Zolpidem Tartrate (Ambien -) 10 mg PO HS PRN PRN Reason: INSOMNIA Last Admin: 02/25/18 21:30 Dose: 10 mg - Objective Vital Signs: Vital Signs Temperature 98.3 F 02/26/18 10:00 Pulse Rate 20 L 02/26/18 10:00 Respiratory Rate 22 H 02/26/18 10:00 Blood Pressure 131/74 02/26/18 10:00 O2 Sat by Pulse Oximetry (%) 97 02/25/18 21:00 Constitutional: Yes: No Distress, Anxious Cardiovascular: Yes: Regular Rate and Rhythm. No: Murmur, Rub Respiratory: Yes: Regular, Rhonchi, SOB, Wheezes. No: Accessory Muscle Use, On Nasal O2, Tachypnea Gastrointestinal: Yes: WNL, Normal Bowel Sounds, Soft. No: Distention, Tenderness Genitourinary: Yes: WNL Extremities: Yes: WNL Edema: No Neurological: Yes: WNL, Alert, Oriented Psychiatric: Yes: WNL, Alert, Oriented Labs: CBC, BMP 02/26/18 06:30 02/26/18 06:30 Problem List - Problems (1) Asthma exacerbation Code(s): J45.901 - UNSPECIFIED ASTHMA WITH (ACUTE) EXACERBATION Qualifiers: Asthma severity: moderate (2) Failure of outpatient treatment Code(s): Z78.9 - OTHER SPECIFIED HEALTH STATUS (3) Chronic pain Code(s): G89.29 - OTHER CHRONIC PAIN (4) GERD (gastroesophageal reflux disease) Code(s): K21.9 - GASTRO-ESOPHAGEAL REFLUX DISEASE WITHOUT ESOPHAGITIS (5) Sinus tachycardia Code(s): R00.0 - TACHYCARDIA, UNSPECIFIED (6) Confusion Code(s): R41.0 - DISORIENTATION, UNSPECIFIED (7) Anxiety Code(s): F41.9 - ANXIETY DISORDER, UNSPECIFIED (8) Depression Code(s): F32.9 - MAJOR DEPRESSIVE DISORDER, SINGLE EPISODE, UNSPECIFIED Assessment/Plan (1) Asthma exacerbation Assessment/Plan: slowly improving lung exam- mild improvement, still w/ wheezing/rhonchi solumedrol continue nebs peak flow wnl pulm following Code(s): J45.901 - UNSPECIFIED ASTHMA WITH (ACUTE) EXACERBATION Qualifiers: Asthma severity: moderate (2) Failure of outpatient treatment Assessment/Plan: as above requiring iv steroids Code(s): Z78.9 - OTHER SPECIFIED HEALTH STATUS (5) Sinus tachycardia Assessment/Plan: resolved suspect 2/2 asthma exacerbation, anxiety ekg without changes echo wnl d/c tele cardiology following Code(s): R00.0 - TACHYCARDIA, UNSPECIFIED (6) Confusion Assessment/Plan: resolved Head CT negative neurology consult appreciated Code(s): R41.0 - DISORIENTATION, UNSPECIFIED (7) Anxiety Assessment/Plan: continue home meds Code(s): F41.9 - ANXIETY DISORDER, UNSPECIFIED (8) Depression Assessment/Plan: continue home meds Code(s): F32.9 - MAJOR DEPRESSIVE DISORDER, SINGLE EPISODE, UNSPECIFIED (3) Chronic pain Assessment/Plan: controlled continue home meds Code(s): G89.29 - OTHER CHRONIC PAIN (4) GERD (gastroesophageal reflux disease) Assessment/Plan: chronic continue zantac Code(s): K21.9 - GASTRO-ESOPHAGEAL REFLUX DISEASE WITHOUT ESOPHAGITIS Dispo: Home when pulm cleared
--- NOTE | 2018-02-26 13:08 | PN ---
Progress Note (short form) - Note Progress Note: s: still short of breath and tightness in chest. no palps, dizzy, lightheaded Current Medications Diazepam (Valium -) 10 mg PO HS PRN PRN Reason: MUSCLE SPASMS Last Admin: 02/25/18 21:30 Dose: 10 mg Guaifenesin (Robitussin -) 10 ml PO Q6H PRN PRN Reason: COUGH Last Admin: 02/25/18 22:44 Dose: 10 ml Ipratropium [place] (Atrovent 0.02% Nebulizer -) 1 amp NEB RQID [facility] Last Admin: 02/26/18 11:12 Dose: 1 amp Levalbuterol HCl (Xopenex) 0.63 mg IH Q8H PRN PRN Reason: ASTHMA Last Admin: 02/25/18 22:16 Dose: 0.63 mg Methylprednisolone Sodium Succinate (Solu-Medrol -) 80 mg IVPUSH Q8H-IV [facility] Last Admin: 02/26/18 10:36 Dose: 80 mg Montelukast Sodium (Singulair -) 10 mg PO [facility] Ondansetron HCl (Zofran Odt -) 8 mg SL BID PRN PRN Reason: NAUSEA AND/OR VOMITING Last Admin: 02/25/18 01:09 Dose: 8 mg Quetiapine Fumarate (Seroquel -) 25 mg PO HS [facility] Last Admin: 02/25/18 21:30 Dose: 25 mg Ranitidine HCl (Zantac -) 300 mg PO DAILY [facility] Last Admin: 02/26/18 10:35 Dose: 300 mg Tapentadol (Nucynta -) 50 mg PO Q6H PRN PRN Reason: PAIN LEVEL 6-10 Last Admin: 02/25/18 16:59 Dose: 50 mg Tramadol HCl (Ultram -) 50 mg PO Q8H PRN PRN Reason: PAIN LEVEL 4 - 6 Last Admin: 02/25/18 22:43 Dose: 50 mg Venlafaxine HCl (Effexor Xr -) 75 mg PO DAILY [facility] Last Admin: 02/26/18 11:49 Dose: 75 mg Zolpidem Tartrate (Ambien -) 10 mg PO HS PRN PRN Reason: INSOMNIA Last Admin: 02/25/18 21:30 Dose: 10 mg Vital Signs: Vital Signs Period Temp Pulse Resp BP Sys/Francisco Pulse Ox Last 24 Hr 97.9 F-98.8 F 20-112 20-22 128-148/74-99 97 Constitutional: Yes: Well Nourished, No Distress, Calm Eyes: Yes: Conjunctiva Clear, EOM Intact HENT: Yes: Atraumatic, Normocephalic Neck: Yes: Supple, Trachea Midline Respiratory: Yes: Regular, bilateral diffuse expiratory wheezes Gastrointestinal: Yes: Normal Bowel Sounds, Soft Cardiovascular: Yes: Regular Rate and Rhythm JVD: No Musculoskeletal: Yes: WNL Edema: No Peripheral Pulses WNL: Yes Peripheral Pulses: 2+ Left Doralis Pedis, 2+ Right Dorsalis Pedis Neurological: Yes: Alert, Oriented Psychiatric: Yes: Alert, Oriented Assessment/Plan EKG: sinus tachycardia CXR no acute process echo 02/2018 nl LV function, RV not well visualized, trace to mild MR 37F h/o asthma, anemia, GERD p/w chest tightness, wheezing tachycardia - likely in setting of steroids, nebs - also significant history of anxiety - per patient prior holter unremarkable - echo unremarkable - stable from cardiac perspective Asthma, chest tightness - manage per primary, pulm - on levalbuterol, avoiding albuterol due to history of worsening tachycardia GERD - manage per primary team Anxiety - on diazepam
[2018-02-26] MEDS: TAPENTADOL HYDROCHLORIDE 50 MG TABLET PO PRN (14:22)
[2018-02-26 14:30] LABS: ACANTHOCYTES 0; ANISOCYTOSIS 0; HELMET CELLS 0; HOWELL-JOLLY BODIES 0; MACROCYTOSIS 0; OVALOCYTE 0; PLATELET ESTIMATE NORMAL; ROULEAU 0; SICKELED CELLS 0; TARGET CELLS 0; TEAR DROP CELLS 0; TOXIC GRANULATION 0
[2018-02-26] MEDS ORDERED: LEVALBUTEROL HCL 0.63 MG/3 ML VIAL.NEB. IH PRN (14:32)
[2018-02-26] MEDS ORDERED: diazePAM 5 MG TABLET PO PRN (14:32)
[2018-02-26] MEDS ORDERED: guaiFENesin 200 MG/10 ML 10 ML UNIT-DOSE CUPS PO PRN (14:32)
[2018-02-26] MEDS ORDERED: TAPENTADOL HYDROCHLORIDE 50 MG TABLET PO PRN (14:32)
--- NOTE | 2018-02-26 15:32 | PN ---
Progress Note (short form) - Note Progress Note: PULMONARY AWAKE/ALERT COUGH/WHEEZE AND COMPLAINING OF SOB VSS/AFEBRILE ANICTERIC B/L DIFFUSE WHEEZE ANTERIOR/POSTERIOR S1S2 TACHY BS+ NO EDEMA PEAK FLOW 230L/M YESTERDAY/TODAY PENDING ECHO NORMAL LABS/MEDS/NOTES/IMAGES/MICRO REVIEWED (1) Asthma exacerbation Code(s): J45.901 - UNSPECIFIED ASTHMA WITH (ACUTE) EXACERBATION Qualifiers: Asthma severity: moderate (2) Failure of outpatient treatment Code(s): Z78.9 - OTHER SPECIFIED HEALTH STATUS (3) GERD (gastroesophageal reflux disease) Code(s): K21.9 - GASTRO-ESOPHAGEAL REFLUX DISEASE WITHOUT ESOPHAGITIS IMP ACUTE ASTHMA EXACERBATION LIKELY SECONDARY TO URI TACHYCARDIA ANEMIA GERD PLAN IV STEROIDS SAME DOSE INHALED BRONCHODILATORS MONITOR PEAK FLOW SINGULAIR PFTS OUTPATIENT Boris MELENDEZ MD
[2018-02-26] MEDS ORDERED: PT OWN MED DRAWER 7, Y5N ONE (16:27)
[2018-02-26] MEDS: MONTELUKAST NA 10 MG TABLET PO SCH (21:24)
[2018-02-26] MEDS: guaiFENesin 600 MG TABLET.ER (FP) PO SCH (21:24)
[2018-02-26] MEDS: QUEtiapine FUMARATE 25 MG TABLET (FP) PO SCH (21:24)
[2018-02-26] MEDS ORDERED: MONTELUKAST NA 10 MG TABLET PO SCH (22:00)
[2018-02-27] MEDS: methylPREDNISolone NA SUCC 40 MG/1 ML VIAL IVPUSH SCH ×3 (01:41→17:36)
[2018-02-27] MEDS: ONDANSETRON *ODT* 4 MG TABLET SL PRN (05:30)
[2018-02-27] MEDS: IPRATROPIUM BR 0.02% 0.5 MG/2.5 ML VIAL.NEB. NEB SCH ×4 (07:30→19:44)
[2018-02-27 07:54] LABS: BASO % 0.1 % (0-2.0); HEMATOCRIT 40.2 % (32.4-45.2); HEMOGLOBIN 13.1 GM/dL (10.7-15.3); LYMPH % 17.2 % (8-40); MCH 28.5 pg (25.7-33.7); MCHC 32.6 g/dl (32.0-36.0); MEAN CELL VOLUME 87.3 fl (80-96); MEAN PLT VOLUME 7.7 fl (7.5-11.1); MONO % 4.2 % (3.8-10.2); NEUT % 78.5 % (42.8-82.8); PLATELET COUNT 331 K/MM3 (134-434); RDW 13.3 % (11.6-15.6); WHITE BLOOD COUNT 12.3 K/mm3 (4.0-10.0)
[2018-02-27] MEDS ORDERED: PT OWN MED DRAWER 7, Y5N ONE (08:39)
[2018-02-27 09:09] LABS: ANION GAP 6 MMOL/L (8-16); BLOOD UREA NITROGEN 18 mg/dL (7-18); CALCIUM 8.3 mg/dL (8.5-10.1); CHLORIDE 101 mmol/L (98-107); CO2 29 mmol/L (21-32); CREATININE 0.7 mg/dL (0.55-1.3); GLUCOSE,RANDOM 172 mg/dL (74-106); POTASSIUM 4.1 mmol/L (3.5-5.1); SODIUM 136 mmol/L (136-145)
[2018-02-27 09:35] LABS: ANISOCYTOSIS 0; MACROCYTOSIS 0; PLATELET ESTIMATE NORMAL
[2018-02-27] MEDS: guaiFENesin 600 MG TABLET.ER (FP) PO SCH ×2 (09:57→21:37)
[2018-02-27] MEDS: RANITIDINE HCL 150 MG TABLET (FP) PO SCH (09:58)
[2018-02-27] MEDS: VENLAFAXINE HCL 75 MG E.R. CAPSULES (FP) PO SCH (09:58)
[2018-02-27] MEDS: POLYETHYLENE GLYCOL 3350 119 GM BTL PO SCH (11:20)
--- NOTE | 2018-02-27 11:42 | PN ---
Progress Note, Physician History of Present Illness: Feeling a little less short of breath today, but still with LEVIN. Notes that 50mg Nucynta does not seem to be helping much. Does note that on solumdrol she does seem to be having less back pain. Notes no bowel movement for past 3 days. - Current Medication List Current Medications: Active Medications Diazepam (Valium -) 10 mg PO HS PRN PRN Reason: MUSCLE SPASMS Last Admin: 02/26/18 21:25 Dose: 10 mg Guaifenesin (Mucinex -) 600 mg PO BID [facility] Last Admin: 02/27/18 09:57 Dose: 600 mg Guaifenesin (Robitussin -) 10 ml PO Q6H PRN PRN Reason: COUGH Last Admin: 02/26/18 21:25 Dose: 10 ml Ipratropium [place] (Atrovent 0.02% Nebulizer -) 1 amp NEB RQID [facility] Last Admin: 02/27/18 07:30 Dose: 1 amp Levalbuterol HCl (Xopenex) 0.63 mg IH Q8H PRN PRN Reason: ASTHMA Methylprednisolone Sodium Succinate (Solu-Medrol -) 80 mg IVPUSH Q8H-IV [facility] Last Admin: 02/27/18 09:58 Dose: 80 mg Montelukast Sodium (Singulair -) 10 mg PO [facility] Last Admin: 02/26/18 21:24 Dose: 10 mg Ondansetron HCl (Zofran Odt -) 8 mg SL Q12H PRN PRN Reason: NAUSEA AND/OR VOMITING Last Admin: 02/27/18 05:30 Dose: 8 mg Polyethylene Glycol (Miralax (For Daily Use) -) 17 gm PO DAILY [facility] Quetiapine Fumarate (Seroquel -) 25 mg PO HS [facility] Last Admin: 02/26/18 21:24 Dose: 25 mg Ranitidine HCl (Zantac -) 300 mg PO DAILY [facility] Last Admin: 02/27/18 09:58 Dose: 300 mg Tapentadol (Nucynta -) 75 mg PO Q6H PRN PRN Reason: PAIN LEVEL 6-10 Tramadol HCl (Ultram -) 50 mg PO Q8H PRN PRN Reason: PAIN LEVEL 4 - 6 Venlafaxine HCl (Effexor Xr -) 75 mg PO DAILY [facility] Last Admin: 02/27/18 09:58 Dose: 75 mg Zolpidem Tartrate (Ambien -) 10 mg PO HS PRN PRN Reason: INSOMNIA - Objective Vital Signs: Vital Signs Temperature 97.9 F 02/27/18 06:00 Pulse Rate 97 H 02/27/18 06:00 Respiratory Rate 20 02/27/18 06:00 Blood Pressure 130/86 02/27/18 06:00 O2 Sat by Pulse Oximetry (%) 96 02/26/18 21:00 Constitutional: Yes: No Distress, Calm Neck: Yes: Supple, Trachea Midline Cardiovascular: Yes: Regular Rate and Rhythm, S1, S2. No: Murmur Respiratory: Yes: Regular, Rhonchi, Wheezes Gastrointestinal: Yes: Normal Bowel Sounds, Soft. No: Distention, Tenderness Edema: No Labs: CBC, BMP 02/27/18 06:15 02/27/18 06:15 Assessment/Plan Current Active Problems Asthma exacerbation (Acute) Anemia (Acute) Anxiety (Acute) DVT prophylaxis (Acute) Depression (Acute) GERD (gastroesophageal reflux disease) (Acute) Sinus tachycardia (Acute) Discogenic disease of spine, s/p laminectomy lumbar spine -cont IV solumedrol (still with significant wheezing this morning -will increase Nucynta for LEVIN (migraine/ tension-type LEVIN) -Miralax for constipation
--- NOTE | 2018-02-27 13:19 | PN ---
Progress Note (short form) - Note Progress Note: PULMONARY AWAKE/ALERT COUGH/WHEEZE ARE LESS VSS/AFEBRILE ANICTERIC B/L MILD DIFFUSE WHEEZE ANTERIOR/POSTERIOR S1S2 TACHY BS+ NO EDEMA PEAK FLOW 240 L/M YESTERDAY/TODAY 270 L/M ECHO NORMAL LABS/MEDS/NOTES/IMAGES/MICRO REVIEWED (1) Asthma exacerbation Code(s): J45.901 - UNSPECIFIED ASTHMA WITH (ACUTE) EXACERBATION Qualifiers: Asthma severity: moderate (2) Failure of outpatient treatment Code(s): Z78.9 - OTHER SPECIFIED HEALTH STATUS (3) GERD (gastroesophageal reflux disease) Code(s): K21.9 - GASTRO-ESOPHAGEAL REFLUX DISEASE WITHOUT ESOPHAGITIS IMP ACUTE ASTHMA EXACERBATION LIKELY SECONDARY TO URI TACHYCARDIA ANEMIA GERD PLAN IV STEROIDS SAME DOSE INHALED BRONCHODILATORS MONITOR PEAK FLOW SINGULAIR PFTS OUTPATIENT Boris MELENDEZ MD
[2018-02-27] MEDS: TAPENTADOL HYDROCHLORIDE 50 MG TABLET PO PRN ×2 (15:51→22:05)
[2018-02-27] MEDS: traMADol HCL 50 MG TABLET PO PRN (17:39)
[2018-02-27] MEDS ORDERED: diazePAM 5 MG TABLET PO ONE (18:45)
[2018-02-27] MEDS: MONTELUKAST NA 10 MG TABLET PO SCH (21:37)
[2018-02-27] MEDS: QUEtiapine FUMARATE 25 MG TABLET (FP) PO SCH (21:37)
[2018-02-27] MEDS: ZOLPIDEM TARTRATE 5 MG TABLET PO PRN (21:58)
[2018-02-28] MEDS: methylPREDNISolone NA SUCC 40 MG/1 ML VIAL IVPUSH SCH ×3 (03:25→17:37)
[2018-02-28 06:57] LABS: HEMATOCRIT 39.3 % (32.4-45.2); HEMOGLOBIN 12.9 GM/dL (10.7-15.3); LYMPH % 12.4 % (8-40); MCH 28.8 pg (25.7-33.7); MCHC 32.8 g/dl (32.0-36.0); MEAN CELL VOLUME 87.8 fl (80-96); MEAN PLT VOLUME 7.5 fl (7.5-11.1); MONO % 4.8 % (3.8-10.2); NEUT % 82.8 % (42.8-82.8); PLATELET COUNT 330 K/MM3 (134-434); RBC 4.48 M/mm3 (3.60-5.2); RDW 13.6 % (11.6-15.6); WHITE BLOOD COUNT 15.4 K/mm3 (4.0-10.0)
[2018-02-28] MEDS: IPRATROPIUM BR 0.02% 0.5 MG/2.5 ML VIAL.NEB. NEB SCH ×4 (07:30→19:45)
[2018-02-28 07:45] LABS: ALK PHOS 65 U/L (45-117); ANION GAP 7 MMOL/L (8-16); BILIRUBIN,TOTAL 0.5 mg/dL (0.2-1); BLOOD UREA NITROGEN 18 mg/dL (7-18); CALCIUM 7.8 mg/dL (8.5-10.1); CHLORIDE 101 mmol/L (98-107); CO2 30 mmol/L (21-32); CREATININE 0.8 mg/dL (0.55-1.3); GLUCOSE,RANDOM 177 mg/dL (74-106); POTASSIUM 4.4 mmol/L (3.5-5.1); SGOT/AST 43 U/L (15-37); SGPT/ALT 83 U/L (13-61); SODIUM 138 mmol/L (136-145); TOT PROT 6.2 g/dl (6.4-8.2)
[2018-02-28] MEDS ORDERED: PT OWN MED DRAWER 7, Y5N ONE (08:56)
[2018-02-28 09:19] LABS: ANISOCYTOSIS 0; MACROCYTOSIS 0
--- NOTE | 2018-02-28 10:03 | PN ---
Progress Note (short form) - Note Progress Note: PULMONARY AWAKE/ALERT COUGH/WHEEZE ARE LESS CONCERNED OVER BEING DISCHARGED PREMATURELY VSS/AFEBRILE ANICTERIC B/L MILD DIFFUSE WHEEZE ANTERIOR/POSTERIOR S1S2 TACHY BS+ NO EDEMA PEAK FLOW 250 L/M YESTERDAY/TODAY PENDING ECHO NORMAL LABS/MEDS/NOTES/IMAGES/MICRO REVIEWED (1) Asthma exacerbation Code(s): J45.901 - UNSPECIFIED ASTHMA WITH (ACUTE) EXACERBATION Qualifiers: Asthma severity: moderate (2) Failure of outpatient treatment Code(s): Z78.9 - OTHER SPECIFIED HEALTH STATUS (3) GERD (gastroesophageal reflux disease) Code(s): K21.9 - GASTRO-ESOPHAGEAL REFLUX DISEASE WITHOUT ESOPHAGITIS IMP ACUTE ASTHMA EXACERBATION LIKELY SECONDARY TO URI TACHYCARDIA ANEMIA GERD PLAN IV STEROIDS SAME DOSE INHALED BRONCHODILATORS MONITOR PEAK FLOW SINGULAIR PFTS OUTPATIENT Boris MELENDEZ MD
[2018-02-28] MEDS: POLYETHYLENE GLYCOL 3350 119 GM BTL PO SCH ×2 (10:43→21:18)
[2018-02-28 10:46] LABS: PLATELET ESTIMATE ADEQUATE
[2018-02-28] MEDS: SENNOSIDES 8.6MG TABLET (FP) PO SCH ×3 (11:39→22:25)
[2018-02-28] MEDS: DOCUSATE SODIUM 100 MG CAPSULE (FP) PO SCH ×2 (11:39→21:16)
[2018-02-28] MEDS: diazePAM 5 MG TABLET PO PRN ×2 (11:39→17:37)
[2018-02-28] MEDS: ONDANSETRON *ODT* 4 MG TABLET SL PRN (11:40)
[2018-02-28] MEDS: guaiFENesin 600 MG TABLET.ER (FP) PO SCH ×2 (11:40→21:18)
[2018-02-28] MEDS: VENLAFAXINE HCL 75 MG E.R. CAPSULES (FP) PO SCH (11:40)
[2018-02-28] MEDS: RANITIDINE HCL 150 MG TABLET (FP) PO SCH (11:41)
--- NOTE | 2018-02-28 11:59 | PN ---
Progress Note, Physician History of Present Illness: Breathing slowly getting a little better, but notes still TY, tightness in chest. Not coughing as much now, but having increased panic attacks during the day. Also notes that she still has not had bowel movement for last 4 days and has been getting nausea. - Current Medication List Current Medications: Active Medications Diazepam (Valium -) 10 mg PO Q6H PRN PRN Reason: MUSCLE SPASMS Last Admin: 02/28/18 11:39 Dose: 10 mg Docusate Sodium (Colace -) 100 mg PO BID [facility] Last Admin: 02/28/18 11:39 Dose: 100 mg Guaifenesin (Mucinex -) 600 mg PO BID [facility] Last Admin: 02/28/18 11:40 Dose: Not Given Guaifenesin (Robitussin -) 10 ml PO Q6H PRN PRN Reason: COUGH Last Admin: 02/26/18 21:25 Dose: 10 ml Ipratropium [place] (Atrovent 0.02% Nebulizer -) 1 amp NEB RQID [facility] Last Admin: 02/28/18 07:30 Dose: 1 amp Levalbuterol HCl (Xopenex) 0.63 mg IH Q8H PRN PRN Reason: ASTHMA Methylprednisolone Sodium Succinate (Solu-Medrol -) 80 mg IVPUSH Q8H-IV [facility] Last Admin: 02/28/18 11:40 Dose: 80 mg Montelukast Sodium (Singulair -) 10 mg PO [facility] Last Admin: 02/27/18 21:37 Dose: 10 mg Ondansetron HCl (Zofran Odt -) 8 mg SL Q12H PRN PRN Reason: NAUSEA AND/OR VOMITING Last Admin: 02/28/18 11:40 Dose: 8 mg Polyethylene Glycol (Miralax (For Daily Use) -) 17 gm PO BID [facility] Quetiapine Fumarate (Seroquel -) 25 mg PO [facility] Last Admin: 02/27/18 21:37 Dose: 25 mg Ranitidine HCl (Zantac -) 300 mg PO DAILY [facility] Last Admin: 02/28/18 11:41 Dose: 300 mg Senna (Senna -) 1 tab PO BID [facility] Last Admin: 02/28/18 11:39 Dose: 1 tab Tapentadol (Nucynta -) 75 mg PO Q6H PRN PRN Reason: PAIN LEVEL 6-10 Last Admin: 02/27/18 22:05 Dose: 75 mg Tramadol HCl (Ultram -) 50 mg PO Q8H PRN PRN Reason: PAIN LEVEL 4 - 6 Last Admin: 02/27/18 17:39 Dose: 50 mg Venlafaxine HCl (Effexor Xr -) 75 mg PO DAILY [facility] Last Admin: 02/28/18 11:40 Dose: 75 mg Zolpidem Tartrate (Ambien -) 10 mg PO HS PRN PRN Reason: INSOMNIA Last Admin: 02/27/18 21:58 Dose: 10 mg - Objective Vital Signs: Vital Signs Temperature 98.0 F 02/28/18 07:22 Pulse Rate 82 02/28/18 07:22 Respiratory Rate 20 02/28/18 07:22 Blood Pressure 127/77 02/28/18 07:22 O2 Sat by Pulse Oximetry (%) 97 02/27/18 21:00 Constitutional: Yes: No Distress, Calm, Other Eyes: Yes: Conjunctiva Clear Neck: Yes: Supple, Trachea Midline Cardiovascular: Yes: Regular Rate and Rhythm, S1, S2. No: Murmur Respiratory: Yes: Regular, Wheezes (bilaterally (improved from yesterday)) Gastrointestinal: Yes: Normal Bowel Sounds, Soft, Distention. No: Tenderness Edema: No Neurological: Yes: Alert, Oriented Labs: CBC, BMP 02/28/18 06:00 02/28/18 06:00 Assessment/Plan Current Active Problems Asthma exacerbation (Acute) Anemia (Acute) Anxiety (Acute) DVT prophylaxis (Acute) Depression (Acute) GERD (gastroesophageal reflux disease) (Acute) Sinus tachycardia (Acute) Discogenic disease of spine, s/p laminectomy lumbar spine -cont IV solumedrol, discussed with pulmonary -start colace and senokot and increase miralax for constipation -panic attacks likely from steroids (on top of baseline anxiety), so will increase valium to take during the day as well (at home was taking frequently during the day for back muscle spasm
[2018-02-28] MEDS: traMADol HCL 50 MG TABLET PO PRN (15:00)
[2018-02-28] MEDS: ONDANSETRON 4 MG/2 ML VIAL IVPUSH PRN (19:45)
[2018-02-28] MEDS: ZOLPIDEM TARTRATE 5 MG TABLET PO PRN (21:16)
[2018-02-28] MEDS: QUEtiapine FUMARATE 25 MG TABLET (FP) PO SCH (21:16)
[2018-02-28] MEDS: MONTELUKAST NA 10 MG TABLET PO SCH (21:16)
[2018-03-01] MEDS: diazePAM 5 MG TABLET PO PRN ×3 (01:52→19:07)
[2018-03-01] MEDS: methylPREDNISolone NA SUCC 40 MG/1 ML VIAL IVPUSH SCH ×3 (01:52→19:04)
[2018-03-01] MEDS: ONDANSETRON 4 MG/2 ML VIAL IVPUSH PRN ×3 (02:19→23:44)
[2018-03-01] MEDS: RANITIDINE HCL 150 MG TABLET (FP) PO SCH ×2 (06:14→11:02)
[2018-03-01] MEDS: IPRATROPIUM BR 0.02% 0.5 MG/2.5 ML VIAL.NEB. NEB SCH ×4 (07:30→21:30)
[2018-03-01 08:15] LABS: BASO % 0.1 % (0-2.0); HEMATOCRIT 38.9 % (32.4-45.2); HEMOGLOBIN 12.6 GM/dL (10.7-15.3); LYMPH % 9.1 % (8-40); MCH 28.4 pg (25.7-33.7); MCHC 32.3 g/dl (32.0-36.0); MEAN CELL VOLUME 87.9 fl (80-96); MEAN PLT VOLUME 7.6 fl (7.5-11.1); MONO % 4.6 % (3.8-10.2); NEUT % 86.2 % (42.8-82.8); PLATELET COUNT 339 K/MM3 (134-434); RBC 4.42 M/mm3 (3.60-5.2); RDW 13.5 % (11.6-15.6); WHITE BLOOD COUNT 18.7 K/mm3 (4.0-10.0)
[2018-03-01 08:25] LABS: ALBUMIN 2.9 g/dl (3.4-5.0); ALK PHOS 64 U/L (45-117); ANION GAP 8 MMOL/L (8-16); BILIRUBIN,TOTAL 0.3 mg/dL (0.2-1); BLOOD UREA NITROGEN 16 mg/dL (7-18); CALCIUM 8.2 mg/dL (8.5-10.1); CHLORIDE 102 mmol/L (98-107); CO2 28 mmol/L (21-32); CREATININE 0.7 mg/dL (0.55-1.3); GLUCOSE,RANDOM 181 mg/dL (74-106); POTASSIUM 4.2 mmol/L (3.5-5.1); SGOT/AST 67 U/L (15-37); SGPT/ALT 151 U/L (13-61); SODIUM 139 mmol/L (136-145); TOT PROT 5.9 g/dl (6.4-8.2)
--- NOTE | 2018-03-01 09:06 | PN ---
Progress Note (short form) - Note Progress Note: Neurology History of Present Illness: 37 y/o young woman with a past medical history of Asthma, Anemia, GERD, Herniated Disc s/p Lumbar Decompression/Fusion L5-S1 (11/2016). Who presents to the ED sent in from her PMD for chest tightness, wheezing and failed out patient therapy (Azithromycin- for Asthma Flare). Was consulted to due to reported episode of confusion. Case discussed with OPERATIONS MANAGER when consulted, recommended CT head, completed, no acute changes. During my eval, patient is awake, alert, knows she's in the hospital and give the name [facility]. Knows it 's February 2018. Does get migraines and reported having tension type headache over night. States the Nucynta she gets for her back helps her headaches. Also gets tramadol as needed for headaches, per patient. Seen by PCP over weekend, respiratory status improved. Fatigued appearing but cooperative. - Allergies Allergies/Adverse Reactions: Allergies Allergy/AdvReac Type Severity Reaction Status Date / Time albuterol Allergy Severe Swelling Verified 02/22/18 14:40 banana Allergy Unknown Verified 02/22/18 14:40 mushroom Allergy Unknown Verified 02/22/18 14:40 codeine [Codeine] Allergy Difficulty Verified 02/22/18 14:40 Breathing Fish Containing Products Allergy Verified 02/22/18 14:40 hydromorphone HCl Allergy difficulty Verified 02/22/18 14:40 [From Dilaudid] breathibg samir Allergy Verified 02/22/18 14:40 meperidine HCl [From Demerol] Allergy Difficulty Verified 02/22/18 14:40 Breathing metoclopramide HCl Allergy Swelling Verified 02/22/18 14:40 [From Reglan] morphine Allergy difficulty Verified 02/22/18 14:40 breathibg oxycodone HCl [From Percocet] Allergy Verified 02/22/18 14:40 shellfish derived Allergy Swelling,ra Verified 02/22/18 14:40 sh watermelon Allergy Verified 02/22/18 14:40 cantaloupe Allergy Uncoded 02/22/18 14:40 miller Allergy Uncoded 02/22/18 14:40 mustard,fish,vinegar Allergy swelling,ra Uncoded 02/22/18 14:40 sh NARCOTICS Allergy Difficulty Uncoded 02/22/18 14:40 Breathing nuts Allergy Uncoded 02/22/18 14:40 Active Medications Diazepam (Valium -) 10 mg PO Q6H PRN PRN Reason: MUSCLE SPASMS Last Admin: 03/01/18 01:52 Dose: 10 mg Docusate Sodium (Colace -) 100 mg PO BID [facility] Last Admin: 02/28/18 21:16 Dose: 100 mg Guaifenesin (Mucinex -) 600 mg PO BID [facility] Last Admin: 02/28/18 21:18 Dose: Not Given Guaifenesin (Robitussin -) 10 ml PO Q6H PRN PRN Reason: COUGH Last Admin: 02/26/18 21:25 Dose: 10 ml Ipratropium [place] (Atrovent 0.02% Nebulizer -) 1 amp NEB RQID [facility] Last Admin: 03/01/18 07:30 Dose: 1 amp Levalbuterol HCl (Xopenex) 0.63 mg IH Q8H PRN PRN Reason: ASTHMA Methylprednisolone Sodium Succinate (Solu-Medrol -) 80 mg IVPUSH Q8H-IV [facility] Last Admin: 03/01/18 01:52 Dose: 80 mg Montelukast Sodium (Singulair -) 10 mg PO [facility] Last Admin: 02/28/18 21:16 Dose: 10 mg Ondansetron HCl (Zofran Odt -) 8 mg SL Q12H PRN PRN Reason: NAUSEA AND/OR VOMITING Last Admin: 02/28/18 11:40 Dose: 8 mg Ondansetron HCl (Zofran Injection) 4 mg IVPUSH Q6H PRN PRN Reason: NAUSEA AND/OR VOMITING Last Admin: 03/01/18 02:19 Dose: 4 mg Polyethylene Glycol (Miralax (For Daily Use) -) 17 gm PO BID [facility] Last Admin: 02/28/18 21:18 Dose: Not Given Quetiapine Fumarate (Seroquel -) 25 mg PO [facility] Last Admin: 02/28/18 21:16 Dose: 25 mg Ranitidine HCl (Zantac -) 300 mg PO DAILY [facility] Last Admin: 03/01/18 06:14 Dose: 300 mg Senna (Senna -) 1 tab PO BID [facility] Last Admin: 02/28/18 22:25 Dose: Not Given Tapentadol (Nucynta -) 75 mg PO Q6H PRN PRN Reason: PAIN LEVEL 6-10 Last Admin: 02/27/18 22:05 Dose: 75 mg Tramadol HCl (Ultram -) 50 mg PO Q8H PRN PRN Reason: PAIN LEVEL 4 - 6 Last Admin: 02/28/18 15:00 Dose: 50 mg Venlafaxine HCl (Effexor Xr -) 75 mg PO DAILY [facility] Last Admin: 02/28/18 11:40 Dose: 75 mg Zolpidem Tartrate (Ambien -) 10 mg PO HS PRN PRN Reason: INSOMNIA Last Admin: 02/28/18 21:16 Dose: 10 mg Physical Examination Vital Signs Temperature 98.3 F 03/01/18 06:00 Pulse Rate 87 03/01/18 06:00 Respiratory Rate 19 03/01/18 06:00 Blood Pressure 156/86 03/01/18 06:00 O2 Sat by Pulse Oximetry (%) 98 02/28/18 21:00 Gen: Awake, alert, responds to questions Card: RRR, nml S1,S2 Resp: Normal symmetric effort, lungs clear to auscultation Abdomen: Soft, nontender, bowel sounds active Musculoskeletal: Adequate range of motion without significant deformity Head atraumatic and normocephalic CN: PERRL, EOMI intact, no apparent facial droop, no abnormalities in facial sensation, palate elevates, uvula and tongue midline Motor: Full strength to confrontation in upper and lower extermities proximally and distally. Tone normal throughout Sensory: Intact to Temperature, light touch, and pinprick in all extremities Coordination: Intact on [id number] testing Gait: Deferred CBCD WBC 18.7 K/mm3 (4.0-10.0) H 03/01/18 06:50 RBC 4.42 M/mm3 (3.60-5.2) 03/01/18 06:50 Hgb 12.6 GM/dL (10.7-15.3) 03/01/18 06:50 Hct 38.9 % (32.4-45.2) 03/01/18 06:50 MCV 87.9 fl (80-96) 03/01/18 06:50 MCHC 32.3 g/dl (32.0-36.0) 03/01/18 06:50 RDW 13.5 % (11.6-15.6) 03/01/18 06:50 Plt Count 339 K/MM3 (134-434) 03/01/18 06:50 MPV 7.6 fl (7.5-11.1) 03/01/18 06:50 CMP Sodium 139 mmol/L (136-145) 03/01/18 06:50 Potassium 4.2 mmol/L (3.5-5.1) 03/01/18 06:50 Chloride 102 mmol/L (98-107) 03/01/18 06:50 Carbon Dioxide 28 mmol/L (21-32) 03/01/18 06:50 Anion Gap 8 MMOL/L (8-16) 03/01/18 06:50 BUN 16 mg/dL (7-18) 03/01/18 06:50 Creatinine 0.7 mg/dL (0.55-1.3) 03/01/18 06:50 Creat Clearance w eGFR > 60 (>60) 03/01/18 06:50 Random Glucose 181 mg/dL (74-106) H 03/01/18 06:50 Calcium 8.2 mg/dL (8.5-10.1) L 03/01/18 06:50 Total Bilirubin 0.3 mg/dL (0.2-1) 03/01/18 06:50 AST 67 U/L (15-37) H 03/01/18 06:50 ALT 151 U/L (13-61) H 03/01/18 06:50 Alkaline Phosphatase 64 U/L (45-117) 03/01/18 06:50 Total Protein 5.9 g/dl (6.4-8.2) L 03/01/18 06:50 Albumin 2.9 g/dl (3.4-5.0) L 03/01/18 06:50 Problem List 37 y/o young woman with a past medical history of Asthma, Anemia, GERD, Herniated Disc s/p Lumbar Decompression/Fusion L5-S1 (11/2016). Who presents to the ED sent in from her PMD for chest tightness, wheezing and failed out patient therapy (Azithromycin- for Asthma Flare). Was consulted to due to reported episode of confusion. Case discussed with OPERATIONS MANAGER when consulted, recommended CT head, completed, reviewed and discussed, no acute changes. During my eval, patient is awake, alert, knows she's in the hospital and give the name [facility]. Knows it's February 2018. Does get migraines and reported having tension type headache over night. States the Nucynta she gets for her back helps her headaches. Also get tramadol as needed for headaches, per patient. Respiratory status improved, monitor mental status, caution with pain medication especially if limited PO intake. Continued hydration.
[2018-03-01 10:20] LABS: PLATELET ESTIMATE NORMAL
[2018-03-01 10:34] LABS: ACANTHOCYTES 0; ANISOCYTOSIS 0; HELMET CELLS 0; HOWELL-JOLLY BODIES 0; MACROCYTOSIS 0; OVALOCYTE 0; ROULEAU 0; SICKELED CELLS 0; TARGET CELLS 0; TEAR DROP CELLS 0; TOXIC GRANULATION 0
[2018-03-01] MEDS ORDERED: PT OWN MED DRAWER 7, Y5N ONE (11:00)
[2018-03-01] MEDS: DOCUSATE SODIUM 100 MG CAPSULE (FP) PO SCH ×2 (11:04→21:19)
[2018-03-01] MEDS: POLYETHYLENE GLYCOL 3350 119 GM BTL PO SCH ×2 (11:04→21:15)
[2018-03-01] MEDS: SENNOSIDES 8.6MG TABLET (FP) PO SCH ×2 (11:04→21:21)
[2018-03-01] MEDS: guaiFENesin 600 MG TABLET.ER (FP) PO SCH ×2 (11:04→11:11)
--- NOTE | 2018-03-01 11:14 | PN ---
Progress Note (short form) - Note Progress Note: PULMONARY Still with shortness of breath, cough and wheezing. Peak flow 150. Vital Signs Period Temp Pulse Resp BP Sys/Francisco Pulse Ox Last 24 Hr 97.8 F-98.5 F 87-105 17-19 128-156/70-90 98 Gen: NAD at rest Heart: RRR Lung: bilateral rhonchi, wheezes Abd: soft, nontender Ext: no edema CBC, BMP 03/01/18 06:50 03/01/18 06:50 Active Medications Diazepam (Valium -) 10 mg PO Q6H PRN PRN Reason: MUSCLE SPASMS Last Admin: 03/01/18 01:52 Dose: 10 mg Docusate Sodium (Colace -) 100 mg PO BID [facility] Last Admin: 03/01/18 11:04 Dose: 100 mg Guaifenesin (Mucinex -) 600 mg PO BID [facility] Last Admin: 02/28/18 21:18 Dose: Not Given Guaifenesin (Robitussin -) 10 ml PO Q6H PRN PRN Reason: COUGH Last Admin: 02/26/18 21:25 Dose: 10 ml Ipratropium [place] (Atrovent 0.02% Nebulizer -) 1 amp NEB RQID [facility] Last Admin: 03/01/18 07:30 Dose: 1 amp Levalbuterol HCl (Xopenex) 0.63 mg IH Q8H PRN PRN Reason: ASTHMA Methylprednisolone Sodium Succinate (Solu-Medrol -) 80 mg IVPUSH Q8H-IV [facility] Last Admin: 03/01/18 11:04 Dose: 80 mg Montelukast Sodium (Singulair -) 10 mg PO HS [facility] Last Admin: 02/28/18 21:16 Dose: 10 mg Ondansetron HCl (Zofran Odt -) 8 mg SL Q12H PRN PRN Reason: NAUSEA AND/OR VOMITING Last Admin: 02/28/18 11:40 Dose: 8 mg Ondansetron HCl (Zofran Injection) 4 mg IVPUSH Q6H PRN PRN Reason: NAUSEA AND/OR VOMITING Last Admin: 03/01/18 02:19 Dose: 4 mg Polyethylene Glycol (Miralax (For Daily Use) -) 17 gm PO BID [facility] Last Admin: 03/01/18 11:04 Dose: 17 gm Quetiapine Fumarate (Seroquel -) 25 mg PO HS [facility] Last Admin: 02/28/18 21:16 Dose: 25 mg Ranitidine HCl (Zantac -) 300 mg PO DAILY [facility] Last Admin: 03/01/18 11:02 Dose: Not Given Senna (Senna -) 1 tab PO BID [facility] Last Admin: 03/01/18 11:04 Dose: 1 tab Tapentadol (Nucynta -) 75 mg PO Q6H PRN PRN Reason: PAIN LEVEL 6-10 Last Admin: 02/27/18 22:05 Dose: 75 mg Tramadol HCl (Ultram -) 50 mg PO Q8H PRN PRN Reason: PAIN LEVEL 4 - 6 Last Admin: 02/28/18 15:00 Dose: 50 mg Venlafaxine HCl (Effexor Xr -) 75 mg PO DAILY [facility] Last Admin: 02/28/18 11:40 Dose: 75 mg Zolpidem Tartrate (Ambien -) 10 mg PO HS PRN PRN Reason: INSOMNIA Last Admin: 02/28/18 21:16 Dose: 10 mg A/P Acute Asthma Exacerbation GERD - continue medrol at current dose - inhaled bronchodilators standing and PRN - singulair - monitor peak flow - DVT prophylaxis - outpt PFTs
[2018-03-01] MEDS: TAPENTADOL HYDROCHLORIDE 50 MG TABLET PO PRN ×2 (11:18→21:22)
--- NOTE | 2018-03-01 12:33 | PN ---
Progress Note, Physician Chief Complaint: Pt sitting in bed in no acute distress. reports mild sob, breathing not back to normal. Denies any chest heaviness, worsening chest pain, n/v, unilateral weakness. - Current Medication List Current Medications: Active Medications Diazepam (Valium -) 10 mg PO Q6H PRN PRN Reason: MUSCLE SPASMS Last Admin: 03/01/18 11:18 Dose: 10 mg Docusate Sodium (Colace -) 100 mg PO BID [facility] Last Admin: 03/01/18 11:04 Dose: 100 mg Guaifenesin (Mucinex -) 600 mg PO BID [facility] Last Admin: 03/01/18 11:11 Dose: Not Given Guaifenesin (Robitussin -) 10 ml PO Q6H PRN PRN Reason: COUGH Last Admin: 02/26/18 21:25 Dose: 10 ml Ipratropium [place] (Atrovent 0.02% Nebulizer -) 1 amp NEB RQID [facility] Last Admin: 03/01/18 11:20 Dose: 1 amp Levalbuterol HCl (Xopenex) 0.63 mg IH Q8H PRN PRN Reason: ASTHMA Methylprednisolone Sodium Succinate (Solu-Medrol -) 80 mg IVPUSH Q8H-IV [facility] Last Admin: 03/01/18 11:04 Dose: 80 mg Montelukast Sodium (Singulair -) 10 mg PO [facility] Last Admin: 02/28/18 21:16 Dose: 10 mg Ondansetron HCl (Zofran Odt -) 8 mg SL Q12H PRN PRN Reason: NAUSEA AND/OR VOMITING Last Admin: 02/28/18 11:40 Dose: 8 mg Ondansetron HCl (Zofran Injection) 4 mg IVPUSH Q6H PRN PRN Reason: NAUSEA AND/OR VOMITING Last Admin: 03/01/18 02:19 Dose: 4 mg Polyethylene Glycol (Miralax (For Daily Use) -) 17 gm PO BID [facility] Last Admin: 03/01/18 11:04 Dose: 17 gm Quetiapine Fumarate (Seroquel -) 25 mg PO [facility] Last Admin: 02/28/18 21:16 Dose: 25 mg Ranitidine HCl (Zantac -) 300 mg PO DAILY [facility] Last Admin: 03/01/18 11:02 Dose: Not Given Senna (Senna -) 1 tab PO BID [facility] Last Admin: 03/01/18 11:04 Dose: 1 tab Tapentadol (Nucynta -) 75 mg PO Q6H PRN PRN Reason: PAIN LEVEL 6-10 Last Admin: 03/01/18 11:18 Dose: 75 mg Tramadol HCl (Ultram -) 50 mg PO Q8H PRN PRN Reason: PAIN LEVEL 4 - 6 Last Admin: 02/28/18 15:00 Dose: 50 mg Venlafaxine HCl (Effexor Xr -) 75 mg PO DAILY [facility] Last Admin: 02/28/18 11:40 Dose: 75 mg Zolpidem Tartrate (Ambien -) 10 mg PO HS PRN PRN Reason: INSOMNIA Last Admin: 02/28/18 21:16 Dose: 10 mg - Objective Vital Signs: Vital Signs Temperature 98.5 F 03/01/18 09:00 Pulse Rate 88 03/01/18 09:00 Respiratory Rate 18 03/01/18 09:00 Blood Pressure 139/83 03/01/18 09:00 O2 Sat by Pulse Oximetry (%) 98 02/28/18 21:00 Constitutional: Yes: Well Nourished, No Distress, Anxious Cardiovascular: Yes: WNL, Regular Rate and Rhythm. No: Murmur, Rub Respiratory: Yes: Regular, Rhonchi (scattered), Wheezes (mild, upper posterior thorax). No: Accessory Muscle Use, Tachypnea Gastrointestinal: Yes: WNL, Normal Bowel Sounds, Soft. No: Distention, Tenderness Genitourinary: Yes: WNL Edema: No Neurological: Yes: WNL, Alert, Oriented Psychiatric: Yes: WNL, Alert, Oriented Labs: CBC, BMP 03/01/18 06:50 03/01/18 06:50 Problem List - Problems (1) Asthma exacerbation Code(s): J45.901 - UNSPECIFIED ASTHMA WITH (ACUTE) EXACERBATION Qualifiers: Asthma severity: moderate (2) Failure of outpatient treatment Code(s): Z78.9 - OTHER SPECIFIED HEALTH STATUS (3) Chronic pain Code(s): G89.29 - OTHER CHRONIC PAIN (4) GERD (gastroesophageal reflux disease) Code(s): K21.9 - GASTRO-ESOPHAGEAL REFLUX DISEASE WITHOUT ESOPHAGITIS (5) Sinus tachycardia Code(s): R00.0 - TACHYCARDIA, UNSPECIFIED (6) Confusion Code(s): R41.0 - DISORIENTATION, UNSPECIFIED (7) Anxiety Code(s): F41.9 - ANXIETY DISORDER, UNSPECIFIED (8) Depression Code(s): F32.9 - MAJOR DEPRESSIVE DISORDER, SINGLE EPISODE, UNSPECIFIED Assessment/Plan (1) Asthma exacerbation Assessment/Plan: still w/ sob lung exam- improving, still w/ rhonchi, wheezes solumedrol continue nebs monitor peak flow pulm following Code(s): J45.901 - UNSPECIFIED ASTHMA WITH (ACUTE) EXACERBATION Qualifiers: Asthma severity: moderate (2) Failure of outpatient treatment Assessment/Plan: as above requiring iv steroids Code(s): Z78.9 - OTHER SPECIFIED HEALTH STATUS (5) Sinus tachycardia Assessment/Plan: resolved suspect 2/2 asthma exacerbation, anxiety ekg without changes echo wnl cardiology consult appreciated Code(s): R00.0 - TACHYCARDIA, UNSPECIFIED (6) Confusion Assessment/Plan: resolved Head CT negative neurology consult appreciated Code(s): R41.0 - DISORIENTATION, UNSPECIFIED (7) Anxiety Assessment/Plan: continue home meds Code(s): F41.9 - ANXIETY DISORDER, UNSPECIFIED (8) Depression Assessment/Plan: continue home meds Code(s): F32.9 - MAJOR DEPRESSIVE DISORDER, SINGLE EPISODE, UNSPECIFIED (3) Chronic pain Assessment/Plan: controlled continue home meds Code(s): G89.29 - OTHER CHRONIC PAIN (4) GERD (gastroesophageal reflux disease) Assessment/Plan: chronic continue zantac Code(s): K21.9 - GASTRO-ESOPHAGEAL REFLUX DISEASE WITHOUT ESOPHAGITIS Dispo: Home when pulm cleared
[2018-03-01] MEDS: VENLAFAXINE HCL 75 MG E.R. CAPSULES (FP) PO SCH (13:03)
[2018-03-01 13:33] VITALS: BMI 28.1
--- NOTE | 2018-03-01 15:16 | PN ---
Progress Note (short form) - Note Progress Note: s: breathing improving. no chest pain, palps, dizzy, lightheadedness Current Medications Diazepam (Valium -) 10 mg PO Q6H PRN PRN Reason: MUSCLE SPASMS Last Admin: 03/01/18 11:18 Dose: 10 mg Docusate Sodium (Colace -) 100 mg PO BID [facility] Last Admin: 03/01/18 11:04 Dose: 100 mg Guaifenesin (Robitussin -) 10 ml PO Q6H PRN PRN Reason: COUGH Last Admin: 02/26/18 21:25 Dose: 10 ml Ipratropium [place] (Atrovent 0.02% Nebulizer -) 1 amp NEB RQID [facility] Last Admin: 03/01/18 11:20 Dose: 1 amp Levalbuterol HCl (Xopenex) 0.63 mg IH Q8H PRN PRN Reason: ASTHMA Methylprednisolone Sodium Succinate (Solu-Medrol -) 80 mg IVPUSH Q8H-IV [facility] Last Admin: 03/01/18 11:04 Dose: 80 mg Montelukast Sodium (Singulair -) 10 mg PO [facility] Last Admin: 02/28/18 21:16 Dose: 10 mg Ondansetron HCl (Zofran Odt -) 8 mg SL Q12H PRN PRN Reason: NAUSEA AND/OR VOMITING Last Admin: 02/28/18 11:40 Dose: 8 mg Ondansetron HCl (Zofran Injection) 4 mg IVPUSH Q6H PRN PRN Reason: NAUSEA AND/OR VOMITING Last Admin: 03/01/18 02:19 Dose: 4 mg Polyethylene Glycol (Miralax (For Daily Use) -) 17 gm PO BID [facility] Last Admin: 03/01/18 11:04 Dose: 17 gm Quetiapine Fumarate (Seroquel -) 25 mg PO [facility] Last Admin: 02/28/18 21:16 Dose: 25 mg Ranitidine HCl (Zantac -) 300 mg PO DAILY [facility] Last Admin: 03/01/18 11:02 Dose: Not Given Senna (Senna -) 1 tab PO BID [facility] Last Admin: 03/01/18 11:04 Dose: 1 tab Tapentadol (Nucynta -) 75 mg PO Q6H PRN PRN Reason: PAIN LEVEL 6-10 Last Admin: 03/01/18 11:18 Dose: 75 mg Tramadol HCl (Ultram -) 50 mg PO Q8H PRN PRN Reason: PAIN LEVEL 4 - 6 Last Admin: 02/28/18 15:00 Dose: 50 mg Venlafaxine HCl (Effexor Xr -) 75 mg PO DAILY [facility] Last Admin: 03/01/18 13:03 Dose: 75 mg Zolpidem Tartrate (Ambien -) 10 mg PO HS PRN PRN Reason: INSOMNIA Last Admin: 02/28/18 21:16 Dose: 10 mg Vital Signs: Vital Signs Period Temp Pulse Resp BP Sys/Francisco Pulse Ox Last 24 Hr 98.3 F-98.5 F 87-105 17-19 128-156/70-86 98 Constitutional: Yes: Well Nourished, No Distress, Calm Eyes: Yes: Conjunctiva Clear, EOM Intact HENT: Yes: Atraumatic, Normocephalic Neck: Yes: Supple, Trachea Midline Respiratory: Yes: Regular, bilateral diffuse expiratory wheezes Gastrointestinal: Yes: Normal Bowel Sounds, Soft Cardiovascular: Yes: Regular Rate and Rhythm JVD: No Musculoskeletal: Yes: WNL Edema: No Peripheral Pulses WNL: Yes Peripheral Pulses: 2+ Left Doralis Pedis, 2+ Right Dorsalis Pedis Neurological: Yes: Alert, Oriented Psychiatric: Yes: Alert, Oriented Assessment/Plan EKG: sinus tachycardia CXR no acute process echo 02/2018 nl LV function, RV not well visualized, trace to mild MR 37F h/o asthma, anemia, GERD p/w chest tightness, wheezing tachycardia - likely in setting of steroids, nebs - also significant history of anxiety - per patient prior holter unremarkable - echo unremarkable - stable from cardiac perspective Asthma, chest tightness - manage per primary, pulm - remains on IV steroids - on levalbuterol, avoiding albuterol due to history of worsening tachycardia GERD - manage per primary team Anxiety - on diazepam
[2018-03-01] MEDS: traMADol HCL 50 MG TABLET PO PRN (16:34)
[2018-03-01] MEDS: ZOLPIDEM TARTRATE 5 MG TABLET PO PRN (21:19)
[2018-03-01] MEDS: QUEtiapine FUMARATE 25 MG TABLET (FP) PO SCH (21:19)
[2018-03-01] MEDS: MONTELUKAST NA 10 MG TABLET PO SCH (21:20)
[2018-03-02] MEDS: methylPREDNISolone NA SUCC 40 MG/1 ML VIAL IVPUSH SCH ×3 (02:55→17:29)
[2018-03-02 07:58] LABS: BASO % 0.1 % (0-2.0); HEMOGLOBIN 12.3 GM/dL (10.7-15.3); LYMPH % 10.8 % (8-40); MCH 28.4 pg (25.7-33.7); MCHC 32.4 g/dl (32.0-36.0); MEAN CELL VOLUME 87.8 fl (80-96); MEAN PLT VOLUME 7.5 fl (7.5-11.1); MONO % 5.8 % (3.8-10.2); NEUT % 83.3 % (42.8-82.8); PLATELET COUNT 331 K/MM3 (134-434); RBC 4.33 M/mm3 (3.60-5.2); RDW 13.7 % (11.6-15.6); WHITE BLOOD COUNT 21.3 K/mm3 (4.0-10.0)
[2018-03-02 08:21] LABS: ALBUMIN 2.8 g/dl (3.4-5.0); ALK PHOS 66 U/L (45-117); ANION GAP 6 MMOL/L (8-16); BILIRUBIN,TOTAL 0.3 mg/dL (0.2-1); BLOOD UREA NITROGEN 19 mg/dL (7-18); CALCIUM 8.2 mg/dL (8.5-10.1); CHLORIDE 101 mmol/L (98-107); CO2 29 mmol/L (21-32); CREATININE 0.6 mg/dL (0.55-1.3); GLUCOSE,RANDOM 131 mg/dL (74-106); POTASSIUM 4.5 mmol/L (3.5-5.1); SGOT/AST 26 U/L (15-37); SGPT/ALT 128 U/L (13-61); SODIUM 137 mmol/L (136-145); TOT PROT 5.8 g/dl (6.4-8.2)
[2018-03-02] MEDS: IPRATROPIUM BR 0.02% 0.5 MG/2.5 ML VIAL.NEB. NEB SCH ×4 (08:30→20:25)
--- NOTE | 2018-03-02 09:22 | PN ---
Progress Note (short form) - Note Progress Note: Neurology History of Present Illness: 37 y/o young woman with a past medical history of Asthma, Anemia, GERD, Herniated Disc s/p Lumbar Decompression/Fusion L5-S1 (11/2016). Who presents to the ED sent in from her PMD for chest tightness, wheezing and failed out patient therapy (Azithromycin- for Asthma Flare). Was consulted to due to reported episode of confusion. Case discussed with CUSTOMER RELATIONS SPECIALIST when consulted, recommended CT head, completed, no acute changes. During my eval, patient is awake, alert, knows she's in the hospital and give the name [facility]. Knows it 's February 2018. Does get migraines and reported having tension type headache has improved. States the Nucynta she gets for her back helps her headaches. Also gets tramadol as needed for headaches, per patient. Seen by PCP over weekend, respiratory status improved. More awake and getting out of bed this morning. Ambulated to bathroom during my visit. - Allergies Allergies/Adverse Reactions: Allergies Allergy/AdvReac Type Severity Reaction Status Date / Time albuterol Allergy Severe Swelling Verified 02/22/18 14:40 banana Allergy Unknown Verified 02/22/18 14:40 mushroom Allergy Unknown Verified 02/22/18 14:40 codeine [Codeine] Allergy Difficulty Verified 02/22/18 14:40 Breathing Fish Containing Products Allergy Verified 02/22/18 14:40 hydromorphone HCl Allergy difficulty Verified 02/22/18 14:40 [From Dilaudid] breathibg samir Allergy Verified 02/22/18 14:40 meperidine HCl [From Demerol] Allergy Difficulty Verified 02/22/18 14:40 Breathing metoclopramide HCl Allergy Swelling Verified 02/22/18 14:40 [From Reglan] morphine Allergy difficulty Verified 02/22/18 14:40 breathibg oxycodone HCl [From Percocet] Allergy Verified 02/22/18 14:40 shellfish derived Allergy Swelling,ra Verified 02/22/18 14:40 sh watermelon Allergy Verified 02/22/18 14:40 cantaloupe Allergy Uncoded 02/22/18 14:40 miller Allergy Uncoded 02/22/18 14:40 mustard,fish,vinegar Allergy swelling,ra Uncoded 02/22/18 14:40 sh NARCOTICS Allergy Difficulty Uncoded 02/22/18 14:40 Breathing nuts Allergy Uncoded 02/22/18 14:40 Active Medications Diazepam (Valium -) 10 mg PO Q6H PRN PRN Reason: MUSCLE SPASMS Last Admin: 03/01/18 19:07 Dose: 10 mg Docusate Sodium (Colace -) 100 mg PO BID [facility] Last Admin: 03/01/18 21:19 Dose: 100 mg Ipratropium [place] (Atrovent 0.02% Nebulizer -) 1 amp NEB RQID [facility] Last Admin: 03/01/18 21:30 Dose: 1 amp Levalbuterol HCl (Xopenex) 0.63 mg IH Q8H PRN PRN Reason: ASTHMA Methylprednisolone Sodium Succinate (Solu-Medrol -) 80 mg IVPUSH Q8H-IV [facility] Last Admin: 03/02/18 02:55 Dose: 80 mg Montelukast Sodium (Singulair -) 10 mg PO [facility] Last Admin: 03/01/18 21:20 Dose: 10 mg Ondansetron HCl (Zofran Odt -) 8 mg SL Q12H PRN PRN Reason: NAUSEA AND/OR VOMITING Last Admin: 02/28/18 11:40 Dose: 8 mg Ondansetron HCl (Zofran Injection) 4 mg IVPUSH Q6H PRN PRN Reason: NAUSEA AND/OR VOMITING Last Admin: 03/01/18 23:44 Dose: 4 mg Polyethylene Glycol (Miralax (For Daily Use) -) 17 gm PO BID [facility] Last Admin: 03/01/18 21:15 Dose: Not Given Quetiapine Fumarate (Seroquel -) 25 mg PO [facility] Last Admin: 03/01/18 21:19 Dose: 25 mg Ranitidine HCl (Zantac -) 300 mg PO DAILY [facility] Last Admin: 03/01/18 11:02 Dose: Not Given Senna (Senna -) 1 tab PO BID [facility] Last Admin: 03/01/18 21:21 Dose: Not Given Tapentadol (Nucynta -) 75 mg PO Q6H PRN PRN Reason: PAIN LEVEL 6-10 Last Admin: 03/01/18 21:22 Dose: 75 mg Tramadol HCl (Ultram -) 50 mg PO Q8H PRN PRN Reason: PAIN LEVEL 4 - 6 Last Admin: 03/01/18 16:34 Dose: 50 mg Venlafaxine HCl (Effexor Xr -) 75 mg PO DAILY [facility] Last Admin: 03/01/18 13:03 Dose: 75 mg Zolpidem Tartrate (Ambien -) 10 mg PO HS PRN PRN Reason: INSOMNIA Last Admin: 03/01/18 21:19 Dose: 10 mg Physical Examination Vital Signs Period Temp Pulse Resp BP Sys/Francisco Pulse Ox Last 24 Hr 98.0 F-98.5 F 91-99 20-20 113-154/79-95 96-96 Gen: Awake, alert, responds to questions Card: RRR, nml S1,S2 Resp: Normal symmetric effort, lungs clear to auscultation Abdomen: Soft, nontender, bowel sounds active Musculoskeletal: Adequate range of motion without significant deformity Head atraumatic and normocephalic CN: PERRL, EOMI intact, no apparent facial droop, no abnormalities in facial sensation, palate elevates, uvula and tongue midline Motor: Full strength to confrontation in upper and lower extermities proximally and distally. Tone normal throughout Sensory: Intact to Temperature, light touch, and pinprick in all extremities Coordination: Intact on [id number] testing Gait: Deferred CBCD WBC 21.3 K/mm3 (4.0-10.0) H 03/02/18 06:30 RBC 4.33 M/mm3 (3.60-5.2) 03/02/18 06:30 Hgb 12.3 GM/dL (10.7-15.3) 03/02/18 06:30 Hct 38.0 % (32.4-45.2) 03/02/18 06:30 MCV 87.8 fl (80-96) 03/02/18 06:30 MCHC 32.4 g/dl (32.0-36.0) 03/02/18 06:30 RDW 13.7 % (11.6-15.6) 03/02/18 06:30 Plt Count 331 K/MM3 (134-434) 03/02/18 06:30 MPV 7.5 fl (7.5-11.1) 03/02/18 06:30 CMP Sodium 137 mmol/L (136-145) 03/02/18 06:30 Potassium 4.5 mmol/L (3.5-5.1) 03/02/18 06:30 Chloride 101 mmol/L (98-107) 03/02/18 06:30 Carbon Dioxide 29 mmol/L (21-32) 03/02/18 06:30 Anion Gap 6 MMOL/L (8-16) L 03/02/18 06:30 BUN 19 mg/dL (7-18) H 03/02/18 06:30 Creatinine 0.6 mg/dL (0.55-1.3) 03/02/18 06:30 Creat Clearance w eGFR > 60 (>60) 03/02/18 06:30 Random Glucose 131 mg/dL (74-106) H 03/02/18 06:30 Calcium 8.2 mg/dL (8.5-10.1) L 03/02/18 06:30 Total Bilirubin 0.3 mg/dL (0.2-1) 03/02/18 06:30 AST 26 U/L (15-37) 03/02/18 06:30 ALT 128 U/L (13-61) H 03/02/18 06:30 Alkaline Phosphatase 66 U/L (45-117) 03/02/18 06:30 Total Protein 5.8 g/dl (6.4-8.2) L 03/02/18 06:30 Albumin 2.8 g/dl (3.4-5.0) L 03/02/18 06:30 Problem List 37 y/o young woman with a past medical history of Asthma, Anemia, GERD, Herniated Disc s/p Lumbar Decompression/Fusion L5-S1 (11/2016). Who presents to the ED sent in from her PMD for chest tightness, wheezing and failed out patient therapy (Azithromycin- for Asthma Flare). Was consulted to due to reported episode of confusion. Case discussed with CUSTOMER RELATIONS SPECIALIST when consulted, recommended CT head, completed, reviewed and discussed, no acute changes. During my eval, patient is awake, alert, knows she's in the hospital and give the name [facility]. Knows it's February 2018. Does get migraines and reported having tension type headache over night. States the Nucynta she gets for her back helps her headaches. Also get tramadol as needed for headaches, per patient. Respiratory status improved, ambulating out of bed today. Well appearing, neurologically stable. Continued hydration.
[2018-03-02] MEDS ORDERED: PT OWN MED DRAWER 7, Y5N ONE ×3 (09:37→23:24)
[2018-03-02] MEDS: SENNOSIDES 8.6MG TABLET (FP) PO SCH ×2 (09:40→21:13)
[2018-03-02] MEDS: DOCUSATE SODIUM 100 MG CAPSULE (FP) PO SCH ×2 (09:40→21:12)
[2018-03-02] MEDS: VENLAFAXINE HCL 75 MG E.R. CAPSULES (FP) PO SCH (09:41)
[2018-03-02] MEDS: RANITIDINE HCL 150 MG TABLET (FP) PO SCH (09:41)
[2018-03-02] MEDS: diazePAM 5 MG TABLET PO PRN ×2 (09:45→21:14)
[2018-03-02] MEDS: POLYETHYLENE GLYCOL 3350 119 GM BTL PO SCH ×2 (10:00→21:12)
[2018-03-02 11:09] LABS: ACANTHOCYTES 0; ANISOCYTOSIS 0; HELMET CELLS 0; HOWELL-JOLLY BODIES 0; MACROCYTOSIS 0; OVALOCYTE 0; PLATELET ESTIMATE NORMAL; ROULEAU 0; SICKELED CELLS 0; TARGET CELLS 0; TEAR DROP CELLS 0; TOXIC GRANULATION 0
--- NOTE | 2018-03-02 11:16 | PN ---
Progress Note (short form) - Note Progress Note: PULMONARY Still with shortness of breath, cough and wheezing. Peak flow 230 this AM. Vital Signs Period Temp Pulse Resp BP Sys/Francisco Pulse Ox Last 24 Hr 98.0 F-99.0 F 91-99 20-22 113-154/79-95 96 Gen: NAD at rest Heart: RRR Lung: less rhonchi, wheezes Abd: soft, nontender Ext: no edema CBC, BMP 03/02/18 06:30 03/02/18 06:30 Active Medications Diazepam (Valium -) 10 mg PO Q6H PRN PRN Reason: MUSCLE SPASMS Last Admin: 03/02/18 09:45 Dose: 10 mg Docusate Sodium (Colace -) 100 mg PO BID [facility] Last Admin: 03/02/18 09:40 Dose: 100 mg Ipratropium [place] (Atrovent 0.02% Nebulizer -) 1 amp NEB RQID [facility] Last Admin: 03/02/18 11:11 Dose: 1 amp Levalbuterol HCl (Xopenex) 0.63 mg IH Q8H PRN PRN Reason: ASTHMA Methylprednisolone Sodium Succinate (Solu-Medrol -) 80 mg IVPUSH Q8H-IV [facility] Last Admin: 03/02/18 09:41 Dose: 80 mg Montelukast Sodium (Singulair -) 10 mg PO [facility] Last Admin: 03/01/18 21:20 Dose: 10 mg Ondansetron HCl (Zofran Odt -) 8 mg SL Q12H PRN PRN Reason: NAUSEA AND/OR VOMITING Last Admin: 02/28/18 11:40 Dose: 8 mg Ondansetron HCl (Zofran Injection) 4 mg IVPUSH Q6H PRN PRN Reason: NAUSEA AND/OR VOMITING Last Admin: 03/01/18 23:44 Dose: 4 mg Polyethylene Glycol (Miralax (For Daily Use) -) 17 gm PO BID [facility] Last Admin: 03/01/18 21:15 Dose: Not Given Quetiapine Fumarate (Seroquel -) 25 mg PO HS [facility] Last Admin: 03/01/18 21:19 Dose: 25 mg Ranitidine HCl (Zantac -) 300 mg PO DAILY [facility] Last Admin: 03/02/18 09:41 Dose: 300 mg Senna (Senna -) 1 tab PO BID [facility] Last Admin: 03/02/18 09:40 Dose: 1 tab Tapentadol (Nucynta -) 75 mg PO Q6H PRN PRN Reason: PAIN LEVEL 6-10 Last Admin: 03/01/18 21:22 Dose: 75 mg Tramadol HCl (Ultram -) 50 mg PO Q8H PRN PRN Reason: PAIN LEVEL 4 - 6 Last Admin: 03/01/18 16:34 Dose: 50 mg Venlafaxine HCl (Effexor Xr -) 75 mg PO DAILY [facility] Last Admin: 03/02/18 09:41 Dose: 75 mg Zolpidem Tartrate (Ambien -) 10 mg PO HS PRN PRN Reason: INSOMNIA Last Admin: 03/01/18 21:19 Dose: 10 mg A/P Acute Asthma Exacerbation GERD - will decrease medrol to 40mg q8h - inhaled bronchodilators standing and PRN - singulair - monitor peak flow - DVT prophylaxis - outpt PFTs, allergy, IgE level and RAST testing
--- NOTE | 2018-03-02 12:27 | PN ---
Progress Note (short form) - Note Progress Note: s: still sob, worse with walking. no chest pain, palps, dizzy, lightheadedness Current Medications Diazepam (Valium -) 10 mg PO Q6H PRN PRN Reason: MUSCLE SPASMS Last Admin: 03/02/18 09:45 Dose: 10 mg Docusate Sodium (Colace -) 100 mg PO BID [facility] Last Admin: 03/02/18 09:40 Dose: 100 mg Ipratropium [place] (Atrovent 0.02% Nebulizer -) 1 amp NEB RQID [facility] Last Admin: 03/02/18 11:11 Dose: 1 amp Levalbuterol HCl (Xopenex) 0.63 mg IH Q8H PRN PRN Reason: ASTHMA Methylprednisolone Sodium Succinate (Solu-Medrol -) 40 mg IVPUSH Q8H-IV [facility] Montelukast Sodium (Singulair -) 10 mg PO [facility] Last Admin: 03/01/18 21:20 Dose: 10 mg Ondansetron HCl (Zofran Odt -) 8 mg SL Q12H PRN PRN Reason: NAUSEA AND/OR VOMITING Last Admin: 02/28/18 11:40 Dose: 8 mg Ondansetron HCl (Zofran Injection) 4 mg IVPUSH Q6H PRN PRN Reason: NAUSEA AND/OR VOMITING Last Admin: 03/01/18 23:44 Dose: 4 mg Polyethylene Glycol (Miralax (For Daily Use) -) 17 gm PO BID [facility] Last Admin: 03/01/18 21:15 Dose: Not Given Quetiapine Fumarate (Seroquel -) 25 mg PO [facility] Last Admin: 03/01/18 21:19 Dose: 25 mg Ranitidine HCl (Zantac -) 300 mg PO DAILY [facility] Last Admin: 03/02/18 09:41 Dose: 300 mg Senna (Senna -) 1 tab PO BID [facility] Last Admin: 03/02/18 09:40 Dose: 1 tab Tapentadol (Nucynta -) 75 mg PO Q6H PRN PRN Reason: PAIN LEVEL 6-10 Last Admin: 03/01/18 21:22 Dose: 75 mg Tramadol HCl (Ultram -) 50 mg PO Q8H PRN PRN Reason: PAIN LEVEL 4 - 6 Last Admin: 03/01/18 16:34 Dose: 50 mg Venlafaxine HCl (Effexor Xr -) 75 mg PO DAILY [facility] Last Admin: 03/02/18 09:41 Dose: 75 mg Zolpidem Tartrate (Ambien -) 10 mg PO HS PRN PRN Reason: INSOMNIA Last Admin: 03/01/18 21:19 Dose: 10 mg Vital Signs: Vital Signs Period Temp Pulse Resp BP Sys/Francisco Pulse Ox Last 24 Hr 98.0 F-99.0 F 91-99 20-22 113-154/79-95 96 Constitutional: Yes: Well Nourished, No Distress, Calm Eyes: Yes: Conjunctiva Clear, EOM Intact HENT: Yes: Atraumatic, Normocephalic Neck: Yes: Supple, Trachea Midline Respiratory: Yes: Regular, bilateral diffuse expiratory wheezes Gastrointestinal: Yes: Normal Bowel Sounds, Soft Cardiovascular: Yes: Regular Rate and Rhythm JVD: No Musculoskeletal: Yes: WNL Edema: No Peripheral Pulses WNL: Yes Peripheral Pulses: 2+ Left Doralis Pedis, 2+ Right Dorsalis Pedis Neurological: Yes: Alert, Oriented Psychiatric: Yes: Alert, Oriented Assessment/Plan EKG: sinus tachycardia CXR no acute process echo 02/2018 nl LV function, RV not well visualized, trace to mild MR 37F h/o asthma, anemia, GERD p/w chest tightness, wheezing tachycardia - likely in setting of steroids, nebs - also significant history of anxiety - per patient prior holter unremarkable - echo unremarkable - stable from cardiac perspective Asthma, chest tightness - manage per primary, pulm - remains on IV steroids, still has wheezes on exam - on levalbuterol, avoiding albuterol due to history of worsening tachycardia GERD - manage per primary team Anxiety - on diazepam
--- NOTE | 2018-03-02 12:56 | PN ---
Progress Note, Physician Chief Complaint: Pt sitting in bed in no acute distress. sob improving. Denies any chest heaviness, worsening chest pain, n/v, unilateral weakness. - Current Medication List Current Medications: Active Medications Diazepam (Valium -) 10 mg PO Q6H PRN PRN Reason: MUSCLE SPASMS Last Admin: 03/02/18 09:45 Dose: 10 mg Docusate Sodium (Colace -) 100 mg PO BID [facility] Last Admin: 03/02/18 09:40 Dose: 100 mg Ipratropium [place] (Atrovent 0.02% Nebulizer -) 1 amp NEB RQID [facility] Last Admin: 03/02/18 11:11 Dose: 1 amp Levalbuterol HCl (Xopenex) 0.63 mg IH Q8H PRN PRN Reason: ASTHMA Methylprednisolone Sodium Succinate (Solu-Medrol -) 40 mg IVPUSH Q8H-IV [facility] Montelukast Sodium (Singulair -) 10 mg PO [facility] Last Admin: 03/01/18 21:20 Dose: 10 mg Ondansetron HCl (Zofran Odt -) 8 mg SL Q12H PRN PRN Reason: NAUSEA AND/OR VOMITING Last Admin: 02/28/18 11:40 Dose: 8 mg Ondansetron HCl (Zofran Injection) 4 mg IVPUSH Q6H PRN PRN Reason: NAUSEA AND/OR VOMITING Last Admin: 03/01/18 23:44 Dose: 4 mg Polyethylene Glycol (Miralax (For Daily Use) -) 17 gm PO BID [facility] Last Admin: 03/01/18 21:15 Dose: Not Given Quetiapine Fumarate (Seroquel -) 25 mg PO [facility] Last Admin: 03/01/18 21:19 Dose: 25 mg Ranitidine HCl (Zantac -) 300 mg PO DAILY [facility] Last Admin: 03/02/18 09:41 Dose: 300 mg Senna (Senna -) 1 tab PO BID [facility] Last Admin: 03/02/18 09:40 Dose: 1 tab Tapentadol (Nucynta -) 75 mg PO Q6H PRN PRN Reason: PAIN LEVEL 6-10 Last Admin: 03/01/18 21:22 Dose: 75 mg Tramadol HCl (Ultram -) 50 mg PO Q8H PRN PRN Reason: PAIN LEVEL 4 - 6 Last Admin: 03/01/18 16:34 Dose: 50 mg Venlafaxine HCl (Effexor Xr -) 75 mg PO DAILY [facility] Last Admin: 03/02/18 09:41 Dose: 75 mg Zolpidem Tartrate (Ambien -) 10 mg PO HS PRN PRN Reason: INSOMNIA Last Admin: 03/01/18 21:19 Dose: 10 mg - Objective Vital Signs: Vital Signs Temperature 99.0 F 03/02/18 09:33 Pulse Rate 91 H 03/02/18 09:33 Respiratory Rate 22 H 03/02/18 09:33 Blood Pressure 143/94 03/02/18 09:33 O2 Sat by Pulse Oximetry (%) 96 03/01/18 21:00 Constitutional: Yes: Well Nourished, No Distress, Anxious Cardiovascular: Yes: WNL, Regular Rate and Rhythm. No: Murmur Respiratory: Yes: Regular, CTA Bilaterally, Wheezes (mild). No: Accessory Muscle Use, Rales, Tachypnea Gastrointestinal: Yes: WNL, Normal Bowel Sounds, Soft. No: Distention, Tenderness Genitourinary: Yes: WNL Musculoskeletal: Yes: WNL Edema: No Neurological: Yes: WNL, Alert, Oriented Psychiatric: Yes: WNL, Alert, Oriented Labs: CBC, BMP 03/02/18 06:30 03/02/18 06:30 Problem List - Problems (1) Asthma exacerbation Code(s): J45.901 - UNSPECIFIED ASTHMA WITH (ACUTE) EXACERBATION Qualifiers: Asthma severity: moderate (2) Failure of outpatient treatment Code(s): Z78.9 - OTHER SPECIFIED HEALTH STATUS (3) Chronic pain Code(s): G89.29 - OTHER CHRONIC PAIN (4) GERD (gastroesophageal reflux disease) Code(s): K21.9 - GASTRO-ESOPHAGEAL REFLUX DISEASE WITHOUT ESOPHAGITIS (5) Sinus tachycardia Code(s): R00.0 - TACHYCARDIA, UNSPECIFIED (6) Confusion Code(s): R41.0 - DISORIENTATION, UNSPECIFIED (7) Anxiety Code(s): F41.9 - ANXIETY DISORDER, UNSPECIFIED (8) Depression Code(s): F32.9 - MAJOR DEPRESSIVE DISORDER, SINGLE EPISODE, UNSPECIFIED Assessment/Plan (1) Asthma exacerbation Assessment/Plan: improving lung exam- improved solumedrol taper continue nebs monitor peak flow pulm following Code(s): J45.901 - UNSPECIFIED ASTHMA WITH (ACUTE) EXACERBATION Qualifiers: Asthma severity: moderate (2) Failure of outpatient treatment Assessment/Plan: as above requiring iv steroids Code(s): Z78.9 - OTHER SPECIFIED HEALTH STATUS (5) Sinus tachycardia Assessment/Plan: resolved suspect 2/2 asthma exacerbation, anxiety ekg without changes echo wnl cardiology consult appreciated Code(s): R00.0 - TACHYCARDIA, UNSPECIFIED (6) Confusion Assessment/Plan: resolved Head CT negative neurology consult appreciated Code(s): R41.0 - DISORIENTATION, UNSPECIFIED (7) Anxiety Assessment/Plan: continue home meds Code(s): F41.9 - ANXIETY DISORDER, UNSPECIFIED (8) Depression Assessment/Plan: continue home meds Code(s): F32.9 - MAJOR DEPRESSIVE DISORDER, SINGLE EPISODE, UNSPECIFIED (3) Chronic pain Assessment/Plan: controlled continue home meds Code(s): G89.29 - OTHER CHRONIC PAIN (4) GERD (gastroesophageal reflux disease) Assessment/Plan: chronic continue zantac Code(s): K21.9 - GASTRO-ESOPHAGEAL REFLUX DISEASE WITHOUT ESOPHAGITIS Dispo: Home when pulm cleared
[2018-03-02] MEDS ORDERED: SIMETHICONE 80 MG TAB.CHEW (FP) PO ONE ×2 (19:45→20:15)
[2018-03-02] MEDS: MONTELUKAST NA 10 MG TABLET PO SCH (21:13)
[2018-03-02] MEDS: QUEtiapine FUMARATE 25 MG TABLET (FP) PO SCH (21:13)
[2018-03-02] MEDS: ZOLPIDEM TARTRATE 5 MG TABLET PO PRN (21:13)
[2018-03-02] MEDS: ONDANSETRON *ODT* 4 MG TABLET SL PRN (21:17)
[2018-03-03] MEDS: ONDANSETRON 4 MG/2 ML VIAL IVPUSH PRN (01:43)
[2018-03-03] MEDS: methylPREDNISolone NA SUCC 40 MG/1 ML VIAL IVPUSH SCH ×2 (01:44→09:40)
[2018-03-03] MEDS: IPRATROPIUM BR 0.02% 0.5 MG/2.5 ML VIAL.NEB. NEB SCH ×4 (08:11→20:45)
[2018-03-03] MEDS ORDERED: PT OWN MED DRAWER 7, Y5N ONE (09:28)
--- NOTE | 2018-03-03 09:28 | PN ---
Progress Note (short form) - Note Progress Note: Neurology History of Present Illness: 37 y/o young woman with a past medical history of Asthma, Anemia, GERD, Herniated Disc s/p Lumbar Decompression/Fusion L5-S1 (11/2016). Who presents to the ED sent in from her PMD for chest tightness, wheezing and failed out patient therapy (Azithromycin- for Asthma Flare). Was consulted to due to reported episode of confusion. Case discussed with [facility]EDDLER when consulted, recommended CT head, completed, no acute changes. During my eval, patient is awake, alert, knows she's in the hospital and give the name [facility]. Knows it 's February 2018. States the Nucynta she gets for her back helps her headaches. Also gets tramadol as needed for headaches, per patient. Seen by PCP over weekend, respiratory status improved. Reports continued weakness and shortness of breath, feels fatigued. Does c/o headache, likely tension type, already on multiple sedative medications, would avoid adding further. - Allergies Allergies/Adverse Reactions: Allergies Allergy/AdvReac Type Severity Reaction Status Date / Time albuterol Allergy Severe Swelling Verified 02/22/18 14:40 banana Allergy Unknown Verified 02/22/18 14:40 mushroom Allergy Unknown Verified 02/22/18 14:40 codeine [Codeine] Allergy Difficulty Verified 02/22/18 14:40 Breathing Fish Containing Products Allergy Verified 02/22/18 14:40 hydromorphone HCl Allergy difficulty Verified 02/22/18 14:40 [From Dilaudid] breathibg samir Allergy Verified 02/22/18 14:40 meperidine HCl [From Demerol] Allergy Difficulty Verified 02/22/18 14:40 Breathing metoclopramide HCl Allergy Swelling Verified 02/22/18 14:40 [From Reglan] morphine Allergy difficulty Verified 02/22/18 14:40 breathibg oxycodone HCl [From Percocet] Allergy Verified 02/22/18 14:40 shellfish derived Allergy Swelling,ra Verified 02/22/18 14:40 sh watermelon Allergy Verified 02/22/18 14:40 cantaloupe Allergy Uncoded 02/22/18 14:40 miller Allergy Uncoded 02/22/18 14:40 mustard,fish,vinegar Allergy swelling,ra Uncoded 02/22/18 14:40 sh NARCOTICS Allergy Difficulty Uncoded 02/22/18 14:40 Breathing nuts Allergy Uncoded 02/22/18 14:40 Active Medications Diazepam (Valium -) 10 mg PO Q6H PRN PRN Reason: MUSCLE SPASMS Last Admin: 03/02/18 21:14 Dose: 10 mg Docusate Sodium (Colace -) 100 mg PO BID [facility] Last Admin: 03/02/18 21:12 Dose: 100 mg Ipratropium [place] (Atrovent 0.02% Nebulizer -) 1 amp NEB RQID [facility] Last Admin: 03/03/18 08:11 Dose: 1 amp Levalbuterol HCl (Xopenex) 0.63 mg IH Q8H PRN PRN Reason: ASTHMA Methylprednisolone Sodium Succinate (Solu-Medrol -) 40 mg IVPUSH Q8H-IV [facility] Last Admin: 03/03/18 01:44 Dose: 40 mg Montelukast Sodium (Singulair -) 10 mg PO [facility] Last Admin: 03/02/18 21:13 Dose: 10 mg Ondansetron HCl (Zofran Odt -) 8 mg SL Q12H PRN PRN Reason: NAUSEA AND/OR VOMITING Last Admin: 03/02/18 21:17 Dose: 8 mg Ondansetron HCl (Zofran Injection) 4 mg IVPUSH Q6H PRN PRN Reason: NAUSEA AND/OR VOMITING Last Admin: 03/03/18 01:43 Dose: 4 mg Polyethylene Glycol (Miralax (For Daily Use) -) 17 gm PO BID [facility] Last Admin: 03/02/18 21:12 Dose: 17 gm Quetiapine Fumarate (Seroquel -) 25 mg PO [facility] Last Admin: 03/02/18 21:13 Dose: 25 mg Ranitidine HCl (Zantac -) 300 mg PO DAILY [facility] Last Admin: 03/02/18 09:41 Dose: 300 mg Senna (Senna -) 1 tab PO BID [facility] Last Admin: 03/02/18 21:13 Dose: 1 tab Tapentadol (Nucynta -) 75 mg PO Q6H PRN PRN Reason: PAIN LEVEL 6-10 Last Admin: 03/01/18 21:22 Dose: 75 mg Tramadol HCl (Ultram -) 50 mg PO Q8H PRN PRN Reason: PAIN LEVEL 4 - 6 Last Admin: 03/01/18 16:34 Dose: 50 mg Venlafaxine HCl (Effexor Xr -) 75 mg PO DAILY [facility] Last Admin: 03/02/18 09:41 Dose: 75 mg Zolpidem Tartrate (Ambien -) 10 mg PO HS PRN PRN Reason: INSOMNIA Last Admin: 03/02/18 21:13 Dose: 10 mg Physical Examination Vital Signs Temperature 98.6 F 03/03/18 09:25 Pulse Rate 94 H 03/03/18 09:25 Respiratory Rate 18 03/03/18 09:25 Blood Pressure 142/88 03/03/18 09:25 O2 Sat by Pulse Oximetry (%) 96 03/02/18 21:00 Gen: Awake, alert, responds to questions Card: RRR, nml S1,S2 Resp: Normal symmetric effort, lungs clear to auscultation Abdomen: Soft, nontender, bowel sounds active Musculoskeletal: Adequate range of motion without significant deformity Head atraumatic and normocephalic CN: PERRL, EOMI intact, no apparent facial droop, no abnormalities in facial sensation, palate elevates, uvula and tongue midline Motor: Full strength to confrontation in upper and lower extermities proximally and distally. Tone normal throughout Sensory: Intact to Temperature, light touch, and pinprick in all extremities Coordination: Intact on [id number] testing Gait: Deferred CBCD WBC 21.3 K/mm3 (4.0-10.0) H 03/02/18 06:30 RBC 4.33 M/mm3 (3.60-5.2) 03/02/18 06:30 Hgb 12.3 GM/dL (10.7-15.3) 03/02/18 06:30 Hct 38.0 % (32.4-45.2) 03/02/18 06:30 MCV 87.8 fl (80-96) 03/02/18 06:30 MCHC 32.4 g/dl (32.0-36.0) 03/02/18 06:30 RDW 13.7 % (11.6-15.6) 03/02/18 06:30 Plt Count 331 K/MM3 (134-434) 03/02/18 06:30 MPV 7.5 fl (7.5-11.1) 03/02/18 06:30 CMP Sodium 137 mmol/L (136-145) 03/02/18 06:30 Potassium 4.5 mmol/L (3.5-5.1) 03/02/18 06:30 Chloride 101 mmol/L (98-107) 03/02/18 06:30 Carbon Dioxide 29 mmol/L (21-32) 03/02/18 06:30 Anion Gap 6 MMOL/L (8-16) L 03/02/18 06:30 BUN 19 mg/dL (7-18) H 03/02/18 06:30 Creatinine 0.6 mg/dL (0.55-1.3) 03/02/18 06:30 Creat Clearance w eGFR > 60 (>60) 03/02/18 06:30 Calcium 8.2 mg/dL (8.5-10.1) L 03/02/18 06:30 Total Bilirubin 0.3 mg/dL (0.2-1) 03/02/18 06:30 AST 26 U/L (15-37) 03/02/18 06:30 ALT 128 U/L (13-61) H 03/02/18 06:30 Alkaline Phosphatase 66 U/L (45-117) 03/02/18 06:30 Total Protein 5.8 g/dl (6.4-8.2) L 03/02/18 06:30 Albumin 2.8 g/dl (3.4-5.0) L 03/02/18 06:30 Problem List 37 y/o young woman with a past medical history of Asthma, Anemia, GERD, Herniated Disc s/p Lumbar Decompression/Fusion L5-S1 (11/2016). Who presents to the ED sent in from her PMD for chest tightness, wheezing and failed out patient therapy (Azithromycin- for Asthma Flare). Was consulted to due to reported episode of confusion. Case discussed with [facility] when consulted, recommended CT head, completed, reviewed and discussed, no acute changes. During my eval, patient is awake, alert, knows she's in the hospital and give the name [facility]. Knows it's February 2018. Does get migraines and reported having tension type headache. States the Nucynta she gets for her back helps her headaches. Also gets tramadol as needed for headaches, per patient. Patient feels still short of breath, pulmonary followup, optimize respiratory status. Ambulation and activity recommended. Remains on IV solumedrol. DVT ppx.
[2018-03-03] MEDS: traMADol HCL 50 MG TABLET PO PRN ×2 (09:41→23:29)
[2018-03-03] MEDS: VENLAFAXINE HCL 75 MG E.R. CAPSULES (FP) PO SCH (09:41)
[2018-03-03] MEDS: RANITIDINE HCL 150 MG TABLET (FP) PO SCH (09:41)
[2018-03-03] MEDS: diazePAM 5 MG TABLET PO PRN ×2 (09:41→23:05)
[2018-03-03] MEDS: POLYETHYLENE GLYCOL 3350 119 GM BTL PO SCH ×2 (09:42→23:06)
[2018-03-03] MEDS: DOCUSATE SODIUM 100 MG CAPSULE (FP) PO SCH ×2 (09:42→23:06)
[2018-03-03] MEDS: SENNOSIDES 8.6MG TABLET (FP) PO SCH ×2 (09:42→23:06)
--- NOTE | 2018-03-03 13:07 | PN ---
Progress Note, Physician History of Present Illness: pulmonary alert,feeling better,dyspnea improving - Current Medication List Current Medications: Active Medications Bisacodyl (Dulcolax Suppository -) 10 mg VT ONCE ONE Stop: 03/03/18 12:40 Diazepam (Valium -) 10 mg PO Q6H PRN PRN Reason: MUSCLE SPASMS Last Admin: 03/03/18 09:41 Dose: 10 mg Docusate Sodium (Colace -) 100 mg PO BID [facility] Last Admin: 03/03/18 09:42 Dose: 100 mg Ipratropium [place] (Atrovent 0.02% Nebulizer -) 1 amp NEB RQID [facility] Last Admin: 03/03/18 11:00 Dose: 1 amp Levalbuterol HCl (Xopenex) 0.63 mg IH Q8H PRN PRN Reason: ASTHMA Methylprednisolone Sodium Succinate (Solu-Medrol -) 40 mg IVPUSH Q8H-IV [facility] Last Admin: 03/03/18 09:40 Dose: 40 mg Montelukast Sodium (Singulair -) 10 mg PO HS [facility] Last Admin: 03/02/18 21:13 Dose: 10 mg Ondansetron HCl (Zofran Odt -) 8 mg SL Q12H PRN PRN Reason: NAUSEA AND/OR VOMITING Last Admin: 03/02/18 21:17 Dose: 8 mg Ondansetron HCl (Zofran Injection) 4 mg IVPUSH Q6H PRN PRN Reason: NAUSEA AND/OR VOMITING Last Admin: 03/03/18 01:43 Dose: 4 mg Polyethylene Glycol (Miralax (For Daily Use) -) 17 gm PO BID [facility] Last Admin: 03/03/18 09:42 Dose: 17 gm Quetiapine Fumarate (Seroquel -) 25 mg PO HS [facility] Last Admin: 03/02/18 21:13 Dose: 25 mg Ranitidine HCl (Zantac -) 300 mg PO DAILY [facility] Last Admin: 03/03/18 09:41 Dose: 300 mg Senna (Senna -) 1 tab PO BID [facility] Last Admin: 03/03/18 09:42 Dose: 1 tab Tapentadol (Nucynta -) 75 mg PO Q6H PRN PRN Reason: PAIN LEVEL 6-10 Last Admin: 03/01/18 21:22 Dose: 75 mg Tramadol HCl (Ultram -) 50 mg PO Q8H PRN PRN Reason: PAIN LEVEL 4 - 6 Last Admin: 03/03/18 09:41 Dose: 50 mg Venlafaxine HCl (Effexor Xr -) 75 mg PO DAILY [facility] Last Admin: 03/03/18 09:41 Dose: 75 mg Zolpidem Tartrate (Ambien -) 10 mg PO HS PRN PRN Reason: INSOMNIA Last Admin: 03/02/18 21:13 Dose: 10 mg - Objective Vital Signs: Vital Signs Temperature 98.6 F 03/03/18 09:25 Pulse Rate 94 H 03/03/18 09:25 Respiratory Rate 18 03/03/18 09:25 Blood Pressure 142/88 03/03/18 09:25 O2 Sat by Pulse Oximetry (%) 96 03/03/18 09:00 Constitutional: Yes: Well Nourished, Calm Eyes: Yes: WNL HENT: Yes: WNL Neck: Yes: WNL Cardiovascular: Yes: Regular Rate and Rhythm, S1, S2 Respiratory: Yes: Wheezes (scattered wheezes) Gastrointestinal: Yes: Normal Bowel Sounds, Soft Extremities: Yes: WNL Edema: No Labs: CBC, BMP Problem List - Problems (1) Asthma exacerbation Code(s): J45.901 - UNSPECIFIED ASTHMA WITH (ACUTE) EXACERBATION Qualifiers: Asthma severity: moderate (2) Failure of outpatient treatment Code(s): Z78.9 - OTHER SPECIFIED HEALTH STATUS (3) GERD (gastroesophageal reflux disease) Code(s): K21.9 - GASTRO-ESOPHAGEAL REFLUX DISEASE WITHOUT ESOPHAGITIS Assessment/Plan IMP ACUTE ASTHMA EXACERBATION LIKELY SECONDARY TO URI TACHYCARDIA ANEMIA GERD PLAN TAPER STEROIDS INHALED BRONCHODILATORS MONITOR PEAK FLOW PFTS OUTPATIENT DR JEFFRIES Problem List - Problems (1) Asthma exacerbation Code(s): J45.901 - UNSPECIFIED ASTHMA WITH (ACUTE) EXACERBATION (2) Failure of outpatient treatment Code(s): Z78.9 - OTHER SPECIFIED HEALTH STATUS (3) GERD (gastroesophageal reflux disease) Code(s): K21.9 - GASTRO-ESOPHAGEAL REFLUX DISEASE WITHOUT ESOPHAGITIS
[2018-03-03] MEDS ORDERED: BISACODYL 10 MG SUPP.RECT RC ONE (13:15)
--- NOTE | 2018-03-03 13:33 | PN ---
Progress Note, Physician Chief Complaint: Pt sitting in bed in no acute distress. sob improved. Denies any chest heaviness, worsening chest pain, n/v, unilateral weakness. - Current Medication List Current Medications: Active Medications Diazepam (Valium -) 10 mg PO Q6H PRN PRN Reason: MUSCLE SPASMS Last Admin: 03/03/18 09:41 Dose: 10 mg Docusate Sodium (Colace -) 100 mg PO BID [facility] Last Admin: 03/03/18 09:42 Dose: 100 mg Ipratropium [place] (Atrovent 0.02% Nebulizer -) 1 amp NEB RQID [facility] Last Admin: 03/03/18 11:00 Dose: 1 amp Levalbuterol HCl (Xopenex) 0.63 mg IH Q8H PRN PRN Reason: ASTHMA Methylprednisolone Sodium Succinate (Solu-Medrol -) 40 mg IVPUSH BID [facility] Montelukast Sodium (Singulair -) 10 mg PO [facility] Last Admin: 03/02/18 21:13 Dose: 10 mg Ondansetron HCl (Zofran Odt -) 8 mg SL Q12H PRN PRN Reason: NAUSEA AND/OR VOMITING Last Admin: 03/02/18 21:17 Dose: 8 mg Ondansetron HCl (Zofran Injection) 4 mg IVPUSH Q6H PRN PRN Reason: NAUSEA AND/OR VOMITING Last Admin: 03/03/18 01:43 Dose: 4 mg Polyethylene Glycol (Miralax (For Daily Use) -) 17 gm PO BID [facility] Last Admin: 03/03/18 09:42 Dose: 17 gm Quetiapine Fumarate (Seroquel -) 25 mg PO [facility] Last Admin: 03/02/18 21:13 Dose: 25 mg Ranitidine HCl (Zantac -) 300 mg PO DAILY [facility] Last Admin: 03/03/18 09:41 Dose: 300 mg Senna (Senna -) 1 tab PO BID [facility] Last Admin: 03/03/18 09:42 Dose: 1 tab Tapentadol (Nucynta -) 75 mg PO Q6H PRN PRN Reason: PAIN LEVEL 6-10 Last Admin: 03/01/18 21:22 Dose: 75 mg Tramadol HCl (Ultram -) 50 mg PO Q8H PRN PRN Reason: PAIN LEVEL 4 - 6 Last Admin: 03/03/18 09:41 Dose: 50 mg Venlafaxine HCl (Effexor Xr -) 75 mg PO DAILY [facility] Last Admin: 03/03/18 09:41 Dose: 75 mg Zolpidem Tartrate (Ambien -) 10 mg PO HS PRN PRN Reason: INSOMNIA Last Admin: 03/02/18 21:13 Dose: 10 mg - Objective Vital Signs: Vital Signs Temperature 98.6 F 03/03/18 09:25 Pulse Rate 94 H 03/03/18 09:25 Respiratory Rate 18 03/03/18 09:25 Blood Pressure 142/88 03/03/18 09:25 O2 Sat by Pulse Oximetry (%) 96 03/03/18 09:00 Constitutional: Yes: Well Nourished, No Distress, Anxious HENT: Yes: Thrush Cardiovascular: Yes: WNL, Regular Rate and Rhythm Respiratory: Yes: Regular, CTA Bilaterally, Wheezes (mild, scattered- improved) . No: Accessory Muscle Use, Stridor, Tachypnea Gastrointestinal: Yes: WNL, Normal Bowel Sounds, Soft. No: Distention, Tenderness Genitourinary: Yes: WNL Edema: No Neurological: Yes: WNL, Alert, Oriented Psychiatric: Yes: WNL, Alert, Oriented Labs: CBC, BMP 03/02/18 06:30 03/02/18 06:30 Problem List - Problems (1) Asthma exacerbation Code(s): J45.901 - UNSPECIFIED ASTHMA WITH (ACUTE) EXACERBATION Qualifiers: Asthma severity: moderate (2) Failure of outpatient treatment Code(s): Z78.9 - OTHER SPECIFIED HEALTH STATUS (3) Chronic pain Code(s): G89.29 - OTHER CHRONIC PAIN (4) GERD (gastroesophageal reflux disease) Code(s): K21.9 - GASTRO-ESOPHAGEAL REFLUX DISEASE WITHOUT ESOPHAGITIS (5) Sinus tachycardia Code(s): R00.0 - TACHYCARDIA, UNSPECIFIED (6) Confusion Code(s): R41.0 - DISORIENTATION, UNSPECIFIED (7) Anxiety Code(s): F41.9 - ANXIETY DISORDER, UNSPECIFIED (8) Depression Code(s): F32.9 - MAJOR DEPRESSIVE DISORDER, SINGLE EPISODE, UNSPECIFIED (9) Constipation Code(s): K59.00 - CONSTIPATION, UNSPECIFIED (10) Thrush Code(s): B37.0 - CANDIDAL STOMATITIS Assessment/Plan (1) Asthma exacerbation Assessment/Plan: improving lung exam- improved solumedrol taper, transition to po prednisone tomorrow continue nebs monitor peak flow pulm following Code(s): J45.901 - UNSPECIFIED ASTHMA WITH (ACUTE) EXACERBATION Qualifiers: Asthma severity: moderate (2) Failure of outpatient treatment Assessment/Plan: as above requiring iv steroids Code(s): Z78.9 - OTHER SPECIFIED HEALTH STATUS (3) Sinus tachycardia Assessment/Plan: resolved suspect 2/2 asthma exacerbation, anxiety ekg without changes echo wnl cardiology consult appreciated Code(s): R00.0 - TACHYCARDIA, UNSPECIFIED (4) Confusion Assessment/Plan: resolved Head CT negative neurology consult appreciated Code(s): R41.0 - DISORIENTATION, UNSPECIFIED (5) Anxiety Assessment/Plan: continue home meds Code(s): F41.9 - ANXIETY DISORDER, UNSPECIFIED (6) Depression Assessment/Plan: continue home meds Code(s): F32.9 - MAJOR DEPRESSIVE DISORDER, SINGLE EPISODE, UNSPECIFIED (7) Chronic pain Assessment/Plan: controlled continue home meds Code(s): G89.29 - OTHER CHRONIC PAIN (8) GERD (gastroesophageal reflux disease) Assessment/Plan: chronic continue zantac Code(s): K21.9 - GASTRO-ESOPHAGEAL REFLUX DISEASE WITHOUT ESOPHAGITIS (9) Constipation Assessment/Plan: miralax/senna/miralax dulcolax suppository ordered monitor Code(s): K59.00 - CONSTIPATION, UNSPECIFIED (10) Thrush Assessment/Plan: oral candidiasis noted suspect 2/2 iv steroids nystatin suspension ordered Code(s): B37.0 - CANDIDAL STOMATITIS Dispo: Home tomorrow. Informed pt she will be ready for discharge tomorrow.
--- NOTE | 2018-03-03 14:38 | PN ---
Progress Note (short form) - Note Progress Note: s: still sob. no chest pain, palps, dizzy, lightheadedness Current Medications Generic Name Dose Route Start Last Admin Trade Name Freq PRN Reason Stop Dose Admin Diazepam 10 mg 02/28/18 10:04 03/03/18 09:41 Valium - PO 10 mg Q6H PRN Administration MUSCLE SPASMS Docusate Sodium 100 mg 02/28/18 10:15 03/03/18 09:42 Colace - PO 100 mg BID [facility] Administration Ipratropium [place] 1 amp 02/26/18 16:00 03/03/18 11:00 Atrovent 0.02% Nebulizer - NEB 1 amp RQID [facility] Administration Levalbuterol HCl 0.63 mg 02/26/18 14:32 Xopenex IH Q8H PRN ASTHMA Methylprednisolone Sodium Succinate 40 mg 03/03/18 22:00 Solu-Medrol - IVPUSH 03/03/18 22:01 BID [facility] Montelukast Sodium 10 mg 02/26/18 22:00 03/02/18 21:13 Singulair - PO 10 mg HS [facility] Administration Nystatin 500,000 units 03/03/18 18:00 Nystatin Oral Suspension - PO Q6HPO [facility] Ondansetron HCl 8 mg 02/26/18 14:32 03/02/18 21:17 Zofran Odt - SL 8 mg Q12H PRN Administration NAUSEA AND/OR VOMITING Ondansetron HCl 4 mg 02/28/18 19:26 03/03/18 01:43 Zofran Injection IVPUSH 4 mg Q6H PRN Administration NAUSEA AND/OR VOMITING Polyethylene Glycol 17 gm 02/28/18 22:00 03/03/18 09:42 Miralax (For Daily Use) - PO 17 gm BID [facility] Administration Quetiapine Fumarate 25 mg 02/26/18 22:00 03/02/18 21:13 Seroquel - PO 25 mg HS [facility] Administration Ranitidine HCl 300 mg 02/27/18 10:00 03/03/18 09:41 Zantac - PO 300 mg DAILY [facility] Administration Senna 1 tab 02/28/18 10:15 03/03/18 09:42 Senna - PO 1 tab BID [facility] Administration Tapentadol 75 mg 02/27/18 10:11 03/01/18 21:22 Nucynta - PO 75 mg Q6H PRN Administration PAIN LEVEL 6-10 Tramadol HCl 50 mg 02/26/18 14:32 03/03/18 09:41 Ultram - PO 50 mg Q8H PRN Administration PAIN LEVEL 4 - 6 Venlafaxine HCl 75 mg 02/27/18 10:00 03/03/18 09:41 Effexor Xr - PO 75 mg DAILY [facility] Administration Zolpidem Tartrate 10 mg 02/26/18 14:32 03/02/18 21:13 Ambien - PO 10 mg HS PRN Administration INSOMNIA Vital Signs: Vital Signs Period Temp Pulse Resp BP Sys/Francisco Pulse Ox Last 24 Hr 98 F-98.6 F 82-94 18-22 130-150/75-95 96-96 Constitutional: Yes: Well Nourished, No Distress, Calm Eyes: Yes: Conjunctiva Clear Respiratory: Yes: Regular, bilateral diffuse expiratory wheezes Gastrointestinal: Yes: Normal Bowel Sounds, Soft Cardiovascular: Yes: Regular Rate and Rhythm JVD: No Edema: No Peripheral Pulses WNL: Yes Neurological: Yes: Alert, Oriented CBC, BMP 03/02/18 06:30 03/02/18 06:30 EKG: sinus tachycardia CXR no acute process echo 02/2018 nl LV function, RV not well visualized, trace to mild MR a/p: 37F h/o asthma, anemia, GERD p/w chest tightness, wheezing tachycardia - likely in setting of steroids, nebs - also significant history of anxiety - per patient prior holter unremarkable - echo unremarkable - stable from cardiac perspective Asthma, chest tightness - manage per primary, pulm - remains on IV steroids, still has wheezes on exam - on levalbuterol, avoiding albuterol due to history of worsening tachycardia GERD - manage per primary team Anxiety - on diazepam
[2018-03-03] MEDS: ONDANSETRON *ODT* 4 MG TABLET SL PRN (15:30)
[2018-03-03] MEDS: TAPENTADOL HYDROCHLORIDE 50 MG TABLET PO PRN (15:51)
[2018-03-03] MEDS: NYSTATIN 500,000 UNITS/5 ML SUSPENSION PO SCH ×2 (19:03→23:29)
[2018-03-03] MEDS ORDERED: methylPREDNISolone NA SUCC 40 MG/1 ML VIAL IVPUSH SCH (22:00)
[2018-03-03] MEDS: ZOLPIDEM TARTRATE 5 MG TABLET PO PRN (23:05)
[2018-03-03] MEDS: QUEtiapine FUMARATE 25 MG TABLET (FP) PO SCH (23:06)
[2018-03-03] MEDS: MONTELUKAST NA 10 MG TABLET PO SCH (23:06)
[2018-03-04] MEDS: NYSTATIN 500,000 UNITS/5 ML SUSPENSION PO SCH ×2 (05:27→13:29)
[2018-03-04 07:35] VITALS: BP 117/70; PULSE 98; TEMP 98.3
[2018-03-04] MEDS ORDERED: PT OWN MED DRAWER 7, Y5N ONE ×2 (08:29→10:58)
[2018-03-04] MEDS: IPRATROPIUM BR 0.02% 0.5 MG/2.5 ML VIAL.NEB. NEB SCH ×2 (08:31→12:30)
[2018-03-04] MEDS ORDERED: predniSONE 20 MG TABLET (UD) PO ONE (09:30)
--- NOTE | 2018-03-04 09:44 | PN ---
Progress Note (short form) - Note Progress Note: Neurology History of Present Illness: 37 y/o young woman with a past medical history of Asthma, Anemia, GERD, Herniated Disc s/p Lumbar Decompression/Fusion L5-S1 (11/2016). Who presents to the ED sent in from her PMD for chest tightness, wheezing and failed out patient therapy (Azithromycin- for Asthma Flare). Was consulted to due to reported episode of confusion. Case discussed with [employer] when consulted, recommended CT head, completed, no acute changes. During my eval, patient is awake, alert, knows she's in the hospital and give the name [facility]. Knows it 's February 2018. States the Nucynta she gets for her back helps her headaches. Also gets tramadol as needed for headaches, per patient. Seen by PCP over weekend, respiratory status improved. Reports continued weakness and shortness of breath, feels fatigued. States hat she goes through periods of feeling slightly better and then will not feel well thereafter. Possibly for discharge today, will defer to primary team, neurologically stable at this time - Allergies Allergies/Adverse Reactions: Allergies Allergy/AdvReac Type Severity Reaction Status Date / Time albuterol Allergy Severe Swelling Verified 02/22/18 14:40 banana Allergy Unknown Verified 02/22/18 14:40 mushroom Allergy Unknown Verified 02/22/18 14:40 codeine [Codeine] Allergy Difficulty Verified 02/22/18 14:40 Breathing Fish Containing Products Allergy Verified 02/22/18 14:40 hydromorphone HCl Allergy difficulty Verified 02/22/18 14:40 [From Dilaudid] breathibg samir Allergy Verified 02/22/18 14:40 meperidine HCl [From Demerol] Allergy Difficulty Verified 02/22/18 14:40 Breathing metoclopramide HCl Allergy Swelling Verified 02/22/18 14:40 [From Reglan] morphine Allergy difficulty Verified 02/22/18 14:40 breathibg oxycodone HCl [From Percocet] Allergy Verified 02/22/18 14:40 shellfish derived Allergy Swelling,ra Verified 02/22/18 14:40 sh watermelon Allergy Verified 02/22/18 14:40 cantaloupe Allergy Uncoded 02/22/18 14:40 miller Allergy Uncoded 02/22/18 14:40 mustard,fish,vinegar Allergy swelling,ra Uncoded 02/22/18 14:40 sh NARCOTICS Allergy Difficulty Uncoded 02/22/18 14:40 Breathing nuts Allergy Uncoded 02/22/18 14:40 Active Medications Diazepam (Valium -) 10 mg PO Q6H PRN PRN Reason: MUSCLE SPASMS Last Admin: 03/03/18 23:05 Dose: 10 mg Docusate Sodium (Colace -) 100 mg PO BID [facility] Last Admin: 03/03/18 23:06 Dose: 100 mg Ipratropium [place] (Atrovent 0.02% Nebulizer -) 1 amp NEB RQID [facility] Last Admin: 03/04/18 08:31 Dose: 1 amp Levalbuterol HCl (Xopenex) 0.63 mg IH Q8H PRN PRN Reason: ASTHMA Montelukast Sodium (Singulair -) 10 mg PO [facility] Last Admin: 03/03/18 23:06 Dose: 10 mg Nystatin (Nystatin Oral Suspension -) 500,000 units PO Q6HPO [facility] Last Admin: 03/04/18 05:27 Dose: 500,000 units Ondansetron HCl (Zofran Odt -) 8 mg SL Q12H PRN PRN Reason: NAUSEA AND/OR VOMITING Last Admin: 03/03/18 15:30 Dose: 8 mg Ondansetron HCl (Zofran Injection) 4 mg IVPUSH Q6H PRN PRN Reason: NAUSEA AND/OR VOMITING Last Admin: 03/03/18 01:43 Dose: 4 mg Polyethylene Glycol (Miralax (For Daily Use) -) 17 gm PO BID [facility] Last Admin: 03/03/18 23:06 Dose: Not Given Prednisone (Deltasone -) 75 mg PO ONCE ONE Stop: 03/04/18 09:31 Quetiapine Fumarate (Seroquel -) 25 mg PO [facility] Last Admin: 03/03/18 23:06 Dose: 25 mg Ranitidine HCl (Zantac -) 300 mg PO DAILY [facility] Last Admin: 03/03/18 09:41 Dose: 300 mg Senna (Senna -) 1 tab PO BID [facility] Last Admin: 03/03/18 23:06 Dose: 1 tab Tapentadol (Nucynta -) 75 mg PO Q6H PRN PRN Reason: PAIN LEVEL 6-10 Last Admin: 10/10/18 15:51 Dose: 75 mg Tramadol HCl (Ultram -) 50 mg PO Q8H PRN PRN Reason: PAIN LEVEL 4 - 6 Last Admin: 03/03/18 23:29 Dose: 50 mg Venlafaxine HCl (Effexor Xr -) 75 mg PO DAILY [facility] Last Admin: 03/03/18 09:41 Dose: 75 mg Zolpidem Tartrate (Ambien -) 10 mg PO HS PRN PRN Reason: INSOMNIA Last Admin: 03/03/18 23:05 Dose: 10 mg Physical Examination Vital Signs Period Temp Pulse Resp BP Sys/Francisco Pulse Ox Last 24 Hr 97.9 F-98.5 F 98-124 20-20 117-136/70-81 96 Gen: Awake, alert, responds to questions Card: RRR, nml S1,S2 Resp: Normal symmetric effort, lungs clear to auscultation Abdomen: Soft, nontender, bowel sounds active Musculoskeletal: Adequate range of motion without significant deformity Head atraumatic and normocephalic CN: PERRL, EOMI intact, no apparent facial droop, no abnormalities in facial sensation, palate elevates, uvula and tongue midline Motor: Full strength to confrontation in upper and lower extermities proximally and distally. Tone normal throughout Sensory: Intact to Temperature, light touch, and pinprick in all extremities Coordination: Intact on [id number] testing Gait: Deferred CBCD WBC 21.3 K/mm3 (4.0-10.0) H 03/02/18 06:30 RBC 4.33 M/mm3 (3.60-5.2) 03/02/18 06:30 Hgb 12.3 GM/dL (10.7-15.3) 03/02/18 06:30 Hct 38.0 % (32.4-45.2) 03/02/18 06:30 MCV 87.8 fl (80-96) 03/02/18 06:30 MCHC 32.4 g/dl (32.0-36.0) 03/02/18 06:30 RDW 13.7 % (11.6-15.6) 03/02/18 06:30 Plt Count 331 K/MM3 (134-434) 03/02/18 06:30 MPV 7.5 fl (7.5-11.1) 03/02/18 06:30 CMP Sodium 137 mmol/L (136-145) 03/02/18 06:30 Potassium 4.5 mmol/L (3.5-5.1) 03/02/18 06:30 Chloride 101 mmol/L (98-107) 03/02/18 06:30 Carbon Dioxide 29 mmol/L (21-32) 03/02/18 06:30 Anion Gap 6 MMOL/L (8-16) L 03/02/18 06:30 BUN 19 mg/dL (7-18) H 03/02/18 06:30 Creatinine 0.6 mg/dL (0.55-1.3) 03/02/18 06:30 Creat Clearance w eGFR > 60 (>60) 03/02/18 06:30 Random Glucose 131 mg/dL (74-106) H 03/02/18 06:30 Calcium 8.2 mg/dL (8.5-10.1) L 03/02/18 06:30 Total Bilirubin 0.3 mg/dL (0.2-1) 03/02/18 06:30 AST 26 U/L (15-37) 03/02/18 06:30 ALT 128 U/L (13-61) H 03/02/18 06:30 Alkaline Phosphatase 66 U/L (45-117) 03/02/18 06:30 Total Protein 5.8 g/dl (6.4-8.2) L 03/02/18 06:30 Albumin 2.8 g/dl (3.4-5.0) L 03/02/18 06:30 Problem List 37 y/o young woman with a past medical history of Asthma, Anemia, GERD, Herniated Disc s/p Lumbar Decompression/Fusion L5-S1 (11/2016). Who presents to the ED sent in from her PMD for chest tightness, wheezing and failed out patient therapy (Azithromycin- for Asthma Flare). Was consulted to due to reported episode of confusion. Case discussed with [employer] when consulted, recommended CT head, completed, reviewed and discussed, no acute changes. During my eval, patient is awake, alert, knows she's in the hospital and give the name [facility]. Knows it's February 2018. Does get migraines and reported having tension type headache. States the Nucynta she gets for her back helps her headaches. Also gets tramadol as needed for headaches, per patient. Solumedrol switched to prednisone. Neurologically stable, plan for discharge per nurse.
[2018-03-04] MEDS ORDERED: PREDNISONE PO ONE (10:15)
[2018-03-04] MEDS ORDERED: predniSONE 20 MG TABLET (UD) ONE (10:56)
[2018-03-04] MEDS ORDERED: predniSONE 10 MG TABLET (UD) ONE (10:56)
[2018-03-04] MEDS: POLYETHYLENE GLYCOL 3350 119 GM BTL PO SCH (11:25)
[2018-03-04] MEDS: RANITIDINE HCL 150 MG TABLET (FP) PO SCH (11:26)
[2018-03-04] MEDS: diazePAM 5 MG TABLET PO PRN (11:26)
[2018-03-04] MEDS: DOCUSATE SODIUM 100 MG CAPSULE (FP) PO SCH (11:26)
[2018-03-04] MEDS: SENNOSIDES 8.6MG TABLET (FP) PO SCH (11:26)
[2018-03-04] MEDS: VENLAFAXINE HCL 75 MG E.R. CAPSULES (FP) PO SCH (11:26)
--- NOTE | 2018-03-04 11:39 | PN ---
Progress Note (short form) - Note Progress Note: PULMONARY Still with shortness of breath, cough and wheezing but improved. Peak flow 250 at bedside but poor effort. Vital Signs Period Temp Pulse Resp BP Sys/Francisco Pulse Ox Last 24 Hr 97.9 F-98.5 F 98-124 20-20 117-136/70-81 96 Gen: NAD at rest Heart: RRR Lung: less rhonchi, wheezes Abd: soft, nontender Ext: no edema CBC, BMP 03/02/18 06:30 03/02/18 06:30 Active Medications Diazepam (Valium -) 10 mg PO Q6H PRN PRN Reason: MUSCLE SPASMS Last Admin: 03/04/18 11:26 Dose: 10 mg Docusate Sodium (Colace -) 100 mg PO BID [facility] Last Admin: 03/04/18 11:26 Dose: 100 mg Ipratropium [place] (Atrovent 0.02% Nebulizer -) 1 amp NEB RQID [facility] Last Admin: 03/04/18 08:31 Dose: 1 amp Levalbuterol HCl (Xopenex) 0.63 mg IH Q8H PRN PRN Reason: ASTHMA Montelukast Sodium (Singulair -) 10 mg PO [facility] Last Admin: 03/03/18 23:06 Dose: 10 mg Nystatin (Nystatin Oral Suspension -) 500,000 units PO Q6HPO [facility] Last Admin: 03/04/18 05:27 Dose: 500,000 units Ondansetron HCl (Zofran Odt -) 8 mg SL Q12H PRN PRN Reason: NAUSEA AND/OR VOMITING Last Admin: 03/03/18 15:30 Dose: 8 mg Ondansetron HCl (Zofran Injection) 4 mg IVPUSH Q6H PRN PRN Reason: NAUSEA AND/OR VOMITING Last Admin: 03/03/18 01:43 Dose: 4 mg Polyethylene Glycol (Miralax (For Daily Use) -) 17 gm PO BID [facility] Last Admin: 03/04/18 11:25 Dose: 17 gm Quetiapine Fumarate (Seroquel -) 25 mg PO HS [facility] Last Admin: 03/03/18 23:06 Dose: 25 mg Ranitidine HCl (Zantac -) 300 mg PO DAILY [facility] Last Admin: 03/04/18 11:26 Dose: 300 mg Senna (Senna -) 1 tab PO BID [facility] Last Admin: 03/04/18 11:26 Dose: 1 tab Tapentadol (Nucynta -) 75 mg PO Q6H PRN PRN Reason: PAIN LEVEL 6-10 Last Admin: 03/03/18 15:51 Dose: 75 mg Tramadol HCl (Ultram -) 50 mg PO Q8H PRN PRN Reason: PAIN LEVEL 4 - 6 Last Admin: 03/03/18 23:29 Dose: 50 mg Venlafaxine HCl (Effexor Xr -) 75 mg PO DAILY [facility] Last Admin: 03/04/18 11:26 Dose: 75 mg Zolpidem Tartrate (Ambien -) 10 mg PO HS PRN PRN Reason: INSOMNIA Last Admin: 03/03/18 23:05 Dose: 10 mg A/P Acute Asthma Exacerbation GERD - can change steroids to PO prednisone and taper as outpt - inhaled bronchodilators standing and PRN - singulair - monitor peak flow - DVT prophylaxis - outpt PFTs, allergy, IgE level and RAST testing
[2018-03-04] MEDS ORDERED: BISACODYL 10 MG SUPP.RECT RC ONE (11:52)
--- NOTE | 2018-03-04 12:30 | DS ---
Physical Examination Vital Signs: Vital Signs Temperature 98.3 F 03/04/18 06:00 Pulse Rate 98 H 03/04/18 06:00 Respiratory Rate 20 03/04/18 06:00 Blood Pressure 117/70 03/04/18 06:00 O2 Sat by Pulse Oximetry (%) 99 03/04/18 09:00 Constitutional: Yes: Well Nourished, No Distress, Anxious Cardiovascular: Yes: WNL, Regular Rate and Rhythm. No: Murmur Respiratory: Yes: WNL, Regular, CTA Bilaterally. No: SOB, Tachypnea, Wheezes Gastrointestinal: Yes: WNL, Normal Bowel Sounds, Soft, Abdomen, Obese. No: Distention, Tenderness Renal/: Yes: WNL Extremities: Yes: WNL Edema: No Integumentary: Yes: WNL Neurological: Yes: WNL, Alert, Oriented Psychiatric: Yes: WNL, Alert, Oriented Labs: CBC, BMP 03/02/18 06:30 03/02/18 06:30 Discharge Summary Reason For Visit: EXACERBATION OF ASTHMA; FAILURE OUT-PT TREATMENT Current Active Problems Anemia (Acute) Anxiety (Acute) Asthma exacerbation (Acute) Confusion (Acute) Constipation (Acute) DVT prophylaxis (Acute) Depression (Acute) Failure of outpatient treatment (Acute) GERD (gastroesophageal reflux disease) (Acute) Sinus tachycardia (Acute) Thrush (Acute) Hospital Course: 37 year old female pmh significant for anxiety, chronic pain, asthma admitted for asthma exacerbation. Pt failed outpt management which included po steroids and antibx. Pt has been evaluated by pulmonary. Pt required iv steroids and nebs during her stay. Steroids were increased over the course for better air movement through lungs. Her lung exam has significantly improved and pt has been transitioned to po prednisone. Satting high 90s on RA.Peak flow improved. Due to pt's anxiety, her subjective complaint of sob is very unreliable. Pt and her complained of episodic confusion episodes at home and at the hospital, HEAD CT negative, pt has been evaluated by neurology, cleared for discharge. suspect 2/2 medications. Pt's tachycardia and chest pain evaluated by cardiology here. all cardiac work up including echo negative. suspect anxiety provoked. Pt is medically stable for discharge home. Pt cleared by pulm, neuro, and cardiology. Discharge plan discussed with pt, , and PCP. Advise outpt follow up as directed. 45 minutes spent in discharge planning Condition: Improved - Instructions Diet, Activity, Other Instructions: activity/diet as tolerated nebs prn prednisone taper as directed- take 70mg x 2 more days then decrease by 10mg every 3 days f/u as directed Referrals: Kostas Benoit MD [Staff Physician] - 2 Weeks Meagan Richardson MD [Staff Physician] - 1 Month Tahir Kirk MD [Primary Care Provider] - 1 Week Disposition: HOME - Home Medications Comprehensive Discharge Medication List: Ambulatory Orders Quetiapine Fumarate [Seroquel -] 25 mg PO HS 03/10/12 Ranitidine HCl [Zantac] 300 mg PO DAILY 05/05/16 Diazepam [Valium] 2 mg PO HS PRN MDD 6mg 03/25/17 Tapentadol Hydrochloride [Nucynta -] 50 mg PO Q6H PRN #30 tab MDD 200mg traMADol HCL [Ultram -] 50 mg PO Q8H #30 tablet MDD 4 06/03/17 Ondansetron [Zofran *Odt*] 8 mg SL BID #14 od.tablet 11/10/17 Venlafaxine HCl ER [Effexor Xr -] 75 mg PO DAILY 02/22/18 Zolpidem Tartrate [Ambien] 10 mg PO ASDIR 02/22/18 Docusate Sodium [Colace -] 100 mg PO BID #30 capsule 03/04/18 Ipratropium 0.02% Nebulizer [Atrovent 0.02% Nebulizer -] 1 amp NEB RQID PRN #20 amp 03/04/18 Levalbuterol HCl [Xopenex] 0.63 mg IH Q8H PRN #14 vial.neb. 03/04/18 Montelukast Na [Singulair -] 10 mg PO HS #30 tablet 03/04/18 Nystatin Oral Suspension - [Nystatin Oral Susp 147537 Units/5 ML -] 500,000 units PO Q6HPO 13 Days #52 cup 03/04/18 Prednisone 70 mg PO DAILY #80 tab.ds.pk 03/04/18
== END 2018-03-04 14:46 | disposition home or self-care (01) | DRG 141 ==
LOC: JER 14:36 → JERBED 18:30 → J5S 23:27 → OBSVTOIN 02-23 14:01 → J5S 02-25 13:25
PROVIDERS: ADMIT Internal Medicine; ATTEND Internal Medicine
DX: J45.901 Unspecified asthma with (acute) exacerbation (principal); J06.9 Acute upper respiratory infection, unspecified; D64.9 Anemia, unspecified; K21.9 Gastro-esophageal reflux disease without esophagitis; Z87.891 Personal history of nicotine dependence; Z86.73 Personal history of transient ischemic attack (TIA), and cerebral infarction without residual deficits; F32.9 Major depressive disorder, single episode, unspecified; R00.0 Tachycardia, unspecified; F41.9 Anxiety disorder, unspecified; K59.00 Constipation, unspecified; B37.0 Candidal stomatitis
CPT/HCPCS: 36415; 70450-TC; 71046-TC-FY; 80048; 80053; 81003; 81015; 84703; 85025; 93005; 93010; 93306-TC; 94150; 94640; 97116-GP; 99285-25; G0378; Q0162

== ENCOUNTER 2019-01-04 14:32 | Emergency (ER) | payer OTHER | END 2019-01-04 16:30 | disposition home or self-care (01) | LOC: JERFT 14:32 ==

== ENCOUNTER 2020-07-05 17:20 | Emergency (ER) | payer OTHER ==
[2020-07-05 18:01] VITALS: BMI 25.0
[2020-07-05] MEDS ORDERED: KETOROLAC TROMETHAMINE 15 MG/ML VIAL IVPUSH ONE (19:04)
[2020-07-05] MEDS ORDERED: SODIUM CHLORIDE 0.9% 500 ML INFUS.BAG IV ONE (19:04)
[2020-07-05] MEDS ORDERED: DEXAMETHASONE SOD PHOSPHATE 10 MG/1 ML VIAL IVPUSH ONE (19:04)
[2020-07-05] MEDS ORDERED: DEXAMETHASONE SOD PHOSPHATE 4 MG/1 ML VIAL ONE (19:19)
[2020-07-05] MEDS ORDERED: KETOROLAC TROMETHAMINE 15 MG/ML VIAL ONE (19:20)
[2020-07-05 20:13] LABS: BASO % 0.5 % (0-2.0); EOS % 1.6 % (0-4.5); HEMATOCRIT 38.9 % (32.4-45.2); HEMOGLOBIN 13.1 GM/dL (10.7-15.3); LYMPH % 17.9 % (8-40); MCH 29.4 pg (25.7-33.7); MCHC 33.7 g/dl (32.0-36.0); MEAN CELL VOLUME 87.3 fl (80-96); MEAN PLT VOLUME 7.7 fl (7.5-11.1); MONO % 4.7 % (3.8-10.2); NEUT % 75.3 % (42.8-82.8); PLATELET COUNT 344 K/MM3 (134-434); RBC 4.45 M/mm3 (3.60-5.2); RDW 13.5 % (11.6-15.6); WHITE BLOOD COUNT 11.7 K/mm3 (4.0-10.0)
[2020-07-05 20:27] LABS: INR 1.03 (0.83-1.09); PROTHROMBIN TIME (PATIENT) 12.4 SEC (9.7-13.0)
[2020-07-05 20:29] LABS: ACTIVATED PTT 35.6 SECONDS (25.2-36.5)
[2020-07-05 20:35] LABS: POTASSIUM 4.2 mmol/L (3.5-5.1)
[2020-07-05 20:37] LABS: CALCIUM 8.9 mg/dL (8.5-10.1)
[2020-07-05 20:38] LABS: ALBUMIN 3.8 g/dl (3.4-5.0); BLOOD UREA NITROGEN 5.7 mg/dL (7-18)
[2020-07-05 20:41] LABS: CREATININE 0.5 mg/dL (0.55-1.3)
[2020-07-05 20:42] LABS: BILIRUBIN,TOTAL 0.6 mg/dL (0.2-1); TOT PROT 7.4 g/dl (6.4-8.2)
[2020-07-05 23:10] VITALS: BP 118/74; PULSE 93; TEMP 98.3
== END 2020-07-05 23:10 | disposition home or self-care (01) ==
LOC: JER 17:20
PROC: 3E033GC Introduction of Other Therapeutic Substance into Peripheral Vein, Percutaneous Approach (ICD-10-PCS; principal; 2020-07-05)
PROC: 3E0333Z Introduction of Anti-inflammatory into Peripheral Vein, Percutaneous Approach (ICD-10-PCS; 2020-07-05)
DX: R59.9 Enlarged lymph nodes, unspecified (principal); J02.9 Acute pharyngitis, unspecified
CPT/HCPCS: 36415; 70490-TC; 71045-TC-FY; 80053; 85025; 85610; 85730; 87070; 87804; 87880; 99285-25; C9803; J1100; U0003